=== PATIENT | male | born 1940 | race Caucasian/White ===

== ENCOUNTER 2023-12-30 10:25 | Inpatient (IN) | payer MEDICARE, BC, SELFPAY ==
[2023-12-30] VITALS (12 sets, daily range): BP systolic 91–143; BP diastolic 48–85; PULSE 102–142; RESP 16–24; TEMP 36.3–37.2; O2SAT 88–96; BMI 29.7; BMI 31.1
[2023-12-30] MEDS: 0.9% Normal Saline (1000mL) 1,000 ML 999 ML IV ×2 (10:30→11:38)
--- NOTE | 2023-12-30 10:48 | EKG12_ITS ---
Test Reason : WEAKNESS Blood Pressure : / mmHG Vent. Rate : 104 BPM Atrial Rate : 267 BPM P-R Int : 000 ms QRS Dur : 078 ms QT Int : 326 ms P-R-T Axes : 000 -09 081 degrees QTc Int : 428 ms Atrial flutter with variable A-V block Inferior infarct , age undetermined Anteroseptal infarct , age undetermined Abnormal ECG Confirmed by HEATHER RAI MD ([id number]), assistant production editor AVELINA OLSON ([id number]) on 01/01/2024 7:57:49 AM Referred By: Confirmed By:HEATHER RAI MD
--- NOTE | 2023-12-30 10:57 | NURSING ---
NO OLD EKGS
[2023-12-30 11:32] LABS: Absolute Lymphocyte Count 0.36 X10^3/uL (0.83-4.51); Absolute Neutrophil Count 16.3 X10^3/uL (2.0-7.7); Basophil# 0.03 X10^3/uL; Basophil% 0.2 % (0-1); Eosinophil# 0.01 X10^3/uL; Eosinophils% 0.1 % (0-5); Hematocrit 30.2 % (40-54); Hemoglobin 9.9 g/dL (13.0-16.5); Lymphocyte # 0.36 X10^3/ul (0.83-4.51); Mean Corp Hgb Conc 32.8 g/dL (32-36); Mean Corpuscular Hgb 30.2 pg (27.0-32.0); Mean Corpuscular Volume 92.1 fL (80-94); Mean Platelet Vol. 10.7 fl (6.2-12.0); Monocyte# 0.74 X10^3/uL; Monocyte% 4.2 % (0-10); NRBC Flagged by Analyzer 0 % (0-5); Neutrophil # 16.31 X10^3/uL (2.7-7.7); Neutrophil % 92.3 % (47-70); POSITIVE DIFFERENTIAL YES; Platelet Count 180 K/mm3 (150-450); RBC Distribution Width CV 14.3 % (11.6-14.6); RBC Distribution Width SD 48.3 fl (35.1-43.9); Red Blood Count 3.28 M/mm3 (4.6-6.2); White Blood Count 17.7 K/mm3 (4.4-11.0)
--- NOTE | 2023-12-30 11:40 | RAD_ITS ---
STUDY: X-RAY CHEST REASON FOR EXAM: Male, 83 years old. Weakness TECHNIQUE: Single AP portable view of the chest. COMPARISON: None. FINDINGS: EKG electrodes are seen. Increased linear markings are seen at the left lung base suggestive of either linear atelectasis and/or early infiltrate. There is no demonstrated pleural abnormality. Sternal cerclage wires are present from a prior sternotomy. Prior aortic valve replacement. Normal mediastinum and kiesha. Normal visualized pulmonary arteries. There is atherosclerotic calcification of the aortic arch with tortuosity. There are diffuse degenerative changes of the visualized thoracic spine. There is degenerative osteoarthritis of the bilateral shoulders. There is no demonstrated abnormality of the visualized soft tissue structures of the upper abdomen. RAD/Chest 1 View (Portable) IMPRESSION: Mild increased markings at the left lung base suggestive of bibasilar linear atelectasis and/or early infiltrate. Electronically Signed: Conner Gerber MD at 12:13 EDT ,
[2023-12-30 11:41] LABS: International Normalized Ratio 1.3; Partial Thromboplast Time 34.4 Seconds (24.1-36.2); Prothrombin Time (Protime)PT. 16.4 SECONDS (11.7-14.9)
[2023-12-30 11:46] LABS: Mucous, Urine 0 SEEN /hpf (<or=2+); Squamous Epithelial Cells - UA 0 SEEN /hpf (0-5)
[2023-12-30 11:51] LABS: Color, Urine Yellow (Yellow); Glucose, Dipstick Normal (Normal); Ketone-Dipstick Negative (Negative); Leukocyte Esterase-Dipstick 100 /ul (Negative); Nitrite-Dipstick Negative (Negative); Occult Blood-Urine 25 /ul (Negative); Protein-Dipstick 30 mg/dl (Negative); Urine Clarity Clear (Clear); Urine Urobilinogen Normal (Normal)
[2023-12-30 11:52] LABS: Urine Bilirubin Dipstick 1 mg/dL (Negative)
[2023-12-30 11:56] LABS: AST(SGOT) 84 U/L (15-37); Alanine Aminotransfer ALT/SGPT 122 U/L (16-61); Albumin, Serum 2.3 g/dL (3.2-5.0); Alkaline Phosphatase 197 U/L (45-117); Anion Gap 11 (5-15); BUN 102 mg/dL (7-18); BUN/Creat Ratio 27.3 RATIO (10-20); Bilirubin, Direct 0.17 mg/dL (0.00-0.30); Calcium,Total 8.3 mg/dL (8.5-10.1); Chloride 95 mmol/L (98-107); Creatinine, Serum 3.74 mg/dL (0.70-1.30); EST Glomerular Filtration Rate 17 mL/min (>60); Est Glom Filt Rate - Afr Amer 20 mL/min (>60); Estimated Creatinine Clearance 17.83 ml/min; Glucose 270 mg/dL (74-106); Lactic Acid 1.1 mmol/L (0.4-1.9); Magnesium 2.1 mg/dL (1.6-2.6); Potassium 4.4 mmol/L (3.5-5.1); Protein, Total 5.3 g/dL (6.4-8.2); Sodium Level 125 mmol/L (136-145)
[2023-12-30 11:57] LABS: Bacteria 1+ /hpf (None Seen)
[2023-12-30 11:58] LABS: Red Blood Cells-Urine 0-5 SEEN /hpf (0-5); White Blood Cells 10-25 SEEN /hpf (0-5)
[2023-12-30] MEDS: Piperacil/Tazobactam 3.375 GM in 0.9% Normal Saline (50mL MB+) 50 ML IV ×2 (11:58→20:42)
[2023-12-30] MEDS: Vancomycin HCl 1,500 MG in 0.9% Normal Saline (500mL Bag) 500 ML 250 MG IV (12:27)
--- NOTE | 2023-12-30 12:35 | CT_ITS ---
STUDY: CT ABDOMEN AND PELVIS WITHOUT CONTRAST REASON FOR EXAM: Male, 83 years old. Abd pain RADIATION DOSAGE (If Supplied By Facility): CTDIvol = ( 15.60 ) mGy, DLP = ( 888.60 ) mGycm TECHNIQUE: Transaxial images were obtained from the dome of the diaphragm to the symphysis pubis without oral contrast, and without intravenous contrast. Sagittal and coronal images were reconstructed. Individualized dose optimization techniques were used for this CT. COMPARISON: None. FINDINGS: Mild degree of increased markings at the lung bases slightly more prominent than left lung base. This may represent either atelectasis and/or scarring. Aortic valve replacement. Coronary artery calcification. Normal liver. Small amount of sludge is seen in the dependent portion of the gallbladder lumen. Normal spleen. There is diffuse atrophy of the pancreas. Normal bilateral adrenal glands. Nonobstructive right intrarenal calculus. The largest calculus is in the lower pole and measures 5.1 mm. Mild degree of right hydronephrosis although no obstructive uropathy is seen. There is evidence of a nonobstructed calyx in the lower pole calyx of the left kidney. This measures 9 mm. Normal visualized stomach. Normal small intestine. There are multiple colonic diverticula consistent with diverticulosis. The appendix is visualized and appears normal. There is diffuse atherosclerotic calcification of the abdominal aorta and its major visceral branches, without a demonstrated aneurysm. Normal inferior vena cava. Normal retroperitoneum. A Gillespie catheter is seen within a decompressed urinary bladder. Mild enlargement of the prostate. Normal abdominal wall. There are diffuse degenerative changes of the visualized lumbar spine. Prior interpedicular screw fixation at the L2-L3 and L3-L4 levels. CT/Abdomen/Pelvis without Cont IMPRESSION: Sigmoid diverticulosis. Bilateral nonobstructive intrarenal calculi. Mild degree of right hydronephrosis although no evidence of obstruction at this time. Findings suggestive of sludge in the gallbladder lumen. Electronically Signed: Conner Gerber MD at 13:03 EDT ,
[2023-12-30] MEDS: Ondansetron 4 MG/2 ML Vial IV ×3 (13:28→21:23)
[2023-12-30] MEDS: fentaNYL 100 MCG/2 ML Ampul 25 MCG IV (13:28)
--- NOTE | 2023-12-30 13:31 | EDS_ITS ---
HPI History of Present Illness Chief Complaint: Weakness Informant: patient and family Narrative Narrative: Patient is a 83-year-old male with past medical history of hypertension hyperlipidemia and coronary artery disease as well as a flutter currently on Eliquis and Plavix. He states that he saw his family doctor roughly 1 week ago secondary to difficulty and pain with urination and was placed on Bactrim secondary to a UTI. He states he has been taking it as directed but despite doing so has been having increased generalized weakness. Therefore with concern for worsening infection despite antibiotic use he comes in for evaluation [facility] Medical History (Updated 12/30/23 @ 14:[address] Harley Dillon, DO) Diabetes mellitus, type 2 Hyperlipidemia HTN (hypertension) Atrial flutter Home Medications ?Medication ?Instructions ?Recorded ?Last Taken ?Type apixaban 2.5 mg tablet (Eliquis) 2.5 mg PO BID 12/30/23 Unknown History clopidogrel 75 mg tablet 75 mg PO DAILY 12/30/23 Unknown History losartan 100 mg tablet 100 mg PO DAILY 12/30/23 Unknown History metformin 500 mg tablet 500 mg PO BID 12/30/23 Unknown History metformin 850 mg tablet 850 mg PO BID 12/30/23 Unknown History metoprolol succinate 25 mg 25 mg PO DAILY 12/30/23 Unknown History tablet,extended release 24 hr rosuvastatin 20 mg tablet 20 mg PO DAILY 12/30/23 Unknown History sulfamethoxazole 800 1 tab PO BID 12/30/23 Unknown History mg-trimethoprim 160 mg tablet tramadol 50 mg tablet 50 mg PO 12/30/23 Unknown History Allergy/AdvReac Type Severity Reaction Status Date / Time No Known Allergies Allergy Verified 12/30/23 10:26 Surgical History (Updated 12/30/23 @ 14:[address] Cuong Tucker MD) 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 Social History Smoking Status: Never smoker [facility] ED Constitutional Constitutional ED: Denies chills or fever(s) Eyes Eyes: Denies blurry vision or change in vision ENT ENT ED: Denies sore throat Cardiovascular Cardiovascular: Reports racing heartbeat; Denies chest pain Respiratory/Chest Respiratory/Chest: Denies cough or dyspnea Gastrointestinal Gastrointestinal: Reports abdominal pain; Denies diarrhea, nausea or vomiting Genitourinary Genitourinary ED: Reports dysuria Musculoskeletal Musculoskeletal: Reports myalgias Integumentary Denies rash Neurologic Neurologic: Reports weakness; Denies headache(s) Hematologic/Lymphatic Hematologic/Lymphatic: Reports easy bleeding and easy bruising EXAM Physical Exam Const Vital Signs: 12/30/23 10:26 12/30/23 10:33 12/30/23 10:34 Temperature 98.1 F 98.1 F Temperature Source Oral Oral Pulse Rate 133 H 107 H Respiratory Rate 20 H 18 Respiratory Effort Normal Respiratory Pattern Normal Blood Pressure 91/57 L 92/48 L Blood Pressure Mean 68 62 Pulse Ox 96 96 Oxygen Delivery Method Room Air 12/30/23 11:30 12/30/23 12:25 Temperature 98.2 F Temperature Source Oral Pulse Rate 102 H 113 H Respiratory Rate 24 H 21 H Respiratory Effort Respiratory Pattern Blood Pressure 109/51 L 109/55 L Blood Pressure Mean 70 73 Pulse Ox 95 96 Oxygen Delivery Method Room Air Positive well nourished and well developed General Appearance ED: well developed and pallor HEENT Reports dry mucous membranes HEENT Narrative: No tongue or lip swelling no oral lesions no airway edema or compromise Mucous membranes are dry intact Mouth ED: Yes dry mucous membranes Mouth: dry mucous membranes Eyes PERRL and EOMs intact bilaterally General Eye ED: Yes pale conjunctiva; Negative for scleral icterus Neck supple Neck Narrative: No nuchal rigidity or meningeal signs noted Resp clear to auscultation bilaterally Resp Narrative: Breath sounds are diminished throughout but overall clear to auscultation. Patient is tachypneic however no nasal flaring retractions or accessory muscle use Cardio Rate: other Other Details: Irregular rhythm with tachycardic rate consistent with history of atrial flutter GI non-distended and no masses GI Narrative: Abdomen is soft and nondistended with normal active bowel sounds. There is mild pain with palpation in the lower abdomen diffusely without voluntary guarding or rigidity. No pulsatile mass or fluid wave. No organomegaly noted Auscultation: normoactive bowel sounds Palpation: soft Narrative: No active bleeding or external hemorrhoid noted. Rectal tone is normal. No internal masses palpated. Stool is brown in color but Hemoccult positive Extremity Extremity Narrative: +1-2 pitting edema to the bilateral lower extremities Neuro oriented x3, CN's II-XII intact bilaterally and no sensory deficits noted Sensorium / Orientation: alert Psych mental status grossly normal Skin no rashes or lesions noted Skin Narrative: Skin is pale in color Skin turgor is increased as well General Skin Exam: pallor; Negative for jaundice MDM MDM MDM Narrative Medical decision making narrative: Patient arrived to the ER tachycardic and hypotensive. He reported that he has been on antibiotics for UTI and with his change in vitals and worsening of symptoms there is concern for sepsis. He is pale in color as well and there is concern for acute blood loss anemia/GI bleed as he is on anticoagulation. With high likelihood of sepsis causing his hypotension tachycardia and weakness he wa s started on IV fluids as well as vancomycin and Zosyn. He was given 3 L of IV fluid which is his 30 mL/kg fluid bolus. With adequate hydration his blood pressure improved. His hemoglobin was 9.9 and even though rectal exam was positive for microscopic blood there is no need for a blood transfusion at this time. The patient's labs correlate with sepsis as his white count is 17.7 with left shift as neutrophil count is elevated at 16.3. Patient also has acute kidney injury with his creatinine at approximate 3.75 as chart review reveals that his previous creatinine in October of this year was 1.2. With concern for an obstructing stone leading to urosepsis and CARMEN and noncontrast CT was obtained. This revealed mild hydronephrosis without obvious signs of obstruction. The case was discussed with urology on-call Dr. Sparrow who reviewed the CT scan and corroborates with the radiologist that there is no obvious signs of obstruction and therefore no need for him to perform any type of emergent intervention. The case was then discussed with the hospitalist who agrees with the patient's sepsis and plan of care at this time. As he is not requiring IV vasopressors he will go to the PCU and not ICU and continue with antibiotic therapy and hydration while his vitals and kidney functions are monitored History & Record Review Discussion w/independent historian: Patient and Family Lab Data Attestation: I reviewed the patient's lab results. Labs: Laboratory Results - last 24 hr 12/30/23 12/30/23 11:16 11:30 WBC 17.7 H RBC 3.28 L Hgb 9.9 L Hct 30.2 L MCV 92.1 MCH 30.2 MCHC 32.8 RDW Std Deviation 48.3 H RDW Coeff of Gavin 14.3 Plt Count 180 MPV 10.7 Immature Gran % (Auto) 1.200 H Neut % (Auto) 92.3 H Lymph % (Auto) 2.0 L [place] % (Auto) 4.2 Eos % (Auto) 0.1 Baso % (Auto) 0.2 Absolute Neuts (auto) 16.3 H Absolute Lymphs (auto) 0.36 L Nucleated RBC % 0 PT 16.4 H INR 1.3 APTT 34.4 Sodium 125 L Potassium 4.4 Chloride 95 L Carbon Dioxide 19.0 L Anion Gap 11 BUN 102 H* Creatinine 3.74 H Estim Creat Clear Calc 17.83 Est GFR (MDRD) Af Amer 20 L Est GFR (MDRD) Non-Af 17 L BUN/Creatinine Ratio 27.3 H Glucose 270 H Lactic Acid 1.1 Calcium 8.3 L Magnesium 2.1 Total Bilirubin 0.30 Direct Bilirubin 0.17 AST 84 H ALT 122 H Alkaline Phosphatase 197 H Total Protein 5.3 L Albumin 2.3 L Globulin 3.0 Urine Color Yellow Urine Clarity Clear Urine pH 5.0 Ur Specific [place] 1.020 Urine Protein 30 H Urine Glucose (UA) Normal Urine Ketones Negative Urine Occult Blood 25 H Urine Nitrite Negative Urine Bilirubin 1 H Urine Urobilinogen Normal Ur Leukocyte Esterase 100 H Urine RBC 0-5 SEEN Urine WBC 10-25 SEEN Ur Squamous Epith Cells 0 SEEN Urine Bacteria 1+ Urine Mucus 0 SEEN Blood Type O POSITIVE Antibody Screen NEGATIVE Radiography Diagnostic Testing: Clinical Impression(s) from Imaging Studies Chest X-Ray 12/30/23 11:40 IMPRESSION: Mild increased markings at the left lung base suggestive of bibasilar linear atelectasis and/or early infiltrate. Electronically Signed: Conner Gerber MD at 12:13 EDT , Abdomen/Pelvis CT 12/30/23 12:35 IMPRESSION: Sigmoid diverticulosis. Bilateral nonobstructive intrarenal calculi. Mild degree of right hydronephrosis although no evidence of obstruction at this time. Findings suggestive of sludge in the gallbladder lumen. Electronically Signed: Conner Gerber MD at 13:03 EDT , Chest x-ray as interpreted by the emergency medicine physician reveals atelectasis along the bilateral lower lobes slightly greatest on the left without acute infiltrate Critical Care Time Critical Care Time: Yes Critical care time (excluding procedures): Discussing w/Patient &/or Family/Ditch Tender, Discussing w/Consultants, Arranging Admission or Transfer and - (Critical care time of 37 minutes) Discharge Plan Dx/Rx/DC Orders Clinical Impression: UTI (urinary tract infection), Sepsis, Acute kidney injury, Current use of terminal supervisor anticoagulation, Atrial flutter, GI (gastrointestinal bleed) Disposition Disposition: Acute Care Hospital [facility] Discharge Date/Time: 12/30/23 14:12
--- NOTE | 2023-12-30 14:13 | PCM.HP.STD ---
HPI - General General Date of Admission: 12/30/23 HPI Narrative KIRBY AMAYA, is a 83 M who presents to the hospital after several days of not feeling well. On Thursday of last week he saw his PCP and was diagnosed with a UTI so was started on Bactrim. The urine culture ultimately showed probable contamination. He started to feel much worse on around Thursday but was hoping that it would go away, he has some nausea but no vomiting but his p.o. intake has declined over the last couple days. He presents today because of continued worsening in his symptoms and he feels weak and debilitated. His daughter noted that he is also a little bit more pale than usual. In the ER CT scan shows mild hydronephrosis on the right but nothing significant that would require intervention, he has a new onset renal failure to 3.74 that is likely due to combination of dehydration as well as the Bactrim since he is 83 years old and a BUN of 102. In October his creatinine of 1.2. He is Hemoccult positive and he is on Plavix and Eliquis for A-fib and hemoglobin today is 9.9 which is about a gram lower than it was in October. He is tachypneic with leukocytosis and his UA does show 100 leukocyte esterase with 10-25 white blood cells and 1+ urine bacteria. [facility] Medical History Diabetes mellitus, type 2 Hyperlipidemia HTN (hypertension) Atrial flutter Home Medications ?Medication ?Instructions ?Recorded ?Last Taken ?Type apixaban 2.5 mg tablet (Eliquis) 2.5 mg PO BID 12/30/23 Unknown History clopidogrel 75 mg tablet 75 mg PO DAILY 12/30/23 Unknown History losartan 100 mg tablet 100 mg PO DAILY 12/30/23 Unknown History metformin 500 mg tablet 500 mg PO BID 12/30/23 Unknown History metformin 850 mg tablet 850 mg PO BID 12/30/23 Unknown History metoprolol succinate 25 mg 25 mg PO DAILY 12/30/23 Unknown History tablet,extended release 24 hr rosuvastatin 20 mg tablet 20 mg PO DAILY 12/30/23 Unknown History sulfamethoxazole 800 1 tab PO BID 12/30/23 Unknown History mg-trimethoprim 160 mg tablet tramadol 50 mg tablet 50 mg PO 12/30/23 Unknown History Allergy/AdvReac Type Severity Reaction Status Date / Time No Known Allergies Allergy Verified 12/30/23 10:26 Surgical History 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 Social History Smoking Status: Never smoker ROS Constitutional Constitutional: Reports fatigue, malaise and weakness; Denies chills or fever(s) Eyes Eyes: Denies blurry vision ENT HEENT: Denies headache(s) or nasal discharge Cardiovascular Cardiovascular: Denies chest pain, dyspnea on exertion or syncope Respiratory/Chest Respiratory/Chest: Denies cough, shortness of breath at rest or shortness of breath with exertion Gastrointestinal Gastrointestinal: Reports nausea; Denies constipation, diarrhea or vomiting Genitourinary Genitourinary: Denies dysuria Neurologic Neurologic: Denies focal weakness, numbness or tremor(s) Psychiatric Psychiatric: Denies anxiety or depression Vital Signs Vital Signs Vital Signs: 12/30/23 10:26 12/30/23 10:33 12/30/23 10:34 Temperature 98.1 F 98.1 F Temperature Source Oral Oral Pulse Rate 133 H 107 H Respiratory Rate 20 H 18 Respiratory Effort Normal Respiratory Pattern Normal Blood Pressure 91/57 L 92/48 L Blood Pressure Mean 68 62 Pulse Ox 96 96 Oxygen Delivery Method Room Air 12/30/23 11:30 12/30/23 12:25 12/30/23 14:04 Temperature 98.2 F 97.4 F L Temperature Source Oral Pulse Rate 102 H 113 H 137 H Respiratory Rate 24 H 21 H 24 H Respiratory Effort Respiratory Pattern Blood Pressure 109/51 L 109/55 L 130/85 H Blood Pressure Mean 70 73 100 Pulse Ox 95 96 96 Oxygen Delivery Method Room Air Weight Weight: 207 lb Body Mass Index (BMI) 29.7 Physical Exam Narrative General: Alert, Oriented x3, Cooperative, No apparent distress HEENT: Atraumatic, PERRLA, EOMI, Normocephalic Oral: Dry mucosa Neck: Supple, No JVD Lungs: Diminished, Normal air movement, No rhonchi, No wheeze, No rales Cardiovascular: Irregular rate and rhythm, Normal S1, Normal S2, No murmurs Abdomen: Soft, Non Tender, Non-Distended, No Hepato-splenomegaly Extremities: No edema, Capillary Refill Less than 3 Seconds Skin: No rashes, No breakdown Musculoskeletal: No Tenderness to Palpation of Joints or Extremities Neurological: No focal neurological deficits, Motor Exam 5/5 strength throughout, Sensory exam intact to light touch and pain Psych/Mental Status: Normal Affect, Appropriate Results Lab / Micro Data 12/30/23 11:16 12/30/23 11:16 Labs: Laboratory Results - last 24 hr 12/30/23 11:16: WBC 17.7 H, RBC 3.28 L, Hgb 9.9 L, Hct 30.2 L, MCV 92.1, MCH 30.2, MCHC 32.8, RDW Std Deviation 48.3 H, RDW Coeff of Gavin 14.3, Plt Count 180, MPV 10.7, Immature Gran % (Auto) 1.200 H, Neut % (Auto) 92.3 H, Lymph % (Auto) 2.0 L, [place] % (Auto) 4.2, Eos % (Auto) 0.1, Baso % (Auto) 0.2, Absolute Neuts (auto) 16.3 H, Absolute Lymphs (auto) 0.36 L, Nucleated RBC % 0, PT 16.4 H, INR 1.3, APTT 34.4, Sodium 125 L, Potassium 4.4, Chloride 95 L, Carbon Dioxide 19.0 L, Anion Gap 11, BUN 102 H*, Creatinine 3.74 H, Estim Creat Clear Calc 17.83, Est GFR (MDRD) Af Amer 20 L, Est GFR (MDRD) Non-Af 17 L, BUN/Creatinine Ratio 27.3 H, Glucose 270 H, Lactic Acid 1.1, Calcium 8.3 L, Magnesium 2.1, Total Bilirubin 0.30, Direct Bilirubin 0.17, AST 84 H, ALT 122 H, Alkaline Phosphatase 197 H, Total Protein 5.3 L, Albumin 2.3 L, Globulin 3.0, Blood Type O POSITIVE, Antibody Screen NEGATIVE 12/30/23 11:30: Urine Color Yellow, Urine Clarity Clear, Urine pH 5.0, Ur Specific [place] 1.020, Urine Protein 30 H, Urine Glucose (UA) Normal, Urine Ketones Negative, Urine Occult Blood 25 H, Urine Nitrite Negative, Urine Bilirubin 1 H, Urine Urobilinogen Normal, Ur Leukocyte Esterase 100 H, Urine RBC 0-5 SEEN, Urine WBC 10-25 SEEN, Ur Squamous Epith Cells 0 SEEN, Urine Bacteria 1+, Urine Mucus 0 SEEN Micro: Microbiology 12/30/23 13:15 Stool Stool Occult Blood (SANDY) - Final Occult Blood Positive 12/30/23 11:20 Mucosa - Nasopharyngeal SARS-CoV-2, Influenza & RSV (PCR) - Final Imaging Radiology Impression Chest X-Ray 12/30/23 11:40 IMPRESSION: Mild increased markings at the left lung base suggestive of bibasilar linear atelectasis and/or early infiltrate. Electronically Signed: Conner Gerber MD at 12:13 EDT , Abdomen/Pelvis CT 12/30/23 12:35 IMPRESSION: Sigmoid diverticulosis. Bilateral nonobstructive intrarenal calculi. Mild degree of right hydronephrosis although no evidence of obstruction at this time. Findings suggestive of sludge in the gallbladder lumen. Electronically Signed: Conner Gerber MD at 13:03 EDT , Assessment & Plan Assessment/Plan (1) Sepsis: (2) UTI (urinary tract infection): PLAN: Plan 1. Sepsis secondary to UTI with CARMEN ? He does meet SIRS criteria with tachypnea, white blood cell count, and tachycardia with the source of infection being his urine ? Continue with Zosyn ? Continue with IV fluids and hold any nephrotoxic agents ? Repeat BMP in the morning ? Urine cultures and blood cultures are pending ? No intervention per urology is necessary at this time based on the CT scan findings ? CARMEN is likely due to combination of dehydration and Bactrim 2. Essential HTN/HLD/A-fib?flutter/history of valve replacement/CAD status post CABG ? Will hold his losartan secondary to his CARMEN ? Will hold his Eliquis and his Plavix secondary to his Hemoccult being positive, if hemoglobin stays stable tomorrow can likely be restarted ? Continue with Crestor ? Monitor make adjustments as necessary 3. DM2 ? Will hold metformin ? Sliding scale insulin ? Accu-Cheks ACHS ? Will monitor make adjustments as necessary DVT: SCDs 75 minutes was spent on direct patient care, including documentation as well as chart review and collaboration with colleagues Charges/Coding Visit Charges Inpatient E&M: 63995 Init Hosp L3
[2023-12-30] MEDS: 0.9% Normal Saline (1000mL) 1,000 ML 100 ML IV (16:08)
[2023-12-30] MEDS: Metoprolol(XL)Succ 25 MG Tablet PO (18:00)
[2023-12-30] MEDS: 0.9% Saline Lock 10 ML Syringe IV ×3 (20:42→21:38)
[2023-12-30] MEDS: Digoxin 250 MCG/ML Ampul IV (20:42)
[2023-12-30] MEDS: Insulin Lispro 100 UNIT/ML INSULN.PEN SC (20:48)
[2023-12-30] MEDS: Atorvastatin Calcium 40 MG Tablet PO (20:48)
[2023-12-30 21:01] LABS: Bedside Glucose 184 mg/dL (74-106)
--- NOTE | 2023-12-30 22:06 | CT_ITS ---
EXAM: CT CHEST WITHOUT INTRAVENOUS CONTRAST CLINICAL INDICATION: posible aspiration TECHNIQUE: Helically acquired images were obtained of the chest without intravenous contrast. This CT exam was performed using one or more of the following dose reduction techniques: automated exposure control, adjustment of the mA and/or kV according to patient size, and/or use of iterative reconstruction technique. COMPARISON: CT abdomen and pelvis on the same date. FINDINGS: LUNGS AND PLEURAL SPACES: Groundglass opacities and minimal consolidative airspace disease in the left lower lobe and bandlike opacities which may be atelectasis or scarring in the right lower lobe. No definitive airways filling defects are identified. Subtle groundglass opacities in the right upper lobe. No mass. No pleural effusion or thickening. HEART: Coronary artery calcifications and/or stents. Likely status post CABG. Heart size is normal. No pericardial effusion. MEDIASTINUM: Diffuse esophageal wall thickening perhaps secondary to esophagitis. No mediastinal or hilar adenopathy. No hiatal hernia. THYROID: No significant abnormality. No thyroid lesions. BONES/JOINTS: Median sternotomy. Degenerative changes in the visualized axial and appendicular skeletal structures. Postoperative changes partially visualized in the lumbar spine. No suspicious lytic or blastic abnormality. VASCULATURE: Atherosclerosis of the aorta without evidence of aneurysm. KIDNEYS AND URETERS: Right nephrolithiasis. TUBES, LINES AND DEVICES: Transcatheter aortic valve replacement (TAVR). CT/Chest without Contrast IMPRESSION: 1. Multifocal pneumonia and some air is likely atelectasis. Although no airway filling defects are identified, this may be at least in part due to aspiration as clinically suspected. 2. Diffuse esophageal wall thickening perhaps secondary to esophagitis. Electronically Signed: Joseluis Nunez DO at 23:23 EDT ,
[2023-12-31] VITALS (10 sets, daily range): BP systolic 105–131; BP diastolic 59–73; PULSE 63–137; RESP 16–18; TEMP 36.1–36.4; O2SAT 94–98
[2023-12-31] MEDS: Menthol/Lanolin/Calamine/Znox 113 GM Tube 1 APPLIC TOPICAL ×3 (06:14→23:03)
[2023-12-31 06:25] LABS: Absolute Lymphocyte Count 0.58 X10^3/uL (0.83-4.51); Absolute Neutrophil Count 13.3 X10^3/uL (2.0-7.7); Basophil# 0.04 X10^3/uL; Basophil% 0.3 % (0-1); Eosinophil# 0.01 X10^3/uL; Eosinophils% 0.1 % (0-5); Lymphocyte # 0.58 X10^3/ul (0.83-4.51); Lymphocyte % 3.9 % (19-41); Mean Corp Hgb Conc 33.3 g/dL (32-36); Mean Corpuscular Hgb 30.3 pg (27.0-32.0); Mean Corpuscular Volume 90.9 fL (80-94); Mean Platelet Vol. 10.6 fl (6.2-12.0); Monocyte# 0.83 X10^3/uL; Monocyte% 5.5 % (0-10); NRBC Flagged by Analyzer 0.1 % (0-5); Neutrophil % 88.3 % (47-70); POSITIVE DIFFERENTIAL YES; Platelet Count 202 K/mm3 (150-450); RBC Distribution Width CV 14.3 % (11.6-14.6); RBC Distribution Width SD 47.7 fl (35.1-43.9); White Blood Count 15.1 K/mm3 (4.4-11.0)
[2023-12-31 06:31] LABS: Bedside Glucose 163 mg/dL (74-106)
[2023-12-31 06:44] LABS: Anion Gap 9 (5-15); BUN 95 mg/dL (7-18); BUN/Creat Ratio 30.9 RATIO (10-20); Calcium,Total 8.5 mg/dL (8.5-10.1); Chloride 102 mmol/L (98-107); Creatinine, Serum 3.07 mg/dL (0.70-1.30); EST Glomerular Filtration Rate 21 mL/min (>60); Est Glom Filt Rate - Afr Amer 25 mL/min (>60); Estimated Creatinine Clearance 22.22 ml/min; Glucose 179 mg/dL (74-106); Potassium 4.3 mmol/L (3.5-5.1); Sodium Level 131 mmol/L (136-145)
--- NOTE | 2023-12-31 08:18 | PN.HOSP_ITS ---
Reason for Visit Reason for Visit: Diagnoses Sepsis, unspecified organism (12/30/23) Urinary tract infection, site not specified (12/30/23) Subjective Subjective Feeling better. Objective Data Objective Data Vital Signs: Vital Signs Temp Pulse Resp BP Pulse Ox O2 Del Method O2 Flow Rate 36.1 C L 92 18 115/71 96 Nasal Cannula 2 12/31/23 04:15 12/31/23 04:15 12/31/23 04:15 12/31/23 04:15 12/31/23 07:48 12/31/23 07:48 12/31/23 07:48 Oxygen Flow Rate (L/min) 2 Oxygen Delivery Method Nasal Cannula Weight: 98.6 kg Body Mass Index (BMI) 31.1 Intake & Output: Intake and Output for Last 24 Hours 12/29/23 12/30/23 12/31/23 23:59 23:59 23:59 Intake Total 3388.34 / 3388.34 38.33 / 38.33 Output Total 1100 / 1100 650 / 650 Balance 2288.34 / 2288.34 -611.67 / -611.67 Lab / Micro Data 12/31/23 05:22 12/31/23 05:22 Labs: Laboratory Results - last 24 hr 12/30/23 11:16: WBC 17.7 H, RBC 3.28 L, Hgb 9.9 L, Hct 30.2 L, MCV 92.1, MCH 30.2, MCHC 32.8, RDW Std Deviation 48.3 H, RDW Coeff of Gavin 14.3, Plt Count 180, MPV 10.7, Immature Gran % (Auto) 1.200 H, Neut % (Auto) 92.3 H, Lymph % (Auto) 2.0 L, [place] % (Auto) 4.2, Eos % (Auto) 0.1, Baso % (Auto) 0.2, Absolute Neuts (auto) 16.3 H, Absolute Lymphs (auto) 0.36 L, Nucleated RBC % 0, PT 16.4 H, INR 1.3, APTT 34.4, Sodium 125 L, Potassium 4.4, Chloride 95 L, Carbon Dioxide 19.0 L, Anion Gap 11, BUN 102 H*, Creatinine 3.74 H, Estim Creat Clear Calc 17.83, E st GFR (MDRD) Af Amer 20 L, Est GFR (MDRD) Non-Af 17 L, BUN/Creatinine Ratio 27.3 H, Glucose 270 H, Lactic Acid 1.1, Calcium 8.3 L, Magnesium 2.1, Total Bilirubin 0.30, Direct Bilirubin 0.17, AST 84 H, ALT 122 H, Alkaline Phosphatase 197 H, Total Protein 5.3 L, Albumin 2.3 L, Globulin 3.0, Blood Type O POSITIVE, Antibody Screen NEGATIVE 12/30/23 11:30: Urine Color Yellow, Urine Clarity Clear, Urine pH 5.0, Ur Specific [place] 1.020, Urine Protein 30 H, Urine Glucose (UA) Normal, Urine Ketones Negative, Urine Occult Blood 25 H, Urine Nitrite Negative, Urine Bilirubin 1 H, Urine Urobilinogen Normal, Ur Leukocyte Esterase 100 H, Urine RBC 0-5 SEEN, Urine WBC 10-25 SEEN, Ur Squamous Epith Cells 0 SEEN, Urine Bacteria 1+, Urine Mucus 0 SEEN 12/30/23 20:41: POC Glucose 184 H 12/30/23 21:39: B-Natriuretic Peptide 561.0 H 12/31/23 05:22: WBC 15.1 H, RBC 3.30 L, Hgb 10.0 L, Hct 30.0 L, MCV 90.9, MCH 30.3, MCHC 33.3, RDW Std Deviation 47.7 H, RDW Coeff of Gavin 14.3, Plt Count 202, MPV 10.6, Immature Gran % (Auto) 1.900 H, Neut % (Auto) 88.3 H, Lymph % (Auto) 3.9 L, [place] % (Auto) 5.5, Eos % (Auto) 0.1, Baso % (Auto) 0.3, Absolute Neuts (auto) 13.3 H, Absolute Lymphs (auto) 0.58 L, Nucleated RBC % 0.1, Sodium 131 L, Potassium 4.3, Chloride 102, Carbon Dioxide 20.0 L, Anion Gap 9, BUN 95 H, C reatinine 3.07 H, Estim Creat Clear Calc 22.22, Est GFR (MDRD) Af Amer 25 L, Est GFR (MDRD) Non-Af 21 L, BUN/Creatinine Ratio 30.9 H, Glucose 179 H, Calcium 8.5 12/31/23 06:12: POC Glucose 163 H Micro: Microbiology 12/30/23 13:15 Stool Stool Occult Blood (SANDY) - Final Occult Blood Positive 12/30/23 11:20 Mucosa - Nasopharyngeal SARS-CoV-2, Influenza & RSV (PCR) - Final Radiography Diagnostic Testing: Radiology Impression Chest X-Ray 12/30/23 11:40 IMPRESSION: Mild increased markings at the left lung base suggestive of bibasilar linear atelectasis and/or early infiltrate. Electronically Signed: Conner Gerber MD at 12:13 EDT , Abdomen/Pelvis CT 12/30/23 12:35 IMPRESSION: Sigmoid diverticulosis. Bilateral nonobstructive intrarenal calculi. Mild degree of right hydronephrosis although no evidence of obstruction at this time. Findings suggestive of sludge in the gallbladder lumen. Electronically Signed: Conner Gerber MD at 13:03 EDT , Chest CT 12/30/23 22:06 IMPRESSION: 1. Multifocal pneumonia and some air is likely atelectasis. Although no airway filling defects are identified, this may be at least in part due to aspiration as clinically suspected. 2. Diffuse esophageal wall thickening perhaps secondary to esophagitis. Electronically Signed: Joseluis Nunez DO at 23:23 EDT , Physical Exam Const alert and no apparent distress Constitutional Narrative: Gillespie catheter in place with balta urine HEENT head/scalp atraumatic and moist oral mucous membranes Resp normal respiratory effort, no retractions, no use of accessory muscles and clear to auscultation bilaterally Cardio regular rate, regular rhythm, S1 normal heart sound and S2 normal heart sound GI normal to inspection, nondistended, normoactive bowel sounds, soft to palpation, non-tender and non-distended Extremity normal to inspection and no clubbing, cyanosis or edema Assessment & Plan Assessment/Plan (1) Sepsis: (2) UTI (urinary tract infection): PLAN: Plan Sepsis secondary to pneumonia * Present on admission * SIRS 3/4 (WBC 15.1, heart rate 137, respiratory rate 24), qSOFA 2 with a respiratory rate of 24 and change in mental status. * Suspect due to pneumonia. Possible urinary tract infection. * Follow-up cultures. Check strep and Legionella antigen. Check sputum culture. * Pulmonary toilet * abx w pip/tazo CARMEN v CKD * no known baseline * metformin, bactrim, losartan held * had received IVF. Chronic conditions: * Essential HTN/HLD/A-fib?flutter/history of valve replacement/CAD status post CABG: Will hold his losartan secondary to his CARMEN. Will hold his Eliquis and his Plavix secondary to his Hemoccult being positive, if hemoglobin stays stable tomorrow can likely be restarted. Continue with Crestor. Monitor make adjustments as necessary * DM2: Will hold metformin. Sliding scale insulin VTE prophylaxis with SCDs RAQUEL Gillespie Charges/Coding Visit Charges Inpatient E&M: 23245 Subs Hosp L2
[2023-12-31] MEDS: Metoprolol(XL)Succ 25 MG Tablet PO (10:35)
[2023-12-31] MEDS: Piperacil/Tazobactam 3.375 GM in 0.9% Normal Saline (50mL MB+) 50 ML IV ×2 (10:35→23:02)
[2023-12-31 12:06] LABS: Bedside Glucose 199 mg/dL (74-106)
[2023-12-31] MEDS: Insulin Lispro 100 UNIT/ML INSULN.PEN SC ×3 (12:10→23:35)
--- NOTE | 2023-12-31 14:39 | CASEMGMT ---
Addendum entered by Hermila Antonio 12/31/23 15:22: SW updated patient that [facility] can take him when ready. Hermila MENDOZA Original Note: Therapy is [facility] facility [facility] patient. RN JACKELYN also notified SW that patient is interested in [facility]. SW met with patient. Introduced self and role at [facility]. Patient confirmed he would like to go to [facility]. SW let patient know SW will make a referral. SW also asked patient how he has been doing since his passed in October. Patient stated he is doing okay. His daughter is not too far away and she checks on him daily. SW told patient SW will let him know about TCU. SW made a referral to [facility] and patient was accepted. Plan: d/c to [facility] when medically ready. Hermila MENDOZA
--- NOTE | 2023-12-31 14:55 | CASEMGMT ---
LISA HAYDEN Assessment Face to Face with patient for initial transition planning/care coordination assessment. LISA HAYDEN introduced self and role at [facility], pt voices understanding. Pt is A&Ox4 and is resting comfortably in bed and is calm. Care providers, pharmacy, and demographics verified. Admitting dx: Sepsis LACE Strata: 1 PCP: Raghavendra Christian Specialists: Denies Preferred Pharmacy: [facility] Insurance: [facility] A/B, [place] Prescription Benefit: Yes LNOK: Marcy Manuel (Jesus) Living Arrangements: Pt recently . Pt lives alone in a two story condo with a FFSU and a stair lift and one small step to enter ADLs/IADLs: Ind at BL. Currently requiring assistance Transportation: Self, daughter DME: BGM and supplies. Rollator. FWW. Cane. BP Monitor. Pulse Ox. Walk in shower with chair and grab bars HHC/SNF: Denies HH Hx. States Hx at [facility] 5-10 years ago Pt?s goal: Return to PLOF Plan: Anticipate SNF. Pt states that his has been to the TCU in the past and the pt prefers the TCU but is also willing to review a list of options. SW notified and to f/u with the pt. Mary Beckett RN, CM
--- NOTE | 2023-12-31 16:21 | CHAPLAIN ---
Type of Pastoral Visit _x__ Initial Visit ___ Follow-up Visit ___ On-call Visit ___ General Patient Visit ___ Spiritual Assessment ___ Family Conference ___ Bereavement ___ Rapid Response ___ Code Blue ___ Other (describe below) Pastoral Care Referral From _x__ Patient ___ Family ___ Nurse ___ Physician ___ Airport Control Operator ___ Vocational Training Director ___ Other (describe below) Sacrament/Intervention _x__ Active listening ___ Anointing ___ Shinto _x__ Bereavement ___ Communion _x__ Agnella exploration ___ ___ Life review _x__ Prayer ___ Reconciliation ___ Sacrament of Sick ___ Supportive presence ___ Wedding ___ Other (describe below) Pastoral Comments 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
[2023-12-31 17:05] LABS: Bedside Glucose 212 mg/dL (74-106)
[2023-12-31] MEDS: Bisacodyl 5 MG Tablet 10 MG PO (18:49)
[2023-12-31] MEDS: Atorvastatin Calcium 40 MG Tablet PO (23:04)
[2023-12-31 23:58] LABS: Bedside Glucose 185 mg/dL (74-106)
[2024-01-01] VITALS (11 sets, daily range): BP systolic 101–156; BP diastolic 65–80; PULSE 62–140; RESP 16–18; TEMP 36.1–36.4; O2SAT 92–100
[2024-01-01] MEDS: Acetaminophen 325 MG Tablet 650 MG PO (03:57)
[2024-01-01] MEDS: Menthol/Lanolin/Calamine/Znox 113 GM Tube 1 APPLIC TOPICAL ×3 (06:41→21:30)
[2024-01-01] MEDS: Insulin Lispro 100 UNIT/ML INSULN.PEN SC ×4 (06:43→21:29)
[2024-01-01 07:16] LABS: Bedside Glucose 153 mg/dL (74-106)
[2024-01-01 07:56] LABS: Hematocrit 30.7 % (40-54); Hemoglobin 10.2 g/dL (13.0-16.5); Mean Corp Hgb Conc 33.2 g/dL (32-36); Mean Corpuscular Hgb 30.3 pg (27.0-32.0); Mean Corpuscular Volume 91.1 fL (80-94); Mean Platelet Vol. 10.1 fl (6.2-12.0); POSITIVE COUNT YES; POSITIVE MORPHOLOGY YES; Platelet Count 248 K/mm3 (150-450); RBC Distribution Width CV 14.5 % (11.6-14.6); RBC Distribution Width SD 48.4 fl (35.1-43.9); Red Blood Count 3.37 M/mm3 (4.6-6.2); White Blood Count 12.5 K/mm3 (4.4-11.0)
[2024-01-01 08:05] LABS: Differential Indicated MANUAL DIFF
[2024-01-01 08:15] LABS: Anion Gap 8 (5-15); BUN 78 mg/dL (7-18); BUN/Creat Ratio 39.2 RATIO (10-20); Calcium,Total 8.9 mg/dL (8.5-10.1); Chloride 107 mmol/L (98-107); Creatinine, Serum 1.99 mg/dL (0.70-1.30); EST Glomerular Filtration Rate 34 mL/min (>60); Est Glom Filt Rate - Afr Amer 42 mL/min (>60); Estimated Creatinine Clearance 34.28 ml/min; Glucose 159 mg/dL (74-106); Potassium 4.2 mmol/L (3.5-5.1); Sodium Level 134 mmol/L (136-145)
[2024-01-01] MEDS: Glucerna Shake 120 ML LIQUID PO ×2 (08:30→12:17)
--- NOTE | 2024-01-01 09:01 | PN.HOSP_ITS ---
Reason for Visit Reason for Visit: Diagnoses Sepsis, unspecified organism (12/30/23) Urinary tract infection, site not specified (12/30/23) Subjective Subjective Having retching while he eats. Objective Data Objective Data Vital Signs: Vital Signs Temp Pulse Resp BP Pulse Ox O2 Del Method O2 Flow Rate 36.4 C L 63 16 148/71 H 92 Room Air 2 01/01/24 04:30 01/01/24 04:30 01/01/24 04:30 01/01/24 04:30 01/01/24 07:37 01/01/24 07:37 12/31/23 10:27 Oxygen Flow Rate (L/min) 2 Oxygen Delivery Method Room Air Weight: 98.6 kg Body Mass Index (BMI) 31.1 Intake & Output: Intake and Output for Last 24 Hours 12/30/23 12/31/23 01/01/24 23:59 23:59 23:59 Intake Total 3388.34 / 3388.34 1053.33 / 1053.33 50 / 50 Output Total 1100 / 1100 1350 / 1550 550 / 550 Balance 2288.34 / 2288.34 -296.67 / -496.67 -500 / -500 Lab / Micro Data 01/01/24 07:22 01/01/24 07:22 Labs: Laboratory Results - last 24 hr 12/31/23 11:48: POC Glucose 199 H 12/31/23 16:34: POC Glucose 212 H 12/31/23 23:32: POC Glucose 185 H 01/01/24 06:39: POC Glucose 153 H 01/01/24 07:22: WBC 12.5 H, RBC 3.37 L, Hgb 10.2 L, Hct 30.7 L, MCV 91.1, MCH 30.3, MCHC 33.2, RDW Std Deviation 48.4 H, RDW Coeff of Gavin 14.5, Plt Count 248, MPV 10.1, Neut % (Auto) Not Reportable, Sodium 134 L, Potassium 4.2, Chloride 107, Carbon Dioxide 19.0 L, Anion Gap 8, BUN 78 H, Creatinine 1.99 H, Estim Creat Clear Calc 34.28, Est GFR (MDRD) Af Amer 42 L, Est GFR (MDRD) Non-Af 34 L, BUN/Creatinine Ratio 39.2 H, Glucose 159 H, Calcium 8.9 Micro: Microbiology 12/30/23 11:35 Urine Catheter - Gillespie Legionella Antigen - Final 12/30/23 11:35 Urine Catheter - Gillespie Streptococcus pneumoniae Antigen (M - Final 12/30/23 11:30 Urine, Random Urine Culture - Preliminary GPC Poss Enterococcus sp 12/30/23 13:15 Stool Stool Occult Blood (SANDY) - Final Occult Blood Positive 12/30/23 11:20 Mucosa - Nasopharyngeal SARS-CoV-2, Influenza & RSV (PCR) - Final Physical Exam Const alert and no apparent distress HEENT head/scalp atraumatic and moist oral mucous membranes Resp normal respiratory effort, no retractions, no use of accessory muscles and clear to auscultation bilaterally Cardio regular rate, regular rhythm, S1 normal heart sound and S2 normal heart sound GI normal to inspection, nondistended, normoactive bowel sounds, soft to palpation, non-tender and non-distended Extremity normal to inspection and no clubbing, cyanosis or edema Neuro Sensorium / Orientation: awake and alert Assessment & Plan Assessment/Plan (1) Sepsis: PLAN: Plan Sepsis * secondary to pneumonia * Present on admission * SIRS 3/4 (WBC 15.1, heart rate 137, respiratory rate 24), qSOFA 2 with a respiratory rate of 24 and change in mental status. * Suspect due to pneumonia. Possible urinary tract infection. * Strep and Legionella antigens negative. Urine culture showing 25-50 coliform units of Enterococcus faecalis that is sensitive to ampicillin, linezolid, nitrofurantoin and vancomycin. * Pulmonary toilet * abx w pip/tazo currently. Will change to amp/SB, then could change to amox/CA. CARMEN * improving. no known baseline * metformin, Bactrim, losartan held * had received IVF. * 12/31: Developed A-fib with RVR around 0600. Received one-time dose of 5 mg of IV metoprolol. Heart rate is since improved. Will change his metoprolol succinate 25 mg daily to metoprolol tartrate 25 mg twice daily. Heme positive stools. * Hg stable. Apixaban and clopidogrel currently on hold. Resume in 2 days. Follow up with GI as outpt. Retching * Patient states that he can only eat a little bit that any crutches. However, I reviewed the speech therapy note with he and his daughter and he actually had 2 cookies without difficulty. Recommend that he use Zofran before he eats to see if that helps. Atrial fibrillation * Patient was on Eliquis prior to arrival. * Daughter states that the happened after recent heart surgery. Patient is in A-fib right now. Explained to them both that he likely had atrial fibrillation during that bout. As he is already on anticoagulation. Chronic conditions: * Essential HTN/HLD/history of valve replacement/CAD status post CABG: Will hold his losartan secondary to his CARMEN. Continue with Crestor. Monitor make adjustments as necessary * DM2: Will hold metformin. Sliding scale insulin VTE prophylaxis with SCDs Disposition: Plan to go to custodial facility, the TCU, on the . Charges/Coding Visit Charges Inpatient E&M: 38085 [facility] Hosp L3
[2024-01-01] MEDS: Metoprolol(XL)Succ 25 MG Tablet PO (09:43)
[2024-01-01 09:50] LABS: Absolute Neutrophil Count 10.6 X10^3/uL (2.0-7.7); Eosinophil 1 % (0-5); Lymphocyte 9 % (19-41); Monocyte 4 % (0-10); Neutrophil-Segmented 85 % (47-70); Plasma Cell 1 %; Platelet Estimate ADEQUATE (ADEQ); Red Cell Morphology NORM C+C NORMAL (NORM C&C); Total Cells Counted 100 (MANUAL DIFF)
[2024-01-01] MEDS: Metoprolol Tartrate 5 MG/5 ML Vial IV (10:45)
[2024-01-01] MEDS: 0.9% Saline Lock 10 ML Syringe IV (10:46)
[2024-01-01] MEDS: 0.9% Normal Saline (1000mL) 1,000 ML 15 ML IV (12:21)
[2024-01-01] MEDS: Ampicillin/Sulbactam 3 GM in 0.9% Normal Saline (100mL MB+) 100 ML IV ×3 (12:21→23:04)
[2024-01-01 12:50] LABS: Bedside Glucose 223 mg/dL (74-106)
[2024-01-01 14:30] LABS: Pathologist Review Reviewed
[2024-01-01 17:16] LABS: Bedside Glucose 211 mg/dL (74-106)
[2024-01-01] MEDS: Atorvastatin Calcium 40 MG Tablet PO (21:29)
[2024-01-01] MEDS: Metoprolol Tartrate 25 MG Tablet PO (21:29)
[2024-01-01 22:01] LABS: Bedside Glucose 193 mg/dL (74-106)
[2024-01-02 03:51] VITALS: BP 139/78; PULSE 59; RESP 18; TEMP 36.4; O2SAT 96
[2024-01-02] MEDS: Ampicillin/Sulbactam 3 GM in 0.9% Normal Saline (100mL MB+) 100 ML IV (05:11)
[2024-01-02] MEDS: Menthol/Lanolin/Calamine/Znox 113 GM Tube 1 APPLIC TOPICAL (05:11)
[2024-01-02] MEDS: 0.9% Saline Lock 10 ML Syringe IV (06:20)
[2024-01-02 06:42] LABS: Bedside Glucose 137 mg/dL (74-106)
[2024-01-02 07:00] VITALS: PULSE 115; O2SAT 93
--- NOTE | 2024-01-02 07:59 | PN.HOSP_ITS ---
Reason for Visit Reason for Visit: Diagnoses Sepsis, unspecified organism (12/30/23) Urinary tract infection, site not specified (12/30/23) Subjective Subjective Feeling well. No events. Objective Data Objective Data Vital Signs: Vital Signs Temp Pulse Resp BP Pulse Ox O2 Del Method O2 Flow Rate 36.4 C L 115 H 18 139/78 H 96 Room Air 2 01/02/24 03:51 01/02/24 07:00 01/02/24 03:51 01/02/24 03:51 01/02/24 03:51 01/02/24 03:51 12/31/23 10:27 Oxygen Flow Rate (L/min) 2 Oxygen Delivery Method Room Air Weight: 98.6 kg Body Mass Index (BMI) 31.1 Intake & Output: Intake and Output for Last 24 Hours 12/31/23 01/01/24 01/02/24 23:59 23:59 23:59 Intake Total 1053.33 / 1053.33 2000.75 / 1999.75 362 / 362 Output Total 1350 / 1550 2049 / 2049 900 / 900 Balance -296.67 / -496.67 -49.25 / -49.25 -538 / -538 Lab / Micro Data 01/01/24 07:22 01/01/24 07:22 Labs: Laboratory Results - last 24 hr 01/01/24 07:22: WBC 12.5 H, RBC 3.37 L, Hgb 10.2 L, Hct 30.7 L, MCV 91.1, MCH 30.3, MCHC 33.2, RDW Std Deviation 48.4 H, RDW Coeff of Gavin 14.5, Plt Count 248, MPV 10.1, Neut % (Auto) Not Reportable, Absolute Neuts (auto) 10.6 H, Absolute Lymphs (auto) 1.10, Total Counted 100, Neutrophils % (Manual) 85 H, Lymphocytes % (Manual) 9 L, Monocytes % (Manual) 4, Eosinophils % (Manual) 1, Plasma Cell % (Manual) 1, Diff Path Review Reviewed, Platelet Estimate ADEQUATE, RBC Morphology NORM C+C, Sodium 134 L, Potassium 4.2, Chloride 107, Carbon Dioxide 19.0 L, Anion Gap 8, BUN 78 H, Creatinine 1.99 H, Estim Creat Clear Calc 34.28, Est GFR (MDRD) Af Amer 42 L, Est GFR (MDRD) Non-Af 34 L, BUN/Creatinine Ratio 39.2 H, Glucose 159 H, Calcium 8.9 01/01/24 12:11: POC Glucose 223 H 01/01/24 16:53: POC Glucose 211 H 01/01/24 21:23: POC Glucose 193 H 01/02/24 06:18: POC Glucose 137 H Micro: Microbiology 12/30/23 11:30 Urine, Random Urine Culture - Final Enterococcus faecalis 12/30/23 11:16 Blood Culture (Wb) - Anticubital Left Blood Culture - Preliminary No growth in 48 hours. 12/30/23 11:35 Urine Catheter - Gillespie Legionella Antigen - Final 12/30/23 11:35 Urine Catheter - Gillespie Streptococcus pneumoniae Antigen (M - Final 12/30/23 13:15 Stool Stool Occult Blood (SANDY) - Final Occult Blood Positive 12/30/23 11:20 Mucosa - Nasopharyngeal SARS-CoV-2, Influenza & RSV (PCR) - Final Physical Exam Const alert and no apparent distress HEENT head/scalp atraumatic and moist oral mucous membranes Resp normal respiratory effort, no retractions, no use of accessory muscles and clear to auscultation bilaterally Cardio regular rate, regular rhythm, S1 normal heart sound and S2 normal heart sound GI normal to inspection, nondistended, normoactive bowel sounds, soft to palpation, non-tender and non-distended Assessment & Plan Assessment/Plan (1) Sepsis: PLAN: Plan Sepsis * secondary to pneumonia. * Present on admission * SIRS 3/4 (WBC 15.1, heart rate 137, respiratory rate 24), qSOFA 2 with a respiratory rate of 24 and change in mental status. * Suspect due to pneumonia. Possible urinary tract infection. * Strep and Legionella antigens negative. Urine culture showing 25-50 coliform units of Enterococcus faecalis that is sensitive to ampicillin, linezolid, nitrofurantoin and vancomycin. * Pulmonary toilet * abx w pip/tazo currently. Will change to amp/SB, then could change to amox/CA. CARMEN * improving. no known baseline * metformin, Bactrim, losartan held * had received IVF. * 12/31: Developed A-fib with RVR around 0600. Received one-time dose of 5 mg of IV metoprolol. Heart rate is since improved. Will change his metoprolol succinate 25 mg daily to metoprolol tartrate 25 mg twice daily. Heme positive stools. * Hg stable. Apixaban and clopidogrel currently on hold. Resume in 2 days. Follow up with GI as outpt. Retching * Patient states that he can only eat a little bit that any crutches. However, I reviewed the speech therapy note with he and his daughter and he actually had 2 cookies without difficulty. Recommend that he use Zofran before he eats to see if that helps. Atrial fibrillation * Patient was on Eliquis prior to arrival. * Daughter states that the happened after recent heart surgery. Patient is in A-fib right now. Explained to them both that he likely had atrial fibrillation during that bout. As he is already on anticoagulation. * Heart rate overall improved and been started on metoprolol tartrate 50 mg twice daily. Chronic conditions: * Essential HTN/HLD/history of valve replacement/CAD status post CABG: Will hold his losartan secondary to his CARMEN. Continue with Crestor. Monitor make adjustments as necessary * DM2: Will hold metformin. Sliding scale insulin VTE prophylaxis with SCDs Disposition: Plan to go to correction facility, the TCU, on the .
[2024-01-02 08:31] VITALS: BP 160/73; PULSE 113; RESP 18; TEMP 36.4; O2SAT 98
[2024-01-02] MEDS: Glucerna Shake 120 ML LIQUID PO (08:40)
[2024-01-02 08:41] VITALS: PULSE 115
[2024-01-02] MEDS: Metoprolol Tartrate 25 MG Tablet PO (08:41)
--- NOTE | 2024-01-02 09:34 | TREXTCAR_ITS ---
Diet Diet Order/Speech Therapy: 12/31/23 14:36 Carb [Diet: Carbohydrate Controlled] Type of Dietary Supplement:: Tyler Diet Comments: orange Tyler w/breakfast and dinner Routine Orders/Code Status Code Status: Full Code Wound(s) lt elbow: Wound Type: Skin Tear lt buttock: Wound Type: Pressure Injury Therapies Weight Bearing: Full weight bearing Physical Therapy: Eval and Treat Occupational Therapy: Eval and Treat Problem/Diagnosis (1) Sepsis: Status: Acute Code(s): A41.9 - Sepsis, unspecified organism Plan Sepsis * secondary to pneumonia. * Present on admission * SIRS 3/4 (WBC 15.1, heart rate 137, respiratory rate 24), qSOFA 2 with a respiratory rate of 24 and change in mental status. * Suspect due to pneumonia. Possible urinary tract infection. * Strep and Legionella antigens negative. Urine culture showing 25-50 coliform units of Enterococcus faecalis that is sensitive to ampicillin, linezolid, nitrofurantoin and vancomycin. * Pulmonary toilet * abx w pip/tazo currently. Will change to amp/SB, then could change to amox/CA. CARMEN * improving. no known baseline * metformin, Bactrim, losartan held * had received IVF. * 12/31: Developed A-fib with RVR around 0600. Received one-time dose of 5 mg of IV metoprolol. Heart rate is since improved. Will change his metoprolol succinate 25 mg daily to metoprolol tartrate 25 mg twice daily. Heme positive stools. * Hg stable. Apixaban and clopidogrel currently on hold. Resume in 2 days. Follow up with GI as outpt. Retching * Patient states that he can only eat a little bit that any crutches. However, I reviewed the speech therapy note with he and his daughter and he actually had 2 cookies without difficulty. Recommend that he use Zofran before he eats to see if that helps. Atrial fibrillation * Patient was on Eliquis prior to arrival. * Daughter states that the happened after recent heart surgery. Patient is in A-fib right now. Explained to them both that he likely had atrial fibrillation during that bout. As he is already on anticoagulation. * Heart rate overall improved and been started on metoprolol tartrate 50 mg twice daily. Chronic conditions: * Essential HTN/HLD/history of valve replacement/CAD status post CABG: Will hold his losartan secondary to his CARMEN. Continue with Crestor. Monitor make adjustments as necessary * DM2: Will hold metformin. Sliding scale insulin VTE prophylaxis with SCDs Disposition: Plan to go to halfway facility, the TCU, on the . Allergies/Procedures Done in Hospital Allergies No Known Allergies Allergy (Verified 12/30/23 10:26) Procedures: None Type of Care/Length of Stay Estimated LOS: Convalescent Care Less Than 30 days Type of Care Needed: Skilled Rehab Potential: Good Prognosis: Good Additional Orders/Day of Discharge Day of Discharge: 01/02/24 Dietary and Speech Recommendations Dietitian Recommendations/Changes: Adjust to consistent carb diet d/t diabetes. Will order 120ml chocolate glucerna TID with medpass, as appetite is poor. Will d/c glucerna, as appetite improves. Will order 1 packet of orange tyler BID with breakfast and dinner to promote wound healing. Will monitor weight, as available. Reviewed and approved by Johana Ortiz RDN, LD. Discharge Plan Admission Admit Date/Time: 12/30/23 13:29 Primary Reason for Your Visit: Pneumonia Attending Provider: Yoan Patel Primary Care Provider: Raghavendra Christian Consulting Providers: Cuong Tucker Discharge Orders/Prescriptions Prescriptions: New acetaminophen 325 mg Tablet 650 mg PO Q6H PRN PRN (Reason: Pain 1-10 Or Fever) Qty: 0 0RF metoprolol tartrate 25 mg Tablet 25 mg PO BID Qty: 0 0RF amoxicillin-pot clavulanate 875-125 mg tablet 1 tab PO BID Qty: 8 0RF Continued losartan 100 mg tablet 100 mg PO DAILY rosuvastatin 20 mg tablet 20 mg PO DAILY metformin 850 mg tablet 850 mg PO BID tramadol 50 mg tablet 50 mg PO Held clopidogrel 75 mg tablet 75 mg PO DAILY Hold Instructions: Resume on 01/04/24. Eliquis 2.5 mg tablet 2.5 mg PO BID Hold Instructions: Resume on 01/04/24. Discontinued metformin 500 mg tablet 500 mg PO BID sulfamethoxazole-trimethoprim 800-160 mg tablet 1 tab PO BID metoprolol succinate 25 mg tablet extended release 24 hr 25 mg PO DAILY Referrals / Follow Up: [facility] [Provider Group] - Within 3 Months Raghavendra Christian MD [Primary Care Provider] - Within 2 Weeks Disposition Disposition (needs filled in before D/C Order can be placed): Detention Facility
--- NOTE | 2024-01-02 12:32 | DS.PCM_ITS ---
Providers Date of Admission: 12/30/23 Primary Care Physician: Dr. Raghavendra Christian MD Reason For Visit: SEPSIS Diagnosis Discharge Diagnosis (1) Sepsis: Status: Acute Code(s): A41.9 - Sepsis, unspecified organism Plan Sepsis * secondary to pneumonia. * Present on admission * SIRS 3/4 (WBC 15.1, heart rate 137, respiratory rate 24), qSOFA 2 with a respiratory rate of 24 and change in mental status. * Suspect due to pneumonia. Possible urinary tract infection. * Strep and Legionella antigens negative. Urine culture showing 25-50 coliform units of Enterococcus faecalis that is sensitive to ampicillin, linezolid, nitrofurantoin and vancomycin. * Pulmonary toilet * abx w pip/tazo currently. Will change to amp/SB, then could change to amox/CA. CARMEN * improving. no known baseline * metformin, Bactrim, losartan held * had received IVF. * 12/31: Developed A-fib with RVR around 0600. Received one-time dose of 5 mg of IV metoprolol. Heart rate is since improved. Will change his metoprolol succinate 25 mg daily to metoprolol tartrate 25 mg twice daily. Heme positive stools. * Hg stable. Apixaban and clopidogrel currently on hold. Resume in 2 days. Follow up with GI as outpt. Retching * Patient states that he can only eat a little bit that any crutches. However, I reviewed the speech therapy note with he and his daughter and he actually had 2 cookies without difficulty. Recommend that he use Zofran before he eats to see if that helps. Atrial fibrillation * Patient was on Eliquis prior to arrival. * Daughter states that the happened after recent heart surgery. Patient is in A-fib right now. Explained to them both that he likely had atrial fibrillation during that bout. As he is already on anticoagulation. * Heart rate overall improved and been started on metoprolol tartrate 50 mg twice daily. Chronic conditions: * Essential HTN/HLD/history of valve replacement/CAD status post CABG: Will hold his losartan secondary to his CARMEN. Continue with Crestor. Monitor make adjustments as necessary * DM2: Will hold metformin. Sliding scale insulin VTE prophylaxis with SCDs Disposition: Plan to go to snf facility, the TCU, on the . Medications at Discharge Home Medications apixaban 2.5 mg tablet (Eliquis) 2.5 mg PO BID Anticoagulant 12/30/23 clopidogrel 75 mg tablet 75 mg PO DAILY Anticoagulant 12/30/23 losartan 100 mg tablet 100 mg PO DAILY BP 12/30/23 metformin 850 mg tablet 850 mg PO BID Diabetes 12/30/23 rosuvastatin 20 mg tablet 20 mg PO DAILY Cholesterol 12/30/23 tramadol 50 mg tablet 50 mg PO Q6H Pain 12/30/23 acetaminophen 325 mg tablet 650 mg (2 x 325 mg) PO Q6H PRN PRN Pain 1-10 Or Fever #0 tabs 01/02/24 amoxicillin 875 mg-potassium clavulanate 125 mg tablet 1 tab PO BID Antibiotic #8 tabs 01/02/24 metoprolol tartrate 25 mg tablet 25 mg PO BID BP #0 tabs 01/02/24 Hospital Course Operations None Procedures None Summary of Care Provided Minutes Spent on Discharge: 33 Hospital Course: Patient presents with sepsis most likely due to pneumonia. Urine culture was positive for Enterococcus but the Contiform units were rather low. But CAT scan did not show evidence of pneumonia. Patient was on antibiotics and will be transitioned over to Augmentin upon discharge. He did have heme positive stools but his hemoglobin remained stable. Patient will be discharged to the transitional care unit in stable condition Weight / BMI Weight Weight: 98.6 kg Body Mass Index (BMI) 31.1 ABG / Lab / Microbiology Data 01/01/24 07:22 01/01/24 07:22 Laboratory: Laboratory Results - last 24 hr 01/01/24 07:22: Diff Path Review Reviewed 01/01/24 12:11: POC Glucose 223 H 01/01/24 16:53: POC Glucose 211 H 01/01/24 21:23: POC Glucose 193 H 01/02/24 06:18: POC Glucose 137 H Microbiology: Microbiology 12/30/23 11:30 Urine, Random Urine Culture - Final Enterococcus faecalis 12/30/23 11:16 Blood Culture (Wb) - Anticubital Left Blood Culture - Preliminary No growth in 48 hours. 12/30/23 11:35 Urine Catheter - Gillespie Legionella Antigen - Final 12/30/23 11:35 Urine Catheter - Gillespie Streptococcus pneumoniae Antigen (M - Final 12/30/23 13:15 Stool Stool Occult Blood (SANDY) - Final Occult Blood Positive 12/30/23 11:20 Mucosa - Nasopharyngeal SARS-CoV-2, Influenza & RSV (PCR) - Final D/C Instructions Discharge Diet: No restrictions Meaningful Use Info Meaningful Use Meaningful Use Diagnoses (Choose all that apply): None applicable Ischemic Stroke Statin Dosing Therapy Reference: STATIN DOSE THERAPY REFERENCE: * Patients > 75 years receive moderate or high dose statin therapy. * Patients 75 years or YOUNGER should receive HIGH intensity statin dose unless contraindicated. You will be required to document reason for non-treatment if statin daily dose does not meet guidelines. HIGH DOSE STATIN THERAPY DAILY Atorvastatin > than or = to 40 mg Rosuvastatin > than or = to 20 mg Amlodipine + Atorvastatin > than or = to 2.5/40 mg Ezetimibe + Simvastatin 10/80 mg Simvastatin 80mg Discharge Plan Admission Admit Date/Time: 12/30/23 13:29 Primary Reason for Your Visit: Pneumonia Attending Provider: Yoan Patel Primary Care Provider: Raghavendra Christian Consulting Providers: Cuong Tucker Discharge Orders/Prescriptions Prescriptions: New acetaminophen 325 mg Tablet 650 mg PO Q6H PRN PRN (Reason: Pain 1-10 Or Fever) Qty: 0 0RF metoprolol tartrate 25 mg Tablet 25 mg PO BID Qty: 0 0RF amoxicillin-pot clavulanate 875-125 mg tablet 1 tab PO BID Qty: 8 0RF Continued losartan 100 mg tablet 100 mg PO DAILY rosuvastatin 20 mg tablet 20 mg PO DAILY metformin 850 mg tablet 850 mg PO BID tramadol 50 mg tablet 50 mg PO Q6H Held clopidogrel 75 mg tablet 75 mg PO DAILY Hold Instructions: Resume on 01/04/24. Eliquis 2.5 mg tablet 2.5 mg PO BID Hold Instructions: Resume on 01/04/24. Discontinued metformin 500 mg tablet 500 mg PO BID sulfamethoxazole-trimethoprim 800-160 mg tablet 1 tab PO BID metoprolol succinate 25 mg tablet extended release 24 hr 25 mg PO DAILY Referrals / Follow Up: [facility] [Provider Group] - Within 3 Months Raghavendra Christian MD [Primary Care Provider] - Within 2 Weeks Disposition Disposition (needs filled in before D/C Order can be placed): [facility] Charges/Coding Visit Charges Inpatient E&M: 15811 Disch Hosp >30min
== END 2024-01-02 11:00 | disposition skilled nursing facility (03) | DRG 871 ==
LOC: ED 13:33 → PCU 14:04
PROVIDERS: Internal Medicine; Admitting Provider Family Medicine; Emergency Provider Emergency Medicine; PCP Family Medicine
DX: A41.9 Sepsis, unspecified organism (principal); J18.9 Pneumonia, unspecified organism; N17.9 Acute kidney failure, unspecified; N39.0 Urinary tract infection, site not specified; E11.9 Type 2 diabetes mellitus without complications; I10 Essential (primary) hypertension; I48.91 Unspecified atrial fibrillation; E78.5 Hyperlipidemia, unspecified; I25.10 Atherosclerotic heart disease of native coronary artery without angina pectoris; B95.2 Enterococcus as the cause of diseases classified elsewhere; Z79.01 Long term (current) use of anticoagulants; Z79.899 Other long term (current) drug therapy; Z79.84 Long term (current) use of oral hypoglycemic drugs; Z95.1 Presence of aortocoronary bypass graft
CPT/HCPCS: 36415; 51702; 71045; 71250; 74176; 80048; 80076; 81001; 82274; 82962; 83605; 83735; 83880; 85025; 85610; 85730; 86850; 86900; 86901; 87040; 87077; 87086; 87088; 87186; 87449; 87631; 92610; 93005; 94667; 94668; 97162; 97166; 97802; 99284; J7030; J7040; J7050; A4216; J0295; J2405

== ENCOUNTER 2024-01-02 12:08 | Inpatient (IN) | payer MEDICARE, BC, SELFPAY ==
[2024-01-02 11:40] VITALS: BP 148/86; PULSE 111; RESP 16; TEMP 36.1; O2SAT 96; BMI 37.2
[2024-01-02 12:15] LABS: Bedside Glucose 214 mg/dL (74-106)
--- NOTE | 2024-01-02 12:33 | HP.PCM_ITS ---
HPI - General General Date of Admission: 01/02/24 Date of Service: 01/04/24 Chief Complaint: Here for rehabilitation. HPI Narrative 12/30/2023 KIRBY AMAYA, is a 83 Male who presents to [facility] ED with weakness. 1 week ago, saw PCP for dysuria, urinary hesitancy, treated for UTI with Bactrim. Worsening weakness, presented to ED. Tachycardic, hypotensive. Vancomycin, Zosyn, IV fluids given for sepsis. 3 liters IV fluid given, blood pressure improved. Hemoglobin 9.9, Hemoccult positive, Creatinine 3.75. CT abdomen/pelvis showed mild hydronephrosis, no obstruction. 12/30/2023 Admit [facility]. Zosyn, IV fluids for sepsis, uti, urine culture pending, blood culture pending. IV fluids for CARMEN, monitor BMP. Hold Losartan for CARMEN. Hold Eliquis, Plavix 2/2 +Hemoccult. 12/30/2023 CT chest showed multifocal pneumonia. 12/31/2023 Feeling better. Zosyn IV for sepsis, pneumonia, UTI. Check urinary antigens, sputum culture for pneumonia. IV fluids for CARMEN. Hold metformin, use SSI for Type 2 Diabetes Mellitus. 01/01/2024 Change Zosyn to Unasyn for pneumonia/UTI, then discharge on Augmentin. Strep antigen negative, Legionella antigen negative. Urine culture 25,000 to 50,000 E. Faecalis. CARMEN improved with IV fluids. 01/02/2024 Admit to TCU with debility, here for rehabilitation, strengthening, prior to discharge home alone. [facility] Medical History (Updated 01/02/24 @ 12:[address] Sergio Wagner MD) Diabetes mellitus, type 2 Hyperlipidemia HTN (hypertension) Atrial flutter Home Medications ?Medication ?Instructions ?Recorded ?Last Taken ?Type apixaban 2.5 mg tablet (Eliquis) 2.5 mg PO BID Anticoagulant 12/30/23 Unknown History clopidogrel 75 mg tablet 75 mg PO DAILY Anticoagulant 12/30/23 Unknown History losartan 100 mg tablet 100 mg PO DAILY BP 12/30/23 Unknown History metformin 850 mg tablet 850 mg PO BID Diabetes 12/30/23 Unknown History rosuvastatin 20 mg tablet 20 mg PO DAILY Cholesterol 12/30/23 01/01/24 21:25 History tramadol 50 mg tablet 50 mg PO Q6H Pain 12/30/23 Unknown History acetaminophen 325 mg tablet 650 mg (2 x 325 mg) PO Q6H PRN PRN 01/02/24 01/02/24 03:55 Rx Pain 1-10 Or Fever #0 tabs amoxicillin 875 mg-potassium 1 tab PO BID Antibiotic #8 tabs 01/02/24 Unknown Rx clavulanate 125 mg tablet metoprolol tartrate 25 mg tablet 25 mg PO BID BP #0 tabs 01/02/24 01/02/24 08:45 Rx Allergy/AdvReac Type Severity Reaction Status Date / Time No Known Allergies Allergy Verified 12/30/23 10:26 Surgical History 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 Social History (Updated 01/02/24 @ 12:[address] Sergio Wagner MD) household members: none Smoking Status: Never smoker alcohol intake: never substance use type: does not use ROS Constitutional Constitutional: Reports weakness; Denies chills, fever(s) or weight gain ENT HEENT: Denies headache(s), nasal congestion or nasal discharge Cardiovascular Cardiovascular: Denies chest pain or palpitations Respiratory/Chest Respiratory/Chest: Denies cough, excessive phlegm production or shortness of breath with exertion Gastrointestinal Gastrointestinal: Denies abdominal pain, nausea or vomiting Genitourinary Genitourinary: Denies dysuria Musculoskeletal Musculoskeletal: Denies joint pain or joint swelling Integumentary Integumentary: Denies rash or wounds Neurologic Neurologic: Denies focal weakness, numbness or tingling Psychiatric Psychiatric: Denies anxiety, auditory hallucinations, depression, homicidal ideation or suicidal ideation Vital Signs Vital Signs Vital Signs: 01/02/24 11:40 Temperature 96.9 F L Temperature Source Temporal Pulse Rate 111 H Respiratory Rate 16 Blood Pressure 148/86 H Blood Pressure Mean 106 Pulse Ox 96 Oxygen Delivery Method Room Air Weight Weight: 117.6 kg Body Mass Index (BMI) 37.2 Physical Exam Const alert General Appearance: cooperative HEENT normocephalic Eyes PERRL and EOMs intact bilaterally Neck supple, no JVD and no carotid bruits Resp normal respiratory effort, normal air movement and clear to auscultation bilaterally Cardio regular rate and regular rhythm GI normal to inspection, nondistended, normoactive bowel sounds, non-tender and non-distended Extremity normal capillary refill General Extremity: Negative for edema Skin no rashes or lesions noted General Skin Exam: no breakdown Psych affect normal Appearance: appropriate Results Lab / Micro Data 01/03/24 06:10 01/03/24 06:10 Labs: Laboratory Results - last 24 hr 01/02/24 11:57: POC Glucose 214 H Assessment & Plan Assessment/Plan (1) Debility: (2) Sepsis: (3) Pneumonia: (4) UTI (urinary tract infection): (5) Acute kidney injury: (6) Anemia: (7) Blood in stool: (8) Essential (primary) hypertension: (9) Hyperlipidemia: (10) Coronary artery disease: (11) Atrial flutter: (12) Diabetes mellitus type 2 in nonobese: PLAN: Plan 83 year old male with below past medical history hospitalized for sepsis 2/2 pneumonia/urinary tract infection, complicated by acute kidney injury, anemia, blood in stool, admitted to TCU with debility, here for rehabilitation, strengthening, prior to discharge home alone. * Debility - PT/OT. * Dysphagia - ST. * Pain - Tylenol 1000mg q6 prn pain (1-5), Tramadol 50mg q6 prn pain (6-10). * Bowel - senna/colace 1 tablet bid, Magnesium citrate 300ml po daily prn. * Adult immunization - Administer pneumonia vaccine, covid vaccine, flu vaccine as appropriate. * DVT prophylaxis - on Eliquis. * Pneumonia/urinary tract infection - Augmentin 875mg bidcm thru 01/09/2024. * Atrial Flutter - Metoprolol 25mg bid, Eliquis 2.5mg bid. * Hyperlipidemia - Atorvastatin 40mg qhs. * Coronary artery disease - Metoprolol 25mg bid, Losartan 100mg daily, Plavix 75mg daily, Eliquis 2.5mg bid. * Nutrition - Glucerna Shake 120ml po tidcm. * Diabetes Mellitus II - Metformin 850mg po bidcm.
[2024-01-02] MEDS: Glucerna Shake 120 ML LIQUID PO ×2 (13:28→17:54)
[2024-01-02 15:27] VITALS: BMI 27.8
--- NOTE | 2024-01-02 15:28 | NURSING ---
PT. reweighed due to pt. concern for inaccuracy.
[2024-01-02 16:43] LABS: Bedside Glucose 220 mg/dL (74-106)
[2024-01-02] MEDS: metFORMIN HCl 850 MG Tablet PO (17:55)
[2024-01-02] MEDS: Amox/Clavulanate 875 MG Tablet PO (17:55)
[2024-01-02] MEDS: Senna/Docusate Sodium 1 Tablet PO (21:29)
[2024-01-02] MEDS: Atorvastatin Calcium 40 MG Tablet PO (21:29)
[2024-01-02 21:30] VITALS: BP 132/78; PULSE 92
[2024-01-02] MEDS: Metoprolol Tartrate 25 MG Tablet PO (21:30)
[2024-01-02 21:33] VITALS: BP 132/78; PULSE 92
[2024-01-02 22:45] LABS: Bedside Glucose 223 mg/dL (74-106)
[2024-01-03 06:40] LABS: Bedside Glucose 151 mg/dL (74-106)
[2024-01-03 06:52] LABS: Hematocrit 30.5 % (40-54); Mean Corp Hgb Conc 32.8 g/dL (32-36); Mean Corpuscular Hgb 30.3 pg (27.0-32.0); Mean Corpuscular Volume 92.4 fL (80-94); Mean Platelet Vol. 9.4 fl (6.2-12.0); POSITIVE COUNT YES; POSITIVE MORPHOLOGY YES; Platelet Count 296 K/mm3 (150-450); RBC Distribution Width CV 14.6 % (11.6-14.6); RBC Distribution Width SD 49.1 fl (35.1-43.9)
[2024-01-03 07:04] LABS: Differential Indicated MANUAL DIFF
[2024-01-03 07:17] LABS: Anion Gap 6 (5-15); BUN 48 mg/dL (7-18); BUN/Creat Ratio 36.4 RATIO (10-20); Calcium,Total 9.1 mg/dL (8.5-10.1); Chloride 109 mmol/L (98-107); Creatinine, Serum 1.32 mg/dL (0.70-1.30); EST Glomerular Filtration Rate 55 mL/min (>60); Est Glom Filt Rate - Afr Amer 67 mL/min (>60); Estimated Creatinine Clearance 49.04 ml/min; Glucose 171 mg/dL (74-106); Potassium 4.5 mmol/L (3.5-5.1); Sodium Level 137 mmol/L (136-145)
[2024-01-03] MEDS: Losartan Potassium 100 MG Tablet PO (08:19)
[2024-01-03] MEDS: metFORMIN HCl 850 MG Tablet PO ×2 (08:19→17:36)
[2024-01-03 08:20] VITALS: BP 126/61; PULSE 59
[2024-01-03] MEDS: Glucerna Shake 120 ML LIQUID PO ×3 (08:20→17:35)
[2024-01-03] MEDS: Metoprolol Tartrate 25 MG Tablet PO ×2 (08:20→20:55)
[2024-01-03] MEDS: Amox/Clavulanate 875 MG Tablet PO ×2 (08:20→17:36)
[2024-01-03] MEDS: Senna/Docusate Sodium 1 Tablet PO (08:20)
[2024-01-03 08:48] LABS: Lymphocyte 11 % (19-41); Metamyelocyte 1 % (0-1); Monocyte 12 % (0-10); Myelocyte 5 % (0-0); Neutrophil-Band 1 % (0-5); Neutrophil-Segmented 69 % (47-70); Promyelocyte 1 % (0-0); Total Cells Counted 100 (MANUAL DIFF)
[2024-01-03 08:49] LABS: Anisocytosis 1+; Atypical Lymphocyte 1+ %; Platelet Estimate ADEQUATE (ADEQ); Platelet Morphology GIANT; Polychromasia RARE
[2024-01-03] MEDS: Tuberculin,Purif.prot.deriv. 50 TU/ML Vial 0.1 ML ID (09:45)
[2024-01-03 11:49] LABS: Bedside Glucose 186 mg/dL (74-106)
[2024-01-03 14:05] VITALS: BP 128/64; PULSE 88; RESP 18; TEMP 36.8; O2SAT 96
[2024-01-03 16:35] LABS: Bedside Glucose 196 mg/dL (74-106)
[2024-01-03 20:53] VITALS: BP 128/67; PULSE 60
[2024-01-03] MEDS: Menthol/Lanolin/Calamine/Znox 113 GM Tube 1 APPLIC TOPICAL (20:54)
[2024-01-03 20:55] VITALS: BP 128/67; PULSE 60
[2024-01-03] MEDS: Atorvastatin Calcium 40 MG Tablet PO (20:55)
[2024-01-03 21:46] LABS: Bedside Glucose 190 mg/dL (74-106)
[2024-01-04 06:39] VITALS: PULSE 90; RESP 16; O2SAT 96
[2024-01-04 07:22] LABS: Bedside Glucose 141 mg/dL (74-106)
[2024-01-04 09:07] VITALS: PULSE 90
[2024-01-04] MEDS: metFORMIN HCl 850 MG Tablet PO ×2 (09:07→17:58)
[2024-01-04] MEDS: Clopidogrel Bisulfate 75 MG Tablet PO (09:07)
[2024-01-04] MEDS: Losartan Potassium 100 MG Tablet PO (09:07)
[2024-01-04] MEDS: Metoprolol Tartrate 25 MG Tablet PO ×2 (09:07→21:43)
[2024-01-04] MEDS: Amox/Clavulanate 875 MG Tablet PO ×2 (09:08→17:58)
[2024-01-04] MEDS: Glucerna Shake 120 ML LIQUID PO ×2 (09:13→17:58)
[2024-01-04] MEDS: FLU VACCINE **HIGH DOSE** TV 24-25 180 MCG/0.5 ML SYRINGE IM (09:13)
[2024-01-04] MEDS: Menthol/Lanolin/Calamine/Znox 113 GM Tube 1 APPLIC TOPICAL ×2 (09:13→21:43)
[2024-01-04 09:30] LABS: Pathologist Review Reviewed
--- NOTE | 2024-01-04 10:30 | CASEMGMT ---
Addendum entered by Amanda Burnett 01/04/24 10:32: SW requested pt to have dtr provide copies of advanced directives. Original Note: Social Work SW met with patient to complete initial assessment. Introduced self and role. Verified contacts. Patient confirmed code status as full code. Educated to Medicare benefit and copay coverage. Pt's goal is to return home alone at [facility]. Pt will have no one to assist at DC. SW will continue to follow for DC planning. CHADD DavidW
[2024-01-04 11:43] LABS: Bedside Glucose 170 mg/dL (74-106)
--- NOTE | 2024-01-04 12:21 | NURSING ---
Floor Worker Note; Activity Asset: Earl Addison is independent in his choice of daily activities. He has just lost his in October and his daughter brings him things he needs. He enjoys read and has his own books along with his smartphone. Staff will remind him of weekly activities and respect his right to say no.
[2024-01-04 14:47] VITALS: BP 127/64; PULSE 116; RESP 12; TEMP 36.2; O2SAT 97
[2024-01-04 16:51] LABS: Bedside Glucose 154 mg/dL (74-106)
[2024-01-04 21:43] VITALS: BP 132/69; PULSE 61
[2024-01-04] MEDS: Atorvastatin Calcium 40 MG Tablet PO (21:43)
[2024-01-04] MEDS: APIXABAN 2.5 MG TABLET (WCH) PO (21:43)
[2024-01-04 21:47] LABS: Bedside Glucose 157 mg/dL (74-106)
[2024-01-05 06:47] LABS: Bedside Glucose 112 mg/dL (74-106)
[2024-01-05 08:00] VITALS: BP 140/69; PULSE 60; RESP 16; TEMP 36.2; O2SAT 97
[2024-01-05] MEDS: Glucerna Shake 120 ML LIQUID PO ×3 (08:01→17:23)
[2024-01-05] MEDS: Losartan Potassium 100 MG Tablet PO (08:03)
[2024-01-05] MEDS: metFORMIN HCl 850 MG Tablet PO ×2 (08:03→17:19)
[2024-01-05] MEDS: APIXABAN 2.5 MG TABLET (WCH) PO ×2 (08:03→21:35)
[2024-01-05] MEDS: Clopidogrel Bisulfate 75 MG Tablet PO (08:03)
[2024-01-05] MEDS: Amox/Clavulanate 875 MG Tablet PO ×2 (08:03→17:18)
[2024-01-05 08:04] VITALS: PULSE 60
[2024-01-05] MEDS: Metoprolol Tartrate 25 MG Tablet PO ×2 (08:04→21:36)
[2024-01-05] MEDS: Menthol/Lanolin/Calamine/Znox 113 GM Tube 1 APPLIC TOPICAL ×2 (08:05→21:34)
[2024-01-05 10:33] VITALS: BMI 26.1
[2024-01-05 11:30] LABS: Bedside Glucose 135 mg/dL (74-106)
--- NOTE | 2024-01-05 15:10 | PCM.PN.DRR ---
TCU RX Drug Regimen Review Subjective/Objective Subjective/Objective: Subjective: TCU admission note. 83 year old male with below past medical history hospitalized for sepsis 2/2 pneumonia/urinary tract infection, complicated by acute kidney injury, anemia, blood in stool, admitted to TCU with debility, here for rehabilitation, strengthening, prior to discharge home alone. Objective: Allergies No Known Allergies Allergy (Verified 12/30/23 10:26) Current Medications Generic Name Dose Route Start Last Admin Trade Name Freq PRN Reason Stop Dose Admin Acetaminophen 1,000 mg 01/02/24 12:48 Acetaminophen 500 Mg Tablet PO Q6H PRN PRN Pain Score 1-5 Amoxicillin/Clavulanate Potassium 875 mg 01/02/24 17:00 01/05/24 08:03 Amox/Clavulanate 875 Mg Tablet PO 01/09/24 23:59 875 mg BIDCM CONNIE Administration Apixaban 2.5 mg 01/04/24 22:00 01/05/24 08:03 Apixaban 2.5 Mg Tablet (Wc) PO 2.5 mg BID CONNIE Administration Atorvastatin Calcium 40 mg 01/02/24 22:00 01/04/24 21:43 Atorvastatin Calcium 40 Mg Tablet PO 40 mg QHS CONNIE Administration COVID-19 Vaccine mRNA LNP-S (MOD) (PF) 50 mcg 01/05/24 17:00 Covid Vac 24-25 (12up)(Moderna)/Pf 50 Mcg/0.5 Ml Syringe IM 01/05/24 17:01 .ONCE ONE Calamine/Phenol 1 applic 01/03/24 22:00 01/05/24 08:05 Menthol/Lanolin/Calamine/Znox 113 Gm Tube TOPICAL 1 applic BID CONNIE Administration Protocol Clopidogrel Bisulfate 75 mg 01/04/24 10:00 01/05/24 08:03 Clopidogrel Bisulfate 75 Mg Tablet PO 75 mg DAILY CONNIE Administration Losartan Potassium 100 mg 01/03/24 10:00 01/05/24 08:03 Losartan Potassium 100 Mg Tablet PO 100 mg DAILY CONNIE Administration Protocol Magnesium Citrate 300 ml 01/02/24 12:47 Magnesium Citrate 300 Ml PO DAILY PRN Constipation Metformin HCl 850 mg 01/02/24 17:00 01/05/24 08:03 Metformin Hcl 850 Mg Tablet PO 850 mg BIDCM CONNIE Administration Metoprolol Tartrate 25 mg 01/02/24 22:00 01/05/24 08:04 Metoprolol Tartrate 25 Mg Tablet PO 25 mg BID CONNIE Administration Protocol Nutritional Formula (Lactose Free) 120 ml 01/02/24 12:45 01/05/24 13:14 Glucerna Shake 120 Ml Liquid PO 120 ml TIDCM CONNIE Administration Senna/Docusate Sodium 1 tablet 01/02/24 22:00 01/05/24 08:03 Senna/Docusate Sodium 1 Tablet PO Not Given BID CONNIE Sodium Chloride 10 - 40 ml 01/02/24 11:54 0.9% Saline Lock 10 Ml Syringe IV UD PRN SALINE FLUSH Tramadol HCl 50 mg 01/02/24 12:48 Tramadol 50 Mg Tablet PO Q6H PRN PRN Pain Score 6-10 or Pre PT/OT Tuberculin PPD 0.1 ml 01/10/24 10:00 Tuberculin,Purif.Prot.Deriv. 50 Tu/Ml Vial ID 01/10/24 10:01 X1 ONE Problem List Diabetes mellitus type 2 in nonobese (Acute) Coronary artery disease (Acute) Hyperlipidemia (Acute) Essential (primary) hypertension (Acute) Blood in stool (Acute) Anemia (Acute) Pneumonia (Acute) Debility (Acute) Atrial flutter (Acute) Acute kidney injury (Acute) Sepsis (Acute) UTI (urinary tract infection) (Acute) Vital Signs Temp Pulse Resp BP Pulse Ox O2 Del Method 97.2 F L 60 16 140/69 H 97 Room Air 01/05/24 08:00 01/05/24 08:04 01/05/24 08:00 01/05/24 08:00 01/05/24 08:00 01/05/24 08:00 Oxygen Delivery Method Room Air Weight: 82.599 kg Body Mass Index (BMI) 26.1 Sodium 137 mmol/L (136-145) 01/03/24 06:10 Potassium 4.5 mmol/L (3.5-5.1) 01/03/24 06:10 Chloride 109 mmol/L (98-107) H 01/03/24 06:10 Carbon Dioxide 22.0 mmol/L (21.0-32.0) 01/03/24 06:10 Anion Gap 6 (5-15) 01/03/24 06:10 BUN 48 mg/dL (7-18) H 01/03/24 06:10 Creatinine 1.32 mg/dL (0.70-1.30) H 01/03/24 06:10 Est GFR (MDRD) Af Amer 67 mL/min (>60) 01/03/24 06:10 Est GFR (MDRD) Non-Af 55 mL/min (>60) L 01/03/24 06:10 BUN/Creatinine Ratio 36.4 RATIO (10-20) H 01/03/24 06:10 Glucose 171 mg/dL (74-106) H 01/03/24 06:10 Assessment/Plan: 1. Pain: acetaminophen 1000 mg PO Q6H PRN pain (1-5), tramadol 50 mg PO Q6H PRN pain (6-10). The patient has not required PRN acetaminophen or tramadol so far this admission. Please continue to monitor pain levels, PRN medication usage, LFTs (AST/ALT = 84/122 U/L on 12/30/23), renal function (serum creatinine = 1.32 mg/dL with creatinine clearance ~ 49 mL/min on 01/03/24), for drowsiness, respiratory depression, dizziness/ataxia/falls with tramadol administration. 2. Bowel: senna/docusate 1 tablet PO BID, magnesium citrate 300 mL PO daily PRN constipation. The patient has not required any PRN magnesium citrate administrations so far this admission, and the patient's last bowel movement is documented as 01/04/24. Please continue to monitor for constipation/diarrhea, for PRN magnesium citrate administration, and for bowel movements. 3. Pneumonia/urinary tract infection: Augmentin 875/125 mg PO BID with meals through 01/09/24. Please continue to monitor for s/s of infection such as fever (recent temp = 97.2 F), chills, white blood cell count (WBC = 10.0 K/mm3 on 01/03/24), renal function (serum creatinine = 1.32 mg/dL with creatinine clearance ~ 49 mL/min on 01/03/24), for GI distress and for diarrhea with Augmentin administration. 4. Atrial flutter/coronary artery disease/hyperlipidemia: apixaban 2.5 mg PO BID, atorvastatin 40 mg PO daily, clopidogrel 75 mg PO daily, losartan 100 mg PO daily, metoprolol tartrate 25 mg PO BID. Please continue to monitor for s/s of stroke, for chest pain, for s/s of bleeding/excessive bruising, hemoglobin levels (Hgb = 10.0 g/dL on 01/03/24), platelet count (plt = 296 K/mm3 on 01/03/24), renal function (serum creatinine = 1.32 mg/dL with creatinine clearance ~ 49 mL/min on 01/03/24), LFTs (AST/ALT = 84/122 U/L on 12/30/23), lipid levels (no recent lipid levels documented), for myalgias, blood pressures (recent range = 126-160/61-86 mmHg), hear rates (recent range = 59-116 beats/min), potassium levels (K = 4.5 mmol/L on 01/03/24), sodium levels (Na = 137 mmol/L on 01/03/24), and for fatigue. Please consider increasing the patient's apixaban to 5 mg PO BID as the patient is over 80, but does not meet either of the other two criteria (weight < 60 kg, serum creatinine > 1.5). Also please consider ordering lipid levels as the patient does not have recent lipid levels documented. 5. Diabetes Mellitus II: metformin 850 mg PO BID with meals. Please continue to monitor blood glucose levels (recent range = 112-170 mg/dL), hemoglobin A1C levels (no recent A1C level documented), vitamin B12 levels (no recent vitamin B12 levels documented), renal function (serum creatinine = 1.32 mg/dL with eGFR ~ 55 mL/min on 01/03/24), and for GI distress with metformin administration. 6. Skin irritation: calmoseptine 1 application topically BID. Please continue to monitor for skin irritation. 7. Nutrition: glucerna shake 120 mL PO TID with meals. Please continue to monitor nutritional status. Assessment/Plan for indications treated with psychotropic medications: NA Medical chart and medication regimen reviewed. The following medication irregularities or issues were identified: 1. Atrial flutter/coronary artery disease/hyperlipidemia: apixaban 2.5 mg PO BID, atorvastatin 40 mg PO daily, clopidogrel 75 mg PO daily, losartan 100 mg PO daily, metoprolol tartrate 25 mg PO BID. Please consider increasing the patient's apixaban to 5 mg PO BID as the patient is over 80, but does not meet either of the other two criteria (weight < 60 kg, serum creatinine > 1.5). Also please consider ordering lipid levels as the patient does not have recent lipid levels documented. 2. Diabetes Mellitus II: metformin 850 mg PO BID with meals. Please consider obtaining A1C and B12 levels if clinically indicated. Date Date of Note:: 01/05/24
[2024-01-05 17:04] LABS: Bedside Glucose 125 mg/dL (74-106)
[2024-01-05] MEDS: COVID VAC 24-25 (12UP)(MODERNA)/PF 50 MCG/0.5 ML SYRINGE IM (17:19)
[2024-01-05 20:00] VITALS: PULSE 62; RESP 16; O2SAT 94
[2024-01-05 21:34] VITALS: BP 120/64; PULSE 61
[2024-01-05 21:36] VITALS: BP 120/64; PULSE 61
[2024-01-05] MEDS: Atorvastatin Calcium 40 MG Tablet PO (21:36)
[2024-01-05 21:51] LABS: Bedside Glucose 120 mg/dL (74-106)
[2024-01-06 06:39] LABS: Bedside Glucose 98 mg/dL (74-106)
[2024-01-06 08:30] VITALS: BP 112/56; PULSE 112
[2024-01-06] MEDS: metFORMIN HCl 850 MG Tablet PO ×2 (08:30→17:47)
[2024-01-06] MEDS: Metoprolol Tartrate 25 MG Tablet PO ×2 (08:30→20:59)
[2024-01-06] MEDS: Amox/Clavulanate 875 MG Tablet PO ×2 (08:30→17:47)
[2024-01-06] MEDS: Losartan Potassium 100 MG Tablet PO (08:31)
[2024-01-06] MEDS: APIXABAN 2.5 MG TABLET (WCH) PO (08:31)
[2024-01-06] MEDS: Glucerna Shake 120 ML LIQUID PO ×3 (08:31→17:47)
[2024-01-06] MEDS: Clopidogrel Bisulfate 75 MG Tablet PO (08:32)
[2024-01-06] MEDS: Menthol/Lanolin/Calamine/Znox 113 GM Tube 1 APPLIC TOPICAL ×2 (08:35→20:57)
[2024-01-06] MEDS: Ondansetron ODT 4 MG Tablet PO (08:35)
[2024-01-06 11:14] LABS: Bedside Glucose 175 mg/dL (74-106)
[2024-01-06 11:17] VITALS: BP 118/59; PULSE 59; RESP 16; TEMP 36.3; O2SAT 96
--- NOTE | 2024-01-06 13:03 | CASEMGMT ---
Social Work IDT met with patient and dtr for care plan meeting. Discussed patient's progress in PT/OT/SN. Educated to Medicare benefit. Provided pt/family with written communication on insurnace process and copay coverage during stay. Pt's goal is to return home alone and Mod I. Dtr works multimedia services manager and cannot assist outside of daily check-ins. [facility]. will continue to follow. CHADD DavidW
--- NOTE | 2024-01-06 14:44 | CASEMGMT ---
Social Work SW conducted BIMS () and PHQ-2 () completed for MDS assessment. Amanda Burnett MSW IS ANALYST
[2024-01-06 16:29] LABS: Bedside Glucose 111 mg/dL (74-106)
[2024-01-06 17:43] LABS: Hematocrit 28.2 % (40-54); Hemoglobin 9.1 g/dL (13.0-16.5)
[2024-01-06 20:59] VITALS: BP 110/57; PULSE 61
[2024-01-06] MEDS: Atorvastatin Calcium 40 MG Tablet PO (20:59)
[2024-01-06] MEDS: Senna/Docusate Sodium 1 Tablet PO (20:59)
[2024-01-06 21:02] VITALS: BP 110/57; PULSE 61
[2024-01-06 21:38] LABS: Bedside Glucose 122 mg/dL (74-106)
[2024-01-07] VITALS (7 sets, daily range): BP systolic 102–127; BP diastolic 50–58; PULSE 60–105; RESP 16; TEMP 35.9–36.2; O2SAT 92–97; BMI 26.1
[2024-01-07 06:24] LABS: Bedside Glucose 94 mg/dL (74-106)
[2024-01-07] MEDS: Amox/Clavulanate 875 MG Tablet PO ×2 (08:19→16:24)
[2024-01-07] MEDS: Metoprolol Tartrate 25 MG Tablet PO ×2 (08:19→21:16)
[2024-01-07] MEDS: Losartan Potassium 100 MG Tablet PO (08:19)
[2024-01-07] MEDS: Menthol/Lanolin/Calamine/Znox 113 GM Tube 1 APPLIC TOPICAL ×2 (08:20→21:15)
--- NOTE | 2024-01-07 11:00 | NURSING ---
pt off unit to endo via bed at this time
--- NOTE | 2024-01-07 11:26 | MDS.RN ---
MDS pain interview complete.
--- NOTE | 2024-01-07 15:30 | NURSING ---
Addendum entered by Estefany Dai 01/07/24 17:06: pt to start on protonix 40mg BID x12 wks, sucralfate 1gm QID x4wks, hold eliquis for now, no restart date entered as of yet. Original Note: pt back from endo. alert & oriented.
[2024-01-07] MEDS: Glucerna Shake 120 ML LIQUID PO (16:24)
[2024-01-07] MEDS: metFORMIN HCl 850 MG Tablet PO (16:24)
--- NOTE | 2024-01-07 18:22 | EX.PCM.CON.G ---
HPI Consult Data Date of Consult: 01/07/24 HPI Narrative Reason for Consultation: anemia HPI Narrative: KIRBY AMAYA, is a 83 M who presented to the hospital after several days of not feeling well. On Thursday of last week he saw his PCP and was diagnosed with a UTI so was started on Bactrim. The urine culture ultimately showed probable contamination. He started to feel much worse on around Thursday but was hoping that it would go away, he has some nausea but no vomiting but his p.o. intake has declined over the last couple days. He presents today because of continued worsening in his symptoms and he feels weak and debilitated. His daughter noted that he is also a little bit more pale than usual. In the ER CT scan shows mild hydronephrosis on the right but nothing significant that would require intervention, he has a new onset renal failure to 3.74 that is likely due to combination of dehydration as well as the Bactrim since he is 83 years old and a BUN of 102. In October his creatinine of 1.2. He is Hemoccult positive and he is on Plavix and Eliquis for A-fib and hemoglobin today is 9.9 which is about a gram lower than it was in October. He is tachypneic with leukocytosis and his UA does show 100 leukocyte esterase with 10-25 white blood cells and 1+ urine bacteria. secondary to pneumonia. Suspect due to pneumonia. Possible urinary tract infection. Strep and Legionella antigens negative. Urine culture showing 25-50 coliform units of Enterococcus faecalis that is sensitive to ampicillin, linezolid, nitrofurantoin and vancomycin. Pulmonary toilet abx w pip/tazo transition to amox/CA. CARMEN improving. no known baseline metformin, Bactrim, losartan held had received IVF. While in the hospital he developed A-fib with RVR. Received one-time dose of 5 mg of IV metoprolol. Heart rate is since improved. Will change his metoprolol succinate 25 mg daily to metoprolol tartrate 25 mg twice daily.Heme positive stools. Hg stable. Apixaban and clopidogrel currently on hold. We will perform an upper endoscopy evaluate his upper GI tract and possibly a colonoscopy. He was explained alternatives, risk and benefits including outstanding bleeding, infection, sepsis, perforation, need for more charge and . He will have an ASA of 3. [facility] Medical History Diabetes mellitus, type 2 Hyperlipidemia HTN (hypertension) Atrial flutter Home Medications ?Medication ?Instructions ?Recorded ?Last Taken ?Type apixaban 2.5 mg tablet (Eliquis) 2.5 mg PO BID Anticoagulant 12/30/23 01/06/24 History clopidogrel 75 mg tablet 75 mg PO DAILY Anticoagulant 12/30/23 01/06/24 History losartan 100 mg tablet 100 mg PO DAILY BP 12/30/23 01/07/24 History metformin 850 mg tablet 850 mg PO BID Diabetes 12/30/23 Unknown History rosuvastatin 20 mg tablet 20 mg PO DAILY Cholesterol 12/30/23 01/06/24 History tramadol 50 mg tablet 50 mg PO Q6H Pain 12/30/23 Unknown History acetaminophen 325 mg tablet 650 mg (2 x 325 mg) PO Q6H PRN PRN 01/02/24 01/02/24 03:55 Rx Pain 1-10 Or Fever #0 tabs amoxicillin 875 mg-potassium 1 tab PO BID Antibiotic #8 tabs 01/02/24 01/07/24 Rx clavulanate 125 mg tablet metoprolol tartrate 25 mg tablet 25 mg PO BID BP #0 tabs 01/02/24 01/07/24 Rx pantoprazole 40 mg tablet,delayed 40 mg PO BID #168 tabs 01/07/24 Unknown Rx release sucralfate 1 gram tablet 1 g PO BID #64 tabs 01/07/24 Unknown Rx Allergy/AdvReac Type Severity Reaction Status Date / Time No Known Allergies Allergy Verified 01/07/24 11:25 Surgical History 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 Social History household members: none Smoking Status: Never smoker alcohol intake: never substance use type: does not use ROS Constitutional Constitutional: Reports weakness; Denies chills, fever(s) or weight gain ENT HEENT: Denies headache(s), nasal congestion or nasal discharge Cardiovascular Cardiovascular: Denies chest pain or palpitations Respiratory/Chest Respiratory/Chest: Denies cough, excessive phlegm production or shortness of breath with exertion Gastrointestinal Gastrointestinal: Denies abdominal pain, nausea or vomiting Genitourinary Genitourinary: Denies dysuria Musculoskeletal Musculoskeletal: Denies joint pain or joint swelling Integumentary Integumentary: Denies rash or wounds Neurologic Neurologic: Denies focal weakness, numbness or tingling Psychiatric Psychiatric: Denies anxiety, auditory hallucinations, depression, homicidal ideation or suicidal ideation Physical Exam Const alert General Appearance: cooperative HEENT normocephalic Eyes PERRL and EOMs intact bilaterally Neck supple, no JVD and no carotid bruits Resp normal respiratory effort, normal air movement and clear to auscultation bilaterally Cardio regular rate and regular rhythm GI normal to inspection, nondistended, normoactive bowel sounds, non-tender and non-distended Extremity normal capillary refill General Extremity: Negative for edema Skin no rashes or lesions noted General Skin Exam: no breakdown Psych affect normal Appearance: appropriate Medical Records Data Medical Nutrition Assessment Dietitian: Malnutrition Criteria Met Start: 01/03/24 12:12 Freq: Status: Active Protocol: Document 01/03/24 12:12 SLA (Rec: 01/03/24 12:12 SLA [id number]) Nutrition Malnutrition Evidence of Malnutrition Exists Yes Malnutrition (severe): Acute Illness/Injury Evidenced By Suboptimal Energy Intake ( Severe),Weight Loss (Severe) Clinical Problem Acute Disease or Injury Related Malnutrition Etiology related to acute illness and suboptimal energy intake Signs/Symptoms as evidenced ~3% unintended wt loss and po intake 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 Lab / Micro Data 01/06/24 17:35 01/03/24 06:10 Labs: Laboratory Results - last 24 hr 01/06/24 21:11: POC Glucose 122 H 01/07/24 05:48: POC Glucose 94 Assessment & Plan Assessment/Plan (1) GI (gastrointestinal bleed): PLAN: He will undergo an upper endoscopy to evaluate his upper GI tract. He was explained alternatives, risk, benefits include not withstanding bleeding, infection, sepsis, perforation, need for return to . He will have an ASA of 3. Charges/Coding Visit Charges Inpatient E&M: 36673 SNF Init L2
--- NOTE | 2024-01-07 18:42 | NURSING ---
daughter took EGD pics & [employer] clip card w/information.
--- NOTE | 2024-01-07 19:03 | NURSING ---
pt family called nurse to room, concerned about LT arm/hand edema. pt noted to have JOEY wrap applied early AM to keep dressing intact to LT elbow skin tear. Came back from EGD and hand with increased edema. removed JOEY wrap. elevated on 2 pillows. pt denies pain. resting in bed.
[2024-01-07] MEDS: 0.9% Saline Lock 10 ML Syringe IV (19:51)
[2024-01-07] MEDS: Atorvastatin Calcium 40 MG Tablet PO (21:17)
[2024-01-07] MEDS: Senna/Docusate Sodium 1 Tablet PO (21:17)
[2024-01-07] MEDS: Pantoprazole Sodium 40 MG Tablet PO (21:18)
[2024-01-07 22:28] LABS: Bedside Glucose 163 mg/dL (74-106)
[2024-01-08] MEDS: Sucralfate 1 GM Tablet PO ×2 (06:00→16:19)
[2024-01-08 06:20] LABS: Absolute Lymphocyte Count 1.09 X10^3/uL (0.83-4.51); Absolute Neutrophil Count 6.7 X10^3/uL (2.0-7.7); Basophil# 0.05 X10^3/uL; Basophil% 0.5 % (0-1); Eosinophil# 0.18 X10^3/uL; Eosinophils% 1.9 % (0-5); Hematocrit 27.2 % (40-54); Hemoglobin 8.7 g/dL (13.0-16.5); Lymphocyte # 1.09 X10^3/ul (0.83-4.51); Lymphocyte % 11.5 % (19-41); Mean Corpuscular Volume 93.8 fL (80-94); Monocyte# 0.97 X10^3/uL; Monocyte% 10.2 % (0-10); NRBC Flagged by Analyzer 0 % (0-5); Neutrophil # 6.73 X10^3/uL (2.7-7.7); Neutrophil % 71.1 % (47-70); Platelet Count 262 K/mm3 (150-450); RBC Distribution Width CV 14.7 % (11.6-14.6); RBC Distribution Width SD 50.8 fl (35.1-43.9); White Blood Count 9.5 K/mm3 (4.4-11.0)
[2024-01-08 06:37] LABS: Bedside Glucose 102 mg/dL (74-106)
[2024-01-08 07:01] LABS: Anion Gap 6 (5-15); BUN 40 mg/dL (7-18); BUN/Creat Ratio 37.4 RATIO (10-20); Chloride 106 mmol/L (98-107); Creatinine, Serum 1.07 mg/dL (0.70-1.30); EST Glomerular Filtration Rate 70 mL/min (>60); Est Glom Filt Rate - Afr Amer 85 mL/min (>60); Estimated Creatinine Clearance 55.91 ml/min; Glucose 99 mg/dL (74-106); Potassium 4.5 mmol/L (3.5-5.1); Sodium Level 136 mmol/L (136-145)
[2024-01-08 09:01] VITALS: BP 117/61; PULSE 61
[2024-01-08] MEDS: Amox/Clavulanate 875 MG Tablet PO ×2 (09:01→17:21)
[2024-01-08] MEDS: metFORMIN HCl 850 MG Tablet PO ×2 (09:01→17:21)
[2024-01-08] MEDS: Pantoprazole Sodium 40 MG Tablet PO ×2 (09:01→23:51)
[2024-01-08] MEDS: Losartan Potassium 100 MG Tablet PO (09:01)
[2024-01-08] MEDS: Metoprolol Tartrate 25 MG Tablet PO ×2 (09:01→23:50)
[2024-01-08] MEDS: Clopidogrel Bisulfate 75 MG Tablet PO (09:01)
[2024-01-08] MEDS: Menthol/Lanolin/Calamine/Znox 113 GM Tube 1 APPLIC TOPICAL ×2 (09:02→23:47)
[2024-01-08] MEDS: Glucerna Shake 120 ML LIQUID PO ×3 (09:03→17:22)
[2024-01-08 11:45] LABS: Bedside Glucose 174 mg/dL (74-106)
[2024-01-08] MEDS: 0.9% Saline Lock 10 ML Syringe IV ×2 (12:12→23:47)
[2024-01-08 16:00] VITALS: BP 108/60; PULSE 80; RESP 16; TEMP 35.9; O2SAT 100
[2024-01-08 17:08] LABS: Bedside Glucose 110 mg/dL (74-106)
[2024-01-08 21:58] LABS: Bedside Glucose 95 mg/dL (74-106)
[2024-01-08 23:50] VITALS: BP 125/60; PULSE 60
[2024-01-08] MEDS: Atorvastatin Calcium 40 MG Tablet PO (23:50)
[2024-01-08 23:56] VITALS: BP 125/60; PULSE 60
[2024-01-09] MEDS: Sucralfate 1 GM Tablet PO ×2 (06:05→16:12)
[2024-01-09 06:45] LABS: Bedside Glucose 87 mg/dL (74-106)
[2024-01-09 07:10] LABS: Hematocrit 28.3 % (40-54); Hemoglobin 9.1 g/dL (13.0-16.5)
[2024-01-09 07:32] VITALS: RESP 16; O2SAT 96
[2024-01-09 08:49] VITALS: BP 93/48; PULSE 74; RESP 17; TEMP 35.9; O2SAT 99
[2024-01-09] MEDS: Menthol/Lanolin/Calamine/Znox 113 GM Tube 1 APPLIC TOPICAL ×2 (08:53→21:21)
[2024-01-09] MEDS: Clopidogrel Bisulfate 75 MG Tablet PO (08:53)
[2024-01-09] MEDS: metFORMIN HCl 850 MG Tablet PO ×2 (08:53→18:17)
[2024-01-09] MEDS: Amox/Clavulanate 875 MG Tablet PO ×2 (08:53→18:17)
[2024-01-09] MEDS: Pantoprazole Sodium 40 MG Tablet PO ×2 (08:54→21:21)
[2024-01-09] MEDS: Glucerna Shake 120 ML LIQUID PO ×3 (08:56→18:17)
[2024-01-09 11:19] VITALS: BP 124/67
[2024-01-09 11:21] VITALS: PULSE 70
[2024-01-09] MEDS: Losartan Potassium 100 MG Tablet PO (11:21)
[2024-01-09] MEDS: Metoprolol Tartrate 25 MG Tablet PO ×2 (11:21→21:21)
[2024-01-09 11:26] LABS: Bedside Glucose 146 mg/dL (74-106)
[2024-01-09 16:36] LABS: Bedside Glucose 111 mg/dL (74-106)
[2024-01-09 21:00] VITALS: BP 107/55; PULSE 71
[2024-01-09 21:21] VITALS: BP 107/55; PULSE 71
[2024-01-09] MEDS: Atorvastatin Calcium 40 MG Tablet PO (21:21)
[2024-01-10 01:25] LABS: Bedside Glucose 81 mg/dL (74-106)
[2024-01-10] MEDS: Sucralfate 1 GM Tablet PO ×2 (06:23→15:57)
[2024-01-10 07:14] LABS: Bedside Glucose 94 mg/dL (74-106)
[2024-01-10 08:19] VITALS: BP 129/57; PULSE 60; RESP 17; TEMP 35.8; O2SAT 99
[2024-01-10] MEDS: Menthol/Lanolin/Calamine/Znox 113 GM Tube 1 APPLIC TOPICAL ×2 (08:21→22:07)
[2024-01-10] MEDS: Glucerna Shake 120 ML LIQUID PO ×3 (08:21→17:54)
[2024-01-10] MEDS: metFORMIN HCl 850 MG Tablet PO ×2 (08:21→17:54)
[2024-01-10 08:22] VITALS: PULSE 60
[2024-01-10] MEDS: Pantoprazole Sodium 40 MG Tablet PO ×2 (08:22→22:03)
[2024-01-10] MEDS: Clopidogrel Bisulfate 75 MG Tablet PO (08:22)
[2024-01-10] MEDS: Metoprolol Tartrate 25 MG Tablet PO ×2 (08:22→22:03)
[2024-01-10] MEDS: Losartan Potassium 100 MG Tablet PO (08:22)
[2024-01-10 11:29] LABS: Bedside Glucose 149 mg/dL (74-106)
[2024-01-10] MEDS: Tuberculin,Purif.prot.deriv. 50 TU/ML Vial 0.1 ML ID (14:47)
[2024-01-10 17:01] LABS: Bedside Glucose 177 mg/dL (74-106)
[2024-01-10 20:45] VITALS: BP 107/54; PULSE 62; O2SAT 93
[2024-01-10 22:03] VITALS: BP 107/54; PULSE 62
[2024-01-10] MEDS: Atorvastatin Calcium 40 MG Tablet PO (22:03)
[2024-01-10 22:15] LABS: Bedside Glucose 156 mg/dL (74-106)
[2024-01-11] MEDS: Sucralfate 1 GM Tablet PO ×2 (06:10→16:47)
[2024-01-11 06:48] LABS: Bedside Glucose 93 mg/dL (74-106)
--- NOTE | 2024-01-11 08:32 | NURSING ---
Front Counter Clerk Note; MDS for 01/09/2024 Complete
[2024-01-11 08:52] VITALS: BP 115/70; PULSE 113
[2024-01-11] MEDS: metFORMIN HCl 850 MG Tablet PO ×2 (08:52→17:58)
[2024-01-11] MEDS: APIXABAN 2.5 MG TABLET (WCH) PO ×2 (08:52→22:27)
[2024-01-11] MEDS: Glucerna Shake 120 ML LIQUID PO ×3 (08:52→16:47)
[2024-01-11] MEDS: Metoprolol Tartrate 25 MG Tablet PO ×2 (08:52→22:27)
[2024-01-11] MEDS: Losartan Potassium 100 MG Tablet PO (08:52)
[2024-01-11] MEDS: Clopidogrel Bisulfate 75 MG Tablet PO (08:53)
[2024-01-11] MEDS: Pantoprazole Sodium 40 MG Tablet PO ×2 (08:53→22:28)
[2024-01-11] MEDS: Menthol/Lanolin/Calamine/Znox 113 GM Tube 1 APPLIC TOPICAL ×2 (08:53→22:26)
[2024-01-11 11:14] LABS: Bedside Glucose 129 mg/dL (74-106)
[2024-01-11 16:00] VITALS: BP 97/50; PULSE 70; RESP 16; TEMP 36.3; O2SAT 100
[2024-01-11 17:12] LABS: Bedside Glucose 158 mg/dL (74-106)
[2024-01-11 20:00] VITALS: O2SAT 96
[2024-01-11 22:25] VITALS: BP 100/63; PULSE 94
[2024-01-11 22:27] VITALS: BP 100/63; PULSE 94
[2024-01-11] MEDS: Atorvastatin Calcium 40 MG Tablet PO (22:27)
[2024-01-11] MEDS: Senna/Docusate Sodium 1 Tablet PO (22:28)
[2024-01-12 00:15] LABS: Bedside Glucose 97 mg/dL (74-106)
[2024-01-12] MEDS: Sucralfate 1 GM Tablet PO ×2 (06:11→16:33)
[2024-01-12 06:25] LABS: Bedside Glucose 95 mg/dL (74-106)
[2024-01-12 07:48] VITALS: O2SAT 95
[2024-01-12 07:50] VITALS: BP 113/60; PULSE 102; RESP 15; TEMP 36.4; O2SAT 94
[2024-01-12 07:54] VITALS: PULSE 102
[2024-01-12] MEDS: Clopidogrel Bisulfate 75 MG Tablet PO (07:54)
[2024-01-12] MEDS: APIXABAN 2.5 MG TABLET (WCH) PO ×2 (07:54→20:22)
[2024-01-12] MEDS: metFORMIN HCl 850 MG Tablet PO ×2 (07:54→16:32)
[2024-01-12] MEDS: Losartan Potassium 100 MG Tablet PO (07:54)
[2024-01-12] MEDS: Glucerna Shake 120 ML LIQUID PO ×3 (07:54→16:32)
[2024-01-12] MEDS: Pantoprazole Sodium 40 MG Tablet PO ×2 (07:54→20:22)
[2024-01-12] MEDS: Metoprolol Tartrate 25 MG Tablet PO ×2 (07:54→20:21)
[2024-01-12] MEDS: Menthol/Lanolin/Calamine/Znox 113 GM Tube 1 APPLIC TOPICAL ×2 (07:55→20:22)
[2024-01-12 11:13] VITALS: BMI 25.8
--- NOTE | 2024-01-12 15:47 | CHAPLAIN ---
Type of Pastoral Visit ___ Initial Visit _x__ Follow-up Visit ___ On-call Visit ___ General Patient Visit ___ Spiritual Assessment ___ Family Conference ___ Bereavement ___ Rapid Response ___ Code Blue ___ Other (describe below) Pastoral Care Referral From _x__ Patient ___ Family ___ Nurse ___ Physician ___ Automotive Electrical Fitter ___ Co Founder And Director ___ Other (describe below) Sacrament/Intervention _x__ Active listening ___ Anointing ___ Mu-Ism ___ Bereavement ___ Communion _x__ Angella exploration ___ _x__ Life review _x__ Prayer ___ Reconciliation ___ Sacrament of Sick ___ Supportive presence ___ Wedding ___ Other (describe below) Pastoral Comments follow up to this patient who had been seen in ICU previously; pt again expresses his angella in God and his experience of losing his recently; pt gives thanks for what God has done in the situation and is quick to give his perspective of 'doing what was best for her' and 'being thankful for 58 wonderful years'; pt is tearful at times as he talks about his and their friends; pt states goal of getting back home and still being useful to the Lord as long as he sees fit to do so; prayer welcomed
[2024-01-12 20:21] VITALS: BP 101/54; PULSE 108
[2024-01-12] MEDS: Atorvastatin Calcium 40 MG Tablet PO (20:21)
[2024-01-13 07:05] LABS: Bedside Glucose 78 mg/dL (74-106)
[2024-01-13 08:37] VITALS: BP 115/59; PULSE 85; RESP 15; TEMP 36.5; O2SAT 97
[2024-01-13] MEDS: metFORMIN HCl 850 MG Tablet PO ×2 (08:39→16:34)
[2024-01-13] MEDS: Glucerna Shake 120 ML LIQUID PO ×3 (08:39→16:34)
[2024-01-13] MEDS: Sucralfate 1 GM Tablet PO ×2 (08:39→16:34)
[2024-01-13 08:40] VITALS: PULSE 85
[2024-01-13] MEDS: APIXABAN 2.5 MG TABLET (WCH) PO ×2 (08:40→22:08)
[2024-01-13] MEDS: Losartan Potassium 100 MG Tablet PO (08:40)
[2024-01-13] MEDS: Metoprolol Tartrate 25 MG Tablet PO ×2 (08:40→22:09)
[2024-01-13] MEDS: Clopidogrel Bisulfate 75 MG Tablet PO (08:41)
[2024-01-13] MEDS: Pantoprazole Sodium 40 MG Tablet PO ×2 (08:41→22:09)
[2024-01-13] MEDS: Menthol/Lanolin/Calamine/Znox 113 GM Tube 1 APPLIC TOPICAL ×2 (08:42→22:08)
--- NOTE | 2024-01-13 14:45 | MDS.RN ---
Information for the MDS was obtained from review of the clinical record, interview of resident, staff, and direct observation of resident?s care.
--- NOTE | 2024-01-13 15:27 | NURSING ---
message left with Dr Christian, PCP office regarding record of pneumonia vaccine, awaiting return call.
[2024-01-13 20:00] VITALS: O2SAT 95
[2024-01-13 22:04] VITALS: BP 106/54; PULSE 96
[2024-01-13 22:09] VITALS: BP 106/54; PULSE 96
[2024-01-13] MEDS: Atorvastatin Calcium 40 MG Tablet PO (22:09)
[2024-01-13] MEDS: Senna/Docusate Sodium 1 Tablet PO (22:10)
[2024-01-14 04:54] VITALS: O2SAT 95
[2024-01-14] MEDS: Sucralfate 1 GM Tablet PO ×2 (06:00→17:05)
[2024-01-14 06:40] LABS: Bedside Glucose 102 mg/dL (74-106)
[2024-01-14] MEDS: Glucerna Shake 120 ML LIQUID PO ×3 (09:07→17:44)
[2024-01-14] MEDS: APIXABAN 2.5 MG TABLET (WCH) PO ×2 (09:07→22:26)
[2024-01-14] MEDS: Pantoprazole Sodium 40 MG Tablet PO ×2 (09:07→22:25)
[2024-01-14] MEDS: Clopidogrel Bisulfate 75 MG Tablet PO (09:07)
[2024-01-14] MEDS: metFORMIN HCl 850 MG Tablet PO ×2 (09:07→17:44)
[2024-01-14] MEDS: Menthol/Lanolin/Calamine/Znox 113 GM Tube 1 APPLIC TOPICAL ×2 (09:08→22:27)
[2024-01-14 10:30] VITALS: BP 105/61; PULSE 96; RESP 18; TEMP 36.6; O2SAT 98
[2024-01-14 10:38] VITALS: BP 105/61; PULSE 96
[2024-01-14] MEDS: Losartan Potassium 100 MG Tablet PO (10:38)
[2024-01-14] MEDS: Metoprolol Tartrate 25 MG Tablet PO ×2 (10:38→22:25)
[2024-01-14] MEDS: Pneumococcal Vaccine 20 Valent 0.5 ML Syringe IM (12:37)
[2024-01-14 22:25] VITALS: BP 106/62; PULSE 106
[2024-01-14] MEDS: Atorvastatin Calcium 40 MG Tablet PO (22:25)
[2024-01-15] MEDS: Sucralfate 1 GM Tablet PO ×2 (06:04→17:00)
[2024-01-15 08:00] LABS: Absolute Lymphocyte Count 1.24 X10^3/uL (0.83-4.51); Absolute Neutrophil Count 3.7 X10^3/uL (2.0-7.7); Basophil# 0.06 X10^3/uL; Eosinophil# 0.18 X10^3/uL; Hematocrit 24.9 % (40-54); Hemoglobin 7.9 g/dL (13.0-16.5); Lymphocyte # 1.24 X10^3/ul (0.83-4.51); Lymphocyte % 20.9 % (19-41); Mean Corp Hgb Conc 31.7 g/dL (32-36); Mean Corpuscular Hgb 30.3 pg (27.0-32.0); Mean Corpuscular Volume 95.4 fL (80-94); Mean Platelet Vol. 10.5 fl (6.2-12.0); Monocyte# 0.67 X10^3/uL; Monocyte% 11.3 % (0-10); NRBC Flagged by Analyzer 0 % (0-5); Neutrophil # 3.74 X10^3/uL (2.7-7.7); Neutrophil % 63.1 % (47-70); Platelet Count 261 K/mm3 (150-450); RBC Distribution Width CV 15.5 % (11.6-14.6); RBC Distribution Width SD 53.2 fl (35.1-43.9); Red Blood Count 2.61 M/mm3 (4.6-6.2); White Blood Count 5.9 K/mm3 (4.4-11.0)
[2024-01-15 08:24] LABS: Anion Gap 6 (5-15); BUN 46 mg/dL (7-18); BUN/Creat Ratio 34.8 RATIO (10-20); Chloride 105 mmol/L (98-107); Creatinine, Serum 1.32 mg/dL (0.70-1.30); EST Glomerular Filtration Rate 55 mL/min (>60); Est Glom Filt Rate - Afr Amer 67 mL/min (>60); Estimated Creatinine Clearance 45.32 ml/min; Glucose 112 mg/dL (74-106); Potassium 4.2 mmol/L (3.5-5.1); Sodium Level 136 mmol/L (136-145)
[2024-01-15 08:35] VITALS: BP 115/54; PULSE 116; RESP 16; TEMP 36.4; O2SAT 98
[2024-01-15] MEDS: Menthol/Lanolin/Calamine/Znox 113 GM Tube 1 APPLIC TOPICAL ×2 (08:37→20:43)
[2024-01-15] MEDS: metFORMIN HCl 850 MG Tablet PO ×2 (08:37→18:08)
[2024-01-15 08:38] VITALS: PULSE 116
[2024-01-15] MEDS: APIXABAN 2.5 MG TABLET (WCH) PO ×2 (08:38→20:42)
[2024-01-15] MEDS: Metoprolol Tartrate 25 MG Tablet PO ×2 (08:38→20:42)
[2024-01-15] MEDS: Pantoprazole Sodium 40 MG Tablet PO ×2 (08:38→20:43)
[2024-01-15] MEDS: Clopidogrel Bisulfate 75 MG Tablet PO (08:38)
[2024-01-15] MEDS: Losartan Potassium 100 MG Tablet PO (08:38)
[2024-01-15] MEDS: Glucerna Shake 120 ML LIQUID PO ×3 (08:40→18:08)
[2024-01-15 20:30] VITALS: O2SAT 94
[2024-01-15 20:41] VITALS: BP 104/55; PULSE 100
[2024-01-15 20:42] VITALS: PULSE 100
[2024-01-15] MEDS: Atorvastatin Calcium 40 MG Tablet PO (20:42)
[2024-01-16 05:38] LABS: Hematocrit 24.2 % (40-54); Hemoglobin 7.7 g/dL (13.0-16.5)
[2024-01-16] MEDS: Sucralfate 1 GM Tablet PO ×2 (06:09→16:25)
[2024-01-16 06:43] LABS: Bedside Glucose 96 mg/dL (74-106)
[2024-01-16 08:46] VITALS: BP 100/57; PULSE 111; RESP 16; TEMP 36.6; O2SAT 99
[2024-01-16 08:49] VITALS: PULSE 111
[2024-01-16] MEDS: Menthol/Lanolin/Calamine/Znox 113 GM Tube 1 APPLIC TOPICAL ×2 (08:49→21:16)
[2024-01-16] MEDS: metFORMIN HCl 850 MG Tablet PO ×2 (08:49→17:29)
[2024-01-16] MEDS: Losartan Potassium 100 MG Tablet PO (08:49)
[2024-01-16] MEDS: Metoprolol Tartrate 25 MG Tablet PO ×2 (08:49→21:14)
[2024-01-16] MEDS: APIXABAN 2.5 MG TABLET (WCH) PO ×2 (08:49→21:13)
[2024-01-16] MEDS: Pantoprazole Sodium 40 MG Tablet PO ×2 (08:50→21:14)
[2024-01-16] MEDS: Clopidogrel Bisulfate 75 MG Tablet PO (08:50)
[2024-01-16] MEDS: Glucerna Shake 120 ML LIQUID PO ×2 (08:51→17:29)
[2024-01-16 21:11] VITALS: BP 106/58; PULSE 93
[2024-01-16] MEDS: Atorvastatin Calcium 40 MG Tablet PO (21:13)
[2024-01-16] MEDS: Senna/Docusate Sodium 1 Tablet PO (21:13)
[2024-01-16 21:14] VITALS: PULSE 93
[2024-01-17] MEDS: Sucralfate 1 GM Tablet PO ×2 (05:48→16:22)
[2024-01-17 06:41] LABS: Bedside Glucose 96 mg/dL (74-106)
[2024-01-17 08:55] VITALS: BP 118/60; PULSE 108; RESP 16; O2SAT 98
[2024-01-17] MEDS: Menthol/Lanolin/Calamine/Znox 113 GM Tube 1 APPLIC TOPICAL ×2 (08:58→20:10)
[2024-01-17] MEDS: metFORMIN HCl 850 MG Tablet PO ×2 (08:58→16:23)
[2024-01-17] MEDS: Glucerna Shake 120 ML LIQUID PO ×3 (08:58→16:23)
[2024-01-17 08:59] VITALS: PULSE 108
[2024-01-17] MEDS: Clopidogrel Bisulfate 75 MG Tablet PO (08:59)
[2024-01-17] MEDS: Metoprolol Tartrate 25 MG Tablet PO ×2 (08:59→20:09)
[2024-01-17] MEDS: Pantoprazole Sodium 40 MG Tablet PO ×2 (08:59→20:09)
[2024-01-17] MEDS: Losartan Potassium 100 MG Tablet PO (08:59)
--- NOTE | 2024-01-17 10:05 | NURSING ---
Addendum entered by Gerri Gramajo 01/17/24 17:52: Dr. Cosby notified, received orders to keep pt NPO after midnight for EGD tomorrow. Written communication update left for Dr. Wagner. Original Note: dr wagner notified of hgb 7.7, new order to hold eliquis, rechecking h/h in AM.
[2024-01-17 12:03] VITALS: TEMP 36.7
[2024-01-17 20:08] VITALS: BP 108/54; PULSE 98
[2024-01-17 20:09] VITALS: PULSE 98
[2024-01-17] MEDS: Atorvastatin Calcium 40 MG Tablet PO (20:09)
[2024-01-18 05:50] LABS: Hematocrit 25.1 % (40-54); Hemoglobin 7.9 g/dL (13.0-16.5)
[2024-01-18] MEDS: Sucralfate 1 GM Tablet PO ×3 (06:07→21:26)
[2024-01-18 06:51] LABS: Bedside Glucose 102 mg/dL (74-106)
[2024-01-18 08:00] VITALS: BP 102/68; PULSE 94; RESP 14; TEMP 36.6; O2SAT 97
--- NOTE | 2024-01-18 13:09 | HP.PCM_ITS ---
History and Physical Date of Admission: 01/18/24 KIRBY AMAYA, is a 83 M who presented to the hospital after several days of not feeling well. On Thursday of last week he saw his PCP and was diagnosed with a UTI so was started on Bactrim. The urine culture ultimately showed probable contamination. He started to feel much worse on around Thursday but was hoping that it would go away, he has some nausea but no vomiting but his p.o. intake has declined over the last couple days. He presents today because of continued worsening in his symptoms and he feels weak and debilitated. His daughter noted that he is also a little bit more pale than usual. In the ER CT scan shows mild hydronephrosis on the right but nothing significant that would require intervention, he has a new onset renal failure to 3.74 that is likely due to combination of dehydration as well as the Bactrim since he is 83 years old and a BUN of 102. In October his creatinine of 1.2. He is Hemoccult positive and he is on Plavix and Eliquis for A-fib and hemoglobin today is 9.9 which is about a gram lower than it was in October. He is tachypneic with leukocytosis and his UA does show 100 leukocyte esterase with 10-25 white blood cells and 1+ urine bacteria. * secondary to pneumonia. * Suspect due to pneumonia. Possible urinary tract infection. * Strep and Legionella antigens negative. Urine culture showing 25-50 coliform units of Enterococcus faecalis that is sensitive to ampicillin, linezolid, nitrofurantoin and vancomycin. * Pulmonary toilet * abx w pip/tazo transition to amox/CA. CARMEN * improving. no known baseline * metformin, Bactrim, losartan held * had received IVF. * While in the hospital he developed A-fib with RVR. Received one-time dose of 5 mg of IV metoprolol. Heart rate is since improved. Will change his metoprolol succinate 25 mg daily to metoprolol tartrate 25 mg twice daily.Heme positive stools. * Hg stable. Apixaban and clopidogrel currently on hold. We will perform an upper endoscopy evaluate his upper GI tract and possibly a colonoscopy. He was explained alternatives, risk and benefits including outstanding bleeding, infection, sepsis, perforation, need for more charge and . He will have an ASA of 3. [facility] Medical History Diabetes mellitus, type 2 Hyperlipidemia HTN (hypertension) Atrial flutter Home Medications ?Medication ?Instructions ?Recorded ?Last Taken ?Type apixaban 2.5 mg tablet (Eliquis) 2.5 mg PO BID Anticoagulant 12/30/23 01/06/24 History clopidogrel 75 mg tablet 75 mg PO DAILY Anticoagulant 12/30/23 01/06/24 History losartan 100 mg tablet 100 mg PO DAILY BP 12/30/23 01/07/24 History metformin 850 mg tablet 850 mg PO BID Diabetes 12/30/23 Unknown History rosuvastatin 20 mg tablet 20 mg PO DAILY Cholesterol 12/30/23 01/06/24 History tramadol 50 mg tablet 50 mg PO Q6H Pain 12/30/23 Unknown History acetaminophen 325 mg tablet 650 mg (2 x 325 mg) PO Q6H PRN PRN 01/02/24 01/02/24 03:55 Rx Pain 1-10 Or Fever #0 tabs amoxicillin 875 mg-potassium 1 tab PO BID Antibiotic #8 tabs 01/02/24 01/07/24 Rx clavulanate 125 mg tablet metoprolol tartrate 25 mg tablet 25 mg PO BID BP #0 tabs 01/02/24 01/07/24 Rx pantoprazole 40 mg tablet,delayed 40 mg PO BID #168 tabs 01/07/24 Unknown Rx release sucralfate 1 gram tablet 1 g PO BID #64 tabs 01/07/24 Unknown Rx Allergy/AdvReac Type Severity Reaction Status Date / Time No Known Allergies Allergy Verified 01/07/24 11:25 Surgical History 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 Social History household members: none Smoking Status: Never smoker alcohol intake: never substance use type: does not use ROS Constitutional Constitutional: Reports weakness; Denies chills, fever(s) or weight gain ENT HEENT: Denies headache(s), nasal congestion or nasal discharge Cardiovascular Cardiovascular: Denies chest pain or palpitations Respiratory/Chest Respiratory/Chest: Denies cough, excessive phlegm production or shortness of breath with exertion Gastrointestinal Gastrointestinal: Denies abdominal pain, nausea or vomiting Genitourinary Genitourinary: Denies dysuria Musculoskeletal Musculoskeletal: Denies joint pain or joint swelling Integumentary Integumentary: Denies rash or wounds Neurologic Neurologic: Denies focal weakness, numbness or tingling Psychiatric Psychiatric: Denies anxiety, auditory hallucinations, depression, homicidal ideation or suicidal ideation Physical Exam Const alert General Appearance: cooperative HEENT normocephalic Eyes PERRL and EOMs intact bilaterally Neck supple, no JVD and no carotid bruits Resp normal respiratory effort, normal air movement and clear to auscultation bilaterally Cardio regular rate and regular rhythm GI normal to inspection, nondistended, normoactive bowel sounds, non-tender and non-distended Extremity normal capillary refill General Extremity: Negative for edema Skin no rashes or lesions noted General Skin Exam: no breakdown Psych affect normal Appearance: appropriate Medical Records Data Medical Nutrition Assessment Dietitian: Malnutrition Criteria Met Start: 01/03/24 12:12 Freq: Status: Active Protocol: Document 01/03/24 12:12 SLA (Rec: 01/03/24 12:12 SLA [id number]) Nutrition Malnutrition Evidence of Malnutrition Exists Yes Malnutrition (severe): Acute Illness/Injury Evidenced By Suboptimal Energy Intake ( Severe),Weight Loss (Severe) Clinical Problem Acute Disease or Injury Related Malnutrition Etiology related to acute illness and suboptimal energy intake Signs/Symptoms as evidenced ~3% unintended wt loss and po intake meeting < 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 Lab / Micro Data 01/06/24 17:35 01/03/24 06:10 Labs: Laboratory Results - last 24 hr 01/06/24 21:11: POC Glucose 122 H 01/07/24 05:48: POC Glucose 94 Assessment & Plan Assessment/Plan (1) GI (gastrointestinal bleed): PLAN: He will undergo an upper endoscopy to evaluate his upper GI tract. He was explained alternatives, risk, benefits include not withstanding bleeding, infection, sepsis, perforation, need for return to . He will have an ASA of 3. I have examined the patient and the H&P has been reviewed. There are no clinical changes since date of exam.
[2024-01-18 16:00] VITALS: BP 110/63; PULSE 70; RESP 14; TEMP 36.3; O2SAT 98
[2024-01-18] MEDS: Glucerna Shake 120 ML LIQUID PO (17:44)
[2024-01-18] MEDS: metFORMIN HCl 850 MG Tablet PO (17:44)
[2024-01-18] MEDS: Menthol/Lanolin/Calamine/Znox 113 GM Tube 1 APPLIC TOPICAL (21:26)
[2024-01-18 21:27] VITALS: BP 110/66; PULSE 103
[2024-01-18] MEDS: Metoprolol Tartrate 25 MG Tablet PO (21:27)
[2024-01-18] MEDS: Atorvastatin Calcium 40 MG Tablet PO (21:27)
[2024-01-18] MEDS: Pantoprazole Sodium 40 MG Tablet PO (21:27)
[2024-01-19] MEDS: Sucralfate 1 GM Tablet PO ×4 (05:36→21:20)
[2024-01-19 06:29] LABS: Bedside Glucose 84 mg/dL (74-106)
[2024-01-19 07:25] VITALS: PULSE 104
[2024-01-19 08:08] VITALS: BP 120/75; PULSE 112
[2024-01-19] MEDS: Glucerna Shake 120 ML LIQUID PO ×3 (08:09→17:59)
[2024-01-19] MEDS: Losartan Potassium 100 MG Tablet PO (08:10)
[2024-01-19] MEDS: 0.9% Saline Lock 10 ML Syringe IV (08:10)
[2024-01-19 08:11] VITALS: PULSE 112
[2024-01-19] MEDS: Metoprolol Tartrate 25 MG Tablet PO (08:11)
[2024-01-19] MEDS: metFORMIN HCl 850 MG Tablet PO ×2 (08:12→17:59)
[2024-01-19] MEDS: Pantoprazole Sodium 40 MG Tablet PO ×2 (08:12→21:20)
[2024-01-19] MEDS: Clopidogrel Bisulfate 75 MG Tablet PO (08:12)
[2024-01-19] MEDS: Menthol/Lanolin/Calamine/Znox 113 GM Tube 1 APPLIC TOPICAL ×2 (08:13→21:21)
[2024-01-19 10:16] VITALS: BMI 25.7
[2024-01-19 13:29] VITALS: BP 93/50; PULSE 100; RESP 17; TEMP 36.2; O2SAT 100
[2024-01-19 21:02] VITALS: BP 85/47; PULSE 90
[2024-01-19] MEDS: Atorvastatin Calcium 40 MG Tablet PO (21:19)
[2024-01-19] MEDS: APIXABAN 2.5 MG TABLET (WCH) PO (21:20)
[2024-01-20 05:49] LABS: Hematocrit 25.4 % (40-54)
[2024-01-20] MEDS: Sucralfate 1 GM Tablet PO ×4 (06:17→20:44)
[2024-01-20 06:20] VITALS: BP 96/54; PULSE 101
[2024-01-20 06:21] LABS: Bedside Glucose 75 mg/dL (74-106)
--- NOTE | 2024-01-20 07:26 | NURSING ---
dr pollack updated on hgb 8 this AM, continue Eliquis as ordered
[2024-01-20 08:53] VITALS: BP 115/60; PULSE 101; RESP 16; TEMP 36.6; O2SAT 98
[2024-01-20 08:57] VITALS: PULSE 101
[2024-01-20] MEDS: Metoprolol Tartrate 25 MG Tablet PO (08:57)
[2024-01-20] MEDS: APIXABAN 2.5 MG TABLET (WCH) PO ×2 (08:57→20:42)
[2024-01-20] MEDS: Pantoprazole Sodium 40 MG Tablet PO ×2 (08:57→20:45)
[2024-01-20] MEDS: Glucerna Shake 120 ML LIQUID PO ×2 (08:57→12:22)
[2024-01-20] MEDS: Clopidogrel Bisulfate 75 MG Tablet PO (08:57)
[2024-01-20] MEDS: metFORMIN HCl 850 MG Tablet PO ×2 (08:57→16:27)
[2024-01-20] MEDS: Menthol/Lanolin/Calamine/Znox 113 GM Tube 1 APPLIC TOPICAL ×2 (08:58→20:44)
[2024-01-20 10:00] VITALS: RESP 16
[2024-01-20 20:44] VITALS: BP 92/65; PULSE 99
[2024-01-20] MEDS: Atorvastatin Calcium 40 MG Tablet PO (20:44)
[2024-01-21] MEDS: Sucralfate 1 GM Tablet PO ×4 (06:09→21:50)
[2024-01-21 06:42] LABS: Bedside Glucose 86 mg/dL (74-106)
[2024-01-21 09:01] VITALS: PULSE 105
[2024-01-21] MEDS: Clopidogrel Bisulfate 75 MG Tablet PO (09:01)
[2024-01-21] MEDS: metFORMIN HCl 850 MG Tablet PO ×2 (09:01→16:13)
[2024-01-21] MEDS: Glucerna Shake 120 ML LIQUID PO ×2 (09:01→12:34)
[2024-01-21] MEDS: APIXABAN 2.5 MG TABLET (WCH) PO ×2 (09:01→21:52)
[2024-01-21] MEDS: Metoprolol Tartrate 25 MG Tablet PO ×2 (09:01→21:51)
[2024-01-21] MEDS: Pantoprazole Sodium 40 MG Tablet PO ×2 (09:01→21:51)
[2024-01-21] MEDS: Menthol/Lanolin/Calamine/Znox 113 GM Tube 1 APPLIC TOPICAL ×2 (09:02→21:51)
[2024-01-21 10:55] VITALS: BP 107/73; PULSE 55; RESP 16; TEMP 36.5; O2SAT 97
[2024-01-21] MEDS: Atorvastatin Calcium 40 MG Tablet PO (21:50)
[2024-01-21 21:51] VITALS: BP 108/60; PULSE 75
[2024-01-22 06:01] LABS: Absolute Lymphocyte Count 1.46 X10^3/uL (0.83-4.51); Basophil# 0.02 X10^3/uL; Basophil% 0.4 % (0-1); Eosinophils% 5.4 % (0-5); Hematocrit 25.9 % (40-54); Lymphocyte # 1.46 X10^3/ul (0.83-4.51); Lymphocyte % 26.4 % (19-41); Mean Corp Hgb Conc 30.9 g/dL (32-36); Mean Platelet Vol. 10.5 fl (6.2-12.0); Monocyte# 0.73 X10^3/uL; Monocyte% 13.2 % (0-10); NRBC Flagged by Analyzer 0 % (0-5); Neutrophil # 2.98 X10^3/uL (2.7-7.7); Neutrophil % 54.1 % (47-70); Platelet Count 204 K/mm3 (150-450); RBC Distribution Width CV 15.3 % (11.6-14.6); RBC Distribution Width SD 55.1 fl (35.1-43.9); Red Blood Count 2.67 M/mm3 (4.6-6.2); White Blood Count 5.5 K/mm3 (4.4-11.0)
[2024-01-22] MEDS: Sucralfate 1 GM Tablet PO ×4 (06:04→21:00)
[2024-01-22 06:29] LABS: Anion Gap 4 (5-15); BUN 33 mg/dL (7-18); BUN/Creat Ratio 26.6 RATIO (10-20); Calcium,Total 9.1 mg/dL (8.5-10.1); Chloride 105 mmol/L (98-107); Creatinine, Serum 1.24 mg/dL (0.70-1.30); EST Glomerular Filtration Rate 59 mL/min (>60); Est Glom Filt Rate - Afr Amer 72 mL/min (>60); Estimated Creatinine Clearance 48.24 ml/min; Glucose 81 mg/dL (74-106); Potassium 4.4 mmol/L (3.5-5.1); Sodium Level 136 mmol/L (136-145)
[2024-01-22 06:37] LABS: Bedside Glucose 78 mg/dL (74-106)
[2024-01-22] MEDS: metFORMIN HCl 850 MG Tablet PO ×2 (08:08→16:29)
[2024-01-22 08:09] VITALS: PULSE 80
[2024-01-22] MEDS: APIXABAN 2.5 MG TABLET (WCH) PO ×2 (08:09→21:00)
[2024-01-22] MEDS: Metoprolol Tartrate 25 MG Tablet PO ×2 (08:09→20:59)
[2024-01-22] MEDS: Ascorbic Acid 500 MG Tablet PO (08:10)
[2024-01-22] MEDS: Pantoprazole Sodium 40 MG Tablet PO ×2 (08:10→20:59)
[2024-01-22] MEDS: Clopidogrel Bisulfate 75 MG Tablet PO (08:10)
[2024-01-22] MEDS: Iron Polysaccharide Complex 150 MG CAPSULE PO (08:10)
[2024-01-22] MEDS: Glucerna Shake 120 ML LIQUID PO ×3 (08:11→16:29)
[2024-01-22] MEDS: Menthol/Lanolin/Calamine/Znox 113 GM Tube 1 APPLIC TOPICAL ×2 (08:11→21:01)
--- NOTE | 2024-01-22 14:09 | DS.PCM_ITS ---
Providers Date of Admission: 01/02/24 Primary Care Physician: Dr. Raghavendra Christian MD Consultations 01/06/24 17:24 Consult: Gastroenterology Routine Consulting Provider: [facility] Reason for Consult: Anemia, +hemoccult. EMERGENT Consult: No MD Notified: Yes Date Notified: 01/06/24 Time Notified: 17:24 Method of Notification: Text Reason For Visit: SEPSIS Diagnosis Discharge Diagnosis (1) GI (gastrointestinal bleed): Status: Resolved Code(s): K92.2 - Gastrointestinal hemorrhage, unspecified Plan 83 year old male with below past medical history hospitalized for sepsis 2/2 pneumonia/urinary tract infection, complicated by acute kidney injury, anemia, blood in stool, admitted to TCU with debility, here for rehabilitation, strengthening, prior to discharge home alone. * Debility - PT/OT. * Dysphagia - ST. * Pain - Tylenol 1000mg q6 prn pain (1-5), Tramadol 50mg q6 prn pain (6-10). * Bowel - senna/colace 1 tablet bid, Magnesium citrate 300ml po daily prn. * Adult immunization - Administer pneumonia vaccine, covid vaccine, flu vaccine as appropriate. * DVT prophylaxis - on Eliquis. * Pneumonia/urinary tract infection - Augmentin 875mg bidcm thru 01/09/2024. * Atrial Flutter - Metoprolol 25mg bid, Eliquis 2.5mg bid. * Hyperlipidemia - Atorvastatin 40mg qhs. * Coronary artery disease - Metoprolol 25mg bid, Losartan 100mg daily, Plavix 75mg daily, Eliquis 2.5mg bid. * Nutrition - Glucerna Shake 120ml po tidcm. * Diabetes Mellitus II - Metformin 850mg po bidcm. Medications at Discharge Home Medications clopidogrel 75 mg tablet 75 mg PO DAILY Anticoagulant 12/30/23 metformin 850 mg tablet 850 mg PO BID Diabetes 12/30/23 rosuvastatin 20 mg tablet 20 mg PO DAILY Cholesterol 12/30/23 metoprolol tartrate 25 mg tablet 25 mg PO BID BP #0 tabs 01/02/24 apixaban 5 mg tablet (Eliquis) 2.5 mg (1/2 x 5 mg) PO BID #0 tabs 01/22/24 ascorbic acid (vitamin C) 500 mg tablet 500 mg PO DAILY #0 tabs 01/22/24 pantoprazole 40 mg tablet,delayed release 40 mg PO BID 30 days #60 tabs 01/22/24 polysaccharide iron complex 150 mg iron capsule (Ferrex) 150 mg PO DAILY 30 days #30 caps 01/22/24 sucralfate 1 gram tablet 1 g PO 1HR_ACHS 30 days #120 tabs 01/22/24 Hospital Course Operations None Procedures EGD Summary of Care Provided Minutes Spent on Discharge: 35 Hospital Course: 83 year old male with below past medical history hospitalized for sepsis 2/2 pneumonia/urinary tract infection, complicated by acute kidney injury, anemia, blood in stool, admitted to TCU with debility, here for rehabilitation, strengthening, prior to discharge home alone. 01/07/2024 Dr. Cosby EGD: Impressions : - No gross lesions in the entire esophagus. - Red blood in the gastric body. - Oozing duodenal ulcers with a visible vessel. Treatment not successful. Treated with a heater probe. Treated with argon plasma coagulation (APC). Clips were placed. Clip [employer] consultant: [employer]. - No specimens collected. Recommendations : - Return patient to referring hospital for ongoing care. - Full liquid diet for 2 days. - Use Protonix (pantoprazole) 40 mg PO BID for 12 weeks. - Use sucralfate tablets 1 gram PO QID for 4 weeks. - Continue present medications. 01/18/2024 Dr. Cosby EGD: Impressions : - Normal esophagus. - Normal stomach. - Oozing duodenal ulcers with a visible vessel. Treated with a heater probe. - No specimens collected. Recommendations : - Return patient to referring hospital for ongoing care. - Full liquid diet today. - Use Protonix (pantoprazole) 40 mg PO BID for the rest of the patient's life. - Use sucralfate tablets 1 gram PO QID for 2 months. - Continue present medications. Discharge home alone 01/25/2024, [facility] PT/OT. Physical Exam Const alert General Appearance: cooperative HEENT normocephalic Eyes PERRL and EOMs intact bilaterally Neck supple, no JVD and no carotid bruits Resp normal respiratory effort, normal air movement and clear to auscultation bilaterally Cardio regular rate and regular rhythm GI normal to inspection, nondistended, normoactive bowel sounds, non-tender and non-distended Extremity normal capillary refill General Extremity: Negative for edema Skin no rashes or lesions noted General Skin Exam: no breakdown Psych affect normal Appearance: appropriate Medical Records Data Medical Nutrition Assessment Dietitian: Malnutrition Criteria Met Start: 01/03/24 12:12 Freq: Status: Active Protocol: Document 01/11/24 16:35 SLA (Rec: 01/11/24 16:35 SLA [id number]) Nutrition Malnutrition Evidence of Malnutrition Exists Yes Malnutrition (severe): Acute Illness/Injury Evidenced By Suboptimal Energy Intake ( Severe),Weight Loss (Severe) Clinical Problem Acute Disease or Injury Related Malnutrition Etiology related to acute illness and suboptimal energy intake Signs/Symptoms as evidenced ~3% unintended wt loss and po intake meeting < 75% of est nutritional needs 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 Status Active Problem Recommendation Dietitian Recommendations/Changes Continue CHO Control/ No Added Salt Continue Tyler bid w/ meals - rec d/c once skin healed May be able to discontinue chocolate glucerna shake tid w / medpass at time of follow up if continued good po intake and no sig wt loss. Weight / BMI Weight Weight: 81.284 kg Body Mass Index (BMI) 25.7 ABG / Lab / Microbiology Data 01/22/24 05:38 01/22/24 05:38 Laboratory: Laboratory Results - last 24 hr 01/22/24 05:38: WBC 5.5, RBC 2.67 L, Hgb 8.0 L, Hct 25.9 L, MCV 97.0 H, MCH 30.0, MCHC 30.9 L, RDW Std Deviation 55.1 H, RDW Coeff of Gavin 15.3 H, Plt Count 204, MPV 10.5, Immature Gran % (Auto) 0.500, Neut % (Auto) 54.1, Lymph % (Auto) 26.4, [place] % (Auto) 13.2 H, Eos % (Auto) 5.4 H, Baso % (Auto) 0.4, Absolute Neuts (auto) 3.0, Absolute Lymphs (auto) 1.46, Nucleated RBC % 0, Sodium 136, Potassium 4.4, Chloride 105, Carbon Dioxide 28.0, Anion Gap 4 L, BUN 33 H, Creatinine 1.24, Estim Creat Clear Calc 48.24, Est GFR (MDRD) Af Amer 72, Est GFR (MDRD) Non-Af 59 L, BUN/Creatinine Ratio 26.6 H, Glucose 81, Calcium 9.1 01/22/24 05:53: POC Glucose 78 Microbiology: Microbiology 01/19/24 05:00 Nasal Secretion SARS-CoV-2 Antigen (Rapid) - Final 01/17/24 10:00 Stool Stool Occult Blood (SANDY) - Final Occult Blood Positive D/C Instructions Discharge Diet: No restrictions Discharge Activity: Return to Normal Activity, May Shower and Use Walker Weight Bearing Status: Weight bearing as tolerated Call your doctor if you observe: Fever of 101 or Higher, Inability to urinate, Inability to have a bowel movement, Shortness of breath, Dizziness, Fainting spells, Swelling in the ankles, Chest pain and Uncontrolled pain Additional Instructions: Discharge home alone 01/25/2024, [facility] PT/OT. Meaningful Use Info Meaningful Use Meaningful Use Diagnoses (Choose all that apply): None applicable Ischemic Stroke Statin Dosing Therapy Reference: STATIN DOSE THERAPY REFERENCE: * Patients > 75 years receive moderate or high dose statin therapy. * Patients 75 years or YOUNGER should receive HIGH intensity statin dose unless contraindicated. You will be required to document reason for non-treatment if statin daily dose does not meet guidelines. HIGH DOSE STATIN THERAPY DAILY Atorvastatin > than or = to 40 mg Rosuvastatin > than or = to 20 mg Amlodipine + Atorvastatin > than or = to 2.5/40 mg Ezetimibe + Simvastatin 10/80 mg Simvastatin 80mg Discharge Plan Admission Admit Date/Time: 01/02/24 12:08 Primary Reason for Your Visit: Debility. Attending Provider: Sergio Wagner Chi Primary Care Provider: Raghavendra Christian Instructions Additional Instructions / Restrictions: Discharge home alone 01/25/2024, [facility] PT/OT. Discharge Orders/Prescriptions Prescriptions: New ascorbic acid (vitamin C) 500 mg Tablet 500 mg PO DAILY Qty: 0 0RF Eliquis 5 mg Tablet 2.5 mg PO BID Qty: 0 0RF polysaccharide iron complex [Ferrex 150] 150 mg iron Capsule 150 mg PO DAILY 30 Days Qty: 30 0RF sucralfate 1 gram Tablet 1 g PO 1HR_ACHS 30 Days Qty: 120 0RF pantoprazole 40 mg Tablet,Delayed Release (Dr/Ec) 40 mg PO BID 30 Days Qty: 60 0RF Continued clopidogrel 75 mg tablet 75 mg PO DAILY rosuvastatin 20 mg tablet 20 mg PO DAILY metformin 850 mg tablet 850 mg PO BID metoprolol tartrate 25 mg Tablet 25 mg PO BID Qty: 0 0RF Discontinued losartan 100 mg tablet 100 mg PO DAILY Eliquis 2.5 mg tablet 2.5 mg PO BID tramadol 50 mg tablet 50 mg PO Q6H acetaminophen 325 mg Tablet 650 mg PO Q6H PRN PRN (Reason: Pain 1-10 Or Fever) Qty: 0 0RF pantoprazole 40 mg tablet,delayed release (DR/EC) 40 mg PO BID Qty: 168 0RF Rx Instructions: PO BID for 12 weeks sucralfate 1 gram tablet 1 g PO BID Qty: 64 0RF Rx Instructions: PO BID for 4 weeks Referrals / Follow Up: Raghavendra Christian MD [Primary Care Provider] - Disposition Disposition (needs filled in before D/C Order can be placed): Home Health Service
[2024-01-22 14:44] VITALS: BP 107/62; PULSE 110; RESP 16; TEMP 36.4; O2SAT 98
--- NOTE | 2024-01-22 15:07 | CASEMGMT ---
Addendum entered by Amanda Burnett 01/22/24 16:13: SW followed up with pt on HHC preference. Pt chooses [facility]. SW phoned referral for PT/OT. Original Note: Social Work Received a phone call from pt's dtr requesting to speak with the pt about DC planning. SW met with patient per request. Pt states he is ready to DC and requesting 01/24. IDT agreeable to DC date. SW offered skilled HHC vs OP. Pt prefers HHC but has no agency preference. Pt has no DME needs. Dtr to transport. SW provided list of skilled HHC providers with quality and resource data via [email or web address] Guide. Pt to notify this worker of preference. Plan: DC home alone 01/24, HHC PT/OT CHADD David
--- NOTE | 2024-01-22 15:37 | CASEMGMT ---
Social Work BIMS () and PHQ-2 () completed for MDS assessment. Amanda Burnett DOCUMENTATION LIAISON DIRECTOR BUSINESS SYSTEMS
[2024-01-22 20:30] VITALS: PULSE 112; O2SAT 96
[2024-01-22 20:59] VITALS: BP 123/58; PULSE 112
[2024-01-22] MEDS: Atorvastatin Calcium 40 MG Tablet PO (21:00)
[2024-01-23] MEDS: Sucralfate 1 GM Tablet PO ×4 (06:00→22:29)
[2024-01-23 06:51] LABS: Bedside Glucose 95 mg/dL (74-106)
[2024-01-23] MEDS: Glucerna Shake 120 ML LIQUID PO ×3 (09:09→16:32)
[2024-01-23] MEDS: Pantoprazole Sodium 40 MG Tablet PO ×2 (09:10→22:31)
[2024-01-23] MEDS: metFORMIN HCl 850 MG Tablet PO ×2 (09:10→16:32)
[2024-01-23] MEDS: APIXABAN 2.5 MG TABLET (WCH) PO ×2 (09:10→22:30)
[2024-01-23] MEDS: Menthol/Lanolin/Calamine/Znox 113 GM Tube 1 APPLIC TOPICAL ×2 (09:10→22:28)
[2024-01-23] MEDS: Ascorbic Acid 500 MG Tablet PO (09:10)
[2024-01-23] MEDS: Iron Polysaccharide Complex 150 MG CAPSULE PO (09:10)
[2024-01-23] MEDS: Clopidogrel Bisulfate 75 MG Tablet PO (09:10)
[2024-01-23 09:11] VITALS: PULSE 78
[2024-01-23] MEDS: Metoprolol Tartrate 25 MG Tablet PO ×2 (09:11→22:30)
[2024-01-23 13:04] VITALS: BP 129/59; PULSE 78; RESP 16; TEMP 36.6; O2SAT 97
[2024-01-23 22:27] VITALS: BP 116/70; PULSE 97; O2SAT 98
[2024-01-23 22:30] VITALS: BP 116/70; PULSE 97
[2024-01-23] MEDS: Atorvastatin Calcium 40 MG Tablet PO (22:30)
[2024-01-24] MEDS: Sucralfate 1 GM Tablet PO ×4 (06:08→22:19)
[2024-01-24 06:37] LABS: Bedside Glucose 87 mg/dL (74-106)
[2024-01-24 06:59] LABS: Hematocrit 26.4 % (40-54); Hemoglobin 8.3 g/dL (13.0-16.5)
[2024-01-24] MEDS: Glucerna Shake 120 ML LIQUID PO ×2 (07:56→12:37)
[2024-01-24] MEDS: Clopidogrel Bisulfate 75 MG Tablet PO (07:57)
[2024-01-24] MEDS: metFORMIN HCl 850 MG Tablet PO ×2 (07:58→16:28)
[2024-01-24] MEDS: APIXABAN 2.5 MG TABLET (WCH) PO ×2 (07:58→22:20)
[2024-01-24] MEDS: Pantoprazole Sodium 40 MG Tablet PO ×2 (07:59→22:21)
[2024-01-24] MEDS: Ascorbic Acid 500 MG Tablet PO (08:00)
[2024-01-24] MEDS: Senna/Docusate Sodium 1 Tablet PO (08:00)
[2024-01-24 09:43] VITALS: PULSE 73
[2024-01-24] MEDS: Metoprolol Tartrate 25 MG Tablet PO ×2 (09:43→22:20)
[2024-01-24] MEDS: Iron Polysaccharide Complex 150 MG CAPSULE PO (09:44)
[2024-01-24] MEDS: Menthol/Lanolin/Calamine/Znox 113 GM Tube 1 APPLIC TOPICAL ×2 (09:45→22:19)
[2024-01-24 15:14] VITALS: BP 108/63; PULSE 102; RESP 17; TEMP 36.4; O2SAT 98
[2024-01-24 22:00] VITALS: O2SAT 95
[2024-01-24 22:13] VITALS: BP 96/63; PULSE 64; O2SAT 95
[2024-01-24 22:20] VITALS: BP 96/63; PULSE 64
[2024-01-24] MEDS: Atorvastatin Calcium 40 MG Tablet PO (22:20)
[2024-01-25] MEDS: Sucralfate 1 GM Tablet PO ×2 (05:59→11:07)
[2024-01-25 06:13] LABS: Bedside Glucose 91 mg/dL (74-106)
[2024-01-25 07:38] VITALS: BP 121/62; PULSE 111; RESP 16; TEMP 36; O2SAT 94
[2024-01-25] MEDS: Menthol/Lanolin/Calamine/Znox 113 GM Tube 1 APPLIC TOPICAL (07:40)
[2024-01-25] MEDS: metFORMIN HCl 850 MG Tablet PO (07:40)
[2024-01-25 07:41] VITALS: PULSE 112
[2024-01-25] MEDS: Metoprolol Tartrate 25 MG Tablet PO (07:41)
[2024-01-25] MEDS: Clopidogrel Bisulfate 75 MG Tablet PO (07:41)
[2024-01-25] MEDS: Iron Polysaccharide Complex 150 MG CAPSULE PO (07:41)
[2024-01-25] MEDS: APIXABAN 2.5 MG TABLET (WCH) PO (07:41)
[2024-01-25] MEDS: Pantoprazole Sodium 40 MG Tablet PO (07:41)
[2024-01-25] MEDS: Ascorbic Acid 500 MG Tablet PO (07:41)
[2024-01-25] MEDS: Glucerna Shake 120 ML LIQUID PO (11:07)
== END 2024-01-25 12:00 | disposition home health service (06) | DRG 193 ==
PROVIDERS: Internal Medicine; Admitting Provider Family Medicine Geriatric Medicine; PCP Family Medicine; Visit Provider Family Medicine Geriatric Medicine
DX: J18.9 Pneumonia, unspecified organism (principal); K26.4 Chronic or unspecified duodenal ulcer with hemorrhage; E44.1 Mild protein-calorie malnutrition; I48.92 Unspecified atrial flutter; N39.0 Urinary tract infection, site not specified; K92.1 Melena; E11.9 Type 2 diabetes mellitus without complications; D64.9 Anemia, unspecified; B95.2 Enterococcus as the cause of diseases classified elsewhere; I10 Essential (primary) hypertension; E78.5 Hyperlipidemia, unspecified; I25.10 Atherosclerotic heart disease of native coronary artery without angina pectoris; Z79.01 Long term (current) use of anticoagulants; Z79.84 Long term (current) use of oral hypoglycemic drugs; Z79.899 Other long term (current) drug therapy; Z79.02 Long term (current) use of antithrombotics/antiplatelets; Z23 Encounter for immunization; Z68.25 Body mass index [BMI] 25.0-25.9, adult
CPT/HCPCS: 36415; 80048; 82274; 82962; 85014; 85018; 85025; 87811; 90480; 90662; 90677; 91322; 92610; 97110; 97116; 97161; 97166; 97530; 97535; 97802; A4216

== ENCOUNTER 2024-01-07 11:07 | Day surgery (SDC) | payer MEDICARE, BC, SELFPAY ==
[2024-01-07] VITALS (9 sets, daily range): BP systolic 80–112; BP diastolic 42–97; PULSE 57–106; RESP 16–20; TEMP 36.4–36.8; O2SAT 95–98; BMI 26.1
--- NOTE | 2024-01-07 11:49 | PCM.PRE.AN2 ---
ASA Classification* ASA Classification ASA Classification: 3 and E Assessment & Plan Anesthesia* Anesthesia Assessment Anesthesia Assessment: Discussed sedation and/or anesthesia options, risks, benefits, and alternatives with patient/parents/legal guardian/POA. Questions invited. The patient/parents/legal guardian/POA seems to understand and agrees to proceed with anesthesia plan. Reviewed the physical assessment, medical history, allergy history and patient home medications list prior to surgery/procedure/anesthetic and documented any changes. Performed airway and anesthesia risk assessments. Anesthesia Type Anesthesia Type: MAC (see written pre anesthesia record for full assessment) Anesthesia Focused Assessment* Airway Assessment Mouth opens: >3 cm Mallampati Score: II Focused Labs Anesthesia Preop lab: CBC WBC 10.0 K/mm3 (4.4-11.0) 01/03/24 06:10 RBC 3.30 M/mm3 (4.6-6.2) L 01/03/24 06:10 Hgb 9.1 g/dL (13.0-16.5) L 01/06/24 17:35 Hct 28.2 % (40-54) L 01/06/24 17:35 Plt Count 296 K/mm3 (150-450) 01/03/24 06:10 CHEMISTRY Potassium 4.5 mmol/L (3.5-5.1) 01/03/24 06:10 Sodium 137 mmol/L (136-145) 01/03/24 06:10 Magnesium 2.1 mg/dL (1.6-2.6) 12/30/23 11:16 BUN 48 mg/dL (7-18) H 01/03/24 06:10 Creatinine 1.32 mg/dL (0.70-1.30) H 01/03/24 06:10 Glucose 171 mg/dL (74-106) H 01/03/24 06:10 POC Glucose 94 mg/dL (74-106) 01/07/24 05:48 COAG PT 16.4 SECONDS (11.7-14.9) H 12/30/23 11:16 Pre-Assessment Diagnosis/Proposed Procedure Planned Operative Procedure(s): egd Anesthesia History Anesthesia History - stunt woman: Anesthesia History - stunt woman Hx Hospitalization Any Problems With Anesthesia Cholinesterase deficiency You/Your Family Experience fever (hyperthermia) with Relationship Recent Exposure to Contagious Disease Does patient have nerve stimulator Patient instructed to have device shut off --Does patient have Pacemaker or ICD? When Was Last Pacemaker Check QUESTION #4 FULL TEXT: You/Your Family Experience fever (hyperthermia) with Anesthesia Last Oral Intake Last Oral intake: Last Oral Intake NPO since Meds taken in AM with sips of water? Meds patient instructed to take am of surgery PONV PONV - stunt woman: PONV - stunt woman Female HX of Motion Sickness HX of N/V After Surgery Non-Smoker Duration of Surgery greater than 60 minutes Number of Risk Factors PONV Score Height & Weight Height & Weight: Anesthesia: Height & Weight Height 5 ft 10 in 01/07/24 08:08 Respiratory Assessment Respiratory Assessment - stunt woman: Respiratory Tract Infection Hx - stunt woman Hx Respiratory Tract Infection STOP Sleep Apnea STOP Sleep Apnea - stunt woman: STOP Sleep Apnea - stunt woman Hx Hypertension Yes 01/03/24 08:56 Hx Sleep Apnea No 01/02/24 11:40 CPAP BIPAP Do you snore loudly (louder than talking or can be heard Do you often feel tired/ fatigued/ sleepy during daytime? Has anyone observed you stop breathing during sleep? STOP Results QUESTION #5 FULL TEXT : Do you snore loudly (louder than talking or can be heard through closed doors)? 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 Specify any problems Hx of Preganancy in last 3 Months Nurse Filling Out Transfusion & Questions: Date: Time: Patient unable to answer at this time (ie. confused, unrespo /Reproduction History /Reproductive History - stunt woman: /Reproductive Hx- stunt woman Hx Now Gestational Age (in weeks): EDC: Hx Hx Para Hx Section SAB Active Medications Active Medications: Current Medications Generic Name Dose Route Start Last Admin Trade Name Freq PRN Reason Stop Dose Admin Lactated Ringer's 1,000 mls @ 15 mls/hr 01/07/24 11:30 IV .Q48H CONNIE PFSH Medical History Diabetes mellitus, type 2 Hyperlipidemia HTN (hypertension) Atrial flutter Home Medications ?Medication ?Instructions ?Recorded ?Last Taken ?Type apixaban 2.5 mg tablet (Eliquis) 2.5 mg PO BID Anticoagulant 12/30/23 Unknown History clopidogrel 75 mg tablet 75 mg PO DAILY Anticoagulant 12/30/23 Unknown History losartan 100 mg tablet 100 mg PO DAILY BP 12/30/23 Unknown History metformin 850 mg tablet 850 mg PO BID Diabetes 12/30/23 Unknown History rosuvastatin 20 mg tablet 20 mg PO DAILY Cholesterol 12/30/23 01/01/24 21:25 History tramadol 50 mg tablet 50 mg PO Q6H Pain 12/30/23 Unknown History acetaminophen 325 mg tablet 650 mg (2 x 325 mg) PO Q6H PRN PRN 01/02/24 01/02/24 03:55 Rx Pain 1-10 Or Fever #0 tabs amoxicillin 875 mg-potassium 1 tab PO BID Antibiotic #8 tabs 01/02/24 Unknown Rx clavulanate 125 mg tablet metoprolol tartrate 25 mg tablet 25 mg PO BID BP #0 tabs 01/02/24 01/02/24 08:45 Rx Allergy/AdvReac Type Severity Reaction Status Date / Time No Known Allergies Allergy Verified 01/07/24 11:25 Surgical History 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 Social History household members: none Smoking Status: Never smoker alcohol intake: never substance use type: does not use Review of Systems (Anesthesia) ROS Narrative System reviewed and no additional complaints, except as documented.
[2024-01-07] MEDS: Lactated Ringers 1,000 ML 15 ML IV (11:56)
--- NOTE | 2024-01-07 12:42 | PCM.HP.STD ---
HPI - General General Date of Admission: 01/07/24 Date of Service: 01/07/24 Chief Complaint: She had blood loss anemia HPI Narrative KIRBY AMAYA, is a 83 M who presented to the hospital after several days of not feeling well. On Thursday of last week he saw his PCP and was diagnosed with a UTI so was started on Bactrim. The urine culture ultimately showed probable contamination. He started to feel much worse on around Thursday but was hoping that it would go away, he has some nausea but no vomiting but his p.o. intake has declined over the last couple days. He presents today because of continued worsening in his symptoms and he feels weak and debilitated. His daughter noted that he is also a little bit more pale than usual. In the ER CT scan shows mild hydronephrosis on the right but nothing significant that would require intervention, he has a new onset renal failure to 3.74 that is likely due to combination of dehydration as well as the Bactrim since he is 83 years old and a BUN of 102. In October his creatinine of 1.2. He is Hemoccult positive and he is on Plavix and Eliquis for A-fib and hemoglobin today is 9.9 which is about a gram lower than it was in October. He is tachypneic with leukocytosis and his UA does show 100 leukocyte esterase with 10-25 white blood cells and 1+ urine bacteria. secondary to pneumonia. Suspect due to pneumonia. Possible urinary tract infection. Strep and Legionella antigens negative. Urine culture showing 25-50 coliform units of Enterococcus faecalis that is sensitive to ampicillin, linezolid, nitrofurantoin and vancomycin. Pulmonary toilet abx w pip/tazo transition to amox/CA. CARMEN improving. no known baseline metformin, Bactrim, losartan held had received IVF. While in the hospital he developed A-fib with RVR. Received one-time dose of 5 mg of IV metoprolol. Heart rate is since improved. Will change his metoprolol succinate 25 mg daily to metoprolol tartrate 25 mg twice daily. Heme positive stools. Hg stable. Apixaban and clopidogrel currently on hold. We will perform an upper endoscopy evaluate his upper GI tract and possibly a colonoscopy. He was explained alternatives, risk and benefits including outstanding bleeding, infection, sepsis, perforation, need for more charge and . He will have an ASA of 3. [facility] Medical History Diabetes mellitus, type 2 Hyperlipidemia HTN (hypertension) Atrial flutter Home Medications ?Medication ?Instructions ?Recorded ?Last Taken ?Type apixaban 2.5 mg tablet (Eliquis) 2.5 mg PO BID Anticoagulant 12/30/23 Unknown History clopidogrel 75 mg tablet 75 mg PO DAILY Anticoagulant 12/30/23 01/06/24 History losartan 100 mg tablet 100 mg PO DAILY BP 12/30/23 01/07/24 History metformin 850 mg tablet 850 mg PO BID Diabetes 12/30/23 Unknown History rosuvastatin 20 mg tablet 20 mg PO DAILY Cholesterol 12/30/23 01/06/24 History tramadol 50 mg tablet 50 mg PO Q6H Pain 12/30/23 Unknown History acetaminophen 325 mg tablet 650 mg (2 x 325 mg) PO Q6H PRN PRN 01/02/24 01/02/24 03:55 Rx Pain 1-10 Or Fever #0 tabs amoxicillin 875 mg-potassium 1 tab PO BID Antibiotic #8 tabs 01/02/24 01/07/24 Rx clavulanate 125 mg tablet metoprolol tartrate 25 mg tablet 25 mg PO BID BP #0 tabs 01/02/24 01/07/24 Rx Allergy/AdvReac Type Severity Reaction Status Date / Time No Known Allergies Allergy Verified 01/07/24 11:25 Surgical History 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 Social History household members: none Smoking Status: Never smoker alcohol intake: never substance use type: does not use Vital Signs Vital Signs Vital Signs: 01/07/24 11:51 01/07/24 11:51 Temperature 98.1 F Temperature Source Temporal Pulse Rate 62 Respiratory Rate 18 Respiratory Pattern Normal Blood Pressure 99/57 L Blood Pressure Mean 71 Blood Pressure Source Monitor Blood Pressure Position Semi-Fowlers Blood Pressure Location Right Arm Pulse Ox 97 Oxygen Delivery Method Room Air Weight Weight: 182 lb Body Mass Index (BMI) 26.1
[2024-01-07 13:05] LABS: Bedside Glucose 101 mg/dL (74-106)
--- NOTE | 2024-01-07 13:54 | OP.CCLET_ITS ---
01/07/2024 Raghavendra Christian Re : Upper GI endoscopy procedure for Azael Tomlinsoneric Christian This procedure was performed on December. My impressions and recommendations are as follows: Impressions : - No gross lesions in the entire esophagus. - Red blood in the gastric body. - Oozing duodenal ulcers with a visible vessel. Treatment not successful. Treated with a heater probe. Treated with argon plasma coagulation (APC). Clips were placed. Clip certified coder: [employer]. - No specimens collected. Recommendations : - Return patient to referring hospital for ongoing care. - Full liquid diet for 2 days. - Use Protonix (pantoprazole) 40 mg PO BID for 12 weeks. - Use sucralfate tablets 1 gram PO QID for 4 weeks. - Continue present medications. My findings are described in the full procedure note, which is enclosed. If I can be of further assistance, please feel free to contact me at . Sincerely, Gorge Cosby, 01/07/2024 1:53:35 PM This report has been signed electronically.
--- NOTE | 2024-01-07 13:54 | OP.EGD_ITS ---
Patient Name: Azael Davis Procedure Date: 01/07/2024 1:12 PM Date of : 1940 Age: 83 Procedure: Upper GI endoscopy Indications: Iron deficiency anemia, Melena Providers: Gorge Cosby DO Medicines: Monitored Anesthesia Care Patient Profile: This is an 83 year old male. Refer to note in patient chart for documentation of history and physical. Patient has symptoms of acute nausea. Complications: No immediate complications. Procedure: Pre-Anesthesia Assessment: - Prior to the procedure, a History and Physical was performed, and patient medications and allergies were reviewed. The patient is competent. The risks and benefits of the procedure and the sedation options and risks were discussed with the patient. All questions were answered and informed consent was obtained. Patient identification and proposed procedure were verified by the physician in the pre-procedure area. Mental Status Examination: alert and oriented. Airway Examination: normal oropharyngeal airway and neck mobility. Respiratory Examination: clear to auscultation. CV Examination: normal. Prophylactic Antibiotics: The patient does not require prophylactic antibiotics. Prior Anticoagulants: The patient has taken no anticoagulant or antiplatelet agents except for NSAID medication. ASA Grade Assessment: II - A patient with mild systemic disease. After reviewing the risks and benefits, the patient was deemed in satisfactory condition to undergo the procedure. The anesthesia plan was to use monitored anesthesia care (MAC). Immediately prior to administration of medications, the patient was re-assessed for adequacy to receive sedatives. The heart rate, respiratory rate, oxygen saturations, blood pressure, adequacy of pulmonary ventilation, and response to care were monitored throughout the procedure. The physical status of the patient was re-assessed after the procedure. After obtaining informed consent, the endoscope was passed under direct vision. Throughout the procedure, the patient's blood pressure, pulse, and oxygen saturations were monitored continuously. The gastroscope was introduced through the mouth, and advanced to the second part of duodenum. The upper GI endoscopy was accomplished without difficulty. The patient tolerated the procedure well. Scope In: 1:22:45 PM Scope Out: 1:47:55 PM Total Procedure Duration Time 0 hours 25 minutes 10 seconds Findings: No gross lesions were noted in the entire esophagus. Red blood was found in the gastric body. Five oozing cratered duodenal ulcers with a visible vessel were found in the duodenal bulb, in the first portion of the duodenum and in the second portion of the duodenum. The largest lesion was 25 mm in largest dimension. Coagulation for hemostasis using heater probe was unsuccessful. Coagulation for hemostasis using argon plasma at 0.7 liters/minute and 30 cohen was successful. To prevent bleeding post-intervention, three hemostatic clips were successfully placed. Clip systems architecture analyst: [employer]. There was no bleeding at the end of the procedure. Impression: - No gross lesions in the entire esophagus. - Red blood in the gastric body. - Oozing duodenal ulcers with a visible vessel. Treatment not successful. Treated with a heater probe. Treated with argon plasma coagulation (APC). Clips were placed. Clip systems architecture analyst: [employer]. - No specimens collected. Recommendation: - Return patient to referring hospital for ongoing care. - Full liquid diet for 2 days. - Use Protonix (pantoprazole) 40 mg PO BID for 12 weeks. - Use sucralfate tablets 1 gram PO QID for 4 weeks. - Continue present medications. Procedure Code(s): --- Professional --- 27064, Esophagogastroduodenoscopy, flexible, transoral; with control of bleeding, any method CPT copyright 2021 [employer]. All rights reserved. The codes documented in this report are preliminary and upon traffic workforce representative review may be revised to meet current compliance requirements. Gorge Cosby DO 01/07/2024 1:53:35 PM This report has been signed electronically. Number of Addenda: 0 Note Initiated On: 01/07/2024 1:12 PM
--- NOTE | 2024-01-07 14:03 | PCM.POST.ANE ---
Anesthesia: Postop Eval I Current Vital Signs Temperature: 98.2 F Pulse Rate: 57 Blood Pressure: 82/43 Respiratory Rate: 16 Pulse Ox: 98 Oxygen Delivery Method: Room Air Assessment Airway patent: Yes Spontaneous unlabored respirations: Yes Mental status: Asleep nausea: No Vomiting: No Anesthesia Complication: No Fluid Hydration Crystalloid volume administer (ml): 400 Total IV fluid infused: 400 Progress Note Anesthesia document: Postop Eval 1 completed: Yes
[2024-01-07] MEDS: Pantoprazole Sodium 40 MG in 0.9% Normal Saline (100mL MB+) 100 ML 330 MG IV (14:16)
--- NOTE | 2024-01-07 15:39 | PCM.POSTANE2 ---
Anesthesia Postop Eval I Sum Postop Eval Completion status Anesthesia document: Postop Eval 1 completed: Yes Anesthesia Postop Eval I Summary Anesthesia Postop Eval I Summary: Anesthesia Postop Eval I: Assessment Summary Airway patent Yes 01/07/24 14:05 [email or web address] Spontaneous unlabored Yes 01/07/24 14:05 [email or web address] respirations Mental status Asleep 01/07/24 14:05 [email or web address] nausea No 01/07/24 14:05 [email or web address] Vomiting No 01/07/24 14:05 [email or web address] Anesthesia Postop Eval I: Fluid Summary Crystalloid volume administer 400 01/07/24 14:05 [email or web address] (ml) Colloids volume administered ( ml) Blood Product volume administered (ml) Total IV fluid infused 400 01/07/24 14:05 [email or web address] Anesthesia Postop Eval I: Summary Notes Anesthesia Complication No 01/07/24 14:05 [email or web address] Anesthesia Complication Comment: Post-operative progress note Anesthesia: Postop Eval II Evaluation Mental status: Awake Pain Level: 0 nausea: No Vomiting: No
[2024-01-07 16:37] LABS: Bedside Glucose 132 mg/dL (74-106)
== END 2024-01-07 15:21 | disposition home or self-care (01) ==
LOC: EN 11:07 → AC 11:08
PROVIDERS: PCP Family Medicine; Referring Provider Family Medicine; Visit Provider Internal Medicine Gastroenterology
PROC: 0DJ08ZZ Inspection of Upper Intestinal Tract, Via Natural or Artificial Opening Endoscopic (ICD-10-PCS; CPT 43235; principal; 2024-01-07 12:25)
DX: K26.9 Duodenal ulcer, unspecified as acute or chronic, without hemorrhage or perforation (principal); E11.9 Type 2 diabetes mellitus without complications; D50.0 Iron deficiency anemia secondary to blood loss (chronic); N17.9 Acute kidney failure, unspecified; E78.5 Hyperlipidemia, unspecified; I10 Essential (primary) hypertension; Z79.899 Other long term (current) drug therapy; Z79.01 Long term (current) use of anticoagulants; Z79.84 Long term (current) use of oral hypoglycemic drugs
CPT/HCPCS: 43255; 82962; J7120; J2405

== ENCOUNTER 2024-01-18 10:54 | Day surgery (SDC) | payer MEDICARE, BC, SELFPAY ==
[2024-01-18] VITALS (8 sets, daily range): BP systolic 85–122; BP diastolic 54–79; PULSE 66–117; RESP 16; TEMP 36.1–37.1; O2SAT 98–100; BMI 25.8
[2024-01-18] MEDS: Lactated Ringers 1,000 ML 15 ML IV (11:07)
--- NOTE | 2024-01-18 11:09 | PCM.PRE.AN2 ---
ASA Classification* ASA Classification ASA Classification: 3 Assessment & Plan Anesthesia* Anesthesia Assessment Anesthesia Assessment: Discussed sedation and/or anesthesia options, risks, benefits, and alternatives with patient/parents/legal guardian/POA. Questions invited. The patient/parents/legal guardian/POA seems to understand and agrees to proceed with anesthesia plan. Reviewed the physical assessment, medical history, allergy history and patient home medications list prior to surgery/procedure/anesthetic and documented any changes. Performed airway and anesthesia risk assessments. Anesthesia Type Anesthesia Type: MAC Anesthesia Focused Assessment* Temperature: 98.8 F Pulse Rate: 114 Blood Pressure: 122/71 Respiratory Rate: 16 Pulse Ox: 100 Airway Assessment Mouth opens: >3 cm Mallampati Score: II Focused Labs Anesthesia Preop lab: CBC WBC 5.9 K/mm3 (4.4-11.0) 01/15/24 07:37 RBC 2.61 M/mm3 (4.6-6.2) L 01/15/24 07:37 Hgb 7.9 g/dL (13.0-16.5) L 01/18/24 05:36 Hct 25.1 % (40-54) L 01/18/24 05:36 Plt Count 261 K/mm3 (150-450) 01/15/24 07:37 CHEMISTRY Potassium 4.2 mmol/L (3.5-5.1) 01/15/24 07:37 Sodium 136 mmol/L (136-145) 01/15/24 07:37 Magnesium 2.1 mg/dL (1.6-2.6) 12/30/23 11:16 BUN 46 mg/dL (7-18) H 01/15/24 07:37 Creatinine 1.32 mg/dL (0.70-1.30) H 01/15/24 07:37 Glucose 112 mg/dL (74-106) H 01/15/24 07:37 POC Glucose 102 mg/dL (74-106) 01/18/24 06:06 COAG PT 16.4 SECONDS (11.7-14.9) H 12/30/23 11:16 Pre-Assessment Diagnosis/Proposed Procedure Planned Operative Procedure(s): EGD Anesthesia History Anesthesia History - therapeutic recreation assistant: Anesthesia History - therapeutic recreation assistant Hx Hospitalization Any Problems With Anesthesia Cholinesterase deficiency You/Your Family Experience fever (hyperthermia) with Relationship Recent Exposure to Contagious No 01/18/24 11:00 Disease Does patient have nerve stimulator Patient instructed to have device shut off --Does patient have Pacemaker No 01/18/24 11:00 or ICD? When Was Last Pacemaker Check QUESTION #4 FULL TEXT: You/Your Family Experience fever (hyperthermia) with Anesthesia Last Oral Intake Last Oral intake: Last Oral Intake NPO since 09:00 01/18/24 11:00 Meds taken in AM with sips of Yes 01/18/24 11:00 water? Meds patient instructed to metoprolol 01/18/24 11:00 take am of surgery PONV PONV - therapeutic recreation assistant: PONV - therapeutic recreation assistant Female HX of Motion Sickness HX of N/V After Surgery Non-Smoker Duration of Surgery greater than 60 minutes Number of Risk Factors PONV Score Height & Weight Height & Weight: Anesthesia: Height & Weight Height 5 ft 10 in 01/18/24 11:00 Weight: 81.647 kg 01/18/24 11:00 Body Mass Index (BMI) 25.8 01/18/24 11:00 Respiratory Assessment Respiratory Assessment - therapeutic recreation assistant: Respiratory Tract Infection Hx - therapeutic recreation assistant Hx Respiratory Tract Infection STOP Sleep Apnea STOP Sleep Apnea - therapeutic recreation assistant: STOP Sleep Apnea - therapeutic recreation assistant Hx Hypertension Yes 01/03/24 08:56 Hx Sleep Apnea No 01/07/24 14:51 CPAP BIPAP Do you snore loudly (louder than talking or can be heard Do you often feel tired/ fatigued/ sleepy during daytime? Has anyone observed you stop breathing during sleep? STOP Results QUESTION #5 FULL TEXT : Do you snore loudly (louder than talking or can be heard through closed doors)? 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 Specify any problems Hx of Preganancy in last 3 Months Nurse Filling Out Transfusion & Questions: Date: Time: Patient unable to answer at this time (ie. confused, unrespo /Reproduction History /Reproductive History - therapeutic recreation assistant: /Reproductive Hx- therapeutic recreation assistant Hx Now Gestational Age (in weeks): EDC: Hx Hx Para Hx Section SAB Active Medications Active Medications: Current Medications Generic Name Dose Route Start Last Admin Trade Name Freq PRN Reason Stop Dose Admin Lactated Ringer's 1,000 mls @ 15 mls/hr 01/18/24 11:15 01/18/24 11:07 IV 15 mls/hr .Q48H CONNIE Administration PFSH Medical History Current use of custodial anticoagulation Diabetes mellitus, type 2 Hyperlipidemia HTN (hypertension) Atrial flutter Home Medications ?Medication ?Instructions ?Recorded ?Last Taken ?Type apixaban 2.5 mg tablet (Eliquis) 2.5 mg PO BID Anticoagulant 12/30/23 01/06/24 History clopidogrel 75 mg tablet 75 mg PO DAILY Anticoagulant 12/30/23 01/06/24 History losartan 100 mg tablet 100 mg PO DAILY BP 12/30/23 01/17/24 History metformin 850 mg tablet 850 mg PO BID Diabetes 12/30/23 01/17/24 History rosuvastatin 20 mg tablet 20 mg PO DAILY Cholesterol 12/30/23 01/17/24 History tramadol 50 mg tablet 50 mg PO Q6H Pain 12/30/23 Unknown History acetaminophen 325 mg tablet 650 mg (2 x 325 mg) PO Q6H PRN PRN 01/02/24 01/17/24 Rx Pain 1-10 Or Fever #0 tabs metoprolol tartrate 25 mg tablet 25 mg PO BID BP #0 tabs 01/02/24 01/18/24 Rx pantoprazole 40 mg tablet,delayed 40 mg PO BID #168 tabs 01/07/24 01/17/24 Rx release sucralfate 1 gram tablet 1 g PO BID #64 tabs 01/07/24 01/17/24 Rx Allergy/AdvReac Type Severity Reaction Status Date / Time No Known Allergies Allergy Verified 01/18/24 10:58 Surgical History 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 Social History household members: none Smoking Status: Never smoker alcohol intake: never substance use type: does not use Review of Systems (Anesthesia) ROS Narrative System reviewed and no additional complaints, except as documented.
--- NOTE | 2024-01-18 13:25 | OP.EGD_ITS ---
Patient Name: Azael Davis Procedure Date: 01/18/2024 1:12 PM Date of : 1940 Age: 83 Procedure: Upper GI endoscopy Indications: Iron deficiency anemia, Melena Providers: Gorge Cosby DO Medicines: Monitored Anesthesia Care Patient Profile: This is an 83 year old male. Refer to note in patient chart for documentation of history and physical. Patient has symptoms. Complications: No immediate complications. Procedure: Pre-Anesthesia Assessment: - Prior to the procedure, a History and Physical was performed, and patient medications and allergies were reviewed. The patient is competent. The risks and benefits of the procedure and the sedation options and risks were discussed with the patient. All questions were answered and informed consent was obtained. Patient identification and proposed procedure were verified by the physician. Mental Status Examination: alert and oriented. Airway Examination: normal oropharyngeal airway and neck mobility. Respiratory Examination: clear to auscultation. CV Examination: normal. Prophylactic Antibiotics: The patient does not require prophylactic antibiotics. Prior Anticoagulants: The patient has taken no anticoagulant or antiplatelet agents except for NSAID medication. ASA Grade Assessment: II - A patient with mild systemic disease. After reviewing the risks and benefits, the patient was deemed in satisfactory condition to undergo the procedure. The anesthesia plan was to use monitored anesthesia care (MAC). Immediately prior to administration of medications, the patient was re-assessed for adequacy to receive sedatives. The heart rate, respiratory rate, oxygen saturations, blood pressure, adequacy of pulmonary ventilation, and response to care were monitored throughout the procedure. The physical status of the patient was re-assessed after the procedure. After obtaining informed consent, the endoscope was passed under direct vision. Throughout the procedure, the patient's blood pressure, pulse, and oxygen saturations were monitored continuously. The gastroscope was introduced through the mouth, and advanced to the second part of duodenum. The upper GI endoscopy was accomplished without difficulty. The patient tolerated the procedure well. Scope In: 1:14:45 PM Scope Out: 1:21:11 PM Total Procedure Duration Time 0 hours 6 minutes 26 seconds Findings: The examined esophagus was normal. The entire examined stomach was normal. Few oozing cratered duodenal ulcers with a visible vessel were found in the duodenal bulb, in the first portion of the duodenum and in the second portion of the duodenum. The largest lesion was 10 mm in largest dimension. Coagulation for hemostasis using heater probe was successful. Estimated blood loss was minimal. Impression: - Normal esophagus. - Normal stomach. - Oozing duodenal ulcers with a visible vessel. Treated with a heater probe. - No specimens collected. Recommendation: - Return patient to referring hospital for ongoing care. - Full liquid diet today. - Use Protonix (pantoprazole) 40 mg PO BID for the rest of the patient's life. - Use sucralfate tablets 1 gram PO QID for 2 months. - Continue present medications. Procedure Code(s): --- Professional --- 91867, Esophagogastroduodenoscopy, flexible, transoral; with control of bleeding, any method CPT copyright 2021 [employer]. All rights reserved. The codes documented in this report are preliminary and upon hair or beauty salon manager review may be revised to meet current compliance requirements. Gorge Cosby DO 01/18/2024 1:25:17 PM This report has been signed electronically. Number of Addenda: 0 Note Initiated On: 01/18/2024 1:12 PM
--- NOTE | 2024-01-18 13:26 | OP.CCLET_ITS ---
01/18/2024 Raghavendra Christian Re : Upper GI endoscopy procedure for Azael Coombs Gino This procedure was performed on Thursday, January 18, 2024. My impressions and recommendations are as follows: Impressions : - Normal esophagus. - Normal stomach. - Oozing duodenal ulcers with a visible vessel. Treated with a heater probe. - No specimens collected. Recommendations : - Return patient to referring hospital for ongoing care. - Full liquid diet today. - Use Protonix (pantoprazole) 40 mg PO BID for the rest of the patient's life. - Use sucralfate tablets 1 gram PO QID for 2 months. - Continue present medications. My findings are described in the full procedure note, which is enclosed. If I can be of further assistance, please feel free to contact me at . Sincerely, Gorge Cosby, 01/18/2024 1:25:17 PM This report has been signed electronically.
--- NOTE | 2024-01-18 13:31 | PCM.POST.ANE ---
Anesthesia: Postop Eval I Current Vital Signs Temperature: 97 F Pulse Rate: 66 Blood Pressure: 91/55 Respiratory Rate: 16 Pulse Ox: 100 Oxygen Delivery Method: Room Air Assessment Airway patent: Yes Spontaneous unlabored respirations: Yes Mental status: Asleep nausea: No Vomiting: No Anesthesia Complication: No Fluid Hydration Crystalloid volume administer (ml): 400 Total IV fluid infused: 400 Progress Note Anesthesia document: Postop Eval 1 completed: Yes
--- NOTE | 2024-01-18 13:49 | SUR.PHASEII ---
CALLED FOR TRANSPORT AT [id number]
--- NOTE | 2024-01-18 14:52 | PCM.POSTANE2 ---
Anesthesia Postop Eval I Sum Postop Eval Completion status Anesthesia document: Postop Eval 1 completed: Yes Anesthesia Postop Eval I Summary Anesthesia Postop Eval I Summary: Anesthesia Postop Eval I: Assessment Summary Airway patent Yes 01/18/24 13:32 [email or web address] Spontaneous unlabored Yes 01/18/24 13:32 [email or web address] respirations Mental status Asleep 01/18/24 13:32 [email or web address] nausea No 01/18/24 13:32 [email or web address] Vomiting No 01/18/24 13:32 [email or web address] Anesthesia Postop Eval I: Fluid Summary Crystalloid volume administer 400 01/18/24 13:32 [email or web address] (ml) Colloids volume administered ( ml) Blood Product volume administered (ml) Total IV fluid infused 400 01/18/24 13:32 [email or web address] Anesthesia Postop Eval I: Summary Notes Anesthesia Complication No 01/18/24 13:32 [email or web address] Anesthesia Complication Comment: Post-operative progress note Anesthesia: Postop Eval II Evaluation Mental status: Awake Pain Level: 0 nausea: No Vomiting: No
== END 2024-01-18 14:00 | disposition home or self-care (01) ==
LOC: EN 11:02 → AC 11:02
PROVIDERS: PCP Family Medicine; Referring Provider Family Medicine; Visit Provider Internal Medicine Gastroenterology
PROC: 0DJ08ZZ Inspection of Upper Intestinal Tract, Via Natural or Artificial Opening Endoscopic (ICD-10-PCS; CPT 43235; principal; 2024-01-18 12:10)
DX: K26.9 Duodenal ulcer, unspecified as acute or chronic, without hemorrhage or perforation (principal); E11.9 Type 2 diabetes mellitus without complications; D50.9 Iron deficiency anemia, unspecified; I10 Essential (primary) hypertension; Z79.84 Long term (current) use of oral hypoglycemic drugs; Z79.899 Other long term (current) drug therapy
CPT/HCPCS: 43255; J7120; J2405

== ENCOUNTER 2024-06-21 10:40 | Inpatient (IN) | payer MEDICARE, BC, SELFPAY ==
[2024-06-21] VITALS (13 sets, daily range): BP systolic 94–160; BP diastolic 61–90; PULSE 80–139; RESP 15–22; TEMP 36.2–37; O2SAT 95–100; BMI 28.2
--- NOTE | 2024-06-21 12:08 | EKG12_ITS ---
Test Reason : PALP Blood Pressure : */* mmHG Vent. Rate : 137 BPM Atrial Rate : 137 BPM P-R Int : 64 ms QRS Dur : 96 ms QT Int : 384 ms P-R-T Axes : * 17 79 degrees QTcB Int : 579 ms Critical Test Result: Long QTc , STEMI Atrial flutter with 2:[address]-T wave changes Abnormal ECG Confirmed by Deshaun Perdue ([id number]), department editor [place] ([id number]) on 06/23/2024 6:49:43 AM Referred By: BRAYDEN/MORRIS Confirmed By: Deshaun Perdue
[2024-06-21 12:23] LABS: Absolute Lymphocyte Count 1.05 X10^3/uL (0.83-4.51); Absolute Neutrophil Count 6.3 X10^3/uL (2.0-7.7); Basophil# 0.04 X10^3/uL; Basophil% 0.5 % (0-1); Eosinophil# 0.29 X10^3/uL; Eosinophils% 3.4 % (0-5); Hematocrit 34.8 % (40-54); Hemoglobin 10.5 g/dL (13.0-16.5); Lymphocyte # 1.05 X10^3/ul (0.83-4.51); Lymphocyte % 12.2 % (19-41); Mean Corp Hgb Conc 30.2 g/dL (32-36); Mean Corpuscular Hgb 24.8 pg (27.0-32.0); Mean Corpuscular Volume 82.3 fL (80-94); Mean Platelet Vol. 11.1 fl (6.2-12.0); Monocyte# 0.87 X10^3/uL; Monocyte% 10.1 % (0-10); NRBC Flagged by Analyzer 0 % (0-5); Neutrophil % 73.3 % (47-70); POSITIVE MORPHOLOGY YES; Platelet Count 214 K/mm3 (150-450); RBC Distribution Width CV 20.5 % (11.6-14.6); RBC Distribution Width SD 60.4 fl (35.1-43.9); Red Blood Count 4.23 M/mm3 (4.6-6.2); White Blood Count 8.6 K/mm3 (4.4-11.0)
--- NOTE | 2024-06-21 12:23 | EDS_ITS ---
HPI History of Present Illness Chief Complaint: Palpitations Informant: patient and family Narrative Narrative: 84-year-old male states he has felt weakness that he feels mostly in his legs for the past 3 weeks. Today was the first doctor visit that he had for this, his PCP, who sent him to the ER. He has noted to have a resting tachycardia here in triage, he feels no palpitations, dyspnea, chest discomfort, even when he was very tachycardic. He has had no other symptoms in the past 3 weeks other than a cough that is not severe and nonproductive. He has had some episodes of lightheadedness and near syncope but he has never had any syncopal episodes. He has had 3 falls in the last 3 weeks, none of them resulting in an injury, but all occurring as a result of feeling like his legs gave out on them due to weakness. He denies any numbness. No bowel or bladder dysfunction. No recent changes in any of his medications except for several months ago his doctor dropped his metformin and losartan because his blood sugar and blood pressure were doing well. He does have a history of chronic A-fib and is on Eliquis. 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 Home Medications ?Medication ?Instructions ?Recorded ?Last Taken ?Type clopidogrel 75 mg tablet 75 mg PO DAILY Anticoagulant 12/30/23 01/06/24 History metformin 850 mg tablet 850 mg PO BID Diabetes 12/2901/17/24 History rosuvastatin 20 mg tablet 20 mg PO DAILY Cholesterol 0 12/30/23 01/17/24 History metoprolol tartrate 25 mg tablet 25 mg PO BID BP #0 ta bs 01/02/24 01/18/24 Rx apixaban 5 mg tablet (Eliquis) 2.5 mg (1/2 x 5 mg) PO BID #0 tabs 01/22/24 Unknown Rx ascorbic acid (vitamin C) 500 mg 500 mg PO DAILY #0 ta bs 01/22/24 Unknown Rx tablet pantoprazole 40 mg tablet,delayed 40 mg PO BID 30 days #60 tabs 01/22/24 Unknown Rx release polysaccharide iron complex 150 mg 150 mg PO DAILY 30 days #30 caps 01/22/24 Unknown Rx iron capsule (Ferrex) sucralfate 1 gram tablet 1 g PO 1HR_ACHS 30 days #120 tabs 01/22/24 Unknown Rx Allergy/AdvReac Type Severity Reaction Status Date / Time sulfamethoxazole (From AdvReac Nausea Verified 06/21/24 10:43 Bactrim) trimethoprim (From Bactrim) AdvReac Nausea Verified 06/21/24 10:43 Surgical History 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 Social History household members: none Smoking Status: Never smoker alcohol intake: never substance use type: does not use ROS ROS ED Constitutional Constitutional ED: Reports fatigue and weakness; Denies chills or fever(s) Eyes Eyes: Denies change in vision or diplopia ENT ENT ED: Denies rhinorrhea or sore throat Cardiovascular Cardiovascular: Reports lightheadedness; Denies chest pain, leg edema, orthopnea, palpitations or syncope Respiratory/Chest Respiratory/Chest: Reports cough; Denies dyspnea, orthopnea or sputum Gastrointestinal Gastrointestinal: Denies abdominal pain, diarrhea, nausea or vomiting Genitourinary Genitourinary ED: Denies dysuria or hematuria Musculoskeletal Musculoskeletal: Denies back pain or neck pain Integumentary Denies abscess or rash Neurologic Neurologic: Denies headache(s), paresthesias or weakness Psychiatric Psychiatric: Denies anxiety or suicidal thoughts EXAM Physical Exam Const Vital Signs: 06/21/24 10:41 06/21/24 10:53 06/21/24 11:55 Temperature 98.2 F Temperature Source Oral Pulse Rate 139 H 107 H Respiratory Rate 16 16 Respiratory Effort Normal Blood Pressure 94/61 123/65 H Blood Pressure Mean 72 84 Pulse Ox 99 99 Oxygen Delivery Method Room Air Room Air 06/21/24 13:00 06/21/24 14:00 06/21/24 14:35 Temperature Temperature Source Pulse Rate 106 H 116 H 97 Respiratory Rate 16 15 22 H Respiratory Effort Blood Pressure 141/65 H 138/66 H 129/74 H Blood Pressure Mean 90 90 92 Pulse Ox 98 96 95 Oxygen Delivery Method Room Air Room Air Room Air 06/21/24 15:00 Temperature Temperature Source Pulse Rate 80 Respiratory Rate 21 H Respiratory Effort Blood Pressure 145/70 H Blood Pressure Mean 95 Pulse Ox 99 Oxygen Delivery Method Room Air Positive well nourished and well developed General Appearance ED: well developed and NAD HEENT Reports moist mucous membranes normocephalic and atraumatic Eyes PERRL and EOMs intact bilaterally Neck full ROM and supple Resp normal respiratory effort and clear to auscultation bilaterally Cardio Rate: tachycardic Rhythm: abnormal rhythm irregularly irregular Heart Sounds: murmur systolic I/ soft left sternal border GI non-tender and non-distended Auscultation: normoactive bowel sounds Palpation: soft Back/Spine no CVA tenderness General Back: other FROM Extremity normal to inspection General Extremety ED: Negative for edema, pulses abnormal or tenderness General Extremity: Negative for edema or pulses abnormal Neuro oriented x3, CN's II-XII intact bilaterally and no sensory deficits noted Neuro Narrative: Nonfocal neurologic exam Sensorium / Orientation: awake and alert Motor Exam: general weakness Psych mental status grossly normal Skin no rashes or lesions noted and no wounds MDM MDM MDM Narrative Medical decision making narrative: Patient's EKG is fairly regular, but as I am evaluating him, he is irregular and less tachycardic than he was when he had the EKG. Given all of this and his history I think this is A-fib with RVR. There are some nonspecific findings that appear related to his heart rate on the EKG, the computer is reading it as a STEMI. I disagree instead of my colleague who read the EKG prior to me seeing the patient. The patient has been having the same symptoms for the past 3 weeks and he denies any symptoms of angina. The differential is wide here, including primary electrical issue causing A-fib with RVR, which could be causing his weakness, or this may be secondary to another issue such as metabolic disturbance, anemia, and infection, or recent DC, etc. Patient is a little anemic but not enough to cause all of this, especially looking at his old labs since it is higher than usual for him. Chest x-ray 2 views of my interpretation show no acute pneumonia, radiology in agreement. His urine shows no infection. He has some very mild renal sufficiency but not enough to qualify for CARMEN at this point compared with his recent prior numbers. He has 2 sequential troponin measurements that are elevated, but relatively stable. I did give him metoprolol 5 mg, this slowed him down to the 80s, and his blood pressure remained stable as well as his other vital signs. He has not been dyspneic, his oxygenation is excellent at 99%, and he is already anticoagulated so I do not think we need to consider imaging and for pulmonary embolus at this time. It is possible that his troponin elevation is due to his rate recently, less likely acute coronary syndrome but his EKG is nonspecific and difficult to rule that out acutely especially with him being a diabetic and elderly. Given all this I discussed with cardiology Dr. Perdue. He recommends getting an echocardiogram, continuing the metoprolol as prescribed 25 mg twice daily, and consulting him if needed, otherwise can follow-up as an outpatient, and agrees with admitting him to medicine. History & Record Review Additional record(s) reviewed:: Prior labs Lab Data Attestation: I reviewed the patient's lab results. Labs: Laboratory Results - last 24 hr 06/21/24 06/21/24 11:00 14:10 WBC 8.6 RBC 4.23 L Hgb 10.5 L Hct 34.8 L MCV 82.3 MCH 24.8 L MCHC 30.2 L RDW Std Deviation 60.4 H RDW Coeff of Gavin 20.5 H Plt Count 214 MPV 11.1 Immature Gran % (Auto) 0.500 Neut % (Auto) 73.3 H Lymph % (Auto) 12.2 L [place] % (Auto) 10.1 H Eos % (Auto) 3.4 Baso % (Auto) 0.5 Absolute Neuts (auto) 6.3 Absolute Lymphs (auto) 1.05 Nucleated RBC % 0 Platelet Estimate A Anisocytosis 1+ Sodium 138 Potassium 4.3 Chloride 102 Carbon Dioxide 22.3 Anion Gap 14 BUN 26 H Creatinine 1.26 H Est GFR (MDRD) Non-Af 57 L BUN/Creatinine Ratio 20.8 H Glucose 189 H Calcium 9.5 Total Bilirubin 0.53 AST 28 ALT 21 Alkaline Phosphatase 72 Troponin T High Sens 69 H* Troponin T Hi Sens 2 Hr 68 H* Troponin T Hi Sens 2Hr Delta 1 Total Protein 6.8 Albumin 3.9 Globulin 2.9 Albumin/Globulin Ratio 1.4 Urine Color Yellow Urine Clarity Clear Urine pH 6.0 Ur Specific [place] 1.015 Urine Protein 30 H Urine Glucose (UA) Normal Urine Ketones Negative Urine Occult Blood 10 H Urine Nitrite Negative Urine Bilirubin Negative Urine Urobilinogen Normal Ur Leukocyte Esterase Negative Urine RBC 0-5 SEEN Urine WBC 0-5 SEEN Ur Squamous Epith Cells 0-5 SEEN Urine Bacteria RARE Urine Mucus 1+ Radiography Diagnostic Testing: Clinical Impression(s) from Imaging Studies Chest X-Ray 06/21/24 12:40 IMPRESSION: No acute abnormality is seen. Reading Location: [id number] Rhythm Strip Rhythm Strip: A-fib Rate: 115 Ectopy: None EKG Initial EKG: Attestation: I personally reviewed and interpreted this EKG as follows: Interpretation: No Acute Injury Pattern, Atrial Fibrillation (With RVR high 130s) and Non-Specific ST Changes Prior EKG tracings: available for review Prior: Unchanged (With regards to morphology, axis) Management Discussion w/another healthcare provider: Hospitalist and Mold Clamper ([facility]) Discharge Plan Dx/Rx/DC Orders Clinical Impression: Atrial fibrillation with RVR, Debility, Anemia, Coronary artery disease, Elevated troponin Disposition Disposition: Acute Care Hospital [facility]
[2024-06-21] MEDS: 0.9% Normal Saline (500mL Bag) 500 ML 1000 ML IV (12:30)
--- NOTE | 2024-06-21 12:40 | RAD_ITS ---
PROCEDURE: CHEST PA AND LATERAL REASON FOR EXAM: Cough and weakness. Hypotension. TECHNIQUE: Frontal and lateral views of the chest. COMPARISON: Comparison is made with prior study dated December 30, 2023. FINDINGS: EKG electrodes are seen. Prior midline sternotomy. Prior mitral valve replacement. Calcification of the aortic arch. The lungs are clear. Degenerative changes of the thoracic spine. RAD/Chest PA and Lateral IMPRESSION: No acute abnormality is seen. Reading Location: [facility]
[2024-06-21 13:02] LABS: Troponin T High Sensitivity 69 ng/L (<=22)
[2024-06-21 13:28] LABS: Differential Indicated SCAN CRITERIA MET
[2024-06-21 13:31] LABS: Anisocytosis 1+; Platelet Estimate A (ADEQ)
[2024-06-21] MEDS: Metoprolol Tartrate 5 MG/5 ML Vial IV (14:03)
[2024-06-21 14:17] LABS: Color, Urine Yellow (Yellow); Glucose, Dipstick Normal (Normal); Ketone-Dipstick Negative (Negative); Leukocyte Esterase-Dipstick Negative /ul (Negative); Nitrite-Dipstick Negative (Negative); Occult Blood-Urine 10 /ul (Negative); Protein-Dipstick 30 mg/dl (Negative); Specific Gravity, Urine 1.015 (1.002-1.030); Urine Bilirubin Dipstick Negative (Negative); Urine Clarity Clear (Clear); Urine Urobilinogen Normal (Normal)
[2024-06-21 14:20] LABS: Red Blood Cells-Urine 0-5 SEEN /hpf (0-5); Squamous Epithelial Cells - UA 0-5 SEEN /hpf (0-5); White Blood Cells 0-5 SEEN /hpf (0-5)
[2024-06-21 14:21] LABS: Bacteria RARE /hpf (None Seen); Mucous, Urine 1+ /hpf (<or=2+)
[2024-06-21 14:53] LABS: ALB/GLOB Ratio 1.4 RATIO (0.9-2.4); AST(SGOT) 28 U/L (<=37); Alanine Aminotransfer ALT/SGPT 21 U/L (<=46); Albumin, Serum 3.9 g/dL (3.4-4.8); Alkaline Phosphatase 72 U/L (40-129); Anion Gap 14 (5-15); BUN 26 mg/dL (4-19); BUN/Creat Ratio 20.8 RATIO (10-20); Calcium,Total 9.5 mg/dL (7.6-11.0); Carbon Dioxide 22.3 mmol/L (21.0-32.0); Chloride 102 mmol/L (98-108); Creatinine, Serum 1.26 mg/dL (0.70-1.20); EST Glomerular Filtration Rate 57 (>60); Globulin 2.9 g/dL (2.2-4.2); Glucose 189 mg/dL (70-99); Potassium 4.3 mmol/L (3.3-5.1); Protein, Total 6.8 g/dL (5.9-8.4); Sodium Level 138 mmol/L (133-145); Total Bilirubin 0.53 mg/dL (0.00-1.30)
[2024-06-21 14:57] LABS: TROPONIN VARIANCE 2 HR 1; Troponin T High Sens 2 HR 68 ng/L (<=22)
--- NOTE | 2024-06-21 15:53 | HP.PCM.HOS_ITS ---
HPI - General General Date of Admission: 06/21/24 Date of Service: 06/21/24 Chief Complaint: Generalized weakness, lightheadedness with recent near syncopal episodes HPI Narrative KIRBY AMAYA, is a 84 M who presented to [facility] ED on 06/21/2024 with worsening generalized weakness and lightheadedness with recent near syncopal episodes. In the ED patient was found to be in A-fib with RVR with rate to the 140s. Does have known history of chronic A-fib and is on Eliquis. Also has a history of CAD with bypass and TAVR. Patient reports somewhat decreased p.o. intake over the past several days. Has also had a mild cough that is nonproductive. He reports 3 falls in the last 3 weeks, although mild with no injury sustained. These all occurred because he felt like his legs were giving out. He denied any numbness or tingling down his legs. Denied any low back pain. Denied any bowel or bladder dysfunction. COVID/flu/RSV were negative. Chest x-ray was unremarkable. Troponin trend 69 > 68 > 58. EKG was initially read as STEMI but on further review no notable ST elevations were noted and patient denied any chest pain or discomfort. He was otherwise hemodynamically stable on room air. He was given a dose of IV Lopressor in the ED with improvement in heart rate down to the 80s to 90s. Case was discussed with cardiology who recommended admitting for observation with plan for echo to ensure that there is no LV dysfunction. Hospitalist was then contacted for admission. I saw the patient at bedside in the ED. Patient was sitting up comfortably in bed, conversing normally, in no acute distress. He denied any chest pain or discomfort. Denied any shortness of breath. Denied any lower extremity swelling. Stated he did feel improved from a fatigue standpoint after receiving the IV Lopressor. Denied any fevers or chills. Denied any other acute concerns at this time. [facility] Medical History Atrial fibrillation Diabetes mellitus, type 2 Hyperlipidemia HTN (hypertension) Atrial flutter Current use of senior living anticoagulation Home Medications ?Medication ?Instructions ?Recorded ?Last Taken ?Type metoprolol tartrate 25 mg tablet 25 mg PO BID BP #0 ta bs 01/02/24 01/18/24 Rx ascorbic acid (vitamin C) 500 mg 500 mg PO DAILY #0 ta bs 01/22/24 Unknown Rx tablet pantoprazole 40 mg tablet,delayed 40 mg PO BID 30 days #60 tabs 01/22/24 Unknown Rx release polysaccharide iron complex 150 mg 150 mg PO DAILY 30 days #30 caps 01/22/24 Unknown Rx iron capsule (Ferrex) apixaban 5 mg tablet (Eliquis) 5 mg PO DAILY 06/21/24 Unknown History rosuvastatin 10 mg tablet 10 mg PO DAILY 06/21/24 Unkn own History Allergy/AdvReac Type Severity Reaction Status Date / Time sulfamethoxazole (From AdvReac Nausea Verified 06/21/24 10:43 Bactrim) trimethoprim (From Bactrim) AdvReac Nausea Verified 06/21/24 10:43 Surgical History 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 Social History household members: none Smoking Status: Never smoker alcohol intake: never substance use type: does not use ROS Constitutional Constitutional: Reports fatigue and weakness; Denies chills or fever(s) Eyes Eyes: Denies change in vision Cardiovascular Cardiovascular: Reports lightheadedness; Denies chest pain, edema or palpitations Respiratory/Chest Respiratory/Chest: Reports cough and shortness of breath with exertion; Denies productive cough, shortness of breath at rest or wheezing Gastrointestinal Gastrointestinal: Denies abdominal pain Musculoskeletal Musculoskeletal: Denies arthralgias or myalgias Neurologic Neurologic: Denies dizziness, focal weakness or headache(s) Vital Signs Vital Signs Vital Signs: 06/21/24 10:41 06/21/24 10:53 06/21/24 11:55 Temperature 98.2 F Temperature Source Oral Pulse Rate 139 H 107 H Respiratory Rate 16 16 Respiratory Effort Normal Blood Pressure 94/61 123/65 H Blood Pressure Mean 72 84 Pulse Ox 99 99 Oxygen Delivery Method Room Air Room Air 06/21/24 13:00 06/21/24 14:00 06/21/24 14:35 Temperature Temperature Source Pulse Rate 106 H 116 H 97 Respiratory Rate 16 15 22 H Respiratory Effort Blood Pressure 141/65 H 138/66 H 129/74 H Blood Pressure Mean 90 90 92 Pulse Ox 98 96 95 Oxygen Delivery Method Room Air Room Air Room Air 06/21/24 15:00 Temperature Temperature Source Pulse Rate 80 Respiratory Rate 21 H Respiratory Effort Blood Pressure 145/70 H Blood Pressure Mean 95 Pulse Ox 99 Oxygen Delivery Method Room Air Physical Exam Const alert, oriented x3, no apparent distress and average body habitus Constitutional Narrative: Elderly male, mildly fatigued appearing but otherwise sitting back comfortably in bed, conversing normally, in no acute distress. General Appearance: cooperative and comfortable HEENT normocephalic, head/scalp atraumatic, hearing grossly normal bilaterally, nasal mucous membranes and turbinates normal and moist oral mucous membranes Eyes PERRL, EOMs intact bilaterally and conjunctivae normal Neck full ROM Chest inspection of chest normal Resp normal respiratory effort, normal air movement, no use of accessory muscles and clear to auscultation bilaterally Cardio no murmurs and peripheral pulses 2+ throughout Cardio Narrative: A-fib, rate controlled. GI normal to inspection, nondistended, normoactive bowel sounds, soft to palpation, non-tender and non-distended Back/Spine normal ROM Extremity normal to inspection, full ROM and no pedal edema Skin no rashes or lesions noted Neuro moves all extremities and no focal motor deficits Speech: speech normal Motor Exam: strength 5/5 throughout Psych mental status grossly normal Results Lab / Micro Data 06/21/24 11:00 06/21/24 11:00 Labs: Laboratory Results - last 24 hr 06/21/24 11:00: WBC 8.6, RBC 4.23 L, Hgb 10.5 L, Hct 34.8 L, MCV 82.3, MCH 24.8 L, MCHC 30.2 L, RDW Std Deviation 60.4 H, RDW Coeff of Gavin 20.5 H, Plt Count 214, MPV 11.1, Immature Gran % (Auto) 0.500, Neut % (Auto) 73.3 H, Lymph % (Auto) 12.2 L, [place] % (Auto) 10.1 H, Eos % (Auto) 3.4, Baso % (Auto) 0.5, Absolute Neuts (auto) 6.3, Absolute Lymphs (auto) 1.05, Nucleated RBC % 0, Platelet Estimate A, Anisocytosis 1+, Sodium 138, Potassium 4.3, Chloride 102, Carbon Dioxide 22.3, Anion Gap 14, BUN 26 H, Creatinine 1.26 H, Est GFR (MDRD) Non-Af 57 L, BUN/Creatinine Ratio 20.8 H, Glucose 189 H, Calcium 9.5, Total Bilirubin 0.53, AST 28, ALT 21, Alkaline Phosphatase 72, Troponin T High Sens 69 H*, Total Protein 6.8, Albumin 3.9, Globulin 2.9, Albumin/Globulin Ratio 1.4 06/21/24 14:10: Troponin T Hi Sens 2 Hr 68 H*, Troponin T Hi Sens 2Hr Delta 1, Urine Color Yellow, Urine Clarity Clear, Urine pH 6.0, Ur Specific [place] 1.015, Urine Protein 30 H, Urine Glucose (UA) Normal, Urine Ketones Negative, U rine Occult Blood 10 H, Urine Nitrite Negative, Urine Bilirubin Negative, Urine Urobilinogen Normal, Ur Leukocyte Esterase Negative, Urine RBC 0-5 SEEN, Urine WBC 0-5 SEEN, Ur Squamous Epith Cells 0-5 SEEN, Urine Bacteria RARE, Urine Mucus 1+ Micro: Microbiology 06/21/24 12:15 Mucosa - Nose SARS-CoV-2, Influenza & RSV (PCR) - Final Rhythm Strip Rhythm Strip: A-fib Rate: 115 Ectopy: None Imaging Radiology Impression Chest X-Ray 06/21/24 12:40 IMPRESSION: No acute abnormality is seen. Reading Location: [id number] Assessment & Plan Assessment/Plan (1) Atrial fibrillation with RVR: (2) Elevated troponin: PLAN: Plan Patient is an 84-year-old male who presented [facility] ED on 06/21/2024 with worsening weakness with lightheadedness and presyncopal episodes. 1. Chronic A-fib with RVR ? Admit under observation status to PCU. Known history of chronic A-fib but was in RVR to the 140s on arrival to the ED. Suspect this may be due to some degree of volume depletion in setting of increased urination from poorly controlled diabetes. Given 1 dose of IV Lopressor in the ED with improvement in rate. Given 1 L of IV fluids as well. ED physician discussed with cardiology who recommended echocardiogram to evaluate LV function. Patient notably has been lost to follow-up in the past. Cardiology noted that consult is not needed right now but they could be reached at any time for further evaluation. Will plan for close outpatient follow-up with cardiology on discharge as well. Continue home p.o. Lopressor. 2. Mild acute debility with falls ? PT/OT/case management consulted. Suspect patient may have had mild orthostasis due to volume depletion. Given 1 L of IV fluids on admit. Orthostatic vital signs ordered for morning of 06/22. 3. Elevated troponins ? Troponin trend 69 > 68 > 58. No EKG changes noted. No chest pain noted. Suspect secondary to demand ischemia from A-fib with RVR and dehydration. No need for further evaluation. 4. History of CAD with CABG, hypertension, hyperlipidemia ? Blood pressure normotensive to mildly hypertensive on admit. Continue home Lopressor and statin. 5. Iron deficiency anemia ? Hemoglobin 10.5 on admit, baseline 9-10. Continue home iron supplement. 6. GERD ? Continue home PPI. 7. Type 2 diabetes mellitus ? Was previously on metformin but patient noted he was taken off this due to good blood sugar control. Blood glucose 189 on admit. A1c found to be 10.3%. Unclear if this is accurate, will recheck A1c tomorrow morning. Will hold on sliding scale insulin with meals for now until A1c is rechecked. DVT prophylaxis: Not indicated, on Eliquis CODE STATUS: Full code, verified Expected disposition: Home, 1 to 2 days Total clinical time spent by myself addressing the patient's medical issues, reviewing all the data, and collaborating with patient's care team: 75 minutes. Charges/Coding Visit Charges Inpatient E&M: 97940 Init Hosp L3
--- NOTE | 2024-06-21 16:09 | ECHOCS_ITS ---
Reason For Study Reason For Study: AFIB/AFLUTTER Procedure This was a 2D Doppler, Color Flow transthoracic echocardiogram. The study was technically difficult. Due to body habitus & arrhythmia. Contrast injection was performed. Exam performed portable in patient room. Left Ventricle Normal size and thickness. Mild anterior and septal hypokinesis. Estimated LVEF 45%. Diastolic function indeterminate. Right Ventricle Normal right ventricle. Atria There is moderate biatrial dilatation. Mitral Valve Severe mitral annular calcification versus annuloplasty ring. Mild to moderate mitral valve regurgitation. Tricuspid Valve Normal pulmonary artery pressure. Trivial tricuspid valve insufficiency. Aortic Valve Bioprosthetic aortic valve not seen well in short axis. Appears functioning normally. Mean peak gradient 3 mmHg. Pulmonic Valve The pulmonic valve is not well visualized. Great Vessels Normal sized aortic root. Pericardium/Pleural No pericardial effusion. Medication Diluted definity 3.0ml given slow IV push to enhance endocardial definition. MMode/2D Measurements & Calculations LVIDd: 3.9 cm IVSd: 1.0 cm Ao root diam: 2.9 cm LVIDs: 3.1 cm LVPWd: 0.94 cm RVDd: 3.7 cm FS: 20.7 % LAV(MOD-bp): 103.3 ml LVAd ap4: 30.3 cm2 SV(MOD-sp4): 43.7 ml LAV(MOD-bp) Indexed: 51.2 ml/m2 LVLd ap4: 8.3 cm SI(MOD-sp4): 21.6 ml/m2 LAV(MOD-sp2): 99.1 ml EDV(MOD-sp4): 90.8 ml LAV(MOD-sp4): 99.6 ml EDV(sp4-el): 94.0 ml LVAs ap4: 19.9 cm2 LVLs ap4: 7.1 cm ESV(MOD-sp4): 47.0 ml ESV(sp4-el): 47.4 ml EF(MOD-sp4): 48.2 % EF(sp4-el): 49.6 % SV(sp4-el): 46.6 ml LA A4 area: 29.7 cm2 LA dimension(2D): 4.3 cm RA A4 area: 19.7 cm2 TAPSE: 1.4 cm Doppler Measurements & Calculations MV E max andrea: 117.6 cm/sec Lat Peak E' Andrea: 12.7 cm/sec Med Peak E' Andrea: 9.9 cm/sec E/E' lat: 9.3 E/E' med: 11.9 Ao V2 max: 128.9 cm/sec LV V1 max: 117.0 cm/sec PA V2 max: 75.8 cm/sec Ao max P.7 mmHg LV V1 max P.5 mmHg Ao V2 mean: 83.0 cm/sec LV V1 mean P.5 mmHg Ao mean P.1 mmHg LV V1 mean: 74.7 cm/sec Ao V2 VTI: 18.1 cm LV V1 VTI: 18.0 cm AV (velocity ratio): 0.99 TR max andrea: 221.6 cm/sec TR max P.7 mmHg ECHO/Echo Complete W/ Contrast Interpretation Summary Mild anterior and septal hypokinesis. Estimated LVEF 45%. Diastolic function in determinate. There is moderate biatrial dilatation. Severe mitral annular calcification versus annuloplasty ring. Mild to moderate mitral valve regurgitation. Bioprosthetic aortic valve appears functioning normally. Mean peak gradient 3 m mHg. Ordering Physician: Chadd Velasquez Referring Physician: Raghavendra Christian Performed By: Maisha Soto, ANDREA, RVT
[2024-06-21 17:27] LABS: Hemoglobin A1c 10.3 % (<=5.6)
[2024-06-21 17:37] LABS: Magnesium 1.9 mg/dL (1.5-2.2); Phosphorus 3.5 mg/dL (2.7-4.5)
[2024-06-21 20:03] LABS: TROPONIN VARIANCE 4 HR 11; Troponin T High Sens 4 HR 58 ng/L (<=22)
[2024-06-21] MEDS: Metoprolol Tartrate 25 MG Tablet PO (21:54)
[2024-06-21] MEDS: Lactated Ringers 250 ML IV ×2 (21:55→23:55)
[2024-06-21] MEDS: Pantoprazole Sodium 40 MG Tablet PO (21:55)
[2024-06-22] VITALS (8 sets, daily range): BP systolic 99–142; BP diastolic 52–108; PULSE 79–133; RESP 14–18; TEMP 36–36.5; O2SAT 95–99
[2024-06-22] MEDS: Lactated Ringers 250 ML IV ×2 (01:55→02:56)
[2024-06-22 06:46] LABS: Hemoglobin A1c 10.1 % (<=5.6)
--- NOTE | 2024-06-22 09:29 | PCM.PN.HOSP ---
Reason for Visit Reason for Visit: Diagnoses Unspecified atrial fibrillation (06/21/24) Other specified abnormal findings of blood chemistry (06/21/24) Subjective Subjective Overall feeling well Constipated for the last 3 days Used to take Colace at home for bowel movements Objective Data Objective Data Vital Signs: Vital Signs Temp Pulse Resp BP Pulse Ox O2 Del Method 96.8 F L 79 18 142/69 H 98 Room Air 06/22/24 03:20 06/22/24 03:20 06/22/24 03:20 06/22/24 03:20 06/22/24 03:20 06/22/24 03:35 Oxygen Delivery Method Room Air Weight: 196 lb 10.437 oz Body Mass Index (BMI) 28.2 Intake & Output: Intake and Output for Last 24 Hours 06/20/24 06/21/24 06/22/24 23:59 23:59 23:59 Intake Total 750 / 750 750 / 750 Balance 750 / 750 750 / 750 Lab / Micro Data Attestation: I reviewed the patient's lab results. 06/21/24 11:00 06/21/24 11:00 Labs: Laboratory Results - last 24 hr 06/21/24 11:00: WBC 8.6, RBC 4.23 L, Hgb 10.5 L, Hct 34.8 L, MCV 82.3, MCH 24.8 L, MCHC 30.2 L, RDW Std Deviation 60.4 H, RDW Coeff of Gavin 20.5 H, Plt Count 214, MPV 11.1, Immature Gran % (Auto) 0.500, Neut % (Auto) 73.3 H, Lymph % (Auto) 12.2 L, [place] % (Auto) 10.1 H, Eos % (Auto) 3.4, Baso % (Auto) 0.5, Absolute Neuts (auto) 6.3, Absolute Lymphs (auto) 1.05, Nucleated RBC % 0, Platelet Estimate A, Anisocytosis 1+, Sodium 138, Potassium 4.3, Chloride 102, Carbon Dioxide 22.3, Anion Gap 14, BUN 26 H, Creatinine 1.26 H, Est GFR (MDRD) Non-Af 57 L, BUN/Creatinine Ratio 20.8 H, Glucose 189 H, Hemoglobin A1c 10.3, Calcium 9.5, Total Bilirubin 0.53, AST 28, ALT 21, Alkaline Phosphatase 72, Troponin T High Sens 69 H*, Total Protein 6.8, Albumin 3.9, Globulin 2.9, Albumin/Globulin Ratio 1.4 06/21/24 14:10: Phosphorus 3.5, Magnesium 1.9, Troponin T Hi Sens 2 Hr 68 H*, Troponin T Hi Sens 2Hr Delta 1, TSH 1.170, Urine Color Yellow, Urine Clarity Clear, Urine pH 6.0, Ur Specific [place] 1.015, Urine Protein 30 H, Urine Glucose (UA) Normal, Urine Ketones Negative, Urine Occult Blood 10 H, Urine Nitrite Negative, Urine Bilirubin Negative, Urine Urobilinogen Normal, Ur Leukocyte Esterase Negative, Urine RBC 0-5 SEEN, Urine WBC 0-5 SEEN, Ur Squamous Epith Cells 0-5 SEEN, Urine Bacteria RARE, Urine Mucus 1+ 06/21/24 19:05: Troponin T Hi Sens 4Hr 58 H*, Troponin T Hi Sens 4Hr Delta 11 06/22/24 05:38: Hemoglobin A1c 10.1 Micro: Microbiology 06/21/24 12:15 Mucosa - Nose SARS-CoV-2, Influenza & RSV (PCR) - Final Radiography Diagnostic Testing: Radiology Impression Chest X-Ray 06/21/24 12:40 IMPRESSION: No acute abnormality is seen. Reading Location: [facility] Rhythm Strip Rhythm Strip: A-fib Rate: 115 Ectopy: None Physical Exam Const alert and oriented x3 HEENT head/scalp atraumatic Eyes PERRL Resp normal respiratory effort Cardio regular rate GI normal to inspection, nondistended, normoactive bowel sounds Extremity normal to inspection Neuro oriented x3, CN's II-XII intact bilaterally and moves all extremities Psych affect normal Assessment & Plan Assessment/Plan (1) Atrial fibrillation with RVR: PLAN: Plan 82-year-old man admitted to the PCU for concerns regarding A-fib with RVR leading to lightheadedness and presyncopal episodes. Presently asymptomatic, and heart rate is better controlled. 1. Chronic A-fib with RVR ?Known history of chronic A-fib but was in RVR to the 140s on arrival to the ED. -Suspect this may be due to some degree of volume depletion in setting of increased urination from poorly controlled diabetes. -Given 1 dose of IV Lopressor in the ED with improvement in rate. Given 1 L of IV fluids as well. -Plan for echocardiogram -Continue home p.o. Lopressor. 2. Mild acute debility with falls ? PT/OT/case management consulted. -Suspect patient may have had mild orthostasis due to volume depletion. Given 1 L of IV fluids on admit. Orthostatic vital signs ordered for morning of 06/22. 3. Elevated troponins ? Troponin trend 69 > 68 > 58. No EKG changes noted. No chest pain noted. Suspect secondary to demand ischemia from A-fib with RVR and dehydration. No need for further evaluation. 4. History of CAD with CABG, hypertension, hyperlipidemia ? Blood pressure normotensive to mildly hypertensive on admit. Continue home Lopressor and statin. 5. Iron deficiency anemia ? Hemoglobin 10.5 on admit, baseline 9-10. Continue home iron supplement. 6. GERD ? Continue home PPI. 7. Type 2 diabetes mellitus ? Was previously on metformin but patient noted he was taken off this due to good blood sugar control. Blood glucose 189 on admit. A1c found to be 10.3%. Unclear if this is accurate, will recheck A1c tomorrow morning. Will hold on sliding scale insulin with meals for now until A1c is rechecked. 8. Constipation -Start MiraLAX 17 g twice daily, Colace as needed DVT prophylaxis: Not indicated, on Eliquis CODE STATUS: Full code, verified Expected disposition: Home, 1 to 2 days
[2024-06-22] MEDS: Metoprolol Tartrate 25 MG Tablet PO ×2 (09:46→21:07)
[2024-06-22] MEDS: Iron Polysaccharide Complex 150 MG CAPSULE PO (09:46)
[2024-06-22] MEDS: Atorvastatin Calcium 20 MG Tablet PO (09:46)
[2024-06-22] MEDS: APIXABAN 5 MG TABLET PO (09:46)
[2024-06-22] MEDS: Ascorbic Acid 500 MG Tablet PO (09:47)
[2024-06-22] MEDS: 0.9% Saline Lock 10 ML Syringe IV ×2 (09:47→21:08)
[2024-06-22] MEDS: Pantoprazole Sodium 40 MG Tablet PO ×2 (09:47→21:08)
--- NOTE | 2024-06-22 16:42 | CHAPLAIN ---
Type of Pastoral Visit ___ Initial Visit ___ Follow-up Visit ___ On-call Visit ___ General Patient Visit ___ Spiritual Assessment ___ Family Conference ___ Bereavement ___ Rapid Response ___ Code Blue ___ Other (describe below) Pastoral Care Referral From ___ Patient ___ Family ___ Nurse ___ Physician ___ Assembly Line Brazer ___ Mainframe Analyst ___ Other (describe below) Sacrament/Intervention ___ Active listening ___ Anointing ___ Druze ___ Bereavement ___ Communion ___ Angella exploration ___ ___ Life review ___ Prayer ___ Reconciliation ___ Sacrament of Sick ___ Supportive presence ___ Wedding ___ Other (describe below) Pastoral Comments patient was sound asleep; left a calling card
[2024-06-22 23:27] LABS: Bedside Glucose 189 mg/dL (74-106)
[2024-06-23] VITALS (8 sets, daily range): BP systolic 88–128; BP diastolic 40–77; PULSE 68–133; RESP 14–18; TEMP 36.6–36.9; O2SAT 96–99
[2024-06-23] MEDS: APIXABAN 5 MG TABLET PO (08:52)
[2024-06-23] MEDS: Ascorbic Acid 500 MG Tablet PO (08:52)
[2024-06-23] MEDS: Metoprolol Tartrate 25 MG Tablet PO ×2 (08:52→23:26)
[2024-06-23] MEDS: Pantoprazole Sodium 40 MG Tablet PO ×2 (08:52→23:26)
[2024-06-23] MEDS: Iron Polysaccharide Complex 150 MG CAPSULE PO (08:52)
[2024-06-23] MEDS: Atorvastatin Calcium 20 MG Tablet PO (08:52)
--- NOTE | 2024-06-23 10:00 | CASEMGMT ---
RN JACKELYN Face to Face with patient for initial transition planning/care coordination assessment. RN CM introduced self and role at [facility]. Patient lying in bed, alert and oriented. Patient willing to participate in assessment and is able to answer all questions appropriately. Care providers, pharmacy, and demographics verified. Strata: 2 PCP: Gino Specialists: none Preferred Pharmacy: [facility] Insurance: Rodolfo WATT Prescription Benefit: yes Living Will/HPOA: yes, daughter Marcy Manuel LNOK: daughter Living Arrangements: Patient lives alone in a single story condo with no steps to enter. Patient states he was independent at home but has had some recent falls and feels weaker. Transportation: self, daughter DME/HHC: Patient has shower chair, raised toilet, grab bars, walker, rollator, glucometer at home. Patient has been to TCU previously and has had [facility] in the past. Patient wishes to discharge to TCU for additional rehab, declined list at this time. Patient states he has no further needs or concerns at this time. SW updated regarding request for TCU. CM to follow for discharge planning needs that may arise. Disposition Plan: TCU pending acceptance and qualifying stay Kristin ARRINGTON, RN, CM
--- NOTE | 2024-06-23 11:38 | PCM.PN.HOSP ---
Reason for Visit Reason for Visit: Diagnoses Unspecified atrial fibrillation (06/22/24) Other specified abnormal findings of blood chemistry (06/22/24) Subjective Subjective Overall feeling well, concerned about his mobility at home, has difficulty in standing up and mobilizing by himself. Objective Data Objective Data Vital Signs: Vital Signs Temp Pulse Resp BP Pulse Ox O2 Del Method 97.8 F 133 H 14 122/77 H 99 Room Air 06/23/24 08:50 06/23/24 08:52 06/23/24 08:50 06/23/24 08:50 06/23/24 08:50 06/23/24 09:41 Oxygen Delivery Method Room Air Weight: 196 lb 10.437 oz Body Mass Index (BMI) 28.2 Intake & Output: Intake and Output for Last 24 Hours 06/21/24 06/22/24 06/23/24 23:59 23:59 23:59 Intake Total 750 / 750 750 / 750 Output Total 1000 / 1000 Balance 750 / 750 750 / 750 -1000 / -1000 Lab / Micro Data 06/21/24 11:00 06/21/24 11:00 Labs: Laboratory Results - last 24 hr 06/22/24 21:05: POC Glucose 189 H Micro: Microbiology 06/21/24 12:15 Mucosa - Nose SARS-CoV-2, Influenza & RSV (PCR) - Final Radiography Diagnostic Testing: Radiology Impression Echocardiogram 06/21/24 16:09 Interpretation Summary Mild anterior and septal hypokinesis. Estimated LVEF 45%. Diastolic function indeterminate. There is moderate biatrial dilatation. Severe mitral annular calcification versus annuloplasty ring. Mild to moderate mitral valve regurgitation. Bioprosthetic aortic valve appears functioning normally. Mean peak gradient 3 mmHg. Ordering Physician: Chadd Velasquez Referring Physician: Raghavendra Christian Performed By: Maisha Soto, RDCS, RVT Rhythm Strip Rhythm Strip: A-fib Rate: 115 Ectopy: None Physical Exam Const alert and oriented x3 HEENT head/scalp atraumatic Eyes PERRL and EOMs intact bilaterally Neck no lymphadenopathy Resp normal respiratory effort and no retractions Cardio regular rate and regular rhythm GI normal to inspection, nondistended, normoactive bowel sounds Extremity normal to inspection Neuro oriented x3, CN's II-XII intact bilaterally and moves all extremities Psych affect normal Assessment & Plan Assessment/Plan (1) Atrial fibrillation with RVR: PLAN: Plan 82-year-old man admitted to the PCU for concerns regarding A-fib with RVR leading to lightheadedness and presyncopal episodes. Presently asymptomatic, and heart rate is better controlled. # Chronic A-fib with RVR # Multi-valvular heart disease ? Known A-fib, heart rate 140s at the time of ED presentation -This was suspected due to hypovolemia 2/2 uncontrolled sugar and diuresis -Continue home p.o. Lopressor. -Echo showed mild anterior and septal hypokinesis, EF 45%, moderate biatrial dilation, severe mitral annular calcification versus annuloplasty rings, bioprosthetic aortic valve -Continue apixaban # Mild acute debility with falls - Needs placement to transitional care unit given his recurrent falls # Elevated troponins ? Troponin trend 69 > 68 > 58. Suspect secondary to demand ischemia from A-fib with RVR and dehydration. - No need for further evaluation. # History of CAD with CABG, hypertension, hyperlipidemia ? Blood pressure normotensive to mildly hypertensive on admit. Continue home Lopressor and statin. # Iron deficiency anemia ? Hemoglobin 10.5 on admit, baseline 9-10. Continue home iron supplement. # GERD ? Continue home PPI. # Type 2 diabetes mellitus # Poorly controlled ? Will hold on sliding scale insulin with meals - A1c: 10.1% # Constipation -Start MiraLAX 17 g twice daily, Colace as needed #DVT prophylaxis: Continue apixaban
--- NOTE | 2024-06-23 12:06 | CASEMGMT ---
Social Work SW received referral from RNCM that pt would like to go to TCU. Referral sent to TCU and they are able to accept pt on Thursday. Physician notified. SW met with pt and informed that TCU can accept pt on Thursday. Pt is agreeable and will notify his daughter. Plan: TCU, on Thursday JUAN CARLOS Peoples
--- NOTE | 2024-06-23 14:57 | WOUNDNOTE ---
wound photo: left lateral lower leg
--- NOTE | 2024-06-23 14:59 | WOUNDNOTE ---
wound photo: left heel/lateral ankle
--- NOTE | 2024-06-23 15:00 | WOUNDNOTE ---
wound photo: right buttock
--- NOTE | 2024-06-23 15:51 | CHAPLAIN ---
Type of Pastoral Visit _x__ Initial Visit ___ Follow-up Visit ___ On-call Visit ___ General Patient Visit ___ Spiritual Assessment ___ Family Conference ___ Bereavement ___ Rapid Response ___ Code Blue ___ Other (describe below) Pastoral Care Referral From _x__ Patient ___ Family ___ Nurse ___ Physician ___ Clin Application Specialist ___ Mill Dresser ___ Other (describe below) Sacrament/Intervention _x__ Active listening ___ Anointing ___ Faith ___ Bereavement ___ Communion _x__ Angella exploration ___ _x__ Life review _x__ Prayer ___ Reconciliation ___ Sacrament of Sick _x__ Supportive presence ___ Wedding ___ Other (describe below) Pastoral Comments patient has been seen in previous visits and also when his was a patient; pt is now and he speaks of this experience and the angella in God that has been his rock over the years of his life; pt talks about special friends 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
[2024-06-23] MEDS: MELATONIN 3 MG TABLET PO (23:25)
[2024-06-24] VITALS (7 sets, daily range): BP systolic 89–112; BP diastolic 57–68; PULSE 67–100; RESP 16–18; TEMP 36.4–37.1; O2SAT 96–99
[2024-06-24] MEDS: Iron Polysaccharide Complex 150 MG CAPSULE PO (10:07)
[2024-06-24] MEDS: Docusate Sodium 100 MG Capsule PO (10:07)
[2024-06-24] MEDS: Metoprolol Tartrate 25 MG Tablet PO ×2 (10:07→20:45)
[2024-06-24] MEDS: Atorvastatin Calcium 20 MG Tablet PO (10:07)
[2024-06-24] MEDS: APIXABAN 5 MG TABLET PO (10:07)
[2024-06-24] MEDS: Ascorbic Acid 500 MG Tablet PO (10:08)
[2024-06-24] MEDS: Pantoprazole Sodium 40 MG Tablet PO ×2 (10:08→20:45)
--- NOTE | 2024-06-24 16:00 | PCM.PN.HOSP ---
Reason for Visit Reason for Visit: Diagnoses Unspecified atrial fibrillation (06/22/24) Other specified abnormal findings of blood chemistry (06/22/24) Subjective Subjective No active symptoms, overall feeling well Objective Data Objective Data Vital Signs: Vital Signs Temp Pulse Resp BP Pulse Ox O2 Del Method 97.8 F 67 16 89/59 L 97 Room Air 06/24/24 14:19 06/24/24 14:19 06/24/24 14:19 06/24/24 14:19 06/24/24 14:19 06/24/24 14:55 Oxygen Delivery Method Room Air Weight: 196 lb 10.437 oz Body Mass Index (BMI) 28.2 Intake & Output: Intake and Output for Last 24 Hours 06/22/24 06/23/24 06/24/24 23:59 23:59 23:59 Intake Total 750 / 750 300 / 300 Output Total 1225 / 1225 200 / 200 Balance 750 / 750 -925 / -925 -200 / -200 Lab / Micro Data 06/21/24 11:00 06/21/24 11:00 Micro: Microbiology 06/21/24 12:15 Mucosa - Nose SARS-CoV-2, Influenza & RSV (PCR) - Final Rhythm Strip Rhythm Strip: A-fib Rate: 115 Ectopy: None Physical Exam Const alert and oriented x3 Eyes PERRL Neck no lymphadenopathy Resp normal respiratory effort and no retractions Cardio regular rate and regular rhythm GI normal to inspection, nondistended, normoactive bowel sounds Extremity normal to inspection Neuro oriented x3 and CN's II-XII intact bilaterally Assessment & Plan Assessment/Plan (1) Atrial fibrillation with RVR: PLAN: Plan 82-year-old man admitted to the PCU for concerns regarding A-fib with RVR leading to lightheadedness and presyncopal episodes. Presently asymptomatic, and heart rate is better controlled. He is in the hospital awaiting disposition to acute rehabilitation. 1. Chronic A-fib with RVR ?Known history of chronic A-fib but was in RVR to the 140s on arrival to the ED. -Suspect this may be due to some degree of volume depletion in setting of increased urination from poorly controlled diabetes. -Given 1 dose of IV Lopressor in the ED with improvement in rate. Given 1 L of IV fluids as well. -Continue home p.o. Lopressor. 2. Mild acute debility with falls ? PT/OT/case management consulted. -Suspect patient may have had mild orthostasis due to volume depletion. -Plan for discharge to acute rehab due to his debility, patient lives by himself 3. Elevated troponins ? Troponin trend 69 > 68 > 58. No EKG changes noted. No chest pain noted. Suspect secondary to demand ischemia from A-fib with RVR and dehydration. No need for further evaluation. 4. History of CAD with CABG, hypertension, hyperlipidemia ? Blood pressure normotensive to mildly hypertensive on admit. Continue home Lopressor and statin. 5. Iron deficiency anemia ? Hemoglobin 10.5 on admit, baseline 9-10. Continue home iron supplement. -Does not warrant daily labs, alternate day CBC monitoring 6. GERD ? Continue home PPI. 7. Type 2 diabetes mellitus ? Was previously on metformin but patient noted he was taken off this due to good blood sugar control. Blood glucose 189 on admit. A1c found to be 10.3%. -ACHS sugar monitoring and treatment as per sliding scale 8. Constipation -Start MiraLAX 17 g twice daily, Colace as needed
[2024-06-24 17:50] LABS: Absolute Neutrophil Count 6.1 X10^3/uL (2.0-7.7); Basophil# 0.02 X10^3/uL; Basophil% 0.2 % (0-1); Eosinophil# 0.38 X10^3/uL; Eosinophils% 4.2 % (0-5); Hemoglobin 9.8 g/dL (13.0-16.5); Lymphocyte % 14.5 % (19-41); Mean Corp Hgb Conc 31.6 g/dL (32-36); Mean Corpuscular Hgb 25.7 pg (27.0-32.0); Mean Corpuscular Volume 81.4 fL (80-94); Mean Platelet Vol. 10.5 fl (6.2-12.0); Monocyte# 1.13 X10^3/uL; Monocyte% 12.6 % (0-10); NRBC Flagged by Analyzer 0 % (0-5); Neutrophil # 6.09 X10^3/uL (2.7-7.7); Neutrophil % 68.2 % (47-70); POSITIVE MORPHOLOGY YES; Platelet Count 177 K/mm3 (150-450); RBC Distribution Width CV 20.3 % (11.6-14.6); RBC Distribution Width SD 58.8 fl (35.1-43.9); Red Blood Count 3.81 M/mm3 (4.6-6.2)
[2024-06-24 17:53] LABS: Differential Indicated SCAN CRITERIA MET
[2024-06-24 18:06] LABS: ALB/GLOB Ratio 1.4 RATIO (0.9-2.4); AST(SGOT) 22 U/L (<=37); Alanine Aminotransfer ALT/SGPT 16 U/L (<=46); Albumin, Serum 3.6 g/dL (3.4-4.8); Alkaline Phosphatase 78 U/L (40-129); Anion Gap 12 (5-15); BUN 30 mg/dL (4-19); BUN/Creat Ratio 21.2 RATIO (10-20); Calcium,Total 9.1 mg/dL (7.6-11.0); Carbon Dioxide 21.7 mmol/L (21.0-32.0); Chloride 97 mmol/L (98-108); Creatinine, Serum 1.41 mg/dL (0.70-1.20); EST Glomerular Filtration Rate 50 (>60); Estimated Creatinine Clearance 45.41 ml/min (50-250); Globulin 2.6 g/dL (2.2-4.2); Glucose 222 mg/dL (70-99); Potassium 4.2 mmol/L (3.3-5.1); Protein, Total 6.3 g/dL (5.9-8.4); Sodium Level 130 mmol/L (133-145); Total Bilirubin 0.37 mg/dL (0.00-1.30)
[2024-06-24 19:20] LABS: Anisocytosis 1+; Ovalocyte 1+; Target Cells RARE
[2024-06-24 19:21] LABS: Burr Cells 1+
[2024-06-24 19:24] LABS: Acanthocytes 1+
[2024-06-24] MEDS: Insulin Lispro 100 UNIT/ML INSULN.PEN SC (20:44)
[2024-06-24 21:29] LABS: Bedside Glucose 214 mg/dL (74-106)
[2024-06-25 02:29] VITALS: BP 113/64; PULSE 85; RESP 16; TEMP 36.8; O2SAT 97
[2024-06-25 07:03] LABS: Bedside Glucose 139 mg/dL (74-106)
[2024-06-25 08:15] VITALS: BP 95/67; PULSE 110; RESP 17; TEMP 36.7; O2SAT 97
[2024-06-25 09:11] VITALS: PULSE 110
[2024-06-25] MEDS: Atorvastatin Calcium 20 MG Tablet PO (09:11)
[2024-06-25] MEDS: Docusate Sodium 100 MG Capsule PO (09:11)
[2024-06-25] MEDS: Metoprolol Tartrate 25 MG Tablet PO ×2 (09:11→21:13)
[2024-06-25] MEDS: Iron Polysaccharide Complex 150 MG CAPSULE PO (09:11)
[2024-06-25] MEDS: Ascorbic Acid 500 MG Tablet PO (09:11)
[2024-06-25] MEDS: APIXABAN 5 MG TABLET PO (09:11)
[2024-06-25] MEDS: Pantoprazole Sodium 40 MG Tablet PO ×2 (09:11→21:13)
[2024-06-25] MEDS: Insulin Lispro 100 UNIT/ML INSULN.PEN SC ×3 (13:02→21:12)
[2024-06-25 13:24] LABS: Bedside Glucose 222 mg/dL (74-106)
[2024-06-25 14:15] VITALS: BP 103/81; PULSE 68; RESP 16; TEMP 36.7; O2SAT 96
[2024-06-25 17:50] LABS: Bedside Glucose 173 mg/dL (74-106)
--- NOTE | 2024-06-25 18:56 | PCM.PN.HOSP ---
Reason for Visit Reason for Visit: Diagnoses Unspecified atrial fibrillation (06/22/24) Other specified abnormal findings of blood chemistry (06/22/24) Subjective Subjective Saw patient at bedside this afternoon. Patient was sitting back comfortably in bed, conversing normally, in no acute distress. Denied any acute pain or discomfort today. No other acute concerns. Objective Data Objective Data Vital Signs: Vital Signs Temp Pulse Resp BP Pulse Ox O2 Del Method 98.1 F 68 16 103/81 H 96 Room Air 06/25/24 14:15 06/25/24 14:15 06/25/24 14:15 06/25/24 14:15 06/25/24 14:15 06/25/24 14:15 Oxygen Delivery Method Room Air Weight: 89.2 kg Body Mass Index (BMI) 28.2 Intake & Output: Intake and Output for Last 24 Hours 06/23/24 06/24/24 06/25/24 23:59 23:59 23:59 Intake Total 300 / 300 820 / 820 Output Total 1225 / 1225 450 / 450 2351 / 2351 Balance -925 / -925 -450 / -450 -1531 / -1531 Lab / Micro Data 06/24/24 17:14 06/24/24 17:14 Labs: Laboratory Results - last 24 hr 06/24/24 17:14: Anisocytosis 1+, Target Cells RARE, Ovalocytes 1+, Bronson Cells 1+, Acanthocytes (Spur) 1+ 06/24/24 20:08: POC Glucose 214 H 06/25/24 06:39: POC Glucose 139 H 06/25/24 13:00: POC Glucose 222 H 06/25/24 16:56: POC Glucose 173 H Micro: Microbiology 06/21/24 12:15 Mucosa - Nose SARS-CoV-2, Influenza & RSV (PCR) - Final Rhythm Strip Rhythm Strip: A-fib Rate: 115 Ectopy: None Physical Exam Const alert, oriented x3, no apparent distress and average body habitus Constitutional Narrative: Elderly male, energy improved from admission, sitting back comfortably in bed, conversing normally, in no acute distress. General Appearance: cooperative and comfortable HEENT normocephalic, head/scalp atraumatic, hearing grossly normal bilaterally, nasal mucous membranes and turbinates normal and moist oral mucous membranes Eyes PERRL, EOMs intact bilaterally and conjunctivae normal Neck full ROM Chest inspection of chest normal Resp normal respiratory effort, normal air movement, no use of accessory muscles and clear to auscultation bilaterally Cardio no murmurs and peripheral pulses 2+ throughout Cardio Narrative: A-fib, rate controlled. GI normal to inspection, nondistended, normoactive bowel sounds, soft to palpation, non-tender and non-distended Back/Spine normal ROM Extremity normal to inspection, full ROM and no pedal edema Skin no rashes or lesions noted Neuro moves all extremities and no focal motor deficits Speech: speech normal Motor Exam: strength 5/5 throughout Psych mental status grossly normal Assessment & Plan Assessment/Plan (1) Atrial fibrillation with RVR: (2) Elevated troponin: PLAN: Plan Patient is an 84-year-old male who presented [facility] ED on 06/21/2024 with worsening weakness with lightheadedness and presyncopal episodes. 1. Chronic A-fib with RVR ? Known history of chronic A-fib but was in RVR to the 140s on arrival to the ED. Suspect this may be due to some degree of volume depletion in setting of increased urination from poorly controlled diabetes. Given 1 dose of IV Lopressor in the ED with improvement in rate. Given 1 L of IV fluids as well. Restarted home p.o. Lopressor patient has remained stable in rate controlled A-fib. Continue cardiac monitoring. 2. Acute debility with falls ? PT/OT/case management following. Patient with borderline therapy scores, planning for discharge to TCU. Medically ready for discharge, awaiting bed placement. 3. Elevated troponins ? Troponin trend 69 > 68 > 58. No EKG changes noted. No chest pain noted. Suspect secondary to demand ischemia from A-fib with RVR and dehydration. No need for further evaluation. 4. History of CAD with CABG, hypertension, hyperlipidemia ? Blood pressure normotensive to mildly hypertensive on admit. Continue home Lopressor and statin. 5. Iron deficiency anemia ? Hemoglobin 10.5 on admit, baseline 9-10. Continue home iron supplement. 6. GERD ? Continue home PPI. 7. Type 2 diabetes mellitus ? Was previously on metformin but patient noted he was taken off this due to good blood sugar control. Blood glucose 189 on admit. A1c found to be 10.3%. Continue sliding scale insulin with meals while inpatient. 8. Constipation ? Started MiraLAX twice daily and Colace as needed with improvement. Continue to monitor. DVT prophylaxis: Not indicated, on Eliquis CODE STATUS: Full code, verified Expected disposition: TCU, medically ready for discharge, awaiting placement Total clinical time spent by myself addressing the patient's medical issues, reviewing all the data, and collaborating with patient's care team: 35 minutes. Charges/Coding Visit Charges Inpatient E&M: 31050 Subs Hosp L2
[2024-06-25 21:10] VITALS: BP 120/78; PULSE 92; RESP 18; TEMP 36.1; O2SAT 98
[2024-06-25 21:13] VITALS: PULSE 88
[2024-06-25 22:27] LABS: Bedside Glucose 237 mg/dL (74-106)
[2024-06-26 04:00] VITALS: BP 123/67; PULSE 86; RESP 18; TEMP 36.6; O2SAT 97
[2024-06-26 06:49] LABS: Bedside Glucose 134 mg/dL (74-106)
[2024-06-26 09:18] VITALS: BP 105/70; PULSE 105
[2024-06-26] MEDS: Ascorbic Acid 500 MG Tablet PO (09:18)
[2024-06-26] MEDS: Metoprolol Tartrate 25 MG Tablet PO (09:18)
[2024-06-26] MEDS: Docusate Sodium 100 MG Capsule PO (09:19)
[2024-06-26] MEDS: APIXABAN 5 MG TABLET PO (09:19)
[2024-06-26] MEDS: Atorvastatin Calcium 20 MG Tablet PO (09:19)
[2024-06-26] MEDS: Pantoprazole Sodium 40 MG Tablet PO (09:19)
[2024-06-26] MEDS: Iron Polysaccharide Complex 150 MG CAPSULE PO (09:19)
[2024-06-26 09:20] LABS: Absolute Lymphocyte Count 1.16 X10^3/uL (0.83-4.51); Absolute Neutrophil Count 5.3 X10^3/uL (2.0-7.7); Basophil# 0.02 X10^3/uL; Basophil% 0.2 % (0-1); Eosinophil# 0.55 X10^3/uL; Eosinophils% 6.8 % (0-5); Hematocrit 30.6 % (40-54); Hemoglobin 9.7 g/dL (13.0-16.5); Lymphocyte # 1.16 X10^3/ul (0.83-4.51); Lymphocyte % 14.3 % (19-41); Mean Corp Hgb Conc 31.7 g/dL (32-36); Mean Corpuscular Hgb 25.6 pg (27.0-32.0); Mean Corpuscular Volume 80.7 fL (80-94); Mean Platelet Vol. 10.6 fl (6.2-12.0); Monocyte# 1.08 X10^3/uL; Monocyte% 13.3 % (0-10); NRBC Flagged by Analyzer 0 % (0-5); Neutrophil # 5.25 X10^3/uL (2.7-7.7); Neutrophil % 64.9 % (47-70); POSITIVE MORPHOLOGY YES; Platelet Count 185 K/mm3 (150-450); RBC Distribution Width CV 20.3 % (11.6-14.6); RBC Distribution Width SD 58.3 fl (35.1-43.9); Red Blood Count 3.79 M/mm3 (4.6-6.2); White Blood Count 8.1 K/mm3 (4.4-11.0)
[2024-06-26 09:27] LABS: Differential Indicated SCAN CRITERIA MET
[2024-06-26 09:28] VITALS: BP 105/70; PULSE 105; RESP 15; TEMP 36.7; O2SAT 95
[2024-06-26 10:02] LABS: Anisocytosis RARE
[2024-06-26 10:28] LABS: Anion Gap 10 (5-15); BUN 27 mg/dL (4-19); BUN/Creat Ratio 20.7 RATIO (10-20); Calcium,Total 9.4 mg/dL (7.6-11.0); Chloride 100 mmol/L (98-108); Creatinine, Serum 1.29 mg/dL (0.70-1.20); EST Glomerular Filtration Rate 55 (>60); Estimated Creatinine Clearance 49.63 ml/min (50-250); Glucose 138 mg/dL (70-99); Potassium 4.3 mmol/L (3.3-5.1); Sodium Level 134 mmol/L (133-145)
[2024-06-26] MEDS: Insulin Lispro 100 UNIT/ML INSULN.PEN SC (11:52)
[2024-06-26 12:22] LABS: Bedside Glucose 165 mg/dL (74-106)
--- NOTE | 2024-06-26 15:16 | DS.PCM_ITS ---
Providers Date of Admission: 06/22/24 Date of Discharge: 06/26/24 Primary Care Physician: Dr. Raghavendra Christian MD Consultations 06/23/24 09:45 Consult: Onc/Wound/educational aid Routine Comment: R buttock open area, L heel open blister Reason For Visit: A-FIB WITH RVR Diagnosis Discharge Diagnosis (1) Atrial fibrillation with RVR: Status: Acute Code(s): I48.91 - Unspecified atrial fibrillation (2) Elevated troponin: Status: Acute Code(s): R79.89 - Other specified abnormal findings of blood chemistry Medications at Discharge Home Medications metoprolol tartrate 25 mg tablet 25 mg PO BID BP #0 tabs 01/02/24 ascorbic acid (vitamin C) 500 mg tablet 500 mg PO DAILY vitamin #0 tabs 01/22/24 pantoprazole 40 mg tablet,delayed release 40 mg PO BID reflux 30 days #60 tabs 01/22/24 polysaccharide iron complex 150 mg iron capsule (Ferrex) 150 mg PO DAILY supplement 30 days #30 caps 01/22/24 apixaban 5 mg tablet (Eliquis) 5 mg PO DAILY blood thinner 06/21/24 rosuvastatin 10 mg tablet 10 mg PO DAILY cholesterol 06/21/24 Hospital Course Operations None Procedures None Summary of Care Provided Minutes Spent on Discharge: 45 Hospital Course: Patient is an 84-year-old male with past medical history as outlined was admitted to the ED on 06/21/2024 with a complaint of generalized weakness and lightheadedness as well as near syncope. He had noted to a mild cough which was nonproductive and also had decreased oral intake for several days prior to admission. He had had 3 falls in the last few weeks prior to admission. Chest x-ray showed no acute ST changes. EKG was initially read as ST elevation [place] but on review by admitting physician there were no notable ST changes noted patient also did not have any chest pain or discomfort. He was found to be in A-fib with RVR in the ED. He was therefore admitted to be managed for A-fib with RVR. His heart rate was in the 140s in the ED. He was concerned that he was volume depleted so he was hydrated with IV fluids and given a dose of IV Lopressor and placed back on his oral p.o. Lopressor dose. His troponin was only slightly elevated at 69 and trended down to 58. 2D echo showed EF of 45% with indeterminate diastolic function and moderate biatrial dilatation with severe mitral annular calcification versus annuloplasty ring and mild to moderate mitral valve regurgitation with bioprosthetic aortic valve appearing to function normally. Patient remained stable and his heart rate dialyzed on his p.o. Lopressor. He was therefore discharged back to [facility] on 06/26/[facility]24. 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 Patient seen and examined prior to discharge. He felt well and had no complaints. He had an uneventful night. Review of systems otherwise negative. Labs and vitals reviewed. Home medication reviewed and reconciled. Physical Exam Const alert, oriented x3 and no apparent distress General Appearance: cooperative and comfortable Orientation / Consciousness: awake Exam Limitations: no limitations HEENT normocephalic, head/scalp atraumatic, moist oral mucous membranes and oropharynx normal Mouth: oral and palatal mucosa normal Eyes PERRL, EOMs intact bilaterally and conjunctivae normal Neck no lymphadenopathy and supple Resp normal respiratory effort, no retractions, no use of accessory muscles and clear to auscultation bilaterally Cardio regular rate, regular rhythm, S1 normal heart sound, S2 normal heart sound and no murmurs GI normal to inspection, nondistended, normoactive bowel sounds, soft to palpation, non-tender and non-distended Extremity normal to inspection, full ROM and no clubbing, cyanosis or edema Skin no rashes or lesions noted Neuro oriented x3, CN's II-XII intact bilaterally, moves all extremities and no focal motor deficits Sensorium / Orientation: awake and alert Motor Exam: strength 5/5 throughout Psych affect normal Weight / BMI Weight Weight: 196 lb 10.437 oz Body Mass Index (BMI) 28.2 ABG / Lab / Microbiology Data 06/26/24 09:01 06/26/24 09:01 Laboratory: Laboratory Results - last 24 hr 06/25/24 16:56: POC Glucose 173 H 06/25/24 21:11: POC Glucose 237 H 06/26/24 06:31: POC Glucose 134 H 06/26/24 09:01: WBC 8.1, RBC 3.79 L, Hgb 9.7 L, Hct 30.6 L, MCV 80.7, MCH 25.6 L , MCHC 31.7 L, RDW Std Deviation 58.3 H, RDW Coeff of Gavin 20.3 H, Plt Count 185, MPV 10.6, Immature Gran % (Auto) 0.500, Neut % (Auto) 64.9, Lymph % (Auto) 14.3 L, [place] % (Auto) 13.3 H, Eos % (Auto) 6.8 H, Baso % (Auto) 0.2, Absolute Neuts (auto) 5.3, Absolute Lymphs (auto) 1.16, Nucleated RBC % 0, Anisocytosis RARE, Sodium 134, Potassium 4.3, Chloride 100, Carbon Dioxide 24.0, Anion Gap 10, BUN 27 H, Creatinine 1.29 H, Estim Creat Clear Calc 49.63 L, Est GFR (MDRD) Non-Af 55 L, BUN/Creatinine Ratio 20.7 H, Glucose 138 H, Calcium 9.4 06/26/24 11:47: POC Glucose 165 H Microbiology: Microbiology 06/21/24 12:15 Mucosa - Nose SARS-CoV-2, Influenza & RSV (PCR) - Final D/C Instructions Discharge Diet: Low fat / Low cholesterol Discharge Activity: Return to Normal Activity Weight Bearing Status: Weight bearing as tolerated Call your doctor if you observe: Fever of 101 or Higher, Shortness of breath, Dizziness, Chest pain and Increased palpitations (irregular heartbeat) DC O2, CPAP, BIPAP Needs Home O2 Discharge instructions: No DC home with Oxygen: No Meaningful Use Info Meaningful Use Meaningful Use Diagnoses (Choose all that apply): None applicable Ischemic Stroke Statin Dosing Therapy Reference: STATIN DOSE THERAPY REFERENCE: * Patients > 75 years receive moderate or high dose statin therapy. * Patients 75 years or YOUNGER should receive HIGH intensity statin dose unless contraindicated. You will be required to document reason for non-treatment if statin daily dose does not meet guidelines. HIGH DOSE STATIN THERAPY DAILY Atorvastatin > than or = to 40 mg Rosuvastatin > than or = to 20 mg Amlodipine + Atorvastatin > than or = to 2.5/40 mg Ezetimibe + Simvastatin 10/80 mg Simvastatin 80mg Discharge Plan Admission Admit Date/Time: 06/22/24 15:33 Primary Reason for Your Visit: afib Attending Provider: Zhane Goss Primary Care Provider: Raghavendra Christian Consulting Providers: Chadd Velasquez; Ham Cifuentes Instructions Patient Instructions: AFib Dc Discharge Orders/Prescriptions Prescriptions: Continued metoprolol tartrate 25 mg Tablet 25 mg PO BID Qty: 0 0RF ascorbic acid (vitamin C) 500 mg Tablet 500 mg PO DAILY Qty: 0 0RF polysaccharide iron complex [Ferrex 150] 150 mg iron Capsule 150 mg PO DAILY 30 Days Qty: 30 0RF pantoprazole 40 mg Tablet,Delayed Release (Dr/Ec) 40 mg PO BID 30 Days Qty: 60 0RF rosuvastatin 10 mg tablet 10 mg PO DAILY Eliquis 5 mg Tablet 5 mg PO DAILY Referrals / Follow Up: Raghavendra Christian MD [Primary Care Provider] - Within 1 Week Disposition Disposition (needs filled in before D/C Order can be placed): [facility] Charges/Coding Visit Charges Inpatient E&M: 59280 Disch Hosp >30min
--- NOTE | 2024-06-26 15:17 | PCM.TXEXTCAR ---
Diet Diet Order/Speech Therapy: 06/21/24 19:47 Diet: Cardiac - Heart Healthy Food consistency:: Regular Liquid Consistency:: Regular/Thin Routine Orders/Code Status Enema Type: Fleetz Enema Frequency: Daily PRN Suppository Type: Dulcolax 10mg Suppository Frequency: Daily PRN DC O2, CPAP, BIPAP needs Home O2 Discharge instructions: No Wound(s) left heel: Wound Type: small blister Dressing Change: applied foam dressing left lateral lyn: Wound Type: Abrasion coccyx: Wound Type: Pressure Injury R buttock: Wound Type: moisture/shear Therapies Weight Bearing: Weight bearing as tolerated Physical Therapy: Eval and Treat Occupational Therapy: Eval and Treat Problem/Diagnosis (1) Atrial fibrillation with RVR: Status: Acute Code(s): I48.91 - Unspecified atrial fibrillation (2) Elevated troponin: Status: Acute Code(s): R79.89 - Other specified abnormal findings of blood chemistry Allergies/Procedures Done in Hospital Allergies sulfamethoxazole (From Bactrim) Adverse Reaction (Verified 06/21/24 10:43) Nausea trimethoprim (From Bactrim) Adverse Reaction (Verified 06/21/24 10:43) Nausea Procedures: None Type of Care/Length of Stay Estimated LOS: Convalescent Care Less Than 30 days Type of Care Needed: Skilled Rehab Potential: Fair Prognosis: Fair Additional Orders/Day of Discharge Day of Discharge: 06/26/24 Discharge Plan Admission Admit Date/Time: 06/22/24 15:33 Primary Reason for Your Visit: afib Attending Provider: Zhane Goss Primary Care Provider: Raghavendra Christian Consulting Providers: Chadd Velasquez; Ham Cifuentes Instructions Patient Instructions: AFib Dc Discharge Orders/Prescriptions Prescriptions: Continued metoprolol tartrate 25 mg Tablet 25 mg PO BID Qty: 0 0RF ascorbic acid (vitamin C) 500 mg Tablet 500 mg PO DAILY Qty: 0 0RF polysaccharide iron complex [Ferrex 150] 150 mg iron Capsule 150 mg PO DAILY 30 Days Qty: 30 0RF pantoprazole 40 mg Tablet,Delayed Release (Dr/Ec) 40 mg PO BID 30 Days Qty: 60 0RF rosuvastatin 10 mg tablet 10 mg PO DAILY Eliquis 5 mg Tablet 5 mg PO DAILY Referrals / Follow Up: Raghavendra Christian MD [Primary Care Provider] - Within 1 Week Disposition Disposition (needs filled in before D/C Order can be placed): Intermediate Facility
[2024-06-26 15:30] VITALS: BP 95/57; PULSE 102; RESP 16; TEMP 36.8; O2SAT 97
== END 2024-06-26 16:23 | disposition skilled nursing facility (03) | DRG 309 ==
LOC: ED 15:27 → PCU 18:32
PROVIDERS: Internal Medicine; Admitting Provider Hospitalist; Emergency Provider Emergency Medicine; PCP Family Medicine; Visit Provider Student in an Organized Health Care Education/Training Program
DX: I48.20 Chronic atrial fibrillation, unspecified (principal); I24.89 Other forms of acute ischemic heart disease; E11.9 Type 2 diabetes mellitus without complications; D50.9 Iron deficiency anemia, unspecified; E78.5 Hyperlipidemia, unspecified; E86.1 Hypovolemia; Z95.1 Presence of aortocoronary bypass graft; I10 Essential (primary) hypertension; I25.10 Atherosclerotic heart disease of native coronary artery without angina pectoris; K21.9 Gastro-esophageal reflux disease without esophagitis; R53.81 Other malaise; Z79.01 Long term (current) use of anticoagulants; Z79.899 Other long term (current) drug therapy
CPT/HCPCS: 36415; 71046; 80048; 80053; 81001; 82962; 83036; 83735; 84100; 84443; 84484; 85025; 87631; 93005; 93306; 94668; 97116; 97162; 97166; 97530; 97535; 99285; Q9957; A4216; C8929

== ENCOUNTER 2024-06-26 16:27 | Inpatient (IN) | payer MEDICARE, BC, SELFPAY ==
[2024-06-26 16:39] VITALS: BP 109/72; PULSE 90; RESP 20; TEMP 36.7; O2SAT 98; BMI 26.2
[2024-06-26 16:55] VITALS: BMI 26.2
--- NOTE | 2024-06-26 17:10 | NURSING ---
notified dr pollack via cortex pt on unit and orders in
--- NOTE | 2024-06-26 18:23 | HP.PCM_ITS ---
HPI - General General Date of Admission: 06/26/24 Date of Service: 06/27/24 Chief Complaint: Here for rehabilitation. [facility] Narrative KIRBY AMAYA, is a 84 Male who presents with followin06/21/2024 [facility] ED palpitations. Weak legs for 3 weeks, PCP sent him to ER. Resting tachycardia, heart rate 140's, mild dry cough. Lightheaded, near syncope, 3 falls last 3 weeks. EKG showed atrial fibrillation with rvr, Chest X-ray negative, Troponin elevated by stable. Metoprolol 5mg iv given, 1 liter iv fluid bolus given, heart rate improved. 06/21/2024 Admit [facility]. PT/OT for falls. Elevated troponin 2/2 demand ischemia. A1c 10.5% for Diabetes Mellitus II, Metformin stopped due to good sugar control. Metoprolol 25mg bid, Eliquis 5mg daily for atrial fibrillation. 06/22/2024 Feeling well, constipation for 3 days. Miralax 17gm bid, colace prn constipation. 06/22/2024 Echo EF 45%. Mild anterior and septal hypokinesis. Moderate biatrial dilatation. Severe mitral annular calcification versus annuloplasty ring. Mild to moderate mitral valve regurgitation. 06/23/2024 Feeling well, Difficulty standing and moving. Lives alone. PT/OT for TCU. 06/24/2024 Feeling well. PT/OT TCU. A1c 10.5%, off Metformin, on sliding scale insulin. 06/25/2024 No acute events overnight. Elevated troponin 2/2 demand ischemia. Miralax 17gm bid, colace prn constipation. 06/26/2024 Admit to TCU with debility, here for rehabilitation, strengthening, prior to discharge home alone. FOR[facility]LY [facility], [facility] Medical History Atrial fibrillation Diabetes mellitus, type 2 Hyperlipidemia HTN (hypertension) Atrial flutter Current use of manager long term care anticoagulation Home Medications ?Medication ?Instructions ?Recorded ?Last Taken ?Type metoprolol tartrate 25 mg tablet 25 mg PO BID BP #0 ta bs 01/02/24 01/18/24 Rx ascorbic acid (vitamin C) 500 mg 500 mg PO DAILY vitam in #0 tabs 01/22/24 Unknown Rx tablet pantoprazole 40 mg tablet,delayed 40 mg PO BID reflux 30 days #60 01/22/24 Unknown Rx release tabs polysaccharide iron complex 150 mg 150 mg PO DAILY sup plement 30 days 01/22/24 Unknown Rx iron capsule (Ferrex) #30 caps apixaban 5 mg tablet (Eliquis) 5 mg PO DAILY blood thi nner 06/21/24 Unknown History rosuvastatin 10 mg tablet 10 mg PO DAILY cholesterol 0 06/21/24 Unknown History Allergy/AdvReac Type Severity Reaction Status Date / Time sulfamethoxazole (From AdvReac Nausea Verified 06/21/24 10:43 Bactrim) trimethoprim (From Bactrim) AdvReac Nausea Verified 06/21/24 10:43 Surgical History 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 Social History household members: none Smoking Status: Never smoker alcohol intake: never substance use type: does not use ROS Constitutional Constitutional: Denies chills, fever(s) or weight gain ENT HEENT: Denies headache(s), nasal congestion or nasal discharge Cardiovascular Cardiovascular: Denies chest pain or palpitations Respiratory/Chest Respiratory/Chest: Denies cough, excessive phlegm production or shortness of breath with exertion Gastrointestinal Gastrointestinal: Denies abdominal pain, nausea or vomiting Genitourinary Genitourinary: Denies dysuria Musculoskeletal Musculoskeletal: Denies joint pain or joint swelling Integumentary Integumentary: Denies rash or wounds Neurologic Neurologic: Denies focal weakness, numbness or tingling Psychiatric Psychiatric: Denies anxiety, auditory hallucinations, depression, homicidal ideation or suicidal ideation Vital Signs Vital Signs Vital Signs: 06/26/24 16:39 06/26/24 16:39 06/26/24 17:26 Temperature 98.1 F Temperature Source Temporal Pulse Rate 90 Pulse Rhythm Regular Pulse Strength Normal (2+) Normal (2+) Respiratory Rate 20 H Respiratory Effort Normal Non-Labored Respiratory Depth Normal Respiratory Pattern Normal Blood Pressure 109/72 Blood Pressure Mean 84 Blood Pressure Source Monitor Blood Pressure Position Sitting Blood Pressure Location Right Arm Pulse Ox 98 Oxygen Delivery Method Room Air Room Air Weight Weight: 83.926 kg Body Mass Index (BMI) 26.2 Physical Exam Const alert General Appearance: cooperative HEENT normocephalic Eyes PERRL and EOMs intact bilaterally Neck supple, no JVD and no carotid bruits Resp normal respiratory effort, normal air movement and clear to auscultation bilaterally Auscultation: wheezes Cardio regular rate and regular rhythm GI normal to inspection, nondistended, normoactive bowel sounds, non-tender and non-distended Extremity normal capillary refill General Extremity: Negative for edema Skin no rashes or lesions noted General Skin Exam: no breakdown Psych affect normal Appearance: appropriate Results Lab / Micro Data 06/27/24 05:39 06/27/24 05:39 Assessment & Plan Assessment/Plan (1) Debility: (2) Atrial fibrillation with RVR: (3) Elevated troponin: (4) Dehydration: (5) Constipation: (6) Hyperlipidemia: (7) Coronary artery disease: (8) Diabetes mellitus: (9) Duodenal ulcer: PLAN: Plan 84 year old male with below past medical history hospitalized for weakness 2/2 atrial fibrillation with rapid ventricular response, dehydration, complicated by elevated troponin 2/2 demand ischemia, constipation, admitted to TCU with debility, here for rehabilitation, strengthening, prior to discharge home alone. * Debility - PT/OT. * Pain - Tylenol 1000mg q6 prn pain (1-10). * Bowel - senna/colace 2 tablets bid, Magnesium citrate 300mL daily prn * Adult immunization - Administer pneumonia vaccine, covid vaccine, flu vaccine as appropriate. * DVT prophylaxis - on Eliquis. * Atrial fibrillation - Metoprolol 25mg bid, Eliquis 2.5mg bid. * Iron deficiency anemia - Ferrex 150mg daily, Vitamin C 500mg daily. * Hyperlipidemia - Atorvastatin 20mg qhs. * Duodenal ulcer - Pantoprazole 40mg bid. * Diabetes Mellitus II - Monitor blood sugar, add insulin as appropriate. * Asthma - Fluticasone/Salmeterol 232-14 1 puff q12, Albuterol mdi 2 puffs q4 pn.
[2024-06-26 20:29] LABS: Bedside Glucose 232 mg/dL (74-106)
[2024-06-26 22:35] VITALS: BP 107/101; PULSE 110
[2024-06-26] MEDS: Metoprolol Tartrate 25 MG Tablet PO (22:35)
[2024-06-26] MEDS: Pantoprazole Sodium 40 MG Tablet PO (22:36)
[2024-06-26] MEDS: Atorvastatin Calcium 20 MG Tablet PO (22:37)
[2024-06-26] MEDS: APIXABAN 2.5 MG TABLET (WCH) PO (22:37)
[2024-06-26 23:10] VITALS: BP 133/75; PULSE 88
--- NOTE | 2024-06-26 23:11 | NURSING ---
Patient's BP at med pass 170/101, pulse 110. Metoprolol administered. After 20 minutes BP 133/75, pulse 88. Will continue to monitor.
[2024-06-27 06:17] LABS: Bedside Glucose 149 mg/dL (74-106)
[2024-06-27 06:32] LABS: Absolute Lymphocyte Count 0.82 X10^3/uL (0.83-4.51); Absolute Neutrophil Count 7.2 X10^3/uL (2.0-7.7); Basophil# 0.02 X10^3/uL; Basophil% 0.2 % (0-1); Eosinophil# 0.57 X10^3/uL; Eosinophils% 5.8 % (0-5); Lymphocyte # 0.82 X10^3/ul (0.83-4.51); Lymphocyte % 8.3 % (19-41); Mean Corp Hgb Conc 31.3 g/dL (32-36); Mean Corpuscular Hgb 25.2 pg (27.0-32.0); Mean Corpuscular Volume 80.6 fL (80-94); Mean Platelet Vol. 10.5 fl (6.2-12.0); Monocyte# 1.16 X10^3/uL; Monocyte% 11.8 % (0-10); NRBC Flagged by Analyzer 0 % (0-5); Neutrophil # 7.23 X10^3/uL (2.7-7.7); Neutrophil % 73.5 % (47-70); POSITIVE MORPHOLOGY YES; Platelet Count 187 K/mm3 (150-450); RBC Distribution Width CV 20.1 % (11.6-14.6); RBC Distribution Width SD 58.8 fl (35.1-43.9); Red Blood Count 3.97 M/mm3 (4.6-6.2); White Blood Count 9.8 K/mm3 (4.4-11.0)
[2024-06-27 06:41] LABS: Differential Indicated SCAN CRITERIA MET
[2024-06-27 07:24] LABS: Acanthocytes RARE; Anisocytosis 2+; Differential Comment SCANNED; Platelet Estimate ADEQUATE (ADEQ); Polychromasia 1+
[2024-06-27 07:25] LABS: Bite Cell RARE; Crenated RBC 1+; Ovalocyte 1+; Schistocytes RARE; Tear Drop Cell 1+
[2024-06-27 08:55] VITALS: BP 105/60; PULSE 137; RESP 18; TEMP 36.4; O2SAT 96
[2024-06-27 09:01] VITALS: PULSE 137
[2024-06-27] MEDS: Metoprolol Tartrate 25 MG Tablet PO ×2 (09:01→20:35)
[2024-06-27] MEDS: Iron Polysaccharide Complex 150 MG CAPSULE PO (09:02)
[2024-06-27] MEDS: APIXABAN 2.5 MG TABLET (WCH) PO ×2 (09:02→20:35)
[2024-06-27] MEDS: Ascorbic Acid 500 MG Tablet PO (09:02)
[2024-06-27] MEDS: Senna/Docusate Sodium 1 Tablet 2 TABLET PO (09:02)
[2024-06-27] MEDS: Pantoprazole Sodium 40 MG Tablet PO ×2 (09:02→20:35)
[2024-06-27] MEDS: Tuberculin,Purif.prot.deriv. 50 TU/ML Vial 0.1 ML ID (09:04)
[2024-06-27] MEDS: Fluticasone/Salmeterol 232-14 Inhaler 1 PUFF INHALATION ×2 (09:04→20:34)
[2024-06-27 09:26] LABS: Anion Gap 13 (5-15); BUN 26 mg/dL (4-19); BUN/Creat Ratio 24.2 RATIO (10-20); Calcium,Total 9.5 mg/dL (7.6-11.0); Chloride 100 mmol/L (98-108); Creatinine, Serum 1.09 mg/dL (0.70-1.20); EST Glomerular Filtration Rate 68 (>60); Estimated Creatinine Clearance 53.95 ml/min (50-250); Glucose 160 mg/dL (70-99); Potassium 4.4 mmol/L (3.3-5.1); Sodium Level 134 mmol/L (133-145)
[2024-06-27 11:20] VITALS: PULSE 98
--- NOTE | 2024-06-27 11:25 | CASEMGMT ---
Social Work SW met with patient to complete initial assessment. Pt known to this worker from previous stay. Verified contacts. Discussed code status and pt prefers to be DNR-CCA, with intubation. Nursing notified. SW requested pt have dtr provide copies of advanced directives to be placed on file. SW educated to Medicare benefit and copay coverage. Pt's goal is to return home alone at [facility] with increased strength. SW will continue to follow for DC planning. Amanda Burnett METAL ORGAN PIPE MAKER YARN TESTER
--- NOTE | 2024-06-27 11:41 | NURSING ---
Tower Crane Operator Note; Activity Asset: Earl Addison has returned to TCU for therapy. He remains independent in his choice of daily activities as before. Azael is not interested in the therapy dog or reclamation kettle tender and would prefer to do independent activities such as tv, reading and word games on his phone in his room. Staff will remind him of weekly activities, offer in room activities and respect his right to say no
[2024-06-27 12:19] LABS: Bedside Glucose 270 mg/dL (74-106)
[2024-06-27 16:55] LABS: Bedside Glucose 249 mg/dL (74-106)
[2024-06-27] MEDS: 0.9% Saline Lock 10 ML Syringe IV ×2 (17:14→20:41)
[2024-06-27 17:17] VITALS: PULSE 95
[2024-06-27 20:35] VITALS: BP 125/70; PULSE 102; RESP 16
[2024-06-27] MEDS: Atorvastatin Calcium 20 MG Tablet PO (20:35)
[2024-06-27 21:32] LABS: Bedside Glucose 239 mg/dL (74-106)
--- NOTE | 2024-06-28 05:52 | NURSING ---
Written communication left for Dr. Wagner regarding elevated HR despite current order for metoprolol. Admitting Dx: Afib with RVR
[2024-06-28 06:13] LABS: Bedside Glucose 157 mg/dL (74-106)
[2024-06-28 06:33] LABS: Hemoglobin A1c 9.7 % (<=5.6)
[2024-06-28 09:18] VITALS: BP 107/56; PULSE 100
[2024-06-28] MEDS: Fluticasone/Salmeterol 232-14 Inhaler 1 PUFF INHALATION ×2 (09:18→21:54)
[2024-06-28] MEDS: Ascorbic Acid 500 MG Tablet PO (09:18)
[2024-06-28] MEDS: Metoprolol Tartrate 25 MG Tablet PO (09:18)
[2024-06-28] MEDS: Iron Polysaccharide Complex 150 MG CAPSULE PO (09:18)
[2024-06-28] MEDS: Senna/Docusate Sodium 1 Tablet 2 TABLET PO (09:18)
[2024-06-28] MEDS: APIXABAN 2.5 MG TABLET (WCH) PO ×2 (09:18→21:54)
[2024-06-28] MEDS: Pantoprazole Sodium 40 MG Tablet PO ×2 (09:18→21:54)
[2024-06-28 10:25] VITALS: BMI 26.4
[2024-06-28 12:18] LABS: Bedside Glucose 183 mg/dL (74-106)
[2024-06-28 15:09] VITALS: BP 101/61; PULSE 90; RESP 18; TEMP 36.7; O2SAT 96
[2024-06-28 15:25] VITALS: BP 101/61; PULSE 90; RESP 18; TEMP 36.7; O2SAT 96
[2024-06-28] MEDS: 0.9% Saline Lock 10 ML Syringe IV (16:22)
--- NOTE | 2024-06-28 16:31 | CHAPLAIN ---
Type of Pastoral Visit ___ Initial Visit _x__ Follow-up Visit ___ On-call Visit ___ General Patient Visit ___ Spiritual Assessment ___ Family Conference ___ Bereavement ___ Rapid Response ___ Code Blue ___ Other (describe below) Pastoral Care Referral From _x__ Patient ___ Family ___ Nurse ___ Physician ___ Fuel Cell Technician ___ Commercial Horticulture Instructor ___ Other (describe below) Sacrament/Intervention _x__ Active listening ___ Anointing ___ Rastafarian ___ Bereavement ___ Communion _x__ Angella exploration ___ _x__ Life review _x__ Prayer ___ Reconciliation ___ Sacrament of Sick ___ Supportive presence ___ Wedding ___ Other (describe below) Pastoral Comments follow up to patient seen recently in PCU; pt gives more life review and examples of his angella; pt and this lawn mower operator also have casual conversation of life topics; prayer also given
[2024-06-28 16:38] LABS: Bedside Glucose 270 mg/dL (74-106)
[2024-06-28 21:17] LABS: Bedside Glucose 202 mg/dL (74-106)
[2024-06-28] MEDS: Atorvastatin Calcium 20 MG Tablet PO (21:54)
[2024-06-28 21:58] VITALS: BP 154/64; PULSE 101
[2024-06-28] MEDS: Metoprolol Tartrate 50 MG Tablet PO (21:58)
[2024-06-29 06:12] LABS: Bedside Glucose 149 mg/dL (74-106)
[2024-06-29 09:31] VITALS: PULSE 94; RESP 16; O2SAT 99
[2024-06-29 09:36] VITALS: PULSE 94
[2024-06-29] MEDS: Fluticasone/Salmeterol 232-14 Inhaler 1 PUFF INHALATION ×2 (09:36→22:09)
[2024-06-29] MEDS: Senna/Docusate Sodium 1 Tablet 2 TABLET PO (09:36)
[2024-06-29] MEDS: Metoprolol Tartrate 50 MG Tablet PO ×2 (09:36→22:12)
[2024-06-29] MEDS: Pantoprazole Sodium 40 MG Tablet PO ×2 (09:36→22:09)
[2024-06-29] MEDS: Ascorbic Acid 500 MG Tablet PO (09:36)
[2024-06-29] MEDS: Iron Polysaccharide Complex 150 MG CAPSULE PO (09:37)
[2024-06-29] MEDS: APIXABAN 2.5 MG TABLET (WCH) PO ×2 (09:37→22:09)
--- NOTE | 2024-06-29 09:43 | WOUNDNOTE ---
Was asked to see patient for evaluate the left heel. pt is known to this nurse from the acute care side of the hospital. pt states he scraped the heel with his toenail from the other foot. no erythema noted. was an open blister on the acute care now. now with scab noted. no sign of infection noted. this scab is not pressure related. will monitor. see wound photos.
--- NOTE | 2024-06-29 10:47 | WOUNDNOTE ---
wound photo: left heel
[2024-06-29 11:32] LABS: Bedside Glucose 214 mg/dL (74-106)
--- NOTE | 2024-06-29 14:36 | CASEMGMT ---
Plan of care meeting held in pt room with pt and pt's dgt present. Therapy, activities and nutrition provided update on pt current status. SW explained Medicare benefit and provided pt/family with written communication on insurance process and copay coverage during stay. Pt lives at home alone. Pt needs continued therapy at this time and discharge date has not been set. SW did broach topic of alternate discharge plan if pt is unable to return home alone. SW requested pt and family discuss alternatives including assisted living and private duty aids. SW will continue to follow for support and discharge planning. JUAN CARLOS Peoples
[2024-06-29 15:16] VITALS: TEMP 36.6
[2024-06-29 17:16] LABS: Bedside Glucose 169 mg/dL (74-106)
[2024-06-29 21:49] LABS: Bedside Glucose 234 mg/dL (74-106)
[2024-06-29] MEDS: Atorvastatin Calcium 20 MG Tablet PO (22:09)
[2024-06-29 22:12] VITALS: BP 99/58; PULSE 86
[2024-06-30 06:24] LABS: Bedside Glucose 139 mg/dL (74-106)
[2024-06-30] MEDS: APIXABAN 2.5 MG TABLET (WCH) PO (08:48)
[2024-06-30] MEDS: Iron Polysaccharide Complex 150 MG CAPSULE PO (08:48)
[2024-06-30] MEDS: Ascorbic Acid 500 MG Tablet PO (08:49)
[2024-06-30] MEDS: Pantoprazole Sodium 40 MG Tablet PO ×2 (08:49→21:38)
[2024-06-30] MEDS: Fluticasone/Salmeterol 232-14 Inhaler 1 PUFF INHALATION ×2 (08:49→21:37)
[2024-06-30 08:52] VITALS: BP 107/65; PULSE 88
[2024-06-30] MEDS: Metoprolol Tartrate 50 MG Tablet PO ×2 (08:52→21:38)
--- NOTE | 2024-06-30 08:54 | PCM.PN.DRR ---
Documented by User: Sheryl Brown 06/30/24 10:10 TCU RX Drug Regimen Review Subjective/Objective Subjective/Objective Subjective: TCU Admission. 84 YOM presented to ER with palpitations. Hospitalized for weakness 2/2 atrial fibrillation with rapid ventricular response, dehydration, complicated by elevated troponin 2/2 demand ischemia, constipation. Admitted to TCU with debility for strengthening and rehabilitation. Objective: Allergies sulfamethoxazole (From Bactrim) Adverse Reaction (Verified 06/21/24 10:43) Nausea trimethoprim (From Bactrim) Adverse Reaction (Verified 06/21/24 10:43) Nausea Current Medications Generic Name Dose Route Start Last Admin Trade Name Freq PRN Reason Stop Dose Admin Acetaminophen 1,000 mg 06/26/24 18:33 Acetaminophen 500 Mg Tablet PO Q6H PRN PRN Pain Score 1-10 Albuterol Sulfate 2 puff 06/27/24 07:19 Albuterol Ih (6.7 Gm) 1 Puff Inhaler INHALATION Q4H PRN PRN DYSPNEA/WHEEZING/SOB Apixaban 2.5 mg 06/26/24 22:00 06/30/24 08:48 Apixaban 2.5 Mg Tablet ([facility]) PO 2.5 mg BID CONNIE Administration Ascorbic Acid 500 mg 06/27/24 10:00 06/30/24 08:49 Ascorbic Acid 500 Mg Tablet PO 500 mg DAILY CONNIE Administration Atorvastatin Calcium 20 mg 06/26/24 22:00 06/29/24 22:09 Atorvastatin Calcium 20 Mg Tablet PO 20 mg QHS CONNIE Administration Magnesium Citrate 300 ml 06/26/24 18:33 Magnesium Citrate 300 Ml PO DAILY PRN Constipation Metoprolol Tartrate 50 mg 06/28/24 22:00 06/30/24 08:52 Metoprolol Tartrate 50 Mg Tablet PO 50 mg BID CONNIE Administration Protocol Pantoprazole Sodium 40 mg 06/26/24 22:00 06/30/24 08:49 Pantoprazole Sodium 40 Mg Tablet PO 40 mg BID CONNIE Administration Polysaccharide Iron Complex 150 mg 06/27/24 10:00 06/30/24 08:48 Iron Polysaccharide Complex 150 Mg Capsule PO 150 mg DAILY CONNIE Administration Fluticasone/Salmeterol 1 puff 06/27/24 10:00 06/30/24 08:49 Fluticasone/Salmeterol 232-14 Inhaler INHALATION 1 puff Q12 CONNIE Administration Senna/Docusate Sodium 2 tablet 06/26/24 22:00 06/30/24 08:49 Senna/Docusate Sodium 1 Tablet PO Not Given BID CONNIE Sodium Chloride 10 - 40 ml 06/26/24 16:58 06/28/24 16:22 0.9% Saline Lock 10 Ml Syringe IV 10 ml UD PRN Administration SALINE FLUSH Tuberculin PPD 0.1 ml 07/04/24 10:00 Tuberculin,Purif.Prot.Deriv. 50 Tu/Ml Vial ID 07/04/24 10:01 X1 ONE Problem List Duodenal ulcer (Acute) Diabetes mellitus (Acute) Constipation (Acute) Dehydration (Acute) Elevated troponin (Acute) Atrial fibrillation with RVR (Acute) Coronary artery disease (Acute) Debility (Acute) Hyperlipidemia (Acute) Vital Signs Temp Pulse Resp BP Pulse Ox O2 Del Method 97.8 F 88 16 107/65 99 Room Air 06/29/24 15:16 06/30/24 08:52 06/29/24 09:31 06/30/24 08:52 06/29/24 09:31 06/29/24 10:00 Oxygen Delivery Method Room Air Weight: 84.867 kg Body Mass Index (BMI) 26.4 Sodium 134 mmol/L (133-145) 06/27/24 05:39 Potassium 4.4 mmol/L (3.3-5.1) 06/27/24 05:39 Chloride 100 mmol/L (98-108) 06/27/24 05:39 Carbon Dioxide 22.0 mmol/L (21.0-32.0) 06/27/24 05:39 Anion Gap 13 (5-15) 06/27/24 05:39 BUN 26 mg/dL (4-19) H 06/27/24 05:39 Creatinine 1.09 mg/dL (0.70-1.20) 06/27/24 05:39 Est GFR (MDRD) Non-Af 68 (>60) 06/27/24 05:39 BUN/Creatinine Ratio 24.2 RATIO (10-20) H 06/27/24 05:39 Glucose 160 mg/dL (70-99) H 06/27/24 05:39 Assessment/Plan: 1. Pain: acetaminophen 1000mg PO Q6H PRN pain 1-10. Resident has not had any PRN usage. Please continue to monitor for increased pain. 2. Bowel: senna/docusate 2T PO BID and magnesium citrate 300mL PO daily PRN constipation. Resident has not had any PRN doses. Please continue to monitor for PRN usage and constipation. Last documented bowel movement was 06/29/24. 3. Atrial fibrillation: metoprolol tartrate 25mg PO BID and apixaban 2.5mg PO BID. Please consider changing apixaban dose to 5mg BID as resident does not meet criteria for lower dose as SCr is <1.5mg/dL and weight is >60kg. Thanks. Please continue to monitor HR (last 88), BP (last 107/65), S/S of bleeding and hemoglobin (last 10g/dL). 4. Iron deficiency anemia: Ferrex 150mg PO daily and ascorbic acid 500mg PO daily. Please continue to monitor hemoglobin (last 10g/dL), constipation, dark stools. 5. Duodenal ulcer: pantoprazole 40mg PO BID. Please continue to monitor for diarrhea (Tyron). 6. Hyperlipidemia: atorvastatin 20mg PO QHS. Please consider ordering a lipid panel as there is no level in the chart. Thanks. Please continue to monitor LFTs (last 06/24/24) and muscle pain. 7. Asthma: fluticasone/salmeterol 232/14mcg inhalation 1puff Q12 and albuterol MDI 90mcg/actuation 2 puffs Q4H PRN dyspnea/wheezing/SOB. No PRN doses have been given. Please continue to monitor for S/S of thrush, HR, SOB, PRN usage. Please rinse mouth with water and spit following administration of fluticasone/salmeterol to prevent thrush. Assessment/Plan for indications treated with psychotropic medications: None Medical chart and medication regimen reviewed. The following medication irregularities or issues were identified: 1. Atorvastatin 20mg PO QHS. Please consider ordering a lipid panel as there is no level in the chart. Thanks. 2. Apixaban 2.5mg PO BID. Please consider changing apixaban dose to 5mg BID as resident does not meet criteria for lower dose as SCr is <1.5mg/dL and weight is >60kg. Thanks. Date Date of Note: 06/30/24 Documented by User: Dr. Sergio Wagner MD 06/30/24 11:47 TCU RX Drug Regimen Review Provider Comments Provider responsibility Provider Comments to Recommendations by Pharmacy Agree
--- NOTE | 2024-06-30 11:08 | MDS.RN ---
Pain assessment for MDS complete.
[2024-06-30 11:28] LABS: Bedside Glucose 225 mg/dL (74-106)
[2024-06-30 13:50] VITALS: BP 89/58; PULSE 96; RESP 16; TEMP 35.9; O2SAT 96
[2024-06-30] MEDS: 0.9% Saline Lock 10 ML Syringe IV (14:43)
[2024-06-30 16:47] LABS: Bedside Glucose 237 mg/dL (74-106)
[2024-06-30] MEDS: APIXABAN 5 MG TABLET PO (21:37)
[2024-06-30 21:38] VITALS: BP 123/65; PULSE 87
[2024-06-30] MEDS: Atorvastatin Calcium 20 MG Tablet PO (21:38)
[2024-06-30 22:51] LABS: Bedside Glucose 239 mg/dL (74-106)
[2024-07-01 06:25] LABS: Bedside Glucose 151 mg/dL (74-106)
[2024-07-01 06:48] LABS: Cholesterol 108 mg/dL (<=200); High Density Lipoprotein 44 mg/dL; Low Density Lipoprotein Calc. 52 mg/dL; Triglycerides 60 mg/dL; Very Low Density Lipoprotein 12 mg/dL (5-40); cholesterol:hdl ratio screen 2.45
[2024-07-01 08:49] VITALS: BP 96/53; PULSE 65
[2024-07-01] MEDS: Metoprolol Tartrate 50 MG Tablet PO ×2 (08:49→21:46)
[2024-07-01] MEDS: Iron Polysaccharide Complex 150 MG CAPSULE PO (08:49)
[2024-07-01] MEDS: Pantoprazole Sodium 40 MG Tablet PO ×2 (08:49→21:45)
[2024-07-01] MEDS: Fluticasone/Salmeterol 232-14 Inhaler 1 PUFF INHALATION ×2 (08:49→21:44)
[2024-07-01] MEDS: APIXABAN 5 MG TABLET PO ×2 (08:49→21:47)
[2024-07-01] MEDS: Ascorbic Acid 500 MG Tablet PO (08:50)
[2024-07-01 11:00] VITALS: BP 96/65; PULSE 65; RESP 18; TEMP 36.7; O2SAT 96
[2024-07-01 11:33] LABS: Bedside Glucose 174 mg/dL (74-106)
--- NOTE | 2024-07-01 15:40 | CASEMGMT ---
BIMS () and PHQ2 (0) interviews completed on this date for MDS assessment. JUAN CARLOS Peoples
[2024-07-01] MEDS: Atorvastatin Calcium 20 MG Tablet PO (21:45)
[2024-07-01 21:46] VITALS: BP 125/70; PULSE 91
[2024-07-02 05:55] LABS: Bedside Glucose 156 mg/dL (74-106)
[2024-07-02 09:22] VITALS: BP 129/64; PULSE 100; RESP 17; TEMP 36.1; O2SAT 98
[2024-07-02] MEDS: APIXABAN 5 MG TABLET PO ×2 (09:25→20:17)
[2024-07-02] MEDS: Fluticasone/Salmeterol 232-14 Inhaler 1 PUFF INHALATION ×2 (09:25→20:16)
[2024-07-02] MEDS: Iron Polysaccharide Complex 150 MG CAPSULE PO (09:25)
[2024-07-02 09:26] VITALS: PULSE 100
[2024-07-02] MEDS: Senna/Docusate Sodium 1 Tablet 2 TABLET PO (09:26)
[2024-07-02] MEDS: Pantoprazole Sodium 40 MG Tablet PO ×2 (09:26→20:18)
[2024-07-02] MEDS: Ascorbic Acid 500 MG Tablet PO (09:26)
[2024-07-02] MEDS: Metoprolol Tartrate 50 MG Tablet PO ×2 (09:26→20:17)
[2024-07-02 20:17] VITALS: BP 138/72; PULSE 86
[2024-07-02] MEDS: Atorvastatin Calcium 20 MG Tablet PO (20:17)
[2024-07-02 20:23] VITALS: PULSE 90; RESP 16; O2SAT 98
[2024-07-03 06:35] LABS: Bedside Glucose 172 mg/dL (74-106)
[2024-07-03 08:54] VITALS: BP 95/53; PULSE 99; RESP 16; TEMP 36; O2SAT 98
[2024-07-03 08:58] VITALS: PULSE 99
[2024-07-03] MEDS: Iron Polysaccharide Complex 150 MG CAPSULE PO (08:58)
[2024-07-03] MEDS: Metoprolol Tartrate 50 MG Tablet PO ×2 (08:58→22:14)
[2024-07-03] MEDS: APIXABAN 5 MG TABLET PO ×2 (08:58→22:13)
[2024-07-03] MEDS: Fluticasone/Salmeterol 232-14 Inhaler 1 PUFF INHALATION ×2 (08:58→22:13)
[2024-07-03] MEDS: Pantoprazole Sodium 40 MG Tablet PO ×2 (08:58→22:13)
[2024-07-03] MEDS: Ascorbic Acid 500 MG Tablet PO (08:58)
[2024-07-03 20:02] VITALS: PULSE 82; RESP 18; O2SAT 92
--- NOTE | 2024-07-03 20:29 | NURSING ---
Dr. Wagner contacted via telephone, notified of patient c/o pain to left wrist. Patient is alert and oriented to person/place/time/situation and denies injury to site or hx of gout. Redness and non-pitting edema observed to left wrist. New orders received from Dr. Wagner: Left wrist xray, cbc with diff, bmp, uric acid, c-reactive protein, sed rate/esr. All orders read back and verified.
--- NOTE | 2024-07-03 20:40 | RAD_ITS ---
PROCEDURE: WRIST MIN 3 VIEWS REASON FOR EXAM: REDNESS, EDEMA, PAIN TECHNIQUE: 3 view(s) of left wrist COMPARISON: None. FINDINGS: LEFT WRIST: No fracture or dislocation. Joint spaces appear within limits. Soft tissue swelling about the wrist. No osseous destructive change or periosteal reaction identified. Osteopenia. Vascular calcifications noted. RAD/Wrist min 3 Views IMPRESSION: No fracture or dislocation. Joint spaces appear within limits. Soft tissue swelling about the wrist. No osseous destructive change or periosteal reaction identified. Osteopenia. Reading Location: [id number]
[2024-07-03 20:54] LABS: Absolute Lymphocyte Count 1.37 X10^3/uL (0.83-4.51); Absolute Neutrophil Count 7.6 X10^3/uL (2.0-7.7); Basophil# 0.02 X10^3/uL; Basophil% 0.2 % (0-1); Eosinophil# 0.21 X10^3/uL; Hematocrit 31.5 % (40-54); Hemoglobin 9.9 g/dL (13.0-16.5); Lymphocyte # 1.37 X10^3/ul (0.83-4.51); Lymphocyte % 13.4 % (19-41); Mean Corp Hgb Conc 31.4 g/dL (32-36); Mean Corpuscular Hgb 25.7 pg (27.0-32.0); Mean Corpuscular Volume 81.8 fL (80-94); Mean Platelet Vol. 10.2 fl (6.2-12.0); Monocyte# 0.98 X10^3/uL; Monocyte% 9.6 % (0-10); NRBC Flagged by Analyzer 0 % (0-5); Neutrophil # 7.64 X10^3/uL (2.7-7.7); Neutrophil % 74.4 % (47-70); Platelet Count 198 K/mm3 (150-450); RBC Distribution Width CV 19.8 % (11.6-14.6); RBC Distribution Width SD 58.6 fl (35.1-43.9); Red Blood Count 3.85 M/mm3 (4.6-6.2); White Blood Count 10.3 K/mm3 (4.4-11.0)
[2024-07-03 21:11] LABS: Erythrocyte Sedimentation Rate 52 mm/hr (0-20)
[2024-07-03 21:15] LABS: Anion Gap 12 (5-15); BUN 27 mg/dL (4-19); BUN/Creat Ratio 21.7 RATIO (10-20); Calcium,Total 9.2 mg/dL (7.6-11.0); Chloride 97 mmol/L (98-108); Creatinine, Serum 1.22 mg/dL (0.70-1.20); EST Glomerular Filtration Rate 59 (>60); Glucose 272 mg/dL (70-99); Potassium 4.3 mmol/L (3.3-5.1); Sodium Level 129 mmol/L (133-145)
[2024-07-03] MEDS: Atorvastatin Calcium 20 MG Tablet PO (22:13)
[2024-07-03 22:14] VITALS: BP 134/73; PULSE 103
[2024-07-03 22:25] LABS: Uric Acid 6.1 mg/dL (3.5-7.2)
--- NOTE | 2024-07-03 23:15 | NURSING ---
Dr. Wagner contacted via telephone, notified of left wrist xray result, uric acid/c-reactive protein/esr results. New order received for medrol dosepack oral give first dose now. Order repeated back and verified.
[2024-07-03] MEDS: MethylPREDNISolone DosePak 4 MG BOX PO (23:28)
[2024-07-04 05:50] LABS: Absolute Lymphocyte Count 0.51 X10^3/uL (0.83-4.51); Absolute Neutrophil Count 7.2 X10^3/uL (2.0-7.7); Basophil# 0.01 X10^3/uL; Basophil% 0.1 % (0-1); Hematocrit 31.4 % (40-54); Hemoglobin 9.7 g/dL (13.0-16.5); Lymphocyte # 0.51 X10^3/ul (0.83-4.51); Lymphocyte % 6.4 % (19-41); Mean Corp Hgb Conc 30.9 g/dL (32-36); Mean Corpuscular Hgb 25.5 pg (27.0-32.0); Mean Corpuscular Volume 82.4 fL (80-94); Mean Platelet Vol. 10.3 fl (6.2-12.0); Monocyte# 0.24 X10^3/uL; NRBC Flagged by Analyzer 0 % (0-5); Neutrophil # 7.16 X10^3/uL (2.7-7.7); Neutrophil % 89.7 % (47-70); POSITIVE DIFFERENTIAL YES; Platelet Count 207 K/mm3 (150-450); RBC Distribution Width CV 19.9 % (11.6-14.6); RBC Distribution Width SD 59.7 fl (35.1-43.9); Red Blood Count 3.81 M/mm3 (4.6-6.2)
[2024-07-04 06:22] LABS: Anion Gap 10 (5-15); BUN 26 mg/dL (4-19); BUN/Creat Ratio 20.9 RATIO (10-20); Calcium,Total 9.4 mg/dL (7.6-11.0); Carbon Dioxide 23.1 mmol/L (21.0-32.0); Chloride 98 mmol/L (98-108); Creatinine, Serum 1.24 mg/dL (0.70-1.20); EST Glomerular Filtration Rate 58 (>60); Estimated Creatinine Clearance 47.42 ml/min (50-250); Glucose 289 mg/dL (70-99); Potassium 5.1 mmol/L (3.3-5.1); Sodium Level 131 mmol/L (133-145)
[2024-07-04 06:44] LABS: Bedside Glucose 262 mg/dL (74-106)
--- NOTE | 2024-07-04 08:45 | NURSING ---
Gig Tender Note; MDS for 07/03/2024 Complete
[2024-07-04 09:38] VITALS: BP 107/62; PULSE 92; RESP 17; TEMP 36.4; O2SAT 97
[2024-07-04] MEDS: MethylPREDNISolone DosePak 4 MG BOX PO ×4 (09:39→22:02)
[2024-07-04 09:40] VITALS: PULSE 92
[2024-07-04] MEDS: Ascorbic Acid 500 MG Tablet PO (09:40)
[2024-07-04] MEDS: Metoprolol Tartrate 50 MG Tablet PO ×2 (09:40→22:02)
[2024-07-04] MEDS: Iron Polysaccharide Complex 150 MG CAPSULE PO (09:40)
[2024-07-04] MEDS: Pantoprazole Sodium 40 MG Tablet PO ×2 (09:40→22:01)
[2024-07-04] MEDS: APIXABAN 5 MG TABLET PO ×2 (09:40→22:02)
[2024-07-04] MEDS: Tuberculin,Purif.prot.deriv. 50 TU/ML Vial 0.1 ML ID (09:40)
[2024-07-04] MEDS: Fluticasone/Salmeterol 232-14 Inhaler 1 PUFF INHALATION ×2 (09:41→22:02)
[2024-07-04 19:50] VITALS: PULSE 72; O2SAT 96
[2024-07-04 22:00] VITALS: BP 144/75; PULSE 84
[2024-07-04] MEDS: Senna/Docusate Sodium 1 Tablet 2 TABLET PO (22:01)
[2024-07-04 22:02] VITALS: BP 144/75; PULSE 84
[2024-07-04] MEDS: Atorvastatin Calcium 20 MG Tablet PO (22:02)
[2024-07-05 06:25] LABS: Bedside Glucose 290 mg/dL (74-106)
[2024-07-05 07:45] VITALS: BP 109/57; PULSE 71; O2SAT 97
[2024-07-05] MEDS: MethylPREDNISolone DosePak 4 MG BOX PO ×4 (09:46→22:15)
[2024-07-05 09:48] VITALS: BP 109/57; PULSE 71
[2024-07-05] MEDS: APIXABAN 5 MG TABLET PO ×2 (09:48→22:12)
[2024-07-05] MEDS: Metoprolol Tartrate 50 MG Tablet PO ×2 (09:48→22:14)
[2024-07-05] MEDS: Senna/Docusate Sodium 1 Tablet 2 TABLET PO ×2 (09:49→22:15)
[2024-07-05] MEDS: Iron Polysaccharide Complex 150 MG CAPSULE PO (09:50)
[2024-07-05] MEDS: Ascorbic Acid 500 MG Tablet PO (09:50)
[2024-07-05] MEDS: Pantoprazole Sodium 40 MG Tablet PO ×2 (09:50→22:15)
[2024-07-05] MEDS: Fluticasone/Salmeterol 232-14 Inhaler 1 PUFF INHALATION ×2 (09:51→22:13)
[2024-07-05 10:28] VITALS: BMI 26.2
[2024-07-05 16:17] VITALS: BP 133/74; PULSE 96; RESP 17; TEMP 35.9; O2SAT 97
[2024-07-05 20:06] VITALS: PULSE 78; RESP 16
[2024-07-05] MEDS: Menthol/Lanolin/Calamine/Znox 113 GM Tube 1 APPLIC TOPICAL (22:11)
[2024-07-05 22:14] VITALS: BP 133/77; PULSE 87
[2024-07-05] MEDS: Atorvastatin Calcium 20 MG Tablet PO (22:14)
[2024-07-05 22:20] VITALS: BP 133/77; PULSE 87
[2024-07-06 06:18] LABS: Bedside Glucose 266 mg/dL (74-106)
[2024-07-06 09:08] VITALS: BP 100/61; PULSE 88; RESP 17; TEMP 36.4; O2SAT 99
[2024-07-06] MEDS: MethylPREDNISolone DosePak 4 MG BOX PO ×3 (09:18→22:15)
[2024-07-06] MEDS: Menthol/Lanolin/Calamine/Znox 113 GM Tube 1 APPLIC TOPICAL ×2 (09:18→22:18)
[2024-07-06] MEDS: APIXABAN 5 MG TABLET PO ×2 (09:19→22:15)
[2024-07-06] MEDS: Fluticasone/Salmeterol 232-14 Inhaler 1 PUFF INHALATION ×2 (09:19→22:16)
[2024-07-06] MEDS: Insulin Glargine-YFGN 100 UNIT/ML Pen 10 UNIT SC ×2 (09:19→22:12)
[2024-07-06] MEDS: Iron Polysaccharide Complex 150 MG CAPSULE PO (09:19)
[2024-07-06 09:20] VITALS: PULSE 88
[2024-07-06] MEDS: Metoprolol Tartrate 50 MG Tablet PO ×2 (09:20→22:18)
[2024-07-06] MEDS: Ascorbic Acid 500 MG Tablet PO (09:20)
[2024-07-06] MEDS: Pantoprazole Sodium 40 MG Tablet PO ×2 (09:20→22:16)
[2024-07-06 18:33] LABS: Absolute Lymphocyte Count 0.78 X10^3/uL (0.83-4.51); Absolute Neutrophil Count 10.6 X10^3/uL (2.0-7.7); Basophil# 0.02 X10^3/uL; Basophil% 0.2 % (0-1); Eosinophil# 0.01 X10^3/uL; Eosinophils% 0.1 % (0-5); Hematocrit 32.4 % (40-54); Hemoglobin 10.5 g/dL (13.0-16.5); Lymphocyte # 0.78 X10^3/ul (0.83-4.51); Lymphocyte % 6.1 % (19-41); Mean Corp Hgb Conc 32.4 g/dL (32-36); Mean Corpuscular Volume 80.2 fL (80-94); Mean Platelet Vol. 9.9 fl (6.2-12.0); Monocyte# 1.25 X10^3/uL; Monocyte% 9.8 % (0-10); NRBC Flagged by Analyzer 0 % (0-5); Neutrophil % 83.1 % (47-70); Platelet Count 269 K/mm3 (150-450); RBC Distribution Width CV 19.7 % (11.6-14.6); RBC Distribution Width SD 57.8 fl (35.1-43.9); Red Blood Count 4.04 M/mm3 (4.6-6.2); White Blood Count 12.8 K/mm3 (4.4-11.0)
[2024-07-06 18:49] LABS: Anion Gap 14 (5-15); BUN 38 mg/dL (4-19); BUN/Creat Ratio 30.8 RATIO (10-20); Calcium,Total 9.1 mg/dL (7.6-11.0); Carbon Dioxide 18.6 mmol/L (21.0-32.0); Chloride 95 mmol/L (98-108); Creatinine, Serum 1.22 mg/dL (0.70-1.20); EST Glomerular Filtration Rate 59 (>60); Glucose 330 mg/dL (70-99); Potassium 4.4 mmol/L (3.3-5.1); Sodium Level 127 mmol/L (133-145); Uric Acid 5.9 mg/dL (3.5-7.2)
[2024-07-06 19:01] LABS: Erythrocyte Sedimentation Rate 73 mm/hr (0-20)
--- NOTE | 2024-07-06 19:56 | NURSING ---
requested dr pollack look at pt due to patient feeling poorly and left hand having pain and not improving
[2024-07-06] MEDS: Atorvastatin Calcium 20 MG Tablet PO (22:15)
[2024-07-06 22:18] VITALS: BP 137/68; PULSE 86
[2024-07-06 22:21] VITALS: BP 137/68; PULSE 86
[2024-07-06 23:00] LABS: Bedside Glucose 373 mg/dL (74-106)
[2024-07-07 06:08] LABS: Bedside Glucose 262 mg/dL (74-106)
--- NOTE | 2024-07-07 08:10 | MDS.RN ---
Information for the MDS was obtained from review of the clinical record, interview of resident, staff, and direct observation of resident?s care.
--- NOTE | 2024-07-07 08:49 | NURSING ---
Addendum entered by Kate Tripathi 07/07/24 09:09: Call back that if brought down now they will be done by his PT/OT time of 1015. Resident taken to MRI via bed. Original Note: Call from MRI, they are planning to do scan at 2:30 unless they call and say otherwise, resident updated. Questionnaire completed and faxed to MRI.
[2024-07-07 10:51] VITALS: BP 126/71; PULSE 110; RESP 17; TEMP 36.4; O2SAT 95
[2024-07-07] MEDS: MethylPREDNISolone DosePak 4 MG BOX PO (10:54)
[2024-07-07] MEDS: Menthol/Lanolin/Calamine/Znox 113 GM Tube 1 APPLIC TOPICAL ×2 (10:55→22:36)
[2024-07-07] MEDS: Fluticasone/Salmeterol 232-14 Inhaler 1 PUFF INHALATION ×2 (10:57→22:33)
[2024-07-07] MEDS: Insulin Glargine-YFGN 100 UNIT/ML Pen 10 UNIT SC ×2 (10:57→22:33)
[2024-07-07] MEDS: Iron Polysaccharide Complex 150 MG CAPSULE PO (10:57)
[2024-07-07] MEDS: APIXABAN 5 MG TABLET PO ×2 (10:57→22:35)
[2024-07-07 10:58] VITALS: PULSE 110
[2024-07-07] MEDS: Metoprolol Tartrate 50 MG Tablet PO ×2 (10:58→22:37)
[2024-07-07] MEDS: Pantoprazole Sodium 40 MG Tablet PO ×2 (10:58→22:34)
[2024-07-07] MEDS: Ascorbic Acid 500 MG Tablet PO (10:59)
[2024-07-07 21:51] LABS: Bedside Glucose 421 mg/dL (74-106)
--- NOTE | 2024-07-07 21:56 | NURSING ---
contacted via secure backline text regarding blood glucose level of 421 and current order of insulin glargine 10 units BID with dose due at HS, per Dr. Wagner new order received for Insulin, lispro 10 units subQ x1 in addition to rtn insulin glargine, order repeated back and confirmed with Dr. Wagner. Dr. Wagner also notified of left wrist MRI result, new orders received: domingo wrap left writs, d/c medrol dosepak, contract ortho for first available appointment with Dr. Purcell, Dr. Pizano, or Andre Aceves for left wrist fx.
[2024-07-07 22:30] VITALS: PULSE 92; RESP 16; O2SAT 96
[2024-07-07] MEDS: Insulin Lispro 100 UNIT/ML INSULN.PEN 10 UNIT SC (22:32)
[2024-07-07] MEDS: Atorvastatin Calcium 20 MG Tablet PO (22:34)
--- NOTE | 2024-07-07 22:35 | NURSING ---
Patient A&Ox4, notified patient of Dr. Wagner notified of MRI results and new orders related to MRI results as well as new order for Insulin lispro for elevated blood glucose level. Patient continues to deny trauma to LUE/left wrist. Patient reports breaking both arms at the same time about 50 years ago when I fell off of a swing. Left wrist wrapped in domingo wrap per order, circ checks WNL. Non-pitting edema and blanchable redness observed to left wrist area. Declines need for PRN pain medication at this time. No distress observed or reported. This nurse offered to update patient desk representative, patient declines states I will update my daughter tomorrow. Denies requests. Call light in reach.
[2024-07-07 22:37] VITALS: BP 123/71; PULSE 92
[2024-07-08 06:21] LABS: Bedside Glucose 165 mg/dL (74-106)
--- NOTE | 2024-07-08 08:34 | NURSING ---
Called leandro Ramachandran made for Thursday07/11/24 at 10:30. Resident called dtr about transport, let them know therapy would suggest WC transport. Dtr on the phone states they are very confident either she or her will be able to provide safe transport.
[2024-07-08 09:51] VITALS: BP 86/52; PULSE 138; RESP 17; TEMP 36.5; O2SAT 97
[2024-07-08] MEDS: Menthol/Lanolin/Calamine/Znox 113 GM Tube 1 APPLIC TOPICAL ×2 (09:55→21:00)
[2024-07-08] MEDS: Pantoprazole Sodium 40 MG Tablet PO ×2 (09:56→21:05)
[2024-07-08] MEDS: Iron Polysaccharide Complex 150 MG CAPSULE PO (09:56)
[2024-07-08] MEDS: APIXABAN 5 MG TABLET PO ×2 (09:56→21:04)
[2024-07-08] MEDS: Ascorbic Acid 500 MG Tablet PO (09:56)
[2024-07-08] MEDS: Fluticasone/Salmeterol 232-14 Inhaler 1 PUFF INHALATION ×2 (09:56→21:04)
[2024-07-08] MEDS: Insulin Glargine-YFGN 100 UNIT/ML Pen 10 UNIT SC ×2 (09:57→21:04)
--- NOTE | 2024-07-08 10:30 | NURSING ---
Updated Dr. Wagner on patient's decreased blood pressure and elevated heart rate. Patient is asymptomatic. Heart rate is regular. Patient due for Lopressor 50mg PO. HOLD dose her Dr. Wganer. VORB.
[2024-07-08 11:07] VITALS: BP 104/67; PULSE 100
[2024-07-08 21:04] VITALS: BP 125/79; PULSE 130
[2024-07-08] MEDS: Atorvastatin Calcium 20 MG Tablet PO (21:04)
[2024-07-08] MEDS: Metoprolol Tartrate 50 MG Tablet PO ×2 (21:04→21:55)
[2024-07-08 21:16] LABS: Bedside Glucose 277 mg/dL (74-106)
--- NOTE | 2024-07-08 21:19 | NURSING ---
Addendum entered by Meaghan Dc 07/08/24 23:06: Presents in bed, A&Ox4, heart rate assessed, 95 BPM. No distress observed or reported. Denies requests. Call light in reach. Original Note: Secure backline text sent to Dr. Wagner regarding patient tachycardia, HR 130 BPM, BP 125/79, HS dose of metoprolol administered per order. New order received from Dr. Wagner, administer additional dose of Metoprolol 50mg PO x1 now. Order verified with Dr. Wagner
[2024-07-08 21:55] VITALS: PULSE 120
[2024-07-08 23:05] VITALS: PULSE 95
[2024-07-09 06:12] LABS: Bedside Glucose 220 mg/dL (74-106)
[2024-07-09 10:40] VITALS: BP 112/54; PULSE 120; RESP 18; TEMP 36.6; O2SAT 96
[2024-07-09 10:44] VITALS: PULSE 120
[2024-07-09] MEDS: Iron Polysaccharide Complex 150 MG CAPSULE PO (10:44)
[2024-07-09] MEDS: Metoprolol Tartrate 50 MG Tablet PO ×2 (10:44→21:18)
[2024-07-09] MEDS: APIXABAN 5 MG TABLET PO ×2 (10:44→21:16)
[2024-07-09] MEDS: Pantoprazole Sodium 40 MG Tablet PO ×2 (10:44→21:18)
[2024-07-09] MEDS: Ascorbic Acid 500 MG Tablet PO (10:44)
[2024-07-09] MEDS: Fluticasone/Salmeterol 232-14 Inhaler 1 PUFF INHALATION ×2 (10:45→21:19)
[2024-07-09] MEDS: Menthol/Lanolin/Calamine/Znox 113 GM Tube 1 APPLIC TOPICAL ×2 (10:46→21:17)
[2024-07-09] MEDS: Acetaminophen 500 MG Tablet 1000 MG PO (21:16)
[2024-07-09 21:18] VITALS: BP 131/54; PULSE 100
[2024-07-09] MEDS: Atorvastatin Calcium 20 MG Tablet PO (21:19)
--- NOTE | 2024-07-09 21:29 | NURSING ---
Blood sugar 360 this hs. Spoke w/ Dr. Wagner via phone and new order received and read back for Humalog 10 units x 1 dose.
[2024-07-09 21:38] LABS: Bedside Glucose 360 mg/dL (74-106)
[2024-07-09] MEDS: Insulin Lispro 100 UNIT/ML INSULN.PEN 10 UNIT SC (21:54)
--- NOTE | 2024-07-09 21:55 | NURSING ---
Yolie Kessler cookies given for hs snack w/ insulin per resident request. Will continue to monitor.
[2024-07-10 06:31] LABS: Bedside Glucose 184 mg/dL (74-106)
[2024-07-10] MEDS: Fluticasone/Salmeterol 232-14 Inhaler 1 PUFF INHALATION ×2 (10:09→19:52)
[2024-07-10] MEDS: Menthol/Lanolin/Calamine/Znox 113 GM Tube 1 APPLIC TOPICAL ×2 (10:09→19:55)
[2024-07-10 10:10] VITALS: PULSE 100
[2024-07-10] MEDS: Pantoprazole Sodium 40 MG Tablet PO ×2 (10:10→19:54)
[2024-07-10] MEDS: APIXABAN 5 MG TABLET PO ×2 (10:10→19:53)
[2024-07-10] MEDS: Metoprolol Tartrate 50 MG Tablet PO ×2 (10:10→20:01)
[2024-07-10] MEDS: Ascorbic Acid 500 MG Tablet PO (10:10)
[2024-07-10] MEDS: Iron Polysaccharide Complex 150 MG CAPSULE PO (10:10)
[2024-07-10 12:49] VITALS: BP 103/63; PULSE 100; RESP 16; TEMP 36.6; O2SAT 97
--- NOTE | 2024-07-10 13:32 | NURSING ---
Pt C/O of increased pain to left wrist pt does take Tramadol 50mg 4x PRN for pain at home and would like Tylenol scheduled. Dr. Wagner updated N.O. for Tramadol q6hr and Tylenol 1000mg q8hr scheduled. Orders read back.
[2024-07-10] MEDS: Acetaminophen 500 MG Tablet 1000 MG PO ×2 (15:42→19:54)
[2024-07-10] MEDS: Atorvastatin Calcium 20 MG Tablet PO (20:00)
[2024-07-10 20:01] VITALS: PULSE 88
[2024-07-10 22:47] LABS: Bedside Glucose 291 mg/dL (74-106)
[2024-07-11] MEDS: Acetaminophen 500 MG Tablet 1000 MG PO ×3 (05:55→21:11)
[2024-07-11 06:24] LABS: Bedside Glucose 268 mg/dL (74-106)
[2024-07-11 06:38] LABS: Absolute Lymphocyte Count 1.02 X10^3/uL (0.83-4.51); Absolute Neutrophil Count 6.9 X10^3/uL (2.0-7.7); Basophil# 0.04 X10^3/uL; Basophil% 0.4 % (0-1); Eosinophils% 2.1 % (0-5); Hematocrit 31.6 % (40-54); Hemoglobin 10.2 g/dL (13.0-16.5); Lymphocyte # 1.02 X10^3/ul (0.83-4.51); Lymphocyte % 10.9 % (19-41); Mean Corp Hgb Conc 32.3 g/dL (32-36); Mean Corpuscular Volume 80.6 fL (80-94); Mean Platelet Vol. 9.5 fl (6.2-12.0); Monocyte# 1.06 X10^3/uL; Monocyte% 11.4 % (0-10); NRBC Flagged by Analyzer 0 % (0-5); Neutrophil # 6.91 X10^3/uL (2.7-7.7); Neutrophil % 74.2 % (47-70); Platelet Count 243 K/mm3 (150-450); RBC Distribution Width CV 18.8 % (11.6-14.6); RBC Distribution Width SD 55.2 fl (35.1-43.9); Red Blood Count 3.92 M/mm3 (4.6-6.2); White Blood Count 9.3 K/mm3 (4.4-11.0)
[2024-07-11 07:10] LABS: Anion Gap 11 (5-15); BUN 39 mg/dL (4-19); BUN/Creat Ratio 31.5 RATIO (10-20); Carbon Dioxide 21.4 mmol/L (21.0-32.0); Chloride 97 mmol/L (98-108); Creatinine, Serum 1.23 mg/dL (0.70-1.20); EST Glomerular Filtration Rate 59 (>60); Estimated Creatinine Clearance 47.81 ml/min (50-250); Glucose 284 mg/dL (70-99); Potassium 4.4 mmol/L (3.3-5.1); Sodium Level 130 mmol/L (133-145)
[2024-07-11] MEDS: Iron Polysaccharide Complex 150 MG CAPSULE PO (09:41)
[2024-07-11] MEDS: APIXABAN 5 MG TABLET PO ×2 (09:41→21:12)
[2024-07-11 09:42] VITALS: BP 99/61; PULSE 120
[2024-07-11] MEDS: Ascorbic Acid 500 MG Tablet PO (09:42)
[2024-07-11] MEDS: Metoprolol Tartrate 50 MG Tablet PO ×2 (09:42→21:12)
[2024-07-11] MEDS: Pantoprazole Sodium 40 MG Tablet PO ×2 (09:42→21:13)
[2024-07-11] MEDS: Fluticasone/Salmeterol 232-14 Inhaler 1 PUFF INHALATION ×2 (09:43→21:12)
[2024-07-11] MEDS: Menthol/Lanolin/Calamine/Znox 113 GM Tube 1 APPLIC TOPICAL ×2 (09:44→21:13)
[2024-07-11 09:45] VITALS: BP 99/61; PULSE 120; RESP 18; TEMP 36.2; O2SAT 97
--- NOTE | 2024-07-11 10:58 | WOUNDNOTE ---
Pt currently out of room.
--- NOTE | 2024-07-11 11:35 | NURSING ---
Patient left floor via wheelchair with family for appointment at 9:55am and returned from appointment at 11:21am. No concerns voiced.
--- NOTE | 2024-07-11 11:39 | NURSING ---
Patient received new order from Ortho appointment. 1) fracture brace Exos for the next 2 to 3 weeks can remove that for showering and cleaning the hand gradually wean out of the brace and follow-up in about 4 weeks time. Recommend no heavy lifting gripping pushing or pulling with the left upper extremity for now rest ice and elevation for pain and swelling control. Patient and family aware of new orders.
--- NOTE | 2024-07-11 12:02 | NURSING ---
Blood sugar this morning was 268. New order received from Dr. Wagner- 1) Humalog 5 units subq TID. Patient aware of above.
[2024-07-11] MEDS: Insulin Lispro 100 UNIT/ML INSULN.PEN SC ×2 (12:07→17:37)
[2024-07-11 15:00] VITALS: PULSE 96; RESP 18; O2SAT 97
--- NOTE | 2024-07-11 15:37 | CASEMGMT ---
Social Work SW received call from dtr with several questions. Dtr unsure how pt's new wrist fx affected pt's DC timeframe and planning. SW explained prior to wrist fx, IDT was concerned with pt's ability to safely return home alone. However, since the wrist fx, the pt is currently SPT x2 assist, per therapy notes. Dtr confirmed, as her transported pt to appt this morning and it was not good. Dtr asking clarifying questions for plan of care and inquired about options. SW explained typically the recommendation for x2 assist is a SNF, but x1 assist could be [place] or home with hired assistance. Explained pt will continue with therapy at each LOC, just at a lower frequency vs skilled care. Dtr expressed understanding, but inquired if SNF would be permanent or the pt can eventually return home with assistance. SW denied, as the goal is for the wrist to heal and pt can become more independent. However, pt was not independent prior to the wrist fx and likely will need additional assistance to return home. Dtr expressed understanding and requested resources and pricing. SW obtained dtr's email and sent list of private duty agencies with prices listed. SW provided list of SNFs within geographical area, INN with insurance, that include quality and resource data via [employer] guide link to dtr's email as well, with estimated pricing. CAL explained IDT has Huddle tomorrow and will receive an update on progress and DC timeframe, then this worker will contact dtr to notify. Dtr appreciative. Dtr expressed frustration with pt's wrist fx and had questions pertaining it's origin and treatment plan. CAL offered for Director to contact dtr to assist with answer questions. Dtr initially denied as it would not change the outcome, but did agree to follow up for possible answers. SW will continue to follow for DC planning. Amanda Burnett DINING ROOM CASHIER AUTOMATIC QUILLING MACHINE OPERATOR
[2024-07-11 17:12] LABS: Bedside Glucose 333 mg/dL (74-106)
--- NOTE | 2024-07-11 17:44 | NURSING ---
new orders received for 10 AC/HS accucheck checks 2) Increase Humalog Lispro from 5 units to 10 units subq TID. Patient aware of new order.
[2024-07-11 21:12] VITALS: BP 134/66; PULSE 91
[2024-07-11] MEDS: Atorvastatin Calcium 20 MG Tablet PO (21:12)
[2024-07-11 21:18] LABS: Bedside Glucose 275 mg/dL (74-106)
--- NOTE | 2024-07-11 21:30 | NURSING ---
brace in place to LUE per order , elevated on pillow, circ checks WNL
[2024-07-12] MEDS: Acetaminophen 500 MG Tablet 1000 MG PO ×3 (05:59→22:17)
[2024-07-12 06:12] LABS: Bedside Glucose 243 mg/dL (74-106)
[2024-07-12] MEDS: Insulin Lispro 100 UNIT/ML INSULN.PEN 15 UNIT SC ×2 (09:51→12:01)
[2024-07-12 09:52] VITALS: BP 111/62; PULSE 87
[2024-07-12] MEDS: Menthol/Lanolin/Calamine/Znox 113 GM Tube 1 APPLIC TOPICAL ×2 (09:52→22:13)
[2024-07-12] MEDS: Metoprolol Tartrate 50 MG Tablet PO ×2 (09:52→22:16)
[2024-07-12] MEDS: Fluticasone/Salmeterol 232-14 Inhaler 1 PUFF INHALATION ×2 (09:52→22:13)
[2024-07-12] MEDS: Iron Polysaccharide Complex 150 MG CAPSULE PO (09:52)
[2024-07-12] MEDS: Ascorbic Acid 500 MG Tablet PO (09:52)
[2024-07-12] MEDS: APIXABAN 5 MG TABLET PO ×2 (09:52→22:16)
[2024-07-12] MEDS: Pantoprazole Sodium 40 MG Tablet PO ×2 (09:52→22:17)
[2024-07-12 11:26] VITALS: BMI 25.9
[2024-07-12 11:33] LABS: Bedside Glucose 265 mg/dL (74-106)
--- NOTE | 2024-07-12 14:38 | CASEMGMT ---
Social Work SW phoned dtr to update on IDT meeting. Explained recommendations for DC remain x2 assist, likely at a SNF. Given the pt's new wrist fx and inability to care for himself to return home alone. Pt has f/u appt in about [address], but healing is estimated by the Dr between 6-8 weeks. SW explained to plan for care for minimum 8 weeks, until skilled therapy can resume and assist with building pt's independence. Dtr expressed understanding. Dtr still questioning pt being able to return home if impregnating helper and family/friends assist. SW confirmed pt has the choice to return home, but reiterated recommendations for x2 assist / care. Dtr agreed to have this worker send referrals to SNFs - [facility], [facility], to determine bed availability, and better assess DC timeframe. SW agreed. Dtr stated pt is not going to be happy, because he does not want to go to a SNF. SW expressed understanding and will assist dtr in having conversation about pt's needs and IDTs recommendations. Suggested waiting until outcomes are given from SNFs and dtr pursues pricing and availability for private duty aides, to provide clear information to pt. Dtr agreed and appreciative. SW will continue to follow. - Referrals sent to 3 SNFs via [employer]. Amanda RANGEL
[2024-07-12 16:00] VITALS: BP 103/51; PULSE 64; RESP 16; TEMP 36.2; O2SAT 97
[2024-07-12 17:16] LABS: Bedside Glucose 85 mg/dL (74-106)
[2024-07-12 22:00] VITALS: RESP 16
--- NOTE | 2024-07-12 22:00 | NURSING ---
Circ checks WNL, LLE elevated on pillows. Edema improving to LLE/hand. Ice PRN per order
[2024-07-12 22:13] LABS: Bedside Glucose 209 mg/dL (74-106)
[2024-07-12 22:16] VITALS: BP 138/69; PULSE 103
[2024-07-12] MEDS: Atorvastatin Calcium 20 MG Tablet PO (22:17)
[2024-07-13 06:25] LABS: Bedside Glucose 188 mg/dL (74-106)
[2024-07-13] MEDS: Acetaminophen 500 MG Tablet 1000 MG PO ×3 (06:31→21:21)
[2024-07-13] MEDS: Fluticasone/Salmeterol 232-14 Inhaler 1 PUFF INHALATION ×2 (08:09→21:20)
[2024-07-13] MEDS: Insulin Lispro 100 UNIT/ML INSULN.PEN 15 UNIT SC ×2 (08:09→12:25)
[2024-07-13] MEDS: Iron Polysaccharide Complex 150 MG CAPSULE PO (08:09)
[2024-07-13] MEDS: Pantoprazole Sodium 40 MG Tablet PO ×2 (08:09→21:21)
[2024-07-13 08:10] VITALS: BP 101/56; PULSE 95
[2024-07-13] MEDS: Menthol/Lanolin/Calamine/Znox 113 GM Tube 1 APPLIC TOPICAL ×2 (08:10→21:20)
[2024-07-13] MEDS: Ascorbic Acid 500 MG Tablet PO (08:10)
[2024-07-13] MEDS: Metoprolol Tartrate 50 MG Tablet PO ×2 (08:10→21:21)
[2024-07-13] MEDS: APIXABAN 5 MG TABLET PO ×2 (08:10→21:21)
[2024-07-13 11:45] LABS: Bedside Glucose 172 mg/dL (74-106)
[2024-07-13 15:39] VITALS: BP 84/53; PULSE 81; RESP 18; TEMP 36.6; O2SAT 99
--- NOTE | 2024-07-13 15:49 | CASEMGMT ---
Social Work [facility] clinically accept, all pending bed availability at time of DC. SW to update dtr and speak with pt. Amanda Burnett DATA MANAGEMENT SPECIALIST SERVICE STATION ATTENDANT
[2024-07-13 17:37] LABS: Bedside Glucose 105 mg/dL (74-106)
--- NOTE | 2024-07-13 18:07 | NURSING ---
Pt Blood sugar 105. Dr. Wagner updated d/t pt scheduled to receive 14 units of Lispro. N.O. to hold dose tonight and change Lispro to 14units with Breakfast and Dinner. Order read back.
--- NOTE | 2024-07-13 18:10 | NURSING ---
Dr. Wagner updated on pts Blood sugar of 105 and pt is scheduled to receive 15 units of Lispro. N.O. Received to hold dose now and change order to 15 units of Lispro with Breakfast and Dinner. Order read back.
[2024-07-13 21:21] VITALS: BP 124/73; PULSE 96
[2024-07-13] MEDS: Atorvastatin Calcium 20 MG Tablet PO (21:22)
[2024-07-13 21:59] LABS: Bedside Glucose 287 mg/dL (74-106)
[2024-07-14] MEDS: Acetaminophen 500 MG Tablet 1000 MG PO ×3 (06:02→21:18)
[2024-07-14 06:39] LABS: Bedside Glucose 201 mg/dL (74-106)
[2024-07-14] MEDS: Insulin Lispro 100 UNIT/ML INSULN.PEN 20 UNIT SC ×2 (07:48→17:11)
[2024-07-14] MEDS: APIXABAN 5 MG TABLET PO ×2 (07:49→21:19)
[2024-07-14 07:50] VITALS: BP 102/58; PULSE 100; RESP 16; TEMP 37.1; O2SAT 97
[2024-07-14] MEDS: Iron Polysaccharide Complex 150 MG CAPSULE PO (07:50)
[2024-07-14] MEDS: Ascorbic Acid 500 MG Tablet PO (07:50)
[2024-07-14] MEDS: Menthol/Lanolin/Calamine/Znox 113 GM Tube 1 APPLIC TOPICAL ×2 (07:50→21:18)
[2024-07-14] MEDS: Metoprolol Tartrate 50 MG Tablet PO ×2 (07:50→21:20)
[2024-07-14] MEDS: Pantoprazole Sodium 40 MG Tablet PO ×2 (07:50→21:19)
[2024-07-14] MEDS: Fluticasone/Salmeterol 232-14 Inhaler 1 PUFF INHALATION ×2 (07:50→21:17)
[2024-07-14 11:52] LABS: Bedside Glucose 105 mg/dL (74-106)
--- NOTE | 2024-07-14 16:18 | CASEMGMT ---
Social Work SW attempted to speak with pt twice this date to discuss DC plans, but visitors were in pt's room. - SW phoned dtr to update on SNF outcomes. SW explained this worker has attempted to speak with pt, and will continue to attempt. Dtr stated she has spoken to pt and he agreed to the SNF choices. Dtr inquired about pricing and Medicare coverage. SW reexplained OOP cost for room and board, but has a-la-carte charges, part B covers therapy about 2-3x/wk. Dtr responded in surprise as she was not aware of the cost. SW reminded dtr this worker provided that information during each previous discussion with her. Dtr stated then she may need to take pt home. SW reminded dtr that pt is a x2 assist and dtr was going to look into [facility] agencies for pricing to compare to the cost of SNFs, to present to pt, also indicating dtr was informed about OOP cost. Dtr stated she thought [facility] would be covering a portion of the stay. SW explained [facility] is covering TCU stay as this is a SNF, but once pt is discharged from TCU/Medicare, [facility] is not paying for the accepting SNF. However, explained [facility] can provide skilled coverage in the future if there is a change in condition where pt meets criteria again and/or when pt gets WBS increased. Dtr stated she could have pt move in with her temporarily as they live in a one-story home, that is built to be w/c accessible, though she only has one bedroom. SW offered that could still be an option, but pt needs x2 assist. Dtr reiterated her house is w/c accessible and pt can access the bathroom and complete the tasks. SW explained that accessibility and layout is not an issue, it's because of pt's lack of mobility that requires the physical assistance and need for a SNF. Pt cannot complete his ADL tasks. CAL offered for dtr to attend therapy session to assist in understanding pt's LOF. Dtr denied and expressed understanding, then stating pt will just need to go to a SNF then but it could be part of the time, and then he can live with the dtr the rest of the time to save money. SW offered that as a possibility as well. Dtr requested this worker speak with pt on his preference and understanding, and he can make the decision. SW agreed. - SW returned to pt's room, where visitors still were in his room. SW requested to speak with pt and pt agreed and visitors graciously left. SW spoke with pt about DC plan recommendations for SNF given x2 assist. Discussed previous conversations with dtr about DC home vs SNF, explained OOP cost and all 3 SNFs can accept pt, pending DC date with bed availaibility. Pt expressed understanding and aware his LOF will not change without increased WBS. Pt is agreeable to SNF and in the order: [facility]. SW explained this worker will coordinate with [facility] when there will be a bed to set the DC date, but it is planning on week for 07/18. Pt accepted. - SW received call from dtr with additional questions. SW answered and updated her on pt agreement to SNF, [facility] is [facility]. SW to coordinate DC date and plans. Dtr agreed and inquired about transportation at DC. SW explained family can transport or transport can be arranged, but it would not be covered by the insurance. Dtr stated she and her can transport pt, as the transported pt to the appt during stay. SW agreed. - SW updated all SNFs. Confirmed with [facility] to admit. [facility] agreed upon DC 4/. SW to send DC paperwork and complete PASRR for DC. - SW returned to pt's room. Updated on [facility] accepting for DC 07/20. CAL provided NOMNC to pt and educated to appeal rights. Pt verbalized understanding and denied appeal. Pt is agreeable to DC. Pt to update dtr during visit this evening. Plan: DC 4/2, [facility], intermediate, private pay, part B therapies Amanda Burnett MSW TRIALS MANAGER
[2024-07-14 16:57] LABS: Bedside Glucose 297 mg/dL (74-106)
--- NOTE | 2024-07-14 17:29 | DS.PCM_ITS ---
Providers Date of Admission: 06/26/24 Primary Care Physician: Dr. Raghavendra Christian MD Consultations 06/27/24 15:33 Consult: Onc/Wound/senior windows administrator Routine Comment: Reason for Consult:: left achilles wound Reason For Visit: AFIB WITH RVR Diagnosis Discharge Diagnosis (1) Debility: Status: Acute Code(s): R53.81 - Other malaise (2) Atrial fibrillation with RVR: Status: Resolved Code(s): I48.91 - Unspecified atrial fibrillation (3) Elevated troponin: Status: Resolved Code(s): R79.89 - Other specified abnormal findings of blood chemistry (4) Dehydration: Status: Acute Code(s): E86.0 - Dehydration (5) Constipation: Status: Acute Code(s): K59.00 - Constipation, unspecified (6) Hyperlipidemia: Status: Acute Code(s): E78.5 - Hyperlipidemia, unspecified (7) Coronary artery disease: Status: Acute Code(s): I25.10 - Atherosclerotic heart disease of [place] coronary artery without angina pectoris (8) Diabetes mellitus: Status: Acute Code(s): E11.9 - Type 2 diabetes mellitus without complications (9) Duodenal ulcer: Status: Acute Code(s): K26.9 - Duodenal ulcer, unspecified as acute or chronic, without hemorrhage or perforation Plan 84 year old male with below past medical history hospitalized for weakness 2/2 atrial fibrillation with rapid ventricular response, dehydration, complicated by elevated troponin 2/2 demand ischemia, constipation, admitted to TCU with debility, here for rehabilitation, strengthening, prior to discharge home alone. * Debility - PT/OT. * Pain - Tylenol 1000mg q6 prn pain (1-10). * Bowel - senna/colace 2 tablets bid, Magnesium citrate 300mL daily prn * Adult immunization - Administer pneumonia vaccine, covid vaccine, flu vaccine as appropriate. * DVT prophylaxis - on Eliquis. * Atrial fibrillation - Metoprolol 25mg bid, Eliquis 2.5mg bid. * Iron deficiency anemia - Ferrex 150mg daily, Vitamin C 500mg daily. * Hyperlipidemia - Atorvastatin 20mg qhs. * Duodenal ulcer - Pantoprazole 40mg bid. * Diabetes Mellitus II - Monitor blood sugar, add insulin as appropriate. * Asthma - Fluticasone/Salmeterol 232-14 1 puff q12, Albuterol mdi 2 puffs q4 pn. Medications at Discharge Home Medications ascorbic acid (vitamin C) 500 mg tablet 500 mg PO DAILY vitamin #0 tabs 01/22/24 pantoprazole 40 mg tablet,delayed release 40 mg PO BID reflux 30 days #60 tabs 01/22/24 polysaccharide iron complex 150 mg iron capsule (Ferrex) 150 mg PO DAILY supplement 30 days #30 caps 01/22/24 apixaban 5 mg tablet (Eliquis) 5 mg PO DAILY blood thinner 06/21/24 acetaminophen 500 mg tablet 1,000 mg (2 x 500 mg) PO Q8 #0 tabs 07/14/24 atorvastatin 20 mg tablet 20 mg PO QHS #0 tabs 07/14/24 fluticasone 232 mcg-salmeterol 14 mcg/actuation breath activated powdr 1 inh inhalation Q12 #0 ea 07/14/24 insulin lispro 100 unit/mL subcutaneous pen (Humalog KwikPen (U-100) Insulin) 20 unit (0.2 mL) subcut 0800,1700 #0 mL 07/14/24 menthol 0.44 %-zinc oxide 20.6 % topical ointment (Calmoseptine) 1 applic topical BID #0 grams 07/14/24 metoprolol tartrate 50 mg tablet 50 mg PO BID #0 tabs 07/14/24 sennosides 8.6 mg-docusate sodium 50 mg tablet (Stimulant Laxative Plus) 2 tab PO BID #0 tabs 07/14/24 Hospital Course Operations None Procedures None Summary of Care Provided Minutes Spent on Discharge: 35 Hospital Course: 84 year old male with below past medical history hospitalized for weakness 2/2 atrial fibrillation with rapid ventricular response, dehydration, complicated by elevated troponin 2/2 demand ischemia, constipation, admitted to TCU with debility, here for rehabilitation, strengthening, prior to discharge home alone. 07/11/2024 Dr. Villa: (1) Left lunate fracture: Status: Acute Plan: KIRBY AMAYA is a 84 year old M here today for Left lunate fracture. This appears to be healing fracture and minimally to nondisplaced. Given the patient's age and appearance of the fracture as well as this being probably 6 weeks old already I recommend just a fracture brace Exos for the next 2 to 3 weeks can remove that for showering and cleaning the hand gradually wean out of the brace and follow-up in about 4 weeks time. Recommend no heavy lifting gripping pushing or pulling with the left upper extremity for now rest ice and elevation for pain and swelling control. Patient and the son-in-law understood no further questions or concerns. Plan: DC 07/20, [facility], [facility], private pay, part B therapies. Physical Exam Const alert General Appearance: cooperative HEENT normocephalic Eyes PERRL and EOMs intact bilaterally Neck supple, no JVD and no carotid bruits Resp normal respiratory effort, normal air movement and clear to auscultation bilaterally Cardio regular rate and regular rhythm GI normal to inspection, nondistended, normoactive bowel sounds, non-tender and non-distended Extremity normal capillary refill Extremity Narrative: Left upper extremity brace. General Extremity: Negative for edema Skin no rashes or lesions noted General Skin Exam: no breakdown Psych affect normal Appearance: appropriate Weight / BMI Weight Weight: 83.143 kg Body Mass Index (BMI) 25.9 ABG / Lab / Microbiology Data 07/11/24 06:31 07/11/24 06:31 Laboratory: Laboratory Results - last 24 hr 07/13/24 17:10: POC Glucose 105 07/13/24 21:40: POC Glucose 287 H 07/14/24 06:01: POC Glucose 201 H 07/14/24 11:28: POC Glucose 105 07/14/24 16:29: POC Glucose 297 H D/C Instructions Discharge Diet: No restrictions Discharge Activity: Return to Normal Activity, May Shower and Use Walker Weight Bearing Status: Weight bearing as tolerated Call your doctor if you observe: Fever of 101 or Higher, Inability to urinate, Inability to have a bowel movement, Shortness of breath, Dizziness, Fainting spells, Swelling in the ankles, Chest pain and Uncontrolled pain DC O2, CPAP, BIPAP Needs Home O2 Discharge instructions: No Additional Instructions: Plan: DC 07/20, [facility], [facility], private pay, part B therapies. Please Follow Up With: Dr. Villa When: 08/11/2024. Meaningful Use Info Meaningful Use Meaningful Use Diagnoses (Choose all that apply): None applicable Ischemic Stroke Statin Dosing Therapy Reference: STATIN DOSE THERAPY REFERENCE: * Patients > 75 years receive moderate or high dose statin therapy. * Patients 75 years or YOUNGER should receive HIGH intensity statin dose unless contraindicated. You will be required to document reason for non-treatment if statin daily dose does not meet guidelines. HIGH DOSE STATIN THERAPY DAILY Atorvastatin > than or = to 40 mg Rosuvastatin > than or = to 20 mg Amlodipine + Atorvastatin > than or = to 2.5/40 mg Ezetimibe + Simvastatin 10/80 mg Simvastatin 80mg Discharge Plan Admission Admit Date/Time: 06/26/24 16:27 Primary Reason for Your Visit: Debility. Attending Provider: Sergio Wagner Chi Primary Care Provider: Raghavendra Christian Instructions Additional Instructions / Restrictions: Plan: [place] 07/20, [facility], [facility], private pay, part B therapies. Discharge Orders/Prescriptions Prescriptions: New acetaminophen 500 mg Tablet 1,000 mg PO Q8 Qty: 0 0RF insulin lispro [Humalog KwikPen Insulin] 100 unit/mL Insulin Pen 20 unit subcut 0800,1700 Qty: 0 0RF menthol-zinc oxide [Calmoseptine] 0.44-20.6 % Ointment 1 applic topical BID Qty: 0 0RF Protocol: *Topical Application Instructions APPLICATION INSTRUCTIONS: Apply to b/l buttocks fluticasone propion-salmeterol 232-14 mcg/actuation Aerosol Powdr Breath Activated 1 inh inhalation Q12 Qty: 0 0RF atorvastatin 20 mg Tablet 20 mg PO QHS Qty: 0 0RF sennosides-docusate sodium [Stimulant Laxative Plus] 8.6-50 mg Tablet 2 tab PO BID Qty: 0 0RF metoprolol tartrate 50 mg Tablet 50 mg PO BID Qty: 0 0RF Continued ascorbic acid (vitamin C) 500 mg Tablet 500 mg PO DAILY Qty: 0 0RF polysaccharide iron complex [Ferrex 150] 150 mg iron Capsule 150 mg PO DAILY 30 Days Qty: 30 0RF pantoprazole 40 mg Tablet,Delayed Release (Dr/Ec) 40 mg PO BID 30 Days Qty: 60 0RF Eliquis 5 mg Tablet 5 mg PO DAILY Discontinued metoprolol tartrate 25 mg Tablet 25 mg PO BID Qty: 0 0RF rosuvastatin 10 mg tablet 10 mg PO DAILY Referrals / Follow Up: Raghavendra Chrsitian MD [Primary Care Provider] - Disposition Disposition (needs filled in before D/C Order can be placed): NonSkilled NH/Intermed Care
--- NOTE | 2024-07-14 17:35 | PCM.TXEXTCAR ---
Diet Diet Order/Speech Therapy: 06/26/24 16:59 Diet: Cardiac - Heart Healthy Food consistency:: Regular Liquid Consistency:: Regular/Thin Dietary Modifications:: Consistent Carbohydrate Routine Orders/Code Status Code Status: DNRCC-A (With intubation.) DC O2, CPAP, BIPAP needs Home O2 Discharge instructions: No Wound(s) BLE: Wound Type: scattered abrasions/bruises left heel: Wound Type: calloused Dressing Change: mepliex 3/6 right heel: Wound Type: Abrasion left 4th toe: Wound Type: Abrasion testicles: Wound Type: petechia like rash b/l buttocks: Wound Type: Pressure Injury Dressing Change: triad/jhonatan Therapies Weight Bearing: Weight bearing as tolerated Extremity Affected:: Bilateral Lower Physical Therapy: Eval and Treat Occupational Therapy: Eval and Treat Problem/Diagnosis (1) Debility: Status: Acute Code(s): R53.81 - Other malaise (2) Atrial fibrillation with RVR: Status: Resolved Code(s): I48.91 - Unspecified atrial fibrillation (3) Elevated troponin: Status: Resolved Code(s): R79.89 - Other specified abnormal findings of blood chemistry (4) Dehydration: Status: Acute Code(s): E86.0 - Dehydration (5) Constipation: Status: Acute Code(s): K59.00 - Constipation, unspecified (6) Hyperlipidemia: Status: Acute Code(s): E78.5 - Hyperlipidemia, unspecified (7) Coronary artery disease: Status: Acute Code(s): I25.10 - Atherosclerotic heart disease of [place] coronary artery without angina pectoris (8) Diabetes mellitus: Status: Acute Code(s): E11.9 - Type 2 diabetes mellitus without complications (9) Duodenal ulcer: Status: Acute Code(s): K26.9 - Duodenal ulcer, unspecified as acute or chronic, without hemorrhage or perforation Plan 84 year old male with below past medical history hospitalized for weakness 2/2 atrial fibrillation with rapid ventricular response, dehydration, complicated by elevated troponin 2/2 demand ischemia, constipation, admitted to TCU with debility, here for rehabilitation, strengthening, prior to discharge home alone. Debility - PT/OT. Pain - Tylenol 1000mg q6 prn pain (1-10). Bowel - senna/colace 2 tablets bid, Magnesium citrate 300mL daily prn Adult immunization - Administer pneumonia vaccine, covid vaccine, flu vaccine as appropriate. DVT prophylaxis - on Eliquis. Atrial fibrillation - Metoprolol 25mg bid, Eliquis 2.5mg bid. Iron deficiency anemia - Ferrex 150mg daily, Vitamin C 500mg daily. Hyperlipidemia - Atorvastatin 20mg qhs. Duodenal ulcer - Pantoprazole 40mg bid. Diabetes Mellitus II - Monitor blood sugar, add insulin as appropriate. Asthma - Fluticasone/Salmeterol 232-14 1 puff q12, Albuterol mdi 2 puffs q4 pn. Allergies/Procedures Done in Hospital Allergies sulfamethoxazole (From Bactrim) Adverse Reaction (Verified 07/11/24 10:29) Nausea trimethoprim (From Bactrim) Adverse Reaction (Verified 07/11/24 10:29) Nausea Procedures: None Type of Care/Length of Stay Estimated LOS: More Than 30 Days Type of Care Needed: Intermediate Rehab Potential: Fair Prognosis: Fair Additional Orders/Day of Discharge Additional Orders: part B therapies Day of Discharge: 07/20/24 Dietary and Speech Recommendations Dietitian Recommendations/Changes: Continue Cardiac / Consistent CHO diet as ordered Rec Tyler bid w/ medpass to help w/ wound healing if warranted Provide diet education if res desires Follow Up Care Please Follow Up With: Dr. Villa Discharge Plan Admission Admit Date/Time: 06/26/24 16:27 Primary Reason for Your Visit: Debility. Attending Provider: Sergio Wagner Chi Primary Care Provider: Raghavendra Christian Instructions Additional Instructions / Restrictions: Plan: [place] 4/2, [facility], [facility], private pay, part B therapies. Discharge Orders/Prescriptions Prescriptions: New acetaminophen 500 mg Tablet 1,000 mg PO Q8 Qty: 0 0RF insulin lispro [Humalog KwikPen Insulin] 100 unit/mL Insulin Pen 20 unit subcut 0800,1700 Qty: 0 0RF menthol-zinc oxide [Calmoseptine] 0.44-20.6 % Ointment 1 applic topical BID Qty: 0 0RF Protocol: *Topical Application Instructions APPLICATION INSTRUCTIONS: Apply to b/l buttocks fluticasone propion-salmeterol 232-14 mcg/actuation Aerosol Powdr Breath Activated 1 inh inhalation Q12 Qty: 0 0RF atorvastatin 20 mg Tablet 20 mg PO QHS Qty: 0 0RF sennosides-docusate sodium [Stimulant Laxative Plus] 8.6-50 mg Tablet 2 tab PO BID Qty: 0 0RF metoprolol tartrate 50 mg Tablet 50 mg PO BID Qty: 0 0RF Continued ascorbic acid (vitamin C) 500 mg Tablet 500 mg PO DAILY Qty: 0 0RF polysaccharide iron complex [Ferrex 150] 150 mg iron Capsule 150 mg PO DAILY 30 Days Qty: 30 0RF pantoprazole 40 mg Tablet,Delayed Release (Dr/Ec) 40 mg PO BID 30 Days Qty: 60 0RF Eliquis 5 mg Tablet 5 mg PO DAILY Discontinued metoprolol tartrate 25 mg Tablet 25 mg PO BID Qty: 0 0RF rosuvastatin 10 mg tablet 10 mg PO DAILY Referrals / Follow Up: Raghavendra Christian MD [Primary Care Provider] - Disposition Disposition (needs filled in before D/C Order can be placed): NonSkilled NH/Intermed Care
[2024-07-14] MEDS: Atorvastatin Calcium 20 MG Tablet PO (21:18)
[2024-07-14 21:20] VITALS: PULSE 122
[2024-07-14 21:45] LABS: Bedside Glucose 130 mg/dL (74-106)
[2024-07-15] MEDS: Acetaminophen 500 MG Tablet 1000 MG PO ×3 (05:52→22:45)
[2024-07-15 06:21] LABS: Bedside Glucose 188 mg/dL (74-106)
[2024-07-15] MEDS: Menthol/Lanolin/Calamine/Znox 113 GM Tube 1 APPLIC TOPICAL ×2 (08:05→22:40)
[2024-07-15] MEDS: Insulin Lispro 100 UNIT/ML INSULN.PEN 20 UNIT SC ×2 (08:05→17:55)
[2024-07-15 08:06] VITALS: BP 91/57; PULSE 106
[2024-07-15] MEDS: Fluticasone/Salmeterol 232-14 Inhaler 1 PUFF INHALATION ×2 (08:06→22:41)
[2024-07-15] MEDS: Metoprolol Tartrate 50 MG Tablet PO ×2 (08:06→22:43)
[2024-07-15] MEDS: Iron Polysaccharide Complex 150 MG CAPSULE PO (08:06)
[2024-07-15] MEDS: APIXABAN 5 MG TABLET PO ×2 (08:06→22:41)
[2024-07-15] MEDS: Ascorbic Acid 500 MG Tablet PO (08:07)
[2024-07-15] MEDS: Pantoprazole Sodium 40 MG Tablet PO ×2 (08:07→22:44)
--- NOTE | 2024-07-15 08:19 | CASEMGMT ---
Social Work ANGELICA completed and DC paperwork sent to [facility] via [employer]. Amanda Burnett SEWING MACHINE ATTACHMENT TESTER CANDLE WRAPPER
[2024-07-15 10:00] VITALS: BP 91/57; PULSE 106; RESP 16; TEMP 36.8; O2SAT 97
[2024-07-15 11:24] LABS: Bedside Glucose 113 mg/dL (74-106)
--- NOTE | 2024-07-15 15:17 | NURSING ---
Addendum entered by Dina العلي 07/15/24 19:15: Daughter took wedding band home this evening. Original Note: Wedding band removed due to swelling in left ring finger. Placed in denture cup and placed in med box in room. Patient is aware.
[2024-07-15 17:12] LABS: Bedside Glucose 216 mg/dL (74-106)
[2024-07-15 20:00] VITALS: PULSE 94; O2SAT 97
[2024-07-15 21:26] LABS: Bedside Glucose 152 mg/dL (74-106)
[2024-07-15 22:39] VITALS: BP 120/59; PULSE 88
[2024-07-15 22:43] VITALS: BP 120/59; PULSE 88
[2024-07-15] MEDS: Atorvastatin Calcium 20 MG Tablet PO (22:43)
[2024-07-15] MEDS: traMADol 50 MG Tablet PO (22:48)
[2024-07-16] MEDS: Acetaminophen 500 MG Tablet 1000 MG PO ×3 (05:05→22:50)
[2024-07-16 06:27] VITALS: PULSE 95; O2SAT 97
[2024-07-16 06:35] LABS: Bedside Glucose 173 mg/dL (74-106)
[2024-07-16 08:39] VITALS: BP 104/62; PULSE 102; RESP 16; TEMP 36.4; O2SAT 98
[2024-07-16] MEDS: Insulin Lispro 100 UNIT/ML INSULN.PEN 20 UNIT SC ×2 (08:41→17:52)
[2024-07-16 08:42] VITALS: PULSE 102
[2024-07-16] MEDS: Iron Polysaccharide Complex 150 MG CAPSULE PO (08:42)
[2024-07-16] MEDS: Menthol/Lanolin/Calamine/Znox 113 GM Tube 1 APPLIC TOPICAL ×2 (08:42→22:48)
[2024-07-16] MEDS: Fluticasone/Salmeterol 232-14 Inhaler 1 PUFF INHALATION ×2 (08:42→22:49)
[2024-07-16] MEDS: Metoprolol Tartrate 50 MG Tablet PO ×2 (08:42→22:50)
[2024-07-16] MEDS: APIXABAN 5 MG TABLET PO ×2 (08:42→22:51)
[2024-07-16] MEDS: Ascorbic Acid 500 MG Tablet PO (08:43)
[2024-07-16] MEDS: Pantoprazole Sodium 40 MG Tablet PO ×2 (08:43→22:50)
[2024-07-16 11:36] LABS: Bedside Glucose 145 mg/dL (74-106)
[2024-07-16 16:42] LABS: Bedside Glucose 174 mg/dL (74-106)
[2024-07-16 21:28] LABS: Bedside Glucose 127 mg/dL (74-106)
[2024-07-16 22:50] VITALS: BP 115/62; PULSE 87
[2024-07-16] MEDS: Atorvastatin Calcium 20 MG Tablet PO (22:51)
[2024-07-17] MEDS: Acetaminophen 500 MG Tablet 1000 MG PO ×3 (05:40→22:05)
[2024-07-17 08:01] VITALS: BP 89/54; PULSE 119; RESP 16; TEMP 36.3; O2SAT 96
[2024-07-17] MEDS: Pantoprazole Sodium 40 MG Tablet PO ×2 (08:05→22:05)
[2024-07-17] MEDS: Ascorbic Acid 500 MG Tablet PO (08:05)
[2024-07-17] MEDS: Iron Polysaccharide Complex 150 MG CAPSULE PO (08:06)
[2024-07-17] MEDS: APIXABAN 5 MG TABLET PO ×2 (08:06→22:05)
[2024-07-17] MEDS: Menthol/Lanolin/Calamine/Znox 113 GM Tube 1 APPLIC TOPICAL ×2 (08:06→22:06)
[2024-07-17] MEDS: Fluticasone/Salmeterol 232-14 Inhaler 1 PUFF INHALATION ×2 (08:06→22:06)
[2024-07-17] MEDS: Insulin Lispro 100 UNIT/ML INSULN.PEN 20 UNIT SC ×2 (08:07→17:34)
[2024-07-17 10:35] LABS: Bedside Glucose 153 mg/dL (74-106)
[2024-07-17 11:28] LABS: Bedside Glucose 134 mg/dL (74-106)
[2024-07-17 11:52] VITALS: BP 108/62; PULSE 91
[2024-07-17] MEDS: Metoprolol Tartrate 50 MG Tablet PO ×2 (11:52→22:05)
[2024-07-17 16:39] LABS: Bedside Glucose 220 mg/dL (74-106)
[2024-07-17 22:00] VITALS: BP 110/60; PULSE 95
[2024-07-17 22:05] VITALS: BP 110/60; PULSE 95
[2024-07-17] MEDS: Atorvastatin Calcium 20 MG Tablet PO (22:05)
[2024-07-17 22:20] LABS: Bedside Glucose 155 mg/dL (74-106)
[2024-07-18] MEDS: Acetaminophen 500 MG Tablet 1000 MG PO ×3 (05:30→21:49)
[2024-07-18 05:39] LABS: Absolute Lymphocyte Count 1.49 X10^3/uL (0.83-4.51); Absolute Neutrophil Count 3.6 X10^3/uL (2.0-7.7); Basophil# 0.03 X10^3/uL; Basophil% 0.5 % (0-1); Eosinophil# 0.18 X10^3/uL; Hematocrit 28.9 % (40-54); Lymphocyte # 1.49 X10^3/ul (0.83-4.51); Lymphocyte % 24.5 % (19-41); Mean Corp Hgb Conc 31.1 g/dL (32-36); Mean Corpuscular Hgb 25.9 pg (27.0-32.0); Mean Corpuscular Volume 83.3 fL (80-94); Mean Platelet Vol. 9.3 fl (6.2-12.0); Monocyte# 0.76 X10^3/uL; Monocyte% 12.5 % (0-10); NRBC Flagged by Analyzer 0 % (0-5); Neutrophil # 3.57 X10^3/uL (2.7-7.7); Neutrophil % 58.8 % (47-70); Platelet Count 270 K/mm3 (150-450); RBC Distribution Width CV 18.8 % (11.6-14.6); RBC Distribution Width SD 56.8 fl (35.1-43.9); Red Blood Count 3.47 M/mm3 (4.6-6.2); White Blood Count 6.1 K/mm3 (4.4-11.0)
[2024-07-18 06:06] LABS: Anion Gap 12 (5-15); BUN 32 mg/dL (4-19); BUN/Creat Ratio 27.1 RATIO (10-20); Calcium,Total 9.2 mg/dL (7.6-11.0); Carbon Dioxide 20.4 mmol/L (21.0-32.0); Chloride 102 mmol/L (98-108); Creatinine, Serum 1.18 mg/dL (0.70-1.20); EST Glomerular Filtration Rate 62 (>60); Estimated Creatinine Clearance 49.84 ml/min (50-250); Glucose 172 mg/dL (70-99); Potassium 4.6 mmol/L (3.3-5.1); Sodium Level 134 mmol/L (133-145)
[2024-07-18 06:32] LABS: Bedside Glucose 167 mg/dL (74-106)
[2024-07-18] MEDS: Insulin Lispro 100 UNIT/ML INSULN.PEN 20 UNIT SC ×2 (07:55→17:59)
[2024-07-18 10:06] VITALS: BP 93/59; PULSE 87; RESP 18; TEMP 36.4; O2SAT 97
[2024-07-18 10:10] VITALS: PULSE 87
[2024-07-18] MEDS: Ascorbic Acid 500 MG Tablet PO (10:10)
[2024-07-18] MEDS: Fluticasone/Salmeterol 232-14 Inhaler 1 PUFF INHALATION ×2 (10:10→21:51)
[2024-07-18] MEDS: Pantoprazole Sodium 40 MG Tablet PO ×2 (10:10→21:49)
[2024-07-18] MEDS: Iron Polysaccharide Complex 150 MG CAPSULE PO (10:10)
[2024-07-18] MEDS: Metoprolol Tartrate 50 MG Tablet PO ×2 (10:10→21:51)
[2024-07-18] MEDS: APIXABAN 5 MG TABLET PO ×2 (10:10→21:50)
[2024-07-18] MEDS: Menthol/Lanolin/Calamine/Znox 113 GM Tube 1 APPLIC TOPICAL ×2 (10:13→21:51)
[2024-07-18 11:39] LABS: Bedside Glucose 112 mg/dL (74-106)
[2024-07-18] MEDS: traMADol 50 MG Tablet PO (13:18)
--- NOTE | 2024-07-18 14:57 | NURSING ---
Per PT/OT resident and son in law asking about the plan for the wrist fracture. This RN reviewed Dr. Villa's note with his recommendations for the wrist and follow-up in 4 weeks. They denied any other questions, wanted nurse to go ahead and schedule follow-up. 4 week follow-up with Dr. Villa made for 08/08/24 at 0900. Paper with date/time provided to them.
--- NOTE | 2024-07-18 16:11 | CASEMGMT ---
Social Work SW completed BIMS () and PHQ-2 () for MDS assessment. Amanda Burnett FISCAL TECHNICIAN ARTIFICIAL PEARL MAKER
[2024-07-18 16:47] LABS: Bedside Glucose 237 mg/dL (74-106)
[2024-07-18] MEDS: Atorvastatin Calcium 20 MG Tablet PO (21:49)
[2024-07-18 21:51] VITALS: BP 103/56; PULSE 89
[2024-07-18 21:55] VITALS: BP 103/56; PULSE 89
[2024-07-18 22:03] LABS: Bedside Glucose 144 mg/dL (74-106)
[2024-07-19 06:18] LABS: Bedside Glucose 141 mg/dL (74-106)
[2024-07-19] MEDS: Acetaminophen 500 MG Tablet 1000 MG PO ×3 (06:41→22:23)
[2024-07-19 07:47] VITALS: BP 120/72; PULSE 98; RESP 16; TEMP 36.3; O2SAT 97
[2024-07-19 07:50] VITALS: PULSE 98
[2024-07-19] MEDS: Fluticasone/Salmeterol 232-14 Inhaler 1 PUFF INHALATION ×2 (07:50→22:22)
[2024-07-19] MEDS: Pantoprazole Sodium 40 MG Tablet PO ×2 (07:50→22:24)
[2024-07-19] MEDS: Ascorbic Acid 500 MG Tablet PO (07:50)
[2024-07-19] MEDS: APIXABAN 5 MG TABLET PO ×2 (07:50→22:23)
[2024-07-19] MEDS: Iron Polysaccharide Complex 150 MG CAPSULE PO (07:50)
[2024-07-19] MEDS: Metoprolol Tartrate 50 MG Tablet PO ×2 (07:50→22:24)
[2024-07-19] MEDS: Insulin Lispro 100 UNIT/ML INSULN.PEN 20 UNIT SC ×2 (07:51→17:23)
[2024-07-19] MEDS: Menthol/Lanolin/Calamine/Znox 113 GM Tube 1 APPLIC TOPICAL ×2 (07:52→22:25)
--- NOTE | 2024-07-19 08:45 | CASEMGMT ---
Social Work SW received VM from dtr stating the family is opting to take pt home, instead of WVM on 07/20. SW reviewed notes from therapy session yesterday as CAROLYN did attend for training. CAROLYN stated he can care for pt at home at x1 assist and have ordered DME to assist at home. SW spoke with treating DEANDRE and DIAL MAKER. Both confirmed CAROLYN expressed being able to care for pt at home as he is retired. - SW returned call to dtr to discuss new DC plans. Dtr confirmed the plan for pt to DC to dtr and SILs home. SW inquired if pt will have 24/7 care. Dtr replied, he doesn't have 24/7 care now. He is doing better than what you think. We are going to work him harder than you are. We are going to have someone come in to help him with his showers through [facility]. And if it doesn't work, we'll go to plan B. I think we gotta give it a try. I think he will get better more quickly at own home. Dtr stated she has bought all the DME needed, a lift toilet chair, w/c, the platform attachment to the walker. but is requesting a walker as he was using his late-'s at home. SW offered to order FWW and skilled HHC. Dtr agreed. SW offered list of skilled HHC agencies within geographical area, INN with insurance, that include quality and resource data via [employer] guide. Dtr denied list stating [facility] and would like to use again. SW to place referral. Confirmed son and DIL will transport home. Dtr expressed appreciation for this worker's assistance. - CAL phoned referral to [facility] for PT/OT/SN/SW. Referred to [facility] via [employer] for FWW. IDT updated. WVM updated. Plan: DC 07/20 to dtr/CAROLYN home, [facility] PT/OT/SN/SW, FWW Amanda RANGEL
[2024-07-19 11:25] LABS: Bedside Glucose 73 mg/dL (74-106)
[2024-07-19 13:12] VITALS: PULSE 75; RESP 16; O2SAT 99
[2024-07-19 16:33] VITALS: BMI 26.2
[2024-07-19 16:51] LABS: Bedside Glucose 161 mg/dL (74-106)
[2024-07-19] MEDS: Atorvastatin Calcium 20 MG Tablet PO (22:23)
[2024-07-19 22:24] VITALS: BP 109/62; PULSE 66
[2024-07-19 22:33] VITALS: BP 109/62; PULSE 66
[2024-07-20 02:48] LABS: Bedside Glucose 82 mg/dL (74-106)
[2024-07-20 06:00] VITALS: PULSE 77; RESP 16
[2024-07-20] MEDS: Acetaminophen 500 MG Tablet 1000 MG PO (06:07)
--- NOTE | 2024-07-20 06:12 | NURSING ---
This nurse provided insulin teaching to patient 07/19/24 at . Patient verbalized understanding of education provided. Patient attempted teach-back demonstration, however it was unsuccessful d/t left wrist fracture-pain and swelling to the extremity. Dayshift RN to re-educate patient and daughter before discharging home today.
[2024-07-20 06:33] LABS: Bedside Glucose 135 mg/dL (74-106)
[2024-07-20 07:30] VITALS: TEMP 36.3
[2024-07-20] MEDS: Insulin Lispro 100 UNIT/ML INSULN.PEN 20 UNIT SC (07:33)
[2024-07-20] MEDS: Fluticasone/Salmeterol 232-14 Inhaler 1 PUFF INHALATION (07:33)
[2024-07-20] MEDS: APIXABAN 5 MG TABLET PO (07:34)
[2024-07-20] MEDS: Ascorbic Acid 500 MG Tablet PO (07:34)
[2024-07-20] MEDS: Pantoprazole Sodium 40 MG Tablet PO (07:34)
[2024-07-20] MEDS: Iron Polysaccharide Complex 150 MG CAPSULE PO (07:34)
[2024-07-20] MEDS: Menthol/Lanolin/Calamine/Znox 113 GM Tube 1 APPLIC TOPICAL (07:37)
[2024-07-20 10:18] VITALS: BP 98/55; PULSE 91
[2024-07-20 10:26] VITALS: PULSE 91
--- NOTE | 2024-07-20 10:27 | NURSING ---
dr pollack notified of pt low BP, pt asymptomatic. new order to hold lopressor this AM. pt updated and agreeable.
[2024-07-20 11:38] LABS: Bedside Glucose 92 mg/dL (74-106)
--- NOTE | 2024-07-20 12:52 | NURSING ---
attempted to teach insulin administration to daughter and son in law. Reviewed how to place needle on insulin pen, demonstrated. asked both if they would like to practice, both declined. Son in law stated he has given injections before.
== END 2024-07-20 12:54 | disposition home health service (06) | DRG 309 ==
PROVIDERS: Admitting Provider Family Medicine Geriatric Medicine; PCP Family Medicine; Visit Provider Family Medicine Geriatric Medicine
DX: I48.91 Unspecified atrial fibrillation (principal); I24.89 Other forms of acute ischemic heart disease; K26.9 Duodenal ulcer, unspecified as acute or chronic, without hemorrhage or perforation; S91.302A Unspecified open wound, left foot, initial encounter; E11.9 Type 2 diabetes mellitus without complications; D50.9 Iron deficiency anemia, unspecified; I10 Essential (primary) hypertension; J45.909 Unspecified asthma, uncomplicated; I34.0 Nonrheumatic mitral (valve) insufficiency; E78.5 Hyperlipidemia, unspecified; I25.10 Atherosclerotic heart disease of native coronary artery without angina pectoris; S62.122A Displaced fracture of lunate [semilunar], left wrist, initial encounter for closed fracture; M19.032 Primary osteoarthritis, left wrist; Z79.01 Long term (current) use of anticoagulants; Z79.899 Other long term (current) drug therapy; X58.XXXA Exposure to other specified factors, initial encounter; Y92.129 Unspecified place in nursing home as the place of occurrence of the external cause
CPT/HCPCS: 36415; 73110; 80048; 80061; 82962; 83036; 84550; 85025; 85652; 86140; 97110; 97112; 97116; 97162; 97166; 97530; 97535; 97802; A4216

== ENCOUNTER → 2024-07-07 | Outpatient (CLI) | payer MEDICARE, BC, SELFPAY ==
--- NOTE | 2024-07-07 09:15 | MRI_ITS ---
PROCEDURE: UPPER EXT/NO JT/ WO; UPPER EXT JOINT ONLY(ROUTINE) 07/07/2024 REASON FOR EXAM: EDEMA Pain and swelling. TECHNIQUE: MRI of the left hand without contrast and MRI of the left wrist without contrast (combined dictation). COMPARISON: Left wrist study of 07/03/2024. FINDINGS Examination somewhat limited by patient motion. LEFT HAND: At least mild degenerative changes are seen throughout the fingers and 1st ray, including the 1st carpal-metacarpal and 1st metacarpophalangeal joints. No joint effusion is seen. No erosive process is evident. No acute osseous signal changes are seen. No tendon pathology is appreciated. LEFT WRIST: An incompletely healed and mildly displaced fracture of the mid to dorsal lunate bone is seen, with variable signal changes within. The fracture is best seen on sagittal images. A joint effusion is seen of the distal radioulnar joint, along with mild degenerative changes. Some degeneration of the TFCC is noted. No additional area of acute osseous signal changes are seen. No intrinsic ligament tear is clearly appreciated. [id number] degenerative changes are seen of the scaphoid trapezial trapezoidal joint, with mild degenerative changes elsewhere throughout the wrist. Normal appearance of the carpal tunnel is seen. No tendon pathology is identified. MRI/Upper Ext/No Jt/ wo IMPRESSION: 1. Incompletely healed and mildly displaced fracture of the left lunate bone. 2. Degenerative changes as described. Reading Location: [address]
--- NOTE | 2024-07-07 10:00 | MRI_ITS ---
PROCEDURE: UPPER EXT/NO JT/ WO; UPPER EXT JOINT ONLY(ROUTINE) 07/07/2024 REASON FOR EXAM: EDEMA Pain and swelling. TECHNIQUE: MRI of the left hand without contrast and MRI of the left wrist without contrast (combined dictation). COMPARISON: Left wrist study of 07/03/2024. FINDINGS Examination somewhat limited by patient motion. LEFT HAND: At least mild degenerative changes are seen throughout the fingers and 1st ray, including the 1st carpal-metacarpal and 1st metacarpophalangeal joints. No joint effusion is seen. No erosive process is evident. No acute osseous signal changes are seen. No tendon pathology is appreciated. LEFT WRIST: An incompletely healed and mildly displaced fracture of the mid to dorsal lunate bone is seen, with variable signal changes within. The fracture is best seen on sagittal images. A joint effusion is seen of the distal radioulnar joint, along with mild degenerative changes. Some degeneration of the TFCC is noted. No additional area of acute osseous signal changes are seen. No intrinsic ligament tear is clearly appreciated. Qrlp-[id number] degenerative changes are seen of the scaphoid trapezial trapezoidal joint, with mild degenerative changes elsewhere throughout the wrist. Normal appearance of the carpal tunnel is seen. No tendon pathology is identified. MRI/Upper Ext Joint Only(Routine) IMPRESSION: 1. Incompletely healed and mildly displaced fracture of the left lunate bone. 2. Degenerative changes as described. Reading Location: [address]
== END | disposition home or self-care (01) ==
PROVIDERS: PCP Family Medicine; Referring Provider Family Medicine Geriatric Medicine; Visit Provider Family Medicine Geriatric Medicine
DX: R60.9 Edema, unspecified (principal)
CPT/HCPCS: 73218; 73221

== ENCOUNTER 2024-08-26 11:08 | Emergency (ER) | payer MEDICARE, BC, SELFPAY ==
[2024-08-26 11:09] VITALS: BP 141/96; PULSE 69; RESP 19; TEMP 36.6; O2SAT 100
[2024-08-26 11:13] VITALS: BMI 29.7
[2024-08-26 11:44] VITALS: BP 144/77; PULSE 105; RESP 18; TEMP 37; O2SAT 98
--- NOTE | 2024-08-26 11:45 | ED.RN ---
this nurse was in room changing pt brief when this nurse noticed a 6cm long stage 2 pressure ulcer on pt coccyx with a 1cm area of broken skin. no drainage or bleeding at this time. pt states area is sore. this nurse washed area with warm water and soap, dried well and applied barrier cream to area. this nurse put a new brief on pt and positioned to comfort.
--- NOTE | 2024-08-26 11:51 | CT_ITS ---
PROCEDURE: CT BRAIN/HEAD WITHOUT CONTRAST 08/26/2024 REASON FOR EXAM: HEAD INJURY TECHNIQUE: Contiguous axial scans of 3.75 mm slice thicknesses with sagittal and coronal reconstruction images. One or more dose reduction techniques were utilized (e.g., automated exposure control, adjustment of mA and/or kv according to patient size, use of iterative reconstruction technique). RADIATION DOSE SUMMARY: DLP: 1351.50 mGycm COMPARISON: No relevant prior. FINDINGS: Cerebrum: No intraparenchymal hemorrhage. No abnormal areas of encephalomalacia. No mass effect or midline shift. Hopkins-white matter differentiation is normal. Ventricles and cisterns: Appropriate size for patient's age. Age-appropriate senescent change Extra-axial fluid: Unremarkable. Posterior fossa: Unremarkable cerebellum. No abnormalities involving the brainstem. Paranasal sinuses: Normal. Vasculature: Vertebrobasilar atherosclerotic calcific disease. Mastoid air cells: unremarkable. Calvarium: Unremarkable. Soft tissues: Unremarkable. . CT/Brain/Head without Contrast IMPRESSION: No acute intracranial findings. Age-appropriate senescent change. Reading Location: [facility]
--- NOTE | 2024-08-26 11:51 | RAD_ITS ---
EXAM: XR Chest, 2 Views CLINICAL INDICATION: WEAKNESS, COUGH TECHNIQUE: Frontal and lateral views of the chest. COMPARISON: No relevant prior studies available. FINDINGS: LUNGS AND PLEURAL SPACES: Unremarkable. No consolidation. No pneumothorax. HEART: Unremarkable. No cardiomegaly. MEDIASTINUM: Unremarkable. Normal mediastinal contour. BONES/JOINTS: Unremarkable. No acute fracture. RAD/Chest PA and Lateral IMPRESSION: No acute cardiopulmonary process. Reading Location: [facility]
--- NOTE | 2024-08-26 11:51 | CT_ITS ---
PROCEDURE: SPINE CERVICAL WITHOUT CONTRAS 08/26/2024 REASON FOR EXAM: HEAD INJURY TECHNIQUE: Contiguous axial scans of 1.25 mm slice thicknesses without intravenous contrast. Sagittal and coronal reconstruction images were also obtained. One or more dose reduction techniques were used (e.g., Automated exposure control, adjustment of the mA and/or kV according to patient size, use of iterative reconstruction technique). RADIATION DOSE SUMMARY: DLP: 1351.50 mGycm COMPARISON: No relevant prior FINDINGS: Vertebra: Vertebral bodies normal in height. Cystic changes are scattered throughout the cervical vertebral bodies, more prevalent in C2. Multilevel spondylosis. C1-C2: Severe degenerative arthritic changes are noted with marked cystic changes involving C2. Alignment: Grade 1 anterolisthesis of C2 on C3 by approximately 4 mm. Grade 1 anterolisthesis of C3 on C4 by approximately 4 mm. Grade 1 retrolisthesis of C5 on C6 by approximately 5 mm. Marked reversal of the cervical lordosis at C4-C5. Discs: Severe degenerative disc space narrowing at C4-5 and C5-6. Mild disc space narrowing at C3-C4. Foramens: [id number] bilateral facet arthropathy. Soft tissues: Unremarkable. Atherosclerotic calcific disease of the carotids. CT/Spine Cervical without Contras IMPRESSION: 1. Grade 1 anterolisthesis of C2 on C3 and C3 on C4 likely degenerative. 2. Grade 1 retrolisthesis of C5 on C6 most likely degenerative. 3. Reversal of the cervical lordosis at C4-C5. 4. Multilevel spondylosis. 5. Cystic changes throughout the cervical vertebral bodies most likely degener ative. Can not exclude a neoplastic process. 6. Multilevel degenerative disc disease. Reading Location: [facility]
--- NOTE | 2024-08-26 11:51 | EKG12_ITS ---
Test Reason : WEAKNESS Blood Pressure : */* mmHG Vent. Rate : 89 BPM Atrial Rate : 256 BPM P-R Int : * ms QRS Dur : 104 ms QT Int : 404 ms P-R-T Axes : 260 -5 68 degrees QTcB Int : 491 ms Atrial flutter with variable A-V block Prolonged QT Abnormal ECG Confirmed by Deshaun Perdue ([id number]), society editor [place]A [place] ([id number]) on 08/29/2024 11:58:05 AM Referred By: Yoan Lam Confirmed By: Deshaun Perdue
--- NOTE | 2024-08-26 11:52 | RAD_ITS ---
EXAM: XR Pelvis, 1 or 2 Views CLINICAL INDICATION: PAIN, FALL TECHNIQUE: Frontal view of the pelvis. COMPARISON: No relevant prior studies available. FINDINGS: BONES/JOINTS: Mild degenerative changes of the hip joints, bilaterally. Degenerative changes of the pubic symphysis. No acute fracture. No dislocation. SOFT TISSUES: Unremarkable. RAD/Pelvis 1 or 2 Views IMPRESSION: Degenerative changes as above. Reading Location: [facility]
[2024-08-26 11:58] LABS: Bacteria 0 SEEN /hpf (None Seen); Mucous, Urine 0 SEEN /hpf (<or=2+); Squamous Epithelial Cells - UA 0 SEEN /hpf (0-5)
[2024-08-26 12:00] LABS: Color, Urine Straw (Yellow); Glucose, Dipstick Normal (Normal); Ketone-Dipstick Negative (Negative); Leukocyte Esterase-Dipstick Negative /ul (Negative); Nitrite-Dipstick Negative (Negative); Occult Blood-Urine 150 /ul (Negative); Protein-Dipstick 30 mg/dl (Negative); Urine Bilirubin Dipstick Negative (Negative); Urine Clarity Clear (Clear); Urine Urobilinogen Normal (Normal)
--- NOTE | 2024-08-26 12:02 | EX.ED.DYSGE1 ---
HPI <ESCOBAR Snyder - Last Filed: 08/26/24 19:47> History of Present Illness Chief Complaint: Weakness Narrative Narrative: Patient presenting today with his son-in-law due to concerns for generalized weakness and excessive fatigue that has progressively been worsening over the past 4 days. He was recently in TCU due to weakness, his symptoms did not improve and he is now staying with his daughter and son-in-law. He has PT/OT 3 to 4 days a week. However, over the last several days he has been unable to participate in therapy due to his weakness. He did have a mechanical fall a few days ago which resulted in him hitting his head against the ground, no LOC occurred. He is on Eliquis due to a history of A-fib. This morning, he was found on the ground next to his bed, he is unsure how he fell or how long he was on the ground. He reports pain to his right groin and a skin tear to his left forearm. His tetanus is up-to-date. Son-in-law also reports he has been intermittently confused. He is not currently confused. He denies any recent fevers, chills, cough, abdominal pain, chest pain, shortness of breath, nausea, or vomiting. 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 Home Medications ?Medication ?Instructions ?Recorded ?Last Taken ?Type ascorbic acid (vitamin C) 500 mg 500 mg PO DAILY vitamin #0 tabs 01/22/24 Unknown Rx tablet pantoprazole 40 mg tablet,delayed 40 mg PO BID reflux 30 days #60 01/22/24 Unknown Rx release tabs polysaccharide iron complex 150 mg 150 mg PO DAILY supplement 30 days 01/22/24 Unknown Rx iron capsule (Ferrex) #30 caps apixaban 5 mg tablet (Eliquis) 2.5 mg PO BID blood thinner 06/21/24 Unknown History acetaminophen 500 mg tablet 1,000 mg (2 x 500 mg) PO Q8 #0 tabs 07/14/24 Unknown Rx fluticasone 232 mcg-salmeterol 14 1 inh inhalation Q12 #0 ea 07/14/24 Unknown Rx mcg/actuation breath activated powdr menthol 0.44 %-zinc oxide 20.6 % 1 applic topical BID #0 grams 07/14/24 Unknown Rx topical ointment (Calmoseptine) metoprolol tartrate 50 mg tablet 50 mg PO BID #0 tabs 07/14/24 Unknown Rx sennosides 8.6 mg-docusate sodium 2 tab PO BID #0 tabs 07/14/24 Unknown Rx 50 mg tablet (Stimulant Laxative Plus) needle (disp) 31 gauge 31 gauge x #100 ea 07/20/24 Unknown Rx 5/16 apple cider vinegar PO 08/26/24 Unknown History ascorbic acid-collagen PO 08/26/24 Unknown History calcium carb-magnesium oxide-vit See Rx Instructions PO .COMPLEX 08/26/24 Unknown History D3 200 mg-100 mg-100 unit capsule cinnamon bark 500 mg capsule 500 mg PO BID 08/26/24 Unknown History docusate sodium 100 mg capsule 100 mg PO DAILY 08/26/24 Unknown History (Colace) furosemide 20 mg tablet 20 mg PO DAILY 08/26/24 Unknown History glimepiride 4 mg tablet 4 mg PO DAILY 08/26/24 Unknown History omega-3 fatty acids 1,000 mg PO BID 08/26/24 Unknown History rosuvastatin 10 mg tablet 10 mg PO DAILY 08/26/24 Unknown History vitamin A-vitamin C-vit E-min 1 tab PO DAILY 08/26/24 Unknown History tablet Allergy/AdvReac Type Severity Reaction Status Date / Time sulfamethoxazole (From AdvReac Nausea Verified 08/26/24 11:09 Bactrim) trimethoprim (From Bactrim) AdvReac Nausea Verified 08/26/24 11:09 Surgical History 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 Social History household members: family and none housing: house Smoking Status: Never smoker alcohol intake: never substance use type: does not use ROS <ESCOBAR Snyder - Last Filed: 08/26/24 19:47> ROS ED Constitutional Constitutional ED: Denies chills or fever(s) Cardiovascular Cardiovascular: Denies chest pain Respiratory/Chest Respiratory/Chest: Denies cough or dyspnea Gastrointestinal Gastrointestinal: Denies abdominal pain, constipation, diarrhea, nausea or vomiting Genitourinary Genitourinary ED: Reports urinary frequency; Denies dysuria or hematuria Musculoskeletal Musculoskeletal: Reports other Details: Right groin pain, denies neck pain. He has chronic back pain at baseline that has not been any worse. Integumentary Reports other Details: Skin tear left forearm Neurologic Neurologic: Reports confusion and weakness EXAM <ESCOBAR Snyder - Last Filed: 08/26/24 19:47> Physical Exam Const Vital Signs: 08/26/24 11:09 08/26/24 11:44 08/26/24 11:44 Temperature 97.9 F 98.6 F Temperature Source Oral Oral Pulse Rate 69 105 H Respiratory Rate 19 H 18 Respiratory Effort Normal Non-Labored Respiratory Pattern Normal Blood Pressure 141/96 H 144/77 H Blood Pressure Mean 111 99 Pulse Ox 100 98 Oxygen Delivery Method Room Air Room Air 08/26/24 12:13 08/26/24 13:00 08/26/24 15:11 Temperature 98.1 F 98.1 F 98.1 F Temperature Source Oral Oral Pulse Rate 100 97 100 Respiratory Rate 16 18 20 H Respiratory Effort Respiratory Pattern Blood Pressure 121/70 H 149/87 H 152/94 H Blood Pressure Mean 87 107 113 Pulse Ox 98 97 98 Oxygen Delivery Method Room Air Room Air 08/26/24 17:00 Temperature Temperature Source Pulse Rate 105 H Respiratory Rate 19 H Respiratory Effort Respiratory Pattern Blood Pressure 152/96 H Blood Pressure Mean 114 Pulse Ox 98 Oxygen Delivery Method Room Air Positive well nourished, well developed and no apparent distress General Appearance ED: well developed HEENT Reports normocephalic and head/scalp atraumatic Mouth ED: Yes moist mucous membranes normal Eyes PERRL and EOMs intact bilaterally Neck full ROM and supple Neck Narrative: No midline cervical tenderness Chest Wall inspection of chest normal Resp normal respiratory effort and clear to auscultation bilaterally Cardio regular rate and regular rhythm GI soft to palpation, non-tender, non-distended and no masses Back/Spine normal ROM and normal to inspection Extremity normal to inspection and full ROM Extremity Narrative: Negative logroll to the right, minimal pain to palpation to the right groin, no masses palpated, no overlying skin changes, warmth, or signs of infection, no rash Neuro oriented x3, CN's II-XII intact bilaterally, moves all extremities, no focal motor deficits and no sensory deficits noted Sensorium / Orientation: awake and alert Psych mental status grossly normal and thought process normal Skin Skin Narrative: Small skin tear to the left forearm with no surrounding erythema, warmth, or signs of infection Small abrasion to the right side of the forehead Multiple small chronic abrasions/wounds to the bilateral anterior lower extremities that do not appear infected <Dr. Yoan Lam DO - Last Filed: 08/26/24 17:05> Physical Exam Const Vital Signs: 08/26/24 11:09 08/26/24 11:44 08/26/24 11:44 Temperature 97.9 F 98.6 F Temperature Source Oral Oral Pulse Rate 69 105 H Respiratory Rate 19 H 18 Respiratory Effort Normal Non-Labored Respiratory Pattern Normal Blood Pressure 141/96 H 144/77 H Blood Pressure Mean 111 99 Pulse Ox 100 98 Oxygen Delivery Method Room Air Room Air 08/26/24 12:13 08/26/24 13:00 08/26/24 15:11 Temperature 98.1 F 98.1 F 98.1 F Temperature Source Oral Oral Pulse Rate 100 97 100 Respiratory Rate 16 18 20 H Respiratory Effort Respiratory Pattern Blood Pressure 121/70 H 149/87 H 152/94 H Blood Pressure Mean 87 107 113 Pulse Ox 98 97 98 Oxygen Delivery Method Room Air Room Air 08/26/24 17:00 Temperature Temperature Source Pulse Rate 105 H Respiratory Rate 19 H Respiratory Effort Respiratory Pattern Blood Pressure 152/96 H Blood Pressure Mean 114 Pulse Ox 98 Oxygen Delivery Method Room Air [facility] <ESCOBAR Snyder - Last Filed: 08/26/24 19:47> [facility] Narrative Medical decision making narrative: Patient presenting today due to generalized weakness and fatigue that has been ongoing over the past 3 to 4 days. He is currently staying with his daughter and son-in-law receiving PT/OT 3 to 4 days a week. He has been unable to participate in therapy over the last several days due to his weakness and fatigue. He does report having a mechanical fall a few days ago that resulted in a head injury and right groin pain. X-ray of the pelvis will be obtained to assess for fracture. Broad workup will be obtained to assess for leukocytosis, anemia, electrolyte abnormality, CARMEN, rhabdomyolysis, UTI. Chest x-ray to be obtained to assess for pneumonia, head CTs/cervical spine CT to assess for intracranial bleed/abnormality, and neck fracture. EKG will be obtained to assess for arrhythmia. CT imaging of the head negative for acute findings, he does have degenerative changes in his C-spine, there are cystic changes most likely degenerative but neoplastic process cannot be excluded. Chest x-ray and pelvic x-ray negative for fracture. His CPK is elevated, he has been given IV fluids. I do feel he would benefit from admission to the hospital, he is also agreeable with placement for rehab. After speaking with Dr. Craig he will be admitted in stable condition. When the hospitalist examined the patient, he did admit to weakness to his right leg. During my initial exam, he did not report any focal weakness, he just reported that he was generally weak. I did reexamine him, he is able to plantarflex and dorsiflex his right foot but he is not able to lift his right leg off the bed. Otherwise compartments in his leg are soft, he is neurovascularly intact. He has slight erythema to the medial aspect of his mid R thigh, no leukocytosis. Hospitalist did request that he be given an antibiotic to cover for early cellulitis, he was given IV Unasyn. Additionally, he has had urinary frequency over the last several days that is resulting in incontinence, hospitalist requested a CT scan of the abdomen/pelvis/lumbar spine given these findings. CT scan of the lumbar spine shows subacute fracture of the left iliac crest, there is degenerative changes, abdomen/pelvis CT shows a retroperitoneal hematoma. Is unclear whether or not there is active bleeding to this hematoma, after speak with the hospitalist she feels that patient would benefit from transfer to a trauma facility. I did speak with Dr. Zarate from [facility], he is agreeable with transfer. Patient will go ED to ED and will be transferred in stable condition. Both patient and his family are comfortable with this plan. Lab Data Attestation: I reviewed the patient's lab results. Lab results narrative: CBC shows a stable hemoglobin at 10, sodium 131, creatinine 1.26, BUN 44, CPK 702, UA negative for UTI Labs: Laboratory Results - last 24 hr 08/26/24 11:37 WBC 10.4 RBC 3.76 L Hgb 10.0 L Hct 31.9 L MCV 84.8 MCH 26.6 L MCHC 31.3 L RDW Std Deviation 53.5 H RDW Coeff of Gavin 17.2 H Plt Count 257 MPV 10.3 Immature Gran % (Auto) 0.500 Neut % (Auto) 77.1 H Lymph % (Auto) 8.3 L [place] % (Auto) 13.0 H Eos % (Auto) 0.7 Baso % (Auto) 0.4 Absolute Neuts (auto) 8.0 H Absolute Lymphs (auto) 0.86 Nucleated RBC % 0 Sodium 131 L Potassium 4.9 Chloride 97 L Carbon Dioxide 22.8 Anion Gap 11 BUN 44 H Creatinine 1.26 H Estim Creat Clear Calc 51.99 Est GFR (MDRD) Non-Af 57 L BUN/Creatinine Ratio 35.0 H Glucose 243 H Calcium 9.4 Total Creatine Kinase 702 H Urine Color Straw Urine Clarity Clear Urine pH 6.0 Ur Specific Siler 1.010 Urine Protein 30 H Urine Glucose (UA) Normal Urine Ketones Negative Urine Occult Blood 150 H Urine Nitrite Negative Urine Bilirubin Negative Urine Urobilinogen Normal Ur Leukocyte Esterase Negative Urine RBC 0-5 SEEN Urine WBC 0-5 SEEN Ur Squamous Epith Cells 0 SEEN Urine Bacteria 0 SEEN Urine Mucus 0 SEEN ABG Data ABG results: ABG 08/26/24 12:37 Specimen Type ANTWON Sample Site Not entered VBG pH 7.43 H VBG pO2 73 H VBG HCO3 24 VBG Total CO2 25 VBG O2 Sat (Calc) 95 H VBG Base Excess -1 POC Mix VBG pCO2 Pt Tmp 35.5 L O2 Delivery Device Not entered Radiography X-Ray: Read by ED Physician Diagnostic Testing: Clinical Impression(s) from Imaging Studies Brain CT 08/26/24 11:51 IMPRESSION: No acute intracranial findings. Age-appropriate senescent change. Reading Location: [facility] Cervical Spine CT 08/26/24 11:51 IMPRESSION: 1. Grade 1 anterolisthesis of C2 on C3 and C3 on C4 likely degenerative. 2. Grade 1 retrolisthesis of C5 on C6 most likely degenerative. 3. Reversal of the cervical lordosis at C4-C5. 4. Multilevel spondylosis. 5. Cystic changes throughout the cervical vertebral bodies most likely degenerative. Can not exclude a neoplastic process. 6. Multilevel degenerative disc disease. [facility] Chest X-Ray 08/26/24 11:51 IMPRESSION: No acute cardiopulmonary process. Reading Location: [facility] Pelvis X-Ray 08/26/24 11:52 IMPRESSION: Degenerative changes as above. Reading Location: [facility] Abdomen/Pelvis CT 08/26/24 16:15 IMPRESSION: 1. Asymmetric enlargement right psoas and iliacus muscles with hypodensity insight to and moderate surrounding soft tissue stranding, concerning for a right retroperitoneal hematoma. No large drainable collection. 2. Bilateral nonobstructing calculi, without hydronephrosis. 3. Colonic diverticulosis without diverticulitis. 4. Extensive colonic stool with fecal impaction. Reading Location: [facility] Lumbar Spine CT 08/26/24 16:15 IMPRESSION: 1. Subacute fracture left superior iliac crest. Otherwise, no acute fracture or traumatic subluxation. 2. Postoperative changes as described above. 3. Multilevel degenerative changes, most prominent at L4-L5. Reading Location: [facility] EKG Initial EKG: Comments: 89 bpm, atrial flutter, no ST elevation, interpreted by attending ED physician <Dr. Yoan Lam, DO - Last Filed: 08/26/24 17:05> [facility] Lab Data Labs: Laboratory Results - last 24 hr 08/26/24 11:37 WBC 10.4 RBC 3.76 L Hgb 10.0 L Hct 31.9 L MCV 84.8 MCH 26.6 L MCHC 31.3 L RDW Std Deviation 53.5 H RDW Coeff of Gavin 17.2 H Plt Count 257 MPV 10.3 Immature Gran % (Auto) 0.500 Neut % (Auto) 77.1 H Lymph % (Auto) 8.3 L [place] % (Auto) 13.0 H Eos % (Auto) 0.7 Baso % (Auto) 0.4 Absolute Neuts (auto) 8.0 H Absolute Lymphs (auto) 0.86 Nucleated RBC % 0 Sodium 131 L Potassium 4.9 Chloride 97 L Carbon Dioxide 22.8 Anion Gap 11 BUN 44 H Creatinine 1.26 H Estim Creat Clear Calc 51.99 Est GFR (MDRD) Non-Af 57 L BUN/Creatinine Ratio 35.0 H Glucose 243 H Calcium 9.4 Total Creatine Kinase 702 H Urine Color Straw Urine Clarity Clear Urine pH 6.0 Ur Specific Siler 1.010 Urine Protein 30 H Urine Glucose (UA) Normal Urine Ketones Negative Urine Occult Blood 150 H Urine Nitrite Negative Urine Bilirubin Negative Urine Urobilinogen Normal Ur Leukocyte Esterase Negative Urine RBC 0-5 SEEN Urine WBC 0-5 SEEN Ur Squamous Epith Cells 0 SEEN Urine Bacteria 0 SEEN Urine Mucus 0 SEEN ABG Data ABG results: ABG 08/26/24 12:37 Specimen Type ANTWON Sample Site Not entered VBG pH 7.43 H VBG pO2 73 H VBG HCO3 24 VBG Total CO2 25 VBG O2 Sat (Calc) 95 H VBG Base Excess -1 POC Mix VBG pCO2 Pt Tmp 35.5 L O2 Delivery Device Not entered Radiography Diagnostic Testing: Clinical Impression(s) from Imaging Studies Brain CT 08/26/24 11:51 IMPRESSION: No acute intracranial findings. Age-appropriate senescent change. Reading Location: [facility] Cervical Spine CT 08/26/24 11:51 IMPRESSION: 1. Grade 1 anterolisthesis of C2 on C3 and C3 on C4 likely degenerative. 2. Grade 1 retrolisthesis of C5 on C6 most likely degenerative. 3. Reversal of the cervical lordosis at C4-C5. 4. Multilevel spondylosis. 5. Cystic changes throughout the cervical vertebral bodies most likely degenerative. Can not exclude a neoplastic process. 6. Multilevel degenerative disc disease. Reading Location: [facility] Chest X-Ray 08/26/24 11:51 IMPRESSION: No acute cardiopulmonary process. Reading Location: [facility] Pelvis X-Ray 08/26/24 11:52 IMPRESSION: Degenerative changes as above. Reading Location: [facility] Abdomen/Pelvis CT 08/26/24 16:15 IMPRESSION: 1. Asymmetric enlargement right psoas and iliacus muscles with hypodensity insight to and moderate surrounding soft tissue stranding, concerning for a right retroperitoneal hematoma. No large drainable collection. 2. Bilateral nonobstructing calculi, without hydronephrosis. 3. Colonic diverticulosis without diverticulitis. 4. Extensive colonic stool with fecal impaction. Reading Location: [facility] Lumbar Spine CT 08/26/24 16:15 IMPRESSION: 1. Subacute fracture left superior iliac crest. Otherwise, no acute fracture or traumatic subluxation. 2. Postoperative changes as described above. 3. Multilevel degenerative changes, most prominent at L4-L5. Reading Location: [facility] Treatment and Re-Evaluation :: I have personally performed a face to face assessment of the patient and have reviewed the SAE Note. I performed a substantive portion of the visit including all aspects of the following. My fatima findings include: History: Patient presents with generalized weakness that has been getting worse over the past 4 days. Family states it is gradually getting worse. Family states patient is unable to ambulate now. Family states patient has been having some cramping and spasms of his right hip. Patient states nothing makes it better nothing makes it worse. Family states patient has been having some urinary frequency but only urinates a small amount. Family states patient has been having some urinary incontinence. Family denies any fevers or chills. Exam: Vital signs are stable. Patient is afebrile. Patient is in no acute distress. Oral mucosa is pink and moist. Neck is supple. Trachea is midline. There is no JVD. Heart was regular rate and rhythm. Lungs are clear and equal bilaterally. Abdomen is soft. Bowel sounds are normal. There is no tenderness. Patient falls asleep easily on exam. Patient does wake And respond to verbal stimuli. Medical Decision Making: Differential diagnosis includes pneumonia, bronchitis, urinary tract infection, sepsis, rhabdomyolysis, and generalized weakness. CBC will be obtained to assess for leukocytosis and anemia. Basic metabolic profile will be obtained to assess for electrolyte abnormality and renal function. Total CPK will be obtained to assess for rhabdomyolysis. Urinalysis will be obtained to assess for urinary tract infection and hematuria. Chest x-ray will be obtained to assess for pneumonia or bronchitis. CT scan of the brain will be obtained to assess for stroke. EKG will be obtained to assess for cardiac dysrhythmia and cardiac ischemia. CBC was reviewed. There is a mild anemia with a hemoglobin of 10.0 and hematocrit 31.9. Basic metabolic profile was reviewed. BUN was slightly elevated at 44 and creatinine was 1.26. This is consistent with previous results. Total CPK was reviewed and was elevated at 702. VBG was obtained. pH is 7.43, PO2 was 73, oxygen saturation was 95%. Bicarb was 24 and pCO2 was 35.5. Urinalysis was reviewed. There is no evidence of urinary tract infection or hematuria. Case was discussed with the hospitalist. She was in to evaluate the patient. She noted that the patient was having right leg weakness. Because of this, CT scan of the brain was added on. She also was informed that the patient was having some redness and swelling to his right leg. CT scan of the cervical spine was obtained to assess for neuropathy. X-rays of the pelvis were obtained to assess for pelvic fracture. Patient will be admitted to the hospital. Patient and family understand and are agreeable with the plan. All questions were answered. Discharge Plan Triage Chief Complaint: Weakness ED Midlevel Provider: Chaya Fulton ED Provider: Yoan Lam Dx/Rx/DC Orders Clinical Impression: Debility, Difficulty walking, Head injury, Elevated CPK, Fall, Retroperitoneal hematoma Prescriptions: No Action ascorbic acid (vitamin C) 500 mg Tablet 500 mg PO DAILY Qty: 0 0RF polysaccharide iron complex [Ferrex 150] 150 mg iron Capsule 150 mg PO DAILY 30 Days Qty: 30 0RF pantoprazole 40 mg Tablet,Delayed Release (Dr/Ec) 40 mg PO BID 30 Days Qty: 60 0RF Eliquis 5 mg Tablet 2.5 mg PO BID acetaminophen 500 mg Tablet 1,000 mg PO Q8 Qty: 0 0RF menthol-zinc oxide [Calmoseptine] 0.44-20.6 % Ointment 1 applic topical BID Qty: 0 0RF Protocol: *Topical Application Instructions APPLICATION INSTRUCTIONS: Apply to b/l buttocks fluticasone propion-salmeterol 232-14 mcg/actuation Aerosol Powdr Breath Activated 1 inh inhalation Q12 Qty: 0 0RF sennosides-docusate sodium [Stimulant Laxative Plus] 8.6-50 mg Tablet 2 tab PO BID Qty: 0 0RF metoprolol tartrate 50 mg Tablet 50 mg PO BID Qty: 0 0RF (DME) needle (disp) 31 gauge 31 gauge x 5/16 needle See Rx Instructions .Route Qty: 100 0RF Rx Instructions: As directed furosemide 20 mg tablet 20 mg PO DAILY rosuvastatin 10 mg tablet 10 mg PO DAILY glimepiride 4 mg tablet 4 mg PO DAILY vitamin A-vitamin C-vit E-min Tablet 1 tab PO DAILY calcium carb-mag oxide-vit D3 200-100-100 mg-mg-unit capsule See Rx Instructions PO .COMPLEX Rx Instructions: 500 mg orally; omega-3 fatty acids Capsule 1,000 mg PO BID apple cider vinegar PO ascorbic acid-collagen PO cinnamon bark 500 mg capsule 500 mg PO BID docusate sodium [Colace] 100 mg capsule 100 mg PO DAILY Primary Care Provider: Raghavendra Christian Referrals: Raghavendra Christian MD [Primary Care Provider] - Print Language: Icelandic Disposition Disposition: Acute Care Hospital Discharge Location: [facility] Discharge Date/Time: 08/26/24 19:01
[2024-08-26 12:07] LABS: Absolute Lymphocyte Count 0.86 X10^3/uL (0.83-4.51); Basophil# 0.04 X10^3/uL; Basophil% 0.4 % (0-1); Eosinophil# 0.07 X10^3/uL; Eosinophils% 0.7 % (0-5); Hematocrit 31.9 % (40-54); Lymphocyte # 0.86 X10^3/ul (0.83-4.51); Lymphocyte % 8.3 % (19-41); Mean Corp Hgb Conc 31.3 g/dL (32-36); Mean Corpuscular Hgb 26.6 pg (27.0-32.0); Mean Corpuscular Volume 84.8 fL (80-94); Mean Platelet Vol. 10.3 fl (6.2-12.0); Monocyte# 1.35 X10^3/uL; NRBC Flagged by Analyzer 0 % (0-5); Neutrophil # 7.98 X10^3/uL (2.7-7.7); Neutrophil % 77.1 % (47-70); Platelet Count 257 K/mm3 (150-450); RBC Distribution Width CV 17.2 % (11.6-14.6); RBC Distribution Width SD 53.5 fl (35.1-43.9); Red Blood Count 3.76 M/mm3 (4.6-6.2); White Blood Count 10.4 K/mm3 (4.4-11.0)
[2024-08-26 12:09] LABS: Red Blood Cells-Urine 0-5 SEEN /hpf (0-5); White Blood Cells 0-5 SEEN /hpf (0-5)
[2024-08-26 12:13] VITALS: BP 121/70; PULSE 100; RESP 16; TEMP 36.7; O2SAT 98
[2024-08-26] MEDS: 0.9% Normal Saline (500mL Bag) 500 ML IV (12:23)
[2024-08-26 12:40] LABS: Blood Gas Specimen Type VEN; O2 Delivery Device Not entered; SITE Not entered; VBG BASE EXCESS -1 mmol/L (-1.0-3.5); VBG Bicarbonate 24 mmol/L (22-26); VBG PO2 73 mmHg (25-40); VBG SO2 95 % (50-70); VBG TCO2 25 mmol/L (23-33); VBG pCO2 35.5 mmHg (41-51); VBG pH 7.43 (7.32-7.42)
[2024-08-26 13:00] VITALS: BP 149/87; PULSE 97; RESP 18; TEMP 36.7; O2SAT 97
[2024-08-26 14:25] LABS: Anion Gap 11 (5-15); BUN 44 mg/dL (4-19); CPK Total, Creatine Kinase 702 U/L (24-195); Calcium,Total 9.4 mg/dL (7.6-11.0); Carbon Dioxide 22.8 mmol/L (21.0-32.0); Chloride 97 mmol/L (98-108); Creatinine, Serum 1.26 mg/dL (0.70-1.20); EST Glomerular Filtration Rate 57 (>60); Estimated Creatinine Clearance 51.99 ml/min (50-250); Glucose 243 mg/dL (70-99); Potassium 4.9 mmol/L (3.3-5.1); Sodium Level 131 mmol/L (133-145)
[2024-08-26] MEDS: 0.9% Normal Saline (250mL Bag) 250 ML 999 ML IV (14:39)
[2024-08-26 15:11] VITALS: BP 152/94; PULSE 100; RESP 20; TEMP 36.7; O2SAT 98
[2024-08-26] MEDS: Ampicillin/Sulbactam 3 GM in 0.9% Normal Saline (100mL MB+) 100 ML IV (16:07)
--- NOTE | 2024-08-26 16:15 | CT_ITS ---
PROCEDURE: SPINE LUMBAR WITH CONTRAST REASON FOR EXAM: BACK PAIN . TECHNIQUE: Lumbar spine CT without contrast. One or more dose reduction techniques were used (e.g., Automated exposure control, adjustment of the mA and/or kV according to patient size, use of iterative reconstruction technique). COMPARISON: None. FINDINGS: Vertebrae: Postoperative changes L2-L3 bilateral posterior fusion, right L4 kalina fusion, and L3 laminectomy. Mild lucency involving the right L4 pedicle screw. Alignment: Straightening of the lumbar lordosis. Mild dextroscoliosis. Grade 1 anterolisthesis of L4 on L5. Vertebral body heights are maintained. Loss of disc space at L1-L2. Otherwise, disc spaces are maintained. No suspicious lytic or blastic lesion. No acute fracture or traumatic subluxation. Multilevel degenerative changes, including endplate remodeling, facet degenerative changes, vacuum phenomenon and disc bulges most prominent at L4-L5 with up to moderate canal stenosis and severe neural foraminal narrowing. Slightly corticated lucency involving the left superior iliac crest (series 4 image [id number]), likely secondary to a subacute fracture Bilateral degenerative changes of the SI joints. Fatty atrophy of the paraspinal musculature. Asymmetric fatty atrophy of the left iliopsoas muscle. CT/Spine Lumbar WITH Contrast IMPRESSION: 1. Subacute fracture left superior iliac crest. Otherwise, no acute fracture o r traumatic subluxation. 2. Postoperative changes as described above. 3. Multilevel degenerative changes, most prominent at L4-L5. Reading Location: [facility]
--- NOTE | 2024-08-26 16:15 | CT_ITS ---
PROCEDURE: ABDOMEN/PELVIS W IV CONT ONLY 08/26/2024 REASON FOR EXAM: ABDOMINAL PAIN TECHNIQUE: Abdomen and pelvis CT with intravenous contrast. Coronal and Sagittal reconstruction series were provided. PATIENT PREPARATION: Per protocol ORAL CONTRAST TYPE: None. AMOUNT: mL CONTRAST: Omnipaque 350 VOLUME: 100 mL Not Provided Gauge IV One or more dose reduction techniques were used (e.g., Automated exposure control, adjustment of the mA and/or kV according to patient size, use of iterative reconstruction technique. COMPARISON: CT abdomen and pelvis 12/30/2023 FINDINGS: Lung bases: [id number]-right patchy opacities, likely secondary to atelectasis. Dense mitral and tricuspid annular calcifications. Status post aortic replacement. Liver: Homogeneous attenuation. No focal lesion. Gallbladder: No ductal dilation. Gallbladder is unremarkable. Spleen: Normal size. Pancreas: Normal size without evidence of mass surrounding inflammation or ductal dilation. Adrenals: Unremarkable. Kidneys: Bilateral cortical lobulation. Homogeneous attenuation otherwise. Nonobstructing bilateral renal calculi the largest in the left inferior pole measures 10 mm. No hydronephrosis. Bladder: Urinary bladder is unremarkable. Reproductive Organs: Mild prostatomegaly. Bowel: Small hiatal hernia. The stomach is otherwise unremarkable. No bowel dilation colonic diverticulosis without diverticulitis. No significant wall thickening. Large amount of colonic stool with fecal impaction. Appendix: The appendix is not identified. There is no inflammatory process identified in the right lower quadrant to suggest appendicitis. Lymph nodes: No suspicious lymph node enlargement. Vasculature: Mild diffuse atherosclerotic calcifications are noted. Peritoneum / Retroperitoneum: Asymmetric enlargement of the right psoas and iliacus muscle with hypodensity and moderate surrounding soft tissue insight 2. (Series 2 images [id number]), concerning for retroperitoneal hematoma. No pneumoperitoneum. No ascites. Bones: Moderate scoliosis. Postoperative changes L2-L4 posterior fusion and L3 laminectomy. Moderate multilevel degenerative changes of the lumbar spine. Soft tissue: No focal soft tissue abnormality. CT/Abdomen/Pelvis W IV Cont ONLY IMPRESSION: 1. Asymmetric enlargement right psoas and iliacus muscles with hypodensity insi ght to and moderate surrounding soft tissue stranding, concerning for a right retroperitoneal hematoma. No large drainable collection. 2. Bilateral nonobstructing calculi, without hydronephrosis. 3. Colonic diverticulosis without diverticulitis. 4. Extensive colonic stool with fecal impaction. Reading Location: [facility]
[2024-08-26 17:00] VITALS: BP 152/96; PULSE 105; RESP 19; O2SAT 98
--- NOTE | 2024-08-26 19:04 | CM.ED ---
Social work [facility] Madhuri reached out to this SW via phone to update of patient's condition (ph: [phone]). Patient is currently active with [facility]. Per Madhuri, patient has fallen 4 times in the last 3-4 days, is not sleeping well, and is having nightmares. Also per Madhuri, patient is urinating every 10 minutes, is out of qualifying bed days for SNF care, patient's daughter has a recent injury which is leaving patient's son in law to be patient's primary caregiver. This SW entered patient's room, introducing self and role at [facility]. Patient was observed laying comfortably in bed with patient's daughter and son in law at bedside. Patient and patient's family denied current needs due to results still pending. Patient's son in law stated knowing there was something wrong due to patient's sudden decline in being able to participate in PT and OT at home. Patient's daughter stating being hopeful patient could be admitted at [facility] in order to find why patient's weakness is increasing. Active listening and supportive presence provided. Originally, the plan was to admit patient to [facility] acute following a CT of patient's pelvis. With this completed, patient was discovered to have a retroperitoneal hematoma and required transfer to [facility] for further assessment. [facility] Madhuri was updated via email. Courtney Lucas, FUNDRAISING DIRECTOR, CORRECTIONAL THERAPY DIRECTOR
== END 2024-08-26 19:01 | disposition short-term general hospital (02) ==
LOC: ED 12:39 → MS3 15:14
PROVIDERS: Physician Assistant; Emergency Provider Emergency Medicine; PCP Family Medicine; Referring Provider Emergency Medicine; Visit Provider Emergency Medicine
DX: S09.90XA Unspecified injury of head, initial encounter (principal); S32.302A Unspecified fracture of left ilium, initial encounter for closed fracture; I48.91 Unspecified atrial fibrillation; E11.9 Type 2 diabetes mellitus without complications; S51.802A Unspecified open wound of left forearm, initial encounter; R53.81 Other malaise; I10 Essential (primary) hypertension; E78.5 Hyperlipidemia, unspecified; S36.892A Contusion of other intra-abdominal organs, initial encounter; R53.1 Weakness; R26.2 Difficulty in walking, not elsewhere classified; Z79.01 Long term (current) use of anticoagulants; Z79.84 Long term (current) use of oral hypoglycemic drugs; Z79.899 Other long term (current) drug therapy; W19.XXXA Unspecified fall, initial encounter; Z95.1 Presence of aortocoronary bypass graft
CPT/HCPCS: 70450; 71046; 72125; 72132; 72170; 74177; 80048; 81001; 82550; 82803; 85025; 93005; 96365; 96366; 99283; Q9967; A4216; J0295